=== PATIENT | male | born 1955 | race Caucasian/White ===

== ENCOUNTER 2019-01-24 12:04 | Day surgery (SDC) | payer MEDICAID, SELFPAY ==
[2019-01-24] VITALS (7 sets, daily range): BP systolic 130–184; BP diastolic 80–98; PULSE 69–83; RESP 16–18; TEMP 36.5–37.2; O2SAT 96–98; BMI 30.1
--- NOTE | 2019-01-24 | COLBX_PTH ---
PATIENT: ANA TERESA V LOC: EN U#:[id number] AGE/SX: 63/M ROOM: RE01/24/[address]: Dr. Jewels Chavarria MD : [id number] BED: DIS: 01/24/2019 SPEC #: [id number] RECD: 01/24/19 14:18 STATUS: EPHRAIM ARNOL #: [id number] SEKOU: 01/24/19 00:[address]: Jewels Chavarria DEPT: SURGICAL PATHOLOGY RECD BY: Abdulkadir Whiting ENTERED: 01/24/19 14:18 SP TYPE: COLON BX OTHR DR: Dr. Que Mckay MD Tissues: A - COLON BIOPSY B - Sigmoid colon biopsy Procedures: Surgery Specimen Level IV HEADER OPERATION: Colonoscopy (MAC) PRE-OP DIAGNOSIS: Screening TISSUE SUBMITTED: A - Hepatic flexure biopsy, B - Sigmoid colon biopsy MICROSCOPIC DIAGNOSIS A. Hepatic flexure, biopsy: Tubular adenoma. B. Sigmoid colon, biopsy: Tubular adenoma. Fragments of fecal material. SJ:marli 01/25/19 MICROSCOPIC DESCRIPTION Slides are reviewed. GROSS DESCRIPTION A - Received in fixative is one container labeled with the patient's name and designated hepatic flexure. The specimen consists of one irregular fragment of pink soft tissue that measures 0.2 x 0.2 x 0.2 cm. The specimen is totally submitted in one cassette. B - Received in fixative is one container labeled with the patient's name and designated sigmoid colon polyp. The specimen consists of one irregular fragment of pink soft tissue that measures 0.1 x 0.1 x 0.1 cm. The specimen is totally submitted in one cassette. / CE:marli 01/24/19 TC:1 CPT: 65789 x2
--- NOTE | 2019-01-24 13:48 | OP.ENDO_ITS ---
01/24/2019 Que Mckay Re : Colonoscopy procedure for Jayson Garcia Woody This procedure was performed on Thursday, January 24, 2019. My impressions and recommendations are as follows: Impressions : - Diverticulosis in the sigmoid colon. - One 5 mm polyp at the hepatic flexure, removed with a hot snare. Resected and retrieved. - One 5 to 10 mm polyp in the sigmoid colon, removed with a hot snare. Resected and retrieved. - Non-bleeding internal hemorrhoids. Recommendations : - Repeat colonoscopy date to be determined after pending pathology results are reviewed for surveillance based on pathology results. - My office will telephone with pathology results in 1-2 weeks - Continue present medications. My findings are described in the full procedure note, which is enclosed. If I can be of further assistance, please feel free to contact me at Doctor phone number(s): , Work: . Sincerely, MD Jewels Butler MD 01/24/2019 1:47:34 PM This report has been signed electronically.
== END 2019-01-24 14:41 | disposition home or self-care (01) ==
LOC: EN 12:06 → AC 12:07
PROVIDERS: Family Provider Family Medicine; PCP Family Medicine; Referring Provider Family Medicine; Visit Provider Surgery
PROC: 0DJD8ZZ Inspection of Lower Intestinal Tract, Via Natural or Artificial Opening Endoscopic (ICD-10-PCS; CPT 45378; principal; 2019-01-24 13:10)
DX: Z12.11 Encounter for screening for malignant neoplasm of colon (principal); D12.3 Benign neoplasm of transverse colon; D12.5 Benign neoplasm of sigmoid colon; K31.4 Gastric diverticulum; K64.8 Other hemorrhoids; I10 Essential (primary) hypertension; I73.9 Peripheral vascular disease, unspecified; R25.1 Tremor, unspecified; F17.210 Nicotine dependence, cigarettes, uncomplicated; Z79.82 Long term (current) use of aspirin; Z79.899 Other long term (current) drug therapy
CPT/HCPCS: 45380; 88305; J7120

== ENCOUNTER 2020-03-06 11:15 | Emergency (ER) | payer MEDICAID, SELFPAY ==
[2019-01-24 12:27] VITALS: BMI 30.1
[2020-03-06 11:15] VITALS: BP 134/83; PULSE 78; RESP 18; TEMP 36.4; O2SAT 95; BMI 26.6
--- NOTE | 2020-03-06 11:31 | ED.VISSUMM ---
- ER Visit Summary Date of Service: 03/06/20 Chief Complaint: [Bilateral DVTs] History of Present Illness: The patient is a 64 M [presents to the emergency department due to outpatient ultrasounds performed today that showed bilateral DVTs. Patient states that he has been having some swelling in his feet and calves for about a month. He denies any chest pain or shortness of breath. He has no history of DVT. He denies any trauma to his legs. He denies recent travel or surgery. He denies recent illness. Patient really states that he has not gone anywhere over the last 2 months. Patient has history of hypertension and peripheral vascular disease.] Physical Examination: [HEENT-PERRLA, EOMI. Cranial nerves II through XII grossly intact. TMs clear. Mucous membranes moist. No adenopathy. Cardiovascular-regular rate and rhythm without murmur or ectopy Lungs-clear to auscultation, chest wall stable without crepitus or subcu emphysema Abdomen-normoactive bowel sounds, soft, nontender, no rebound or rigidity, no peritoneal signs. Extremities-intact ?4, normal range of motion, normal pulses, atraumatic. Patient has normal pulses in the femoral, popliteal, and dorsal pedal as well as posterior tibial arteries bilaterally. He has some varicose veins noted bilaterally. Mild discomfort in both calfs on palpation with positive Homans sign. No skin color changes noted. Normal cap refill. Test Results: [Venous Dopplers obtained of both lower extremities showed acute proximal DVT in the distal external iliac vein as well as in the common femoral vein and in the femoral vein from proximal to mid. Patient also had on the left side acute DVT in the distal external iliac vein as well as acute proximal DVT in the common femoral vein and thrombosis in the profundus femoral vein.] Emergency Department Course and Treatment: [Patient was started on Eliquis 10 mg] Treatment Plan: [Patient case was discussed with Dr. Hansen who was covering for Dr. Mckay. I was asked to send off a clotting profile and start patient on Eliquis.] Disposition: [Discharged home in stable condition] Impression: [Bilateral DVTs] This note was generated with [employer] software. It may contain incorrect words, spelling, and punctuation that were not noted in review of the chart prior to signing ED Disposition - Plan for ED Patient: Referrals: Que Mckay MD [Primary Care Provider] -
--- NOTE | 2020-03-06 12:23 | DCINST.ED_ITS ---
ED Disposition - Plan for ED Patient: Instructions: ED DVT Prescriptions: Apixaban [Eliquis] 5 mg PO BID #74 tab Transmission Status: Pending to [facility]/pharmacy #[id number] Referrals: Que Mckay MD [Primary Care Provider] - 3-5 Days
--- NOTE | 2020-03-06 12:23 | ED.DEP ---
ED Disposition - Plan for ED Patient: Instructions: ED DVT Prescriptions: Apixaban [Eliquis] 5 mg PO BID #74 tab Transmission Status: Pending to [facility]/pharmacy #[id number] Referrals: Que Mckay MD [Primary Care Provider] - 3-5 Days
[2020-03-06] MEDS: APIXABAN 5 MG TABLET 10 MG PO (13:12)
[2020-03-06 13:16] VITALS: BP 124/85; PULSE 58; RESP 21; O2SAT 97
[2020-03-16 20:07] LABS: Dilute Prothrombin Time (dPT) 35.6 sec (0.0-55.0); Dilute Russell Viper Venom 33.2 sec (0.0-47.0); PTT-LA 31.4 sec (0.0-51.9); Thrombin Time 19.5 sec (0.0-23.0); dPT Confirm Ratio 0.92 Ratio (0.00-1.40)
[2020-03-16 21:41] LABS: Anti-Cardiolipin Ab, IgG, Qn < 9 GPL U/mL (0-14); Anti-Cardiolipin Ab, IgM, Qn < 9 MPL U/mL (0-12); Antithrombin 3 Function 76 % (75-135); Beta-2-Glycoprotein I IgA <9 (0-25); Beta-2-Glycoprotein I IgG <9 (0-20); Beta-2-Glycoprotein I IgM <9 (0-32); Interpretation Comment: (.); Protein C Antigen 82 % (60-150); Protein S, Free 221 % (57-157); Protein S, Total 125 % (60-150)
== END 2020-03-06 13:16 | disposition home or self-care (01) ==
PROVIDERS: Emergency Provider Emergency Medicine; PCP Family Medicine
DX: I82.421 Acute embolism and thrombosis of right iliac vein (principal); I82.411 Acute embolism and thrombosis of right femoral vein; I82.422 Acute embolism and thrombosis of left iliac vein; I82.412 Acute embolism and thrombosis of left femoral vein; I10 Essential (primary) hypertension; I73.9 Peripheral vascular disease, unspecified; Z72.0 Tobacco use; Z79.899 Other long term (current) drug therapy
CPT/HCPCS: 81240; 81241; 85300; 85302; 85305; 85306; 86146; 86147; 99283; A4216

== ENCOUNTER 2021-05-08 08:50 | Emergency (ER) | payer MEDICAID, SELFPAY ==
[2021-05-08 08:51] VITALS: BP 121/89; PULSE 95; RESP 16; TEMP 36.7; O2SAT 100; BMI 23.4
--- NOTE | 2021-05-08 09:21 | ART_ITS ---
Reason For Study: Decreased pedal pulses Procedure A bilateral lower extremity continuous wave Doppler with analog waveform analysis,segmental pressures,and ankle brachial indexes without exercise. Left Segmental Pressures Left brachial= 121mmHg. The left dorsalis pedis waveforms are biphasic. The left posterior tibial artery waveforms are biphasic. Right Segmental Pressures Right posterior tibial artery = 0mmHg. Right dorsalis pedis artery = 0mmHg. The right dorsalis pedis waveform is absent. The right posterior tibial artery waveform is absent. The right popliteal artery waveform is absent. VL/Lower Ext Art Exam w/o Exercis Interpretation Summary Very limited examination No pulses identified in the right lower extremity so ankle-brachial indices and waveforms not obtainable Reported history of blood clots in the left leg making volume pulse recording s and pressure studies of the left leg not possible. Left posterior tibial and dorsalis pedis Doppler waveforms are biphasic which by themselves consistent with moderately severe disease Ordering Physician: Donita Jackson Referring Physician: Que Mckay Performed By: Cindy Gomes RVT
--- NOTE | 2021-05-08 11:00 | EDS_ITS ---
HPI History of Present Illness Chief Complaint: Lower Extremity Injury Informant: patient Onset/Context/Timing Onset: - (Acute on chronic) Context: Gradual Onset Current Severity: Moderate Maximum Severity: Moderate Narrative Narrative: Patient presents secondary to increased right leg pain for the past 3 days. He has a history of peripheral artery disease. He is currently on Eliquis. No recent injury. He is ambulating with his walker. [facility] Medical History (Updated 05/08/21 @ 11:[address] Donita Jackson MD) Benign essential tremor DVT (deep venous thrombosis) Hypertension Peripheral arterial disease no medical history Home Medications amlodipine [Norvasc] 10 mg PO DAILY 01/19/19 [History Last Taken Unknown] gabapentin 300 mg PO TIDCM 01/19/19 [History Last Taken Unknown] lisinopril [Zestril] 40 mg PO DAILY 01/19/19 [History Last Taken Unknown] primidone 150 mg PO BID 01/19/19 [History Last Taken Unknown] apixaban 5 mg PO BID #74 tab 03/06/20 [Rx Last Taken Unknown] hydrocodone-acetaminophen 1 tab PO Q6H PRN 3 Days #10 tab 05/08/21 [Rx Last Taken Unknown] magnesium 15 mg PO DAILY 05/08/21 [History Last Taken Unknown] Allergy/AdvReac Type Severity Reaction Status Date / Time bee pollen Allergy Anaphylaxis Verified 05/08/21 08:54 Social History Smoking Status: Current every day smoker tobacco type: cigarettes ROS ROS ED Constitutional Constitutional ED: Denies chills or fever(s) Eyes Eyes: Denies change in vision ENT ENT ED: Denies sore throat Cardiovascular Cardiovascular: Denies chest pain Respiratory/Chest Respiratory/Chest: Denies cough or dyspnea Gastrointestinal Gastrointestinal: Denies abdominal pain, diarrhea, nausea or vomiting Genitourinary Genitourinary ED: Denies dysuria Musculoskeletal Musculoskeletal: Reports arthralgias and myalgias; Denies back pain Integumentary Denies rash Neurologic Neurologic: Denies headache(s) Psychiatric Psychiatric: Denies anxiety or depression Allergic/Immunologic Allergic/Immunologic ED: Denies urticaria EXAM Physical Exam Const Vital Signs: 05/08/21 08:51 05/08/21 11:34 Temperature 98.1 F Temperature Source Temporal Pulse Rate 95 88 Respiratory Rate 16 16 Blood Pressure 121/89 H 119/74 Blood Pressure Mean 99 Pulse Ox 100 97 Oxygen Delivery Method Room Air Positive well nourished and well developed General Appearance ED: well developed HEENT Reports normocephalic and head/scalp atraumatic Eyes PERRL and EOMs intact bilaterally Neck supple Chest Wall inspection of chest normal and palpation of chest normal Resp normal respiratory effort and clear to auscultation bilaterally Cardio regular rate and regular rhythm GI normal to inspection, nondistended, normoactive bowel sounds Palpation: soft Extremity Extremity Narrative: Darker discoloration noted to the right lower extremity. Right leg is cool to the touch compared to the left. Venous skin changes are noted to the bilateral lower extremities. No palpable distal pulses. Cap refill is less than 5 seconds. Neuro oriented x3 Sensorium / Orientation: alert Psych mental status grossly normal MDM MDM MDM Narrative Medical decision making narrative: Arterial ultrasound obtained. Treatment and Re-Evaluation Comments:: I spoke with the tech who performed the arterial ultrasound. She stated that she was not able to get popliteal pulses in the right leg or anything distal to that. Biphasic flow was noted to the left leg at the same level. I spoke with the patient's vascular surgeon, Dr. Princess Sterling in [place]. She will see the patient in the office tomorrow. She will have the office call him with an appointment time. Patient is given a dose of [place] here with a prescription for a few tabs. He was given return instructions that if pain significantly worsens or he is unable to move his toes or ankle he is to return to the ER immediately for transfer. Discharge Plan Triage Chief Complaint: Lower Extremity Injury ED Provider: Donita Jackson Dx/Rx/DC Orders Instructions: ED Peripheral Artery Disease (PAD) Prescriptions: New hydrocodone-acetaminophen 5-325 mg tablet 1 tab PO Q6H PRN (Reason: pain) 3 Days Qty: 10 RF: 0 No Action primidone 50 MG tablet 150 mg PO BID RF: 0 amlodipine [Norvasc] 10 MG tablet 10 mg PO DAILY RF: 0 gabapentin 300 MG capsule 300 mg PO TIDCM RF: 0 lisinopril [Zestril] 40 MG tablet 40 mg PO DAILY RF: 0 apixaban 5 MG tablet 5 mg PO BID Qty: 74 RF: 0 magnesium 500 mg Tablet 15 mg PO DAILY RF: 0 Primary Care Provider: Que Mckay Referrals: Que Mckay MD [Primary Care Provider] - Activity Restrictions/Additional Instructions: Dr. Sterling's office will call you with an appointment to be seen tomorrow. If your pain worsens or you have difficulty moving your ankle or toes please return to the emergency room immediately for transfer. Disposition Disposition: Home, Self Care Discharge Date/Time: 05/08/21 11:42
[2021-05-08] MEDS: HYDROcodone Bitartrate/Apap 5/325 Tablet PO (11:31)
[2021-05-08 11:34] VITALS: BP 119/74; PULSE 88; RESP 16; O2SAT 97
== END 2021-05-08 11:42 | disposition home or self-care (01) ==
PROVIDERS: Emergency Provider Emergency Medicine; PCP Family Medicine
DX: I73.9 Peripheral vascular disease, unspecified (principal); F17.210 Nicotine dependence, cigarettes, uncomplicated; I10 Essential (primary) hypertension; Z79.01 Long term (current) use of anticoagulants; Z79.899 Other long term (current) drug therapy
CPT/HCPCS: 93923; 99283

== ENCOUNTER → 2021-06-28 14:42 | Outpatient (CLI) | payer MEDICAID, SELFPAY ==
[2021-06-28 15:47] LABS: Anion Gap 8 (5-15); BUN 6 mg/dL (7-18); BUN/Creat Ratio 7.9 RATIO (10-20); Calcium,Total 8.9 mg/dL (8.5-10.1); Chloride 97 mmol/L (98-107); Creatinine, Serum 0.76 mg/dL (0.70-1.30); EST Glomerular Filtration Rate 110 mL/min (>60); Est Glom Filt Rate - Afr Amer 133 mL/min (>60); Glucose 102 mg/dL (74-106); Potassium 4.7 mmol/L (3.5-5.1); Sodium Level 131 mmol/L (136-145)
== END ==
PROVIDERS: PCP Family Medicine; Referring Provider Family Medicine; Visit Provider Family Medicine
DX: E87.1 Hypo-osmolality and hyponatremia (principal)
CPT/HCPCS: 36415; 80048

== ENCOUNTER 2022-09-16 10:16 | Emergency (ER) | payer MEDICARE, MEDICAID, SELFPAY ==
[2022-09-16 10:17] VITALS: BP 98/59; PULSE 71; RESP 18; TEMP 36.6; O2SAT 99; BMI 27.8
--- NOTE | 2022-09-16 10:32 | CT_ITS ---
EXAM: CT HEAD WITHOUT INTRAVENOUS CONTRAST CLINICAL INDICATION: Head injury on anticoagulation TECHNIQUE: Multiple axial images were obtained of the head without intravenous contrast. This CT exam was performed using one or more of the following dose reduction techniques: automated exposure control, adjustment of the mA and/or kV according to patient size, and/or use of iterative reconstruction technique. This report was created using [employer] report generation technology. RADIATION DOSE: CTDIvol = 44.99 mGy, DLP = 1592.22 mGy-cm COMPARISON: None. FINDINGS: ARTIFACTS: Motion degradation artifact. BRAIN AND EXTRA-AXIAL SPACES: Focal atrophy and cystic encephalomalacia in both medial orbital gyri are presumably from remote injury. Hypodensities in the white matter of both cerebral hemispheres are chronic white matter ischemic changes. No intra- or extra-axial hemorrhage. No intracranial mass or mass effect. Posterior fossa structures are unremarkable. No hydrocephalus. Basal cisterns are patent. BONES/JOINTS: Unremarkable. No discrete lytic or blastic abnormalities. VASCULATURE: Atherosclerotic calcifications in the intradural segments of both vertebral arteries and tubular calcifications in both internal carotid artery siphons. SINUSES: Unremarkable as visualized. Clear. MASTOID AIR CELLS: Unremarkable. Clear. ORBITS: Visualized globes, extraocular muscles, optic nerves and retrobulbar fat appear unremarkable. CT/Brain/Head without Contrast IMPRESSION: 1. Limited study due to motion but no CT evidence of any suspicious intracranial bleeding, acute ischemic infarct or acute intracranial abnormality. 2. Cystic encephalomalacia and atrophy in both medial orbital gyri are presumably from remote injury. 3. Chronic white matter ischemic changes in both cerebral hemispheres. Electronically Signed: Michael Rowland MD at 11:27 EST ,
--- NOTE | 2022-09-16 10:34 | ED.VIS.LOWEX ---
HPI History of Present Illness Chief Complaint: Fall Narrative Narrative: 67-year-old male past medical history of peripheral artery disease with stenting, presents with injury to his left lower extremity that he sustained approximately 5 days ago. He states he was trying to get to his couch with his walker, and banged his walker against his left lower extremity. Caused him to fall. He hit his right yazidism and sustained a rug burn. He denies loss of consciousness. Of note, he takes Eliquis twice a day for his peripheral artery disease. He noticed a blister on his left lower extremity that popped yesterday, but he states the area is now black underneath, swollen, and painful. He denies any fevers or chills. No nausea or vomiting. No other injury. [facility] Medical History Benign essential tremor DVT (deep venous thrombosis) Hypertension Peripheral arterial disease Home Medications amlodipine 10 mg tablet (Norvasc) 10 mg PO DAILY 01/19/19 [History Last Taken Unknown] gabapentin 300 mg capsule 300 mg PO TIDCM 01/19/19 [History Last Taken Unknown] lisinopril 40 mg tablet (Zestril) 40 mg PO DAILY 01/19/19 [History Last Taken Unknown] primidone 50 mg tablet 150 mg PO BID 01/19/19 [History Last Taken Unknown] apixaban 5 mg tablet 5 mg PO BID #74 tabs 03/06/20 [Rx Last Taken Unknown] hydrocodone-acetaminophen 5-325mg 5mg-325mg 1 tab PO Q6H PRN pain 3 days #10 tabs 05/08/21 [Rx Last Taken Unknown] magnesium 500 mg tablet 15 mg PO DAILY 05/08/21 [History Last Taken Unknown] amoxicillin 875 mg-potassium clavulanate 125 mg tablet 1 tab PO BID #20 tabs 09/16/22 [Rx Last Taken Unknown] Allergy/AdvReac Type Severity Reaction Status Date / Time bee pollen Allergy Anaphylaxis Verified 09/16/22 10:20 Social History Smoking Status: Current every day smoker tobacco type: cigarettes ROS ROS ED ROS Narrative Constitutional: No fever, no chills. HEENT: No sore throat. No neck pain. No loss of vision. No rhinorrhea. Head injury 5 days ago. Cardiovascular: No chest pain. No palpitations. No pedal edema. Respiratory: No cough, no shortness of breath. Abdominal: No abdominal pain. No nausea. No vomiting. Genitourinary: No dysuria. No hematuria. Musculoskeletal: No myalgias. No arthralgias. Left lower extremity pain and area of swelling/hematoma. Neurologic: No headaches. No dizziness. No lightheadedness. Skin: No rash. No change in color except underneath blister that popped and is now black. Psychiatric: No depression. No anxiety. EXAM Physical Exam Narrative Exam Narrative: Afebrile. Vital signs noted. HEENT: Normocephalic. Small abrasion to right forehead, no active bleeding. PERRL, EOMI. Neck soft and supple. No point tenderness or step off. Cardiovascular: Regular rate and rhythm. No murmurs, rubs, or gallops appreciated. Respiratory: No tachypnea. Lungs clear to auscultation bilaterally. Gastrointestinal: Abdomen soft, nontender, with normoactive bowel sounds. No rebound or guarding. Neurological: Awake. Alert. Nonfocal, nonlateralizing. Skin: No rash. Normal color. No pallor. There is an area on his medial tibial area that is consistent with an unroofed hematoma with mild surrounding erythema. Mild tenderness to palpation. Palpable dorsalis pedis pulse. Musculoskeletal: No pedal edema. Full range of motion extremities. Const Vital Signs: 09/16/22 10:17 09/16/22 10:29 Temperature 97.9 F Temperature Source Temporal Pulse Rate 71 Respiratory Rate 18 Respiratory Effort Normal Non-Labored Blood Pressure 98/59 L Blood Pressure Mean 72 Pulse Ox 99 Oxygen Delivery Method Room Air Room Air MDM MDM MDM Narrative Medical decision making narrative: CT of the brain was obtained, although his injury was remote, he is a head injury on anticoagulation. CT of the brain shows no evidence of acute skull fracture or hemorrhage. X-ray of the left tibia/fibula interpreted by myself shows no acute fracture. There is noted soft tissue swelling consistent with his hematoma. At this point in time, I do feel that giving his surrounding erythema, that he most likely is getting an infection of the hematoma on his left lower extremity. He was written a prescription for Augmentin for the next 10 days. He will continue elevation of his leg. Return instructions to the emergency department were reviewed. I advised him to have his wound rechecked by his primary care provider in the next 3 to 5 days or return to the emergency department. Disposition is discharged home in stable condition. Radiography Diagnostic Testing: Clinical Impression(s) from Imaging Studies Brain CT 09/16/22 10:32 IMPRESSION: 1. Limited study due to motion but no CT evidence of any suspicious intracranial bleeding, acute ischemic infarct or acute intracranial abnormality. 2. Cystic encephalomalacia and atrophy in both medial orbital gyri are presumably from remote injury. 3. Chronic white matter ischemic changes in both cerebral hemispheres. Electronically Signed: Michael Rowland MD at 11:27 EST , Tibia/Fibula X-Ray 09/16/22 10:55 IMPRESSION: Negative left tibia and fibula x-rays. Electronically Signed: Michael Rowland MD at 11:13 EST , Discharge Plan Triage Chief Complaint: Fall ED Provider: Michael Beebe Dx/Rx/DC Orders Clinical Impression: Fall, Infected hematoma Instructions: ED Hematoma, ED Wound Check (Infection) Prescriptions: New amoxicillin-pot clavulanate 875-125 mg tablet 1 tab PO BID Qty: 20 0RF No Action primidone 50 MG tablet 150 mg PO BID amlodipine [Norvasc] 10 MG tablet 10 mg PO DAILY gabapentin 300 MG capsule 300 mg PO TIDCM lisinopril [Zestril] 40 MG tablet 40 mg PO DAILY apixaban 5 MG tablet 5 mg PO BID Qty: 74 0RF Rx Instructions: 10 mg twice a day for the first week. Then 5 mg twice a day. magnesium 500 mg Tablet 15 mg PO DAILY hydrocodone-acetaminophen 5-325 mg tablet 1 tab PO Q6H PRN (Reason: pain) 3 Days Qty: 10 0RF Primary Care Provider: Que Mckay Referrals: Que Mckay MD [Primary Care Provider] - 3-5 Days if not improving Disposition Disposition: Home, Self Care
--- NOTE | 2022-09-16 10:55 | RAD_ITS ---
EXAM: XR LEFT TIBIA AND FIBULA, 2 VIEWS CLINICAL INDICATION: Trauma injury with pain. TECHNIQUE: Frontal and lateral views of the left tibia and fibula. This report was created using [employer] report generation technology. COMPARISON: None. FINDINGS: BONES/JOINTS: Unremarkable. No acute fracture. No subluxation. Normal alignment. Preservation of the joint space. No sclerotic or destructive changes observed. SOFT TISSUES: Unremarkable. No soft tissue swelling or gas. No radiopaque foreign body. RAD/Tibia & Fibula 2 Views IMPRESSION: Negative left tibia and fibula x-rays. Electronically Signed: Michael Rowland MD at 11:13 EST ,
== END 2022-09-16 11:51 | disposition home or self-care (01) ==
PROVIDERS: Emergency Provider Emergency Medicine; PCP Family Medicine; Visit Provider Emergency Medicine
DX: S09.90XA Unspecified injury of head, initial encounter (principal); I73.9 Peripheral vascular disease, unspecified; F17.210 Nicotine dependence, cigarettes, uncomplicated; I10 Essential (primary) hypertension; L08.9 Local infection of the skin and subcutaneous tissue, unspecified; Z79.01 Long term (current) use of anticoagulants; W01.0XXA Fall on same level from slipping, tripping and stumbling without subsequent striking against object, initial encounter
CPT/HCPCS: 70450; 73590; 99282

== ENCOUNTER 2022-10-17 09:30 | Outpatient (RCR) | payer MEDICARE, MEDICAID, SELFPAY ==
[2022-10-17 10:07] VITALS: BP 155/78; PULSE 88; TEMP 36.2; BMI 27.3
--- NOTE | 2022-10-17 10:12 | WC ---
Large protruding hematoma- fully intact - left medial LE
--- NOTE | 2022-10-17 12:38 | PCM.WC.HP ---
History of Present Illness Date of Service: 10/17/22 Chief Complaint: Left lower leg hematoma History of Wound: Patient had a fall on 09/11/2022 during which he hit his LLE on his walker and his head on the ground. He was evaluated in the ED on 09/16/2022. Imaging did not reveal any significant injury. He was felt to have an infected hematoma on his left lower leg and was prescribed Augmentin to treat. He then f/u with his PCP on 10/09 and hematoma was found to be stable with overlying eschar and no signs of infection. Patient reports that the hematoma appears smaller than initial injury but otherwise has remained quite stable. It has never opened up and only one episode of minimal drainage about 1 week ago. He has been keeping the area of the hematoma clean and dry, not applying any products or covering. No significant pain, drainage, foul-odor. He denies F/C, N/V, current claudication-type symptoms though he ambulates minimally, no rest/nocturnal pain, no significant discoloration/pallor. His past medical history is significant for PAD with multiple prior interventions including several stents placed in bilateral LE arteries, unclear which and no records available for review. All vascular interventions performed at [facility]. He has a history of DVT in LLE. He is being evaluated and treated for anemia by PCP. He also has tremor and ataxia. He reports history of nonhealing wounds bilateral lower extremities. He takes Eliquis and ASA. He does smoke 1-2 ppd, he is considering cutting back. He reports his has vascular studies scheduled for 10/28 to include arterial studies. He is accompanied to [facility] by manager books Rachael who supplements history. [facility] Medical History Benign essential tremor DVT (deep venous thrombosis) Hypertension Peripheral arterial disease Home Medications amlodipine 10 mg tablet (Norvasc) 10 mg PO DAILY 01/19/19 [History Last Taken Unknown] gabapentin 300 mg capsule 300 mg PO TIDCM 01/19/19 [History Last Taken Unknown] lisinopril 40 mg tablet (Zestril) 40 mg PO DAILY 01/19/19 [History Last Taken Unknown] apixaban 5 mg tablet 5 mg PO BID #74 tabs 03/06/20 [Rx Last Taken Unknown] magnesium 500 mg tablet 15 mg PO DAILY 05/08/21 [History Last Taken Unknown] aspirin 81 mg tablet 81 mg PO DAILY 10/17/22 [History Last Taken Unknown] folic acid 1 mg tablet 1 mg PO DAILY 10/17/22 [History Last Taken Unknown] rosuvastatin 20 mg tablet (Crestor) 20 mg PO DAILY 10/17/22 [History Last Taken Unknown] Allergy/AdvReac Type Severity Reaction Status Date / Time bee pollen Allergy Anaphylaxis Verified 09/16/22 10:20 Social History Smoking Status: Current every day smoker tobacco type: cigarettes ROS Constitutional Constitutional: Denies change in weight, chills, difficulty sleeping, fatigue, fever(s), frequent falls, lethargy, night sweats or weakness Eyes Eyes: Denies blindness, blurry vision, change in vision, eye pain or ptosis ENT HEENT: Denies abnormal hearing, change in voice, hearing loss, loss taste/smell or vertigo Cardiovascular Cardiovascular: Denies abdominal pain, chest pain, claudication, cold extremities, cyanosis, diaphoresis, dyspnea, dyspnea on exertion, fatigue, hypertension, irregular heart rhythm, leg edema, leg ulcers, orthopnea, palpitations, radiating jaw, neck or arm pain or syncope Respiratory/Chest Respiratory/Chest: Denies cough, dyspnea, hemoptysis, nail bed cyanosis, sonia-oral cyanosis, portable oxygen @ home, productive cough or wheezing Gastrointestinal Gastrointestinal: Denies abdominal pain, change in bowel habits, change in stool character, coffee ground emesis, melena, rectal bleeding or weight changes Genitourinary Genitourinary: Denies abdominal discomfort, burning urination, difficulty urinating or flank pain Musculoskeletal Musculoskeletal: Denies abnormal gait, difficulty walking, joint swelling, muscle cramps, muscle weakness or numbness Integumentary Integumentary: Reports wounds; Denies change in pigmentation, changing lesions, erythema, lesions, rash, skin ulcer or unusual bruising Neurologic Neurologic: Denies abnormal gait, abnormal movements, abnormal speech, behavior changes, frequent falls, syncope, tingling or weakness Psychiatric Psychiatric: Denies behavioral changes, cognitive impairment or depression Endocrine Endocrinology: Denies change in body appearance, cold intolerance, excessive sweating, flushing, heat intolerance, palpitations, polydipsia, polyphagia or polyuria Hematologic/Lymphatic Hematologic/Lymphatic: Reports anemia; Denies easy bleeding, easy bruising or lymphadenopathy Allergic/Immunologic Allergic/Immunologic: Denies seasonal rhinorrhea, throat swelling, tongue swelling, hives or asthma Vital Signs Vital Signs Vital Signs: 10/17/22 10:07 Temperature 97.1 F L Temperature Source Temporal Pulse Rate 88 Blood Pressure 155/78 H Blood Pressure Mean 103 Blood Pressure Source Monitor Weight Weight: 180 lb Body Mass Index (BMI) 27.3 Physical Exam Const alert, oriented x3, no apparent distress and healthy appearing General Appearance: cooperative and comfortable Exam Limitations: no limitations HEENT normocephalic, head/scalp atraumatic, hearing grossly normal bilaterally, external ears normal and external nose normal Eyes EOMs intact bilaterally General Eye: normal appearance of both eyes Neck full ROM General: trachea midline; Negative for anterior neck swelling or lymphadenopathy Resp normal respiratory effort and clear to auscultation bilaterally Effort and Inspection: able to speak in complete sentences and symmetric chest movement; Negative for respiratory distress, labored, stridor, actively coughing, uses accessory muscles or audible wheezes Cardio regular rate and regular rhythm Peripheral Pulses: brachial pulses present and radial pulses present Extremity Extremity Narrative: LLE with mild (1+) swelling, varicose veins noted. No significant pallor or discoloration, good capillary refill. Nonpalpable pulses and nurse reported difficulty finding doppler signals. Wound as described below. Skin no rashes or lesions noted, no petechiae and no mottling Wound Narrative: Hematoma with stable eschar overlying medial LLE. No surrounding erythema, warmth, flucutance/induration, drainage, foul-odor. No opening/unroofing of eschar noted. No other wounds. Neuro oriented x3, CN's II-XII intact bilaterally, moves all extremities and no sensory deficits noted Neuro Narrative: Ataxic gait. Tremor of hands and head. Psych mental status grossly normal Appearance: grossly normal Attitude: calm and engaged Activity / Motor Behavior: appropriate eye contact Speech: normal speech Mood & Affect: euthymic mood Thought Process: normal thought process Thought Content: normal thought content Attention / Concentration: attention grossly intact Memory / Cognition: memory grossly intact Insight: insight good Judgement: judgement good Debridement Note Debridement Note No debridement was completed: No debridement was completed today Post-Debridement Measurements and Additional Note: Post-Debridement Measurements/Treatment WC - Nurse 1 - General Ulcer Assessment Start: 10/17/22 10:01 Freq: Status: Active Protocol: MYLES Activity Type Activity Date Activity User E-sign Co-sign Detail Recorded Client Recorded Date Recorded By Document 10/17/22 10:07 SAV [id number] 10/17/22 10:16 SAV 10/17/22 10:07 WC - Today's Visit Information Type of service Initial Visit Arrival Mode Wheelchair Patient Identification Verified (Name & Yes ) Patient Requires Transmission-Based No Precautions Safety Precautions NA Height and Weight Height 5 ft 8 in Weight 180 lb Weight in Pounds 180.0 lbs Body Mass Index (BMI) 27.3 BMI Classification Overweight BSA - Rony 1.95 Vital Signs Temperature (97.8 F-99.1 F) 97.1 F L Temperature Source Temporal Pulse Rate (60-100) 88 Pulse Location Monitor Blood Pressure (90/60-120/80) 155/78 H Blood Pressure Mean 103 Source Monitor History Since Last Visit- (Skip if this is Patient's initial visit) Have you changed medications since your No last visit? Any new allergies or adverse reactions No Had a fall/change in ADL's that may No increase risk of falls Signs or symptoms of abuse and/or No neglect since last visit Have you been in the hospital since your No last visit? Has dressing in place as prescribed Yes Has compression in place as prescribed N/A Has offloadiing in place as prescribed N/A Experienced any changes in pain level or No management Left Footwear Regular Shoe Right Footwear Regular Shoe Pain Scale: 0-10 Numeric Is Patient Pain Free? Yes - Nurse 1 - General Ulcer Measurement Start: 10/17/22 10:01 Freq: Status: Active Protocol: Activity Type Activity Date Activity User E-sign Co-sign Detail Recorded Client Recorded Date Recorded By Document 10/17/22 10:07 SAV [id number] 10/17/22 10:16 SAV 10/17/22 10:07 Wound Center Nurse 1 Lower Limb Edema Present No Right Calf (cm) 31.7 Right Ankle (cm) 19.2 Left Calf (cm) 32.5 Left Ankle (cm) 20.5 10/17/22 10:12 Wound Center by Epifanio Butts Large protruding hematoma- fully intact - left medial LE Initialized on 10/17/22 10:12 - END OF NOTE WC - Nurse 2 - General Ulcer CM Notes Start: 10/17/22 10:01 Freq: Status: Active Protocol: Activity Type Activity Date Activity User E-sign Co-sign Detail Recorded Client Recorded Date Recorded By Document 10/17/22 12:06 PL [id number] 10/17/22 12:07 PL 10/17/22 12:06 Wound Center Nurse 2 #1 Left Lower Leg -Procedure Performed No -Post Debridement (cm) - Length 4.0 -Post Debridement (cm) - Width 3.5 -Post Debridement (cm) - Depth 0.1 -Total Square (Post) (cm) 14.00 -Wound/Ulcer Outcome Not Healed Pain Scale: 0-10 Numeric Is Patient Pain Free? Yes WC - Nurse 3 - General Ulcer D/C NN Start: 10/17/22 10:01 Freq: Status: Active Protocol: Activity Type Activity Date Activity User E-sign Co-sign Detail Recorded Client Recorded Date Recorded By Document 10/17/22 10:43 VA [id number] 10/17/22 10:43 AK 10/17/22 10:43 Is Patient Pain Free? Yes WC - Visit Discharge Discharge Condition Stable Ambulatory Status Wheelchair Accompanied by aid Medication Reconcilliation completed & Yes provided to patient/care provider Clinical Summary of Care Provided Yes Notes: Betadine over hematoma Charges/Coding Visit Charges Office Visits / Consults: 42018 OV L2 New Assessment/Plan Assessment/Plan (1) Peripheral arterial disease: CODE(S): I73.9 - Peripheral vascular disease, unspecified (2) Hematoma of left lower extremity: CODE(S): S80.12XA - Contusion of left lower leg, initial encounter PLAN: Plan Given patient's extensive history of endovascular arterial intervention/PAD and not easily palpable pulses in LLE on exam, not eager to proceed with debridement until an objective assessment of arterial flow completed, especially given current stable eschar and no signs/symptoms of infection at this time. Plan to defer debridement until after reviewing results from LEAS scheduled for 10/28. Last LEAS available for review from 05/11 with relatively nonconclusive but with signs of diminished arterial flow to LLE; patient reports he has had intervention since then so I hope updated studies will show improved flow. As long as LEAS shows sufficient flow to heal, will plan to perform debridement at next visit. In the meantime, will paint with betadine and cover with DSD. Instructed patient to change daily or more often as needed to keep clean and dry. Did behavioral school counselors patient regarding the importance of smoking cessation and improving diet (increasing protein and decreasing carbs/sugars) to promote healing. Additionally, behavioral school counselors elevating LE when not ambulating as tolerated. Instructed to monitor for signs/symptoms of infection and if identified to call [facility], PCP, or present to ER. He will return to clinic in 2 weeks after vascular studies, or sooner as needed.
== END 2022-10-21 23:59 | disposition home or self-care (01) ==
LOC: WC 09:30
PROVIDERS: PCP Family Medicine; Visit Provider Physician Assistant
DX: S80.12XA Contusion of left lower leg, initial encounter (principal); I73.9 Peripheral vascular disease, unspecified; F17.210 Nicotine dependence, cigarettes, uncomplicated; R27.0 Ataxia, unspecified; R25.1 Tremor, unspecified; I10 Essential (primary) hypertension; Z86.718 Personal history of other venous thrombosis and embolism
CPT/HCPCS: 99213; G0463

== ENCOUNTER 2022-11-07 08:30 | Outpatient (RCR) | payer MEDICARE, MEDICAID, SELFPAY ==
[2022-10-22 00:50] VITALS: BP 155/78; PULSE 88; TEMP 36.2; BMI 27.3
[2022-10-31 08:30] VITALS: BP 128/59; PULSE 86; TEMP 36.2; BMI 27.3
--- NOTE | 2022-10-31 08:43 | PN.PCM_ITS ---
History of Present Illness Date of Service: 10/31/22 Chief Complaint: Left lower leg hematoma History of Wound: Patient had a fall on 09/11/2022 during which he hit his LLE on his walker and his head on the ground. He was evaluated in the ED on 09/16/2022. Imaging did not reveal any significant injury. He was felt to have an infected hematoma on his left lower leg and was prescribed Augmentin to treat. He then f/u with his PCP on 10/09 and hematoma was found to be stable with overlying eschar and no signs of infection. Patient reports that the hematoma appears smaller than initial injury but otherwise has remained quite stable. His past medical history is significant for PAD with multiple prior interventions including several stents placed in bilateral LE arteries, unclear which and no records available for review. All vascular interventions performed at [facility]. He has a history of DVT in LLE. He is being evaluated and treated for anemia by PCP. He also has tremor and ataxia. He reports history of nonhealing wounds bilateral lower extremities. He takes Eliquis and ASA. He does smoke 1-2 ppd, he is considering cutting back. He is accompanied to [facility] by management professional Rachael who supplements history. She is with him Thursday-Thursday. Subjective Subjective Patient saw his vascular surgeon Dr. Sterling on Thursday. He completed arterial studies for that visit. Dr. Sterling unroofed the hematoma while he was there and applied promogram. He has not changed the dressing since then. No significant drainage, redness, or increased pain to the area. No F/C, N/V. No other complaints. Objective Data Objective Data Vital Signs: Vital Signs Temp Pulse BP 97.1 F L 86 128/59 H 10/31/22 08:30 10/31/22 08:30 10/31/22 08:30 Weight: 180 lb Body Mass Index (BMI) 27.3 Charges/Coding Wound Center CF Procedures [id number]: [id number] RMVL DEVITAL TIS 20 CM/< Multi Select Codes Wound Center CF Procedures [id number]: [id number] RMVL DEVITAL TIS 20 CM/< Physical Exam Const alert, oriented x3, no apparent distress and healthy appearing General Appearance: cooperative and comfortable Exam Limitations: no limitations HEENT normocephalic, head/scalp atraumatic, hearing grossly normal bilaterally, external ears normal and external nose normal Eyes EOMs intact bilaterally General Eye: normal appearance of both eyes Neck full ROM General: trachea midline; Negative for anterior neck swelling or lymphadenopathy Resp normal respiratory effort Effort and Inspection: able to speak in complete sentences and symmetric chest movement; Negative for respiratory distress, labored, stridor, actively coughing, uses accessory muscles or audible wheezes Cardio regular rate and regular rhythm Extremity Extremity Narrative: LLE with mild (1+) swelling, varicose veins noted. No significant pallor or discoloration. Wound as described below. Skin no rashes or lesions noted, no petechiae and no mottling Wound Narrative: Hematoma was unroofed. Wound bed with some slough and epibole at the edges, but good granulation tissue. No surrounding erythema, warmth, fluctuance/induration, drainage, foul-odor. No other wounds. Neuro oriented x3, CN's II-XII intact bilaterally, moves all extremities and no sensory deficits noted Neuro Narrative: Ataxic gait. Tremor of hands and head. Psych mental status grossly normal Appearance: grossly normal Attitude: calm and engaged Activity / Motor Behavior: appropriate eye contact Speech: normal speech Mood & Affect: euthymic mood Thought Process: normal thought process Thought Content: normal thought content Attention / Concentration: attention grossly intact Memory / Cognition: memory grossly intact Insight: insight good Judgement: judgement good Debridement Note Debridement Note Wound debrided: Left lower leg Laterality: Left Type of Debridement: Excisional debridement Anesthesia Used: 5% Lidocaine Gel Depth: Down to and including healthy tissue and in the subcutaneous layer Percentage of wound debrided: 100 Instrument Used: 5mm curette Tissue Removed: Slough, devitalized tissue Amount of bleeding with debridement: Mild Bleeding Controlled with: Pressure Patient tolerated procedure: Patient tolerated procedure well Post-Debridement Measurements and Additional Note: Post-Debridement Measurements/Treatment - Nurse 1 - General Ulcer Assessment Start: 10/31/22 08:29 Freq: Status: Active Protocol: MYLES Activity Type Activity Date Activity User E-sign Co-sign Detail Recorded Client Recorded Date Recorded By Document 10/31/22 08:30 SAV [id number] 10/31/22 08:32 AK 10/31/22 08:30 - Today's Visit Information Type of service Follow-up Visit (Physician/CHANGE MANAGEMENT COORDINATOR ) Arrival Mode Wheelchair Patient Identification Verified (Name & Yes ) Patient Requires Transmission-Based No Precautions Height and Weight Body Mass Index (BMI) 27.3 BMI Classification Overweight Vital Signs Temperature (97.8 F-99.1 F) 97.1 F L Temperature Source Temporal Pulse Rate (60-100) 86 Pulse Location Monitor Blood Pressure (90/60-120/80) 128/59 H Blood Pressure Mean (mm Hg) 82 Source Monitor History Since Last Visit- (Skip if this is Patient's initial visit) Have you changed medications since your No last visit? Any new allergies or adverse reactions No Had a fall/change in ADL's that may No increase risk of falls Signs or symptoms of abuse and/or No neglect since last visit Have you been in the hospital since your No last visit? Has dressing in place as prescribed Yes Has compression in place as prescribed N/A Has offloadiing in place as prescribed N/A Experienced any changes in pain level or No management Left Footwear Regular Shoe Right Footwear Regular Shoe Pain Scale: 0-10 Numeric Is Patient Pain Free? Yes WC - Nurse 1 - General Ulcer Measurement Start: 10/31/22 08:29 Freq: Status: Active Protocol: Activity Type Activity Date Activity User E-sign Co-sign Detail Recorded Client Recorded Date Recorded By Document 10/31/22 08:30 SAV [id number] 10/31/22 08:32 SAV 10/31/22 08:30 Wound Center Nurse 1 #1 Left Lower Leg -Combined with other wound No -Current Size (cm) - Length 3 -Current Size (cm) - Width 2.5 -Current Size (cm) - Depth 0.1 -Total Square Cm 7.5 -Date of Last Picture (Recall this 10/31/22 field) -Photo Taken Yes -Tunneling No -Undermining/Tunneling No -Circular Undermining No -Change in Wound Grade/Stage No -Exudate Amt Medium -Exudate Type Serosanguineous -Wound Margin Distinct, Outline Attached -Granulation Amt Medium (34-66%) -Granulation Quality [place] -Slough/Fibrin Yes -Necrosis Amt Medium (34-66%) -Necrotic Tissue Type Adherent Slough -Structure Exposed N/A -Texture ([place]-wound Skin Appearance) No Abnormality, Assessed -Moisture ([place]era-wound Skin Appearance) No Abnormality, Assessed -Color (Humera-wound Skin Appearance) No Abnormality, Assessed -Temperature ([place]era-wound Skin No Abnormality Appearance) (Pt Warm) -Tenderness on Palpation ([place]-wound No Skin Appearance) -Ulcer Cleansing Rinsed/ Irrigated with Saline -Foul Odor after Cleansing No -Anesthetic Used 5% Lidocaine Gel -Wound Comment(s) Dr. Sterling removed the top layer of hematoma Assessment/Plan Assessment/Plan (1) Peripheral arterial disease: CODE(S): I73.9 - Peripheral vascular disease, unspecified (2) Hematoma of left lower extremity: CODE(S): S80.12XA - Contusion of left lower leg, initial encounter PLAN: Plan Patient's recent LEAS revealed R CHUY 0.56 with patent prior interventions. Left CHUY unable to be obtained due to location of the wound, wave forms were monophasic. Called Dr. Sterling's office to discuss, she felt that he likely has sufficient flow to the area to heal, but if healing becomes delayed/negative progress with debridement she would consider revascularization. Patient tolerated debridement well today, good granulation tissue at wound base. Will apply promogram, cover with silicone bordered dressing. Change daily, keep clean and dry. Elevate legs when resting. Did career and guidance counselor patient regarding the importance of smoking cessation and improving diet (increasing protein and decreasing carbs/sugars) to promote healing. He will return to clinic in 1 week or sooner as needed.
[2022-11-07 08:36] VITALS: BP 133/62; PULSE 131; RESP 16; TEMP 36.2; BMI 27.3
--- NOTE | 2022-11-07 09:07 | PN.PCM_ITS ---
History of Present Illness Date of Service: 11/07/22 Chief Complaint: Left lower leg wound History of Wound: Patient had a fall on 09/11/2022 during which he hit his LLE on his walker and his head on the ground. He was evaluated in the ED on 09/16/2022. Imaging did not reveal any significant injury. He was felt to have an infected hematoma on his left lower leg and was prescribed Augmentin to treat. He then f/u with his PCP on 10/09 and hematoma was found to be stable with overlying eschar and no signs of infection. Patient reports that the hematoma appears smaller than initial injury but otherwise has remained quite stable. His past medical history is significant for PAD with multiple prior interventions including several stents placed in bilateral LE arteries, unclear which and no records available for review. All vascular interventions performed at [facility]. He has a history of DVT in LLE. He is being evaluated and treated for anemia by PCP. He also has tremor and ataxia. He reports history of nonhealing wounds bilateral lower extremities. He takes Eliquis and ASA. He does smoke 1-2 ppd, he is considering cutting back. He is accompanied to [facility] by student development coordinator Rachael who supplements history. She is with him Thursday-Thursday. Subjective Subjective Patient is doing well. Dressing changes are going well, received ordered supplies earlier this week. He and caregiver report no significant drainage, foul smell, redness, pain, swelling. No F/C, N/V. No other complaints. Objective Data Objective Data Vital Signs: Vital Signs Temp Pulse Resp BP 97.1 F L 131 H 16 133/62 H 11/07/22 08:36 11/07/22 08:36 11/07/22 08:36 11/07/22 08:36 Weight: 180 lb Body Mass Index (BMI) 27.3 Charges/Coding Wound Center CF Procedures 96XXX-98XXX: 62713 RMVL DEVITAL TIS 20 CM/< Multi Select Codes Wound Center CF Procedures 96XXX-98XXX: 14731 RMVL DEVITAL TIS 20 CM/< Physical Exam Const alert, oriented x3, no apparent distress and healthy appearing General Appearance: cooperative and comfortable Exam Limitations: no limitations HEENT normocephalic, head/scalp atraumatic, hearing grossly normal bilaterally, external ears normal and external nose normal Eyes EOMs intact bilaterally General Eye: normal appearance of both eyes Neck full ROM General: trachea midline; Negative for anterior neck swelling or lymphadenopathy Resp normal respiratory effort Effort and Inspection: able to speak in complete sentences and symmetric chest movement; Negative for respiratory distress, labored, stridor, actively coughing, uses accessory muscles or audible wheezes Cardio regular rate and regular rhythm Extremity Extremity Narrative: LLE with mild (1+) swelling, varicose veins noted. No significant pallor or discoloration. Wound as described below. Skin no rashes or lesions noted, no petechiae and no mottling Wound Narrative: Wound bed with some slough and epibole at the edges, but good granulation tissue. No surrounding erythema, warmth, fluctuance/induration, drainage, foul- odor. No other wounds. Neuro oriented x3, CN's II-XII intact bilaterally, moves all extremities and no sensory deficits noted Neuro Narrative: Ataxic gait. Tremor of hands and head. Psych mental status grossly normal Appearance: grossly normal Attitude: calm and engaged Activity / Motor Behavior: appropriate eye contact Speech: normal speech Mood & Affect: euthymic mood Thought Process: normal thought process Thought Content: normal thought content Attention / Concentration: attention grossly intact Memory / Cognition: memory grossly intact Insight: insight good Judgement: judgement good Debridement Note Debridement Note Wound debrided: Left lower leg Laterality: Left Type of Debridement: Excisional debridement Anesthesia Used: 5% Lidocaine Gel Depth: Down to and including healthy tissue and in the subcutaneous layer Percentage of wound debrided: 100 Instrument Used: 5mm curette Tissue Removed: Slough, devitalized tissue Amount of bleeding with debridement: Mild Bleeding Controlled with: Pressure Patient tolerated procedure: Patient tolerated procedure well Post-Debridement Measurements and Additional Note: Post-Debridement Measurements/Treatment - Nurse 1 - General Ulcer Assessment Start: 10/31/22 08:29 Freq: Status: Active Protocol: MYLES Activity Type Activity Date Activity User E-sign Co-sign Detail Recorded Client Recorded Date Recorded By Document 10/31/22 08:30 AK [id number] 10/31/22 08:32 AK Document 11/07/22 08:36 ALEJA [id number] 11/07/22 08:38 ALEJA 10/31/22 11/07/22 08:30 08:36 - Today's Visit Information Type of service Follow-up Visit Follow-up Visit (Physician/MANUFACTURING SALES REPRESENTATIVE (Physician/MANUFACTURING SALES REPRESENTATIVE ) ) Arrival Mode Wheelchair Wheelchair Transfer Assistance Manual Accompanied by caregiver Patient Identification Verified (Name & Yes Yes ) Patient Requires Transmission-Based No No Precautions Height and Weight Body Mass Index (BMI) 27.3 27.3 BMI Classification Overweight Overweight Vital Signs Temperature (97.8 F-99.1 F) 97.1 F L 97.1 F L Temperature Source Temporal Temporal Pulse Rate (60-100) 86 131 H Pulse Location Monitor Monitor Respiratory Rate (12-18) 16 Respiratory rate source Observation Blood Pressure (90/60-120/80) 128/59 H 133/62 H Blood Pressure Mean (mm Hg) 82 85 Source Monitor Monitor Position Semi-Fowlers Blood Pressure Location Left Arm History Since Last Visit- (Skip if this is Patient's initial visit) Have you changed medications since your No No last visit? Any new allergies or adverse reactions No No Had a fall/change in ADL's that may No No increase risk of falls Signs or symptoms of abuse and/or No No neglect since last visit Have you been in the hospital since your No No last visit? Has dressing in place as prescribed Yes Yes Has compression in place as prescribed N/A N/A Has offloadiing in place as prescribed N/A N/A Experienced any changes in pain level or No No management Left Footwear Regular Shoe Regular Shoe Right Footwear Regular Shoe Regular Shoe Pain Scale: 0-10 Numeric Is Patient Pain Free? Yes Yes WC - Nurse 1 - General Ulcer Measurement Start: 10/31/22 08:29 Freq: Status: Active Protocol: Activity Type Activity Date Activity User E-sign Co-sign Detail Recorded Client Recorded Date Recorded By Document 10/31/22 08:30 AK [id number] 10/31/22 08:32 AK Document 11/07/22 08:36 JF [id number] 11/07/22 08:38 ALEJA 10/31/22 11/07/22 08:30 08:36 Wound Center Nurse 1 #1 Left Lower Leg -Combined with other wound No No -Current Size (cm) - Length 3 2.2 -Current Size (cm) - Width 2.5 2.3 -Current Size (cm) - Depth 0.1 0.1 -Total Square Cm 7.5 5.06 -Date of Last Picture (Recall this 10/31/22 field) -Photo Taken Yes Yes -Epithelialization Medium 34-66% -Tunneling No No -Undermining/Tunneling No No -Circular Undermining No No -Change in Wound Grade/Stage No -Exudate Amt Medium Medium -Exudate Type Serosanguineous Serosanguineous -Wound Margin Distinct, Flat & Intact Outline Attached -Granulation Amt Medium (34-66%) Medium (34-66%) -Granulation Quality [place] Red -Slough/Fibrin Yes Yes -Necrosis Amt Medium (34-66%) Medium (34-66%) -Necrotic Tissue Type Adherent Slough Adherent Slough -Structure Exposed N/A N/A -Texture (Humera-wound Skin Appearance) No Abnormality, Assessed, Assessed Localized Edema -Moisture (Humera-wound Skin Appearance) No Abnormality, Assessed,Dry/ Assessed Scaly -Color (Humera-wound Skin Appearance) No Abnormality, Assessed, Assessed Hemosiderin Staining -Temperature (Humera-wound Skin No Abnormality No Abnormality Appearance) (Pt Warm) (Pt Warm) -Tenderness on Palpation (Humera-wound No No Skin Appearance) -Ulcer Cleansing Rinsed/ Rinsed/ Irrigated with Irrigated with Saline Saline -Foul Odor after Cleansing No No -Anesthetic Used 5% Lidocaine 5% Lidocaine Gel Gel -Wound Comment(s) Dr. Sterling removed the top layer of hematoma Lower Limb Edema Present No WC - Nurse 2 - General Ulcer CM Notes Start: 10/31/22 08:29 Freq: Status: Active Protocol: Activity Type Activity Date Activity User E-sign Co-sign Detail Recorded Client Recorded Date Recorded By Document 10/31/22 12:59 PL [id number] 10/31/22 13:00 PL 10/31/22 12:59 Wound Center Nurse 2 #1 Left Lower Leg -Time 08:31 -Correct Patient Yes -Correct Side, Site, Position Yes -Correct Procedure Yes -Procedure Performed Yes -Type of Procedure Debridement -Clinical Debridement Subcutaneous -Tissue Removed Subcutaneous -Post Debridement (cm) - Length 3.0 -Post Debridement (cm) - Width 2.8 -Post Debridement (cm) - Depth 0.4 -Total Square (Post) (cm) 8.40 -Area of Debridement (cm) - Length 3.0 -Area of Debridement (cm) - Width 2.8 -Total Square (Area) (cm) 8.40 -Tunneling No -Undermining/Tunneling No -Circular Undermining No -Wound/Ulcer Outcome Not Healed -Ulcer Cleansing Rinsed/ Irrigated with Saline -Foul Odor after Cleansing No -Bioengineered Tissue No -Bleeding Controlled with Pressure -Treatment Response Procedure Tolerated Well -Debridement - Subq, 1st 20sq cm Yes Pain Scale: 0-10 Numeric Is Patient Pain Free? Yes - Nurse 3 - General Ulcer D/C NN Start: 10/31/22 08:29 Freq: Status: Active Protocol: Activity Type Activity Date Activity User E-sign Co-sign Detail Recorded Client Recorded Date Recorded By Document 10/31/22 08:51 AK [id number] 10/31/22 08:52 AK Document 11/07/22 08:59 JF [id number] 11/07/22 09:00 JF 10/31/22 11/07/22 08:51 08:59 Wound Care Center Nurse 3 #1 Left Lower Leg -Ulcer Cleansing Rinsed/ Rinsed/ Irrigated with Irrigated with Saline Saline -Foul Odor after Cleansing No No -Negative Pressure Wound Therapy N/A -Primary Dressing Applied Promogran, Promogran, Mepilex Border Mepilex Border -Mepilex Border 1 1 -Promogran 1 1 Pain Scale: 0-10 Numeric Is Patient Pain Free? Yes Yes - Visit Discharge Discharge Condition Stable Stable Ambulatory Status Wheelchair Ambulatory, Wheelchair Transportation Private Auto Private Auto Accompanied by aid daughter Medication Reconcilliation completed & Yes Yes provided to patient/care provider Clinical Summary of Care Provided Yes Yes Assessment/Plan Assessment/Plan (1) Peripheral arterial disease: CODE(S): I73.9 - Peripheral vascular disease, unspecified (2) Hematoma of left lower extremity: CODE(S): S80.12XA - Contusion of left lower leg, initial encounter PLAN: Plan Patient's recent LEAS revealed R CHUY 0.56 with patent prior interventions. Left CHUY unable to be obtained due to location of the wound, wave forms were monophasic. Dr. Sterling feels he likely has sufficient flow to the area to heal, but if healing becomes delayed/negative progress with debridement she would consider revascularization. Patient tolerated debridement well today, good granulation tissue at wound base. Will apply promogran, cover with silicone bordered dressing. Change daily, keep clean and dry. Elevate legs when resting. Will apply for skin substitute as I think patient is a good candidate and wound benefit. Did career counselor patient regarding the importance of smoking cessation and improving diet (increasing protein and decreasing carbs/sugars) to promote healing. He will return to clinic in 1 week or sooner as needed.
== END 2022-11-18 23:59 | disposition home or self-care (01) ==
LOC: WC 08:30
PROVIDERS: PCP Family Medicine; Visit Provider Physician Assistant
DX: S80.12XA Contusion of left lower leg, initial encounter (principal); I73.9 Peripheral vascular disease, unspecified; F17.210 Nicotine dependence, cigarettes, uncomplicated; R25.1 Tremor, unspecified; S81.802A Unspecified open wound, left lower leg, initial encounter; R27.0 Ataxia, unspecified
CPT/HCPCS: 11042

== ENCOUNTER 2022-12-19 09:00 | Outpatient (RCR) | payer MEDICARE, MEDICAID, SELFPAY ==
[2022-11-19 00:30] VITALS: BP 133/62; PULSE 131; RESP 16; TEMP 36.2; BMI 27.3
[2022-11-21 08:27] VITALS: BP 137/66; PULSE 89; TEMP 36.2; BMI 27.3
--- NOTE | 2022-11-21 13:16 | PCM.WC.PN ---
History of Present Illness Date of Service: 11/21/22 Chief Complaint: Left lower leg wound History of Wound: Patient had a fall on 09/11/2022 during which he hit his LLE on his walker and his head on the ground. He was evaluated in the ED on 09/16/2022. Imaging did not reveal any significant injury. He was felt to have an infected hematoma on his left lower leg and was prescribed Augmentin to treat. He then f/u with his PCP on 10/09 and hematoma was found to be stable with overlying eschar and no signs of infection. Patient reports that the hematoma appears smaller than initial injury but otherwise has remained quite stable. His past medical history is significant for PAD with multiple prior interventions including several stents placed in bilateral LE arteries, unclear which and no records available for review. All vascular interventions performed at [facility]. He has a history of DVT in LLE. He is being evaluated and treated for anemia by PCP. He also has tremor and ataxia. He reports history of nonhealing wounds bilateral lower extremities. He takes Eliquis and ASA. He does smoke 1-2 ppd, he is considering cutting back. He is accompanied to [facility] by vice president precision market insights Rachael who supplements history. She is with him Thursday-Thursday. Subjective Subjective Patient was not feeling well last week and so missed his appointment, but he is feeling better this week. Reports dressing changes have been going well, he has continued to apply promogran. No new/worsening pain, erythema, swelling, warmth, tenderness. Denies N/V, F/C, CP, SOB. Objective Data Objective Data Vital Signs: Vital Signs Temp Pulse Resp BP 97.2 F L 89 16 137/66 H 11/21/22 08:27 11/21/22 08:27 11/19/22 00:30 11/21/22 08:27 Weight: 180 lb Body Mass Index (BMI) 27.3 Charges/Coding Wound Center CF Procedures 96XXX-98XXX: 55060 RMVL DEVITAL TIS 20 CM/< Multi Select Codes Wound Center CF Procedures 96XXX-98XXX: 69675 RMVL DEVITAL TIS 20 CM/< Physical Exam Const alert, oriented x3, no apparent distress and healthy appearing General Appearance: cooperative and comfortable Exam Limitations: no limitations HEENT normocephalic, head/scalp atraumatic, hearing grossly normal bilaterally, external ears normal and external nose normal Eyes EOMs intact bilaterally General Eye: normal appearance of both eyes Neck full ROM General: trachea midline; Negative for anterior neck swelling or lymphadenopathy Resp normal respiratory effort Effort and Inspection: able to speak in complete sentences and symmetric chest movement; Negative for respiratory distress, labored, stridor, actively coughing, uses accessory muscles or audible wheezes Cardio regular rate and regular rhythm Extremity Extremity Narrative: LLE with mild (1+) swelling, varicose veins noted. No significant pallor or discoloration. Wound as described below. Skin no rashes or lesions noted, no petechiae and no mottling Wound Narrative: Wound bed with some slough and epibole at the edges, but good granulation tissue. No surrounding erythema, warmth, fluctuance/induration, drainage, foul-odor. It is reduced in size. Neuro oriented x3, CN's II-XII intact bilaterally, moves all extremities and no sensory deficits noted Neuro Narrative: Ataxic gait. Tremor of hands and head. Psych mental status grossly normal Appearance: grossly normal Attitude: calm and engaged Activity / Motor Behavior: appropriate eye contact Speech: normal speech Mood & Affect: euthymic mood Thought Process: normal thought process Thought Content: normal thought content Attention / Concentration: attention grossly intact Memory / Cognition: memory grossly intact Insight: insight good Judgement: judgement good Debridement Note Debridement Note Wound debrided: Left lower leg Laterality: Left Type of Debridement: Excisional debridement Anesthesia Used: 5% Lidocaine Gel Depth: Down to and including healthy tissue and in the subcutaneous layer Percentage of wound debrided: 100 Instrument Used: 5mm curette Tissue Removed: Slough, devitalized tissue Amount of bleeding with debridement: Mild Bleeding Controlled with: Pressure Patient tolerated procedure: Patient tolerated procedure well Post-Debridement Measurements and Additional Note: Post-Debridement Measurements/Treatment - Nurse 1 - General Ulcer Assessment Start: 11/21/22 08:27 Freq: Status: Active Protocol: MYLES Activity Type Activity Date Activity User E-sign Co-sign Detail Recorded Client Recorded Date Recorded By Document 11/21/22 08:27 SAV [id number] 11/21/22 08:30 AK 11/21/22 08:27 FER - Today's Visit Information Type of service Follow-up Visit (Physician/ROTARY VENEER MACHINE OPERATOR ) Arrival Mode Wheelchair Patient Identification Verified (Name & Yes ) Patient Requires Transmission-Based No Precautions Height and Weight Body Mass Index (BMI) 27.3 BMI Classification Overweight Vital Signs Temperature (97.8 F-99.1 F) 97.2 F L Temperature Source Temporal Pulse Rate (60-100) 89 Pulse Location Monitor Blood Pressure (90/60-120/80) 137/66 H Blood Pressure Mean (mm Hg) 89 Source Monitor History Since Last Visit- (Skip if this is Patient's initial visit) Have you changed medications since your No last visit? Any new allergies or adverse reactions No Had a fall/change in ADL's that may No increase risk of falls Signs or symptoms of abuse and/or No neglect since last visit Have you been in the hospital since your No last visit? Has dressing in place as prescribed Yes Has compression in place as prescribed No Has offloadiing in place as prescribed No Experienced any changes in pain level or No management Left Footwear Regular Shoe Right Footwear Regular Shoe Pain Scale: 0-10 Numeric Is Patient Pain Free? Yes WC - Nurse 1 - General Ulcer Measurement Start: 11/21/22 08:27 Freq: Status: Active Protocol: Activity Type Activity Date Activity User E-sign Co-sign Detail Recorded Client Recorded Date Recorded By Document 11/21/22 08:27 NE [id number] 11/21/22 08:30 SAV 11/21/22 08:27 Wound Center Nurse 1 #1 Left Lower Leg -Combined with other wound No -Current Size (cm) - Length 1.6 -Current Size (cm) - Width 1.3 -Current Size (cm) - Depth 0.1 -Total Square Cm 2.08 -Photo Taken Yes -Tunneling No -Undermining/Tunneling No -Circular Undermining No -Change in Wound Grade/Stage No -Exudate Amt Medium -Exudate Type Serosanguineous -Wound Margin Distinct, Outline Attached -Granulation Amt Large (67-100%) -Granulation Quality [place] -Slough/Fibrin Yes -Necrosis Amt Small (1-33%) -Necrotic Tissue Type Adherent Slough -Structure Exposed N/A -Texture (Humera-wound Skin Appearance) No Abnormality, Assessed -Moisture (Humera-wound Skin Appearance) No Abnormality, Assessed -Color (Humera-wound Skin Appearance) No Abnormality, Assessed -Temperature (Humera-wound Skin No Abnormality Appearance) (Pt Warm) -Tenderness on Palpation (Humera-wound No Skin Appearance) -Ulcer Cleansing Rinsed/ Irrigated with Saline -Foul Odor after Cleansing No -Anesthetic Used 5% Lidocaine Gel WC - Nurse 2 - General Ulcer CM Notes Start: 11/21/22 08:27 Freq: Status: Active Protocol: Activity Type Activity Date Activity User E-sign Co-sign Detail Recorded Client Recorded Date Recorded By Document 11/21/22 12:29 PL [id number] 11/21/22 12:31 PL 11/21/22 12:29 Wound Center Nurse 2 -Time 08:59 -Correct Patient Yes -Correct Side, Site, Position Yes -Correct Procedure Yes -Procedure Performed Yes -Type of Procedure Debridement -Clinical Debridement Subcutaneous -Tissue Removed Subcutaneous -Post Debridement (cm) - Length 1.8 -Post Debridement (cm) - Width 1.6 -Post Debridement (cm) - Depth 0.1 -Total Square (Post) (cm) 2.88 -Area of Debridement (cm) - Length 1.8 -Area of Debridement (cm) - Width 1.6 -Total Square (Area) (cm) 2.88 -Tunneling No -Undermining/Tunneling No -Circular Undermining No -Wound/Ulcer Outcome Not Healed -Ulcer Cleansing Rinsed/ Irrigated with Saline -Foul Odor after Cleansing No -Bioengineered Tissue Yes -Type of Bioengineered Tissue Theraskin -Expiration Date 11/27/25 -Product Lot Number [id number] -Percent Used 100 -Bleeding Controlled with Pressure -Treatment Response Procedure Tolerated Well -Debridement - Subq, 1st 20sq cm No -Apply Skin Sub - 1st 25 sq cm - Legs 1 -Theraskin (per sq cm) 6 Pain Scale: 0-10 Numeric Is Patient Pain Free? Yes - Nurse 3 - General Ulcer D/C NN Start: 11/21/22 08:27 Freq: Status: Active Protocol: Activity Type Activity Date Activity User E-sign Co-sign Detail Recorded Client Recorded Date Recorded By Document 11/21/22 09:19 AK [id number] 11/21/22 09:20 AK 11/21/22 09:19 Wound Care Center Nurse 3 #1 Left Lower Leg -Ulcer Cleansing Rinsed/ Irrigated with Saline -Foul Odor after Cleansing No -Negative Pressure Wound Therapy N/A -Primary Dressing Covered/Secured with Dry Gauze & Roll Gauze, Secured with Tape Left -Tubular Bandage Single Layer -Size of Tubigrip Used Size E -Size E ($) 1 Pain Scale: 0-10 Numeric Is Patient Pain Free? Yes Assessment/Plan Assessment/Plan (1) Peripheral arterial disease: CODE(S): I73.9 - Peripheral vascular disease, unspecified (2) Non-pressure chronic ulcer of left calf with fat layer exposed: CODE(S): L97.222 - Non-pressure chronic ulcer of left calf with fat layer exposed PLAN: Plan Patient's recent LEAS revealed R CHUY 0.56 with patent prior interventions. Left CHUY unable to be obtained due to location of the wound, wave forms were monophasic. Dr. Sterling feels he likely has sufficient flow to the area to heal, but if healing becomes delayed/negative progress with debridement she would consider revascularization. Patient tolerated debridement well today, good granulation tissue at wound base. Patient was approved for theraskin and agreeable to application. Obtained good bleeding with debridement, theraskin was applied in sterile fashion, covered with adaptic, secured with steristrips. 100% of the product was used. Will be covered with secondary dressing to pad/protect. Instructed patient that primary dressing is to remain intact until his visit next week. Keep dry. May change the outer dressing as needed to keep clean. Continue to elevate leg when resting. Did university counselor patient regarding the importance of smoking cessation and improving diet (increasing protein and decreasing carbs/sugars) to promote healing. He will return to clinic in 1 week or sooner as needed.
[2022-11-28 09:01] VITALS: BP 141/61; PULSE 72; TEMP 36.2; BMI 27.3
--- NOTE | 2022-11-28 15:24 | PN.PCM_ITS ---
History of Present Illness Date of Service: 11/28/22 Chief Complaint: Left lower leg wound History of Wound: Patient had a fall on 09/11/2022 during which he hit his LLE on his walker and his head on the ground. He was evaluated in the ED on 09/16/2022. Imaging did not reveal any significant injury. He was felt to have an infected hematoma on his left lower leg and was prescribed Augmentin to treat. He then f/u with his PCP on 10/09 and hematoma was found to be stable with overlying eschar and no signs of infection. Patient reports that the hematoma appears smaller than initial injury but otherwise has remained quite stable. His past medical history is significant for PAD with multiple prior interventions including several stents placed in bilateral LE arteries, unclear which and no records available for review. All vascular interventions performed at [facility]. He has a history of DVT in LLE. He is being evaluated and treated for anemia by PCP. He also has tremor and ataxia. He reports history of nonhealing wounds bilateral lower extremities. He takes Eliquis and ASA. He does smoke 1-2 ppd, he is considering cutting back. He is accompanied to [facility] by menagerie caretaker Rachael who supplements history. She is with him Thursday-Thursday. Subjective Subjective Patient is doing well. He has been keeping dressing clean, dry, and in place. No new/worsening pain, erythema, swelling, warmth, tenderness. Denies N/V, F/C, CP, SOB. Objective Data Objective Data Vital Signs: Vital Signs Temp Pulse Resp BP 97.1 F L 72 16 141/61 H 11/28/22 09:01 11/28/22 09:01 11/19/22 00:30 11/28/22 09:01 Weight: 180 lb Body Mass Index (BMI) 27.3 Charges/Coding Wound Center CF Procedures 96XXX-98XXX: 64624 RMVL DEVITAL TIS 20 CM/< Multi Select Codes Wound Center CF Procedures 96XXX-98XXX: 54195 RMVL DEVITAL TIS 20 CM/< Physical Exam Const alert, oriented x3, no apparent distress and healthy appearing General Appearance: cooperative and comfortable Exam Limitations: no limitations HEENT normocephalic, head/scalp atraumatic, hearing grossly normal bilaterally, external ears normal and external nose normal Eyes EOMs intact bilaterally General Eye: normal appearance of both eyes Neck full ROM General: trachea midline; Negative for anterior neck swelling Resp normal respiratory effort Effort and Inspection: able to speak in complete sentences and symmetric chest movement; Negative for respiratory distress, labored, stridor, actively coughing, uses accessory muscles or audible wheezes Cardio regular rate and regular rhythm Extremity Extremity Narrative: LLE with mild (1+) swelling, varicose veins noted. No significant pallor or discoloration. Wound as described below. Skin no rashes or lesions noted, no petechiae and no mottling Wound Narrative: Wound bed with minimal slough, beefy red granulation tissue, and good bleeding. No surrounding erythema, warmth, fluctuance/induration, drainage, foul-odor. It is reduced in size. Neuro oriented x3, CN's II-XII intact bilaterally, moves all extremities and no sensory deficits noted Neuro Narrative: Ataxic gait. Tremor of hands and head. Psych mental status grossly normal Appearance: grossly normal Attitude: calm and engaged Activity / Motor Behavior: appropriate eye contact Speech: normal speech Mood & Affect: euthymic mood Thought Process: normal thought process Thought Content: normal thought content Attention / Concentration: attention grossly intact Memory / Cognition: memory grossly intact Insight: insight good Judgement: judgement good Debridement Note Debridement Note Wound debrided: Left lower leg Laterality: Left Type of Debridement: Excisional debridement Anesthesia Used: 5% Lidocaine Gel Depth: Down to and including healthy tissue and in the subcutaneous layer Percentage of wound debrided: 100 Instrument Used: 5mm curette Tissue Removed: Slough, devitalized tissue Amount of bleeding with debridement: Mild Bleeding Controlled with: Pressure Patient tolerated procedure: Patient tolerated procedure well Post-Debridement Measurements and Additional Note: Post-Debridement Measurements/Treatment - Nurse 1 - General Ulcer Assessment Start: 11/21/22 08:27 Freq: Status: Active Protocol: MYLES Activity Type Activity Date Activity User E-sign Co-sign Detail Recorded Client Recorded Date Recorded By Document 11/21/22 08:27 SAV [id number] 11/21/22 08:30 AK Document 11/28/22 09:01 SAV [id number] 11/28/22 09:31 AK 11/21/22 11/28/22 08:27 09:01 - Today's Visit Information Type of service Follow-up Visit Follow-up Visit (Physician/CHILD CARE TEAM LEAD (Physician/CHILD CARE TEAM LEAD ) ) Arrival Mode Wheelchair Wheelchair Patient Identification Verified (Name & Yes Yes ) Patient Requires Transmission-Based No No Precautions Safety Precautions NA Height and Weight Body Mass Index (BMI) 27.3 27.3 BMI Classification Overweight Overweight Vital Signs Temperature (97.8 F-99.1 F) 97.2 F L 97.1 F L Temperature Source Temporal Temporal Pulse Rate (60-100) 89 72 Pulse Location Monitor Monitor Blood Pressure (90/60-120/80) 137/66 H 141/61 H Blood Pressure Mean (mm Hg) 89 87 Source Monitor Monitor History Since Last Visit- (Skip if this is Patient's initial visit) Have you changed medications since your No No last visit? Any new allergies or adverse reactions No No Had a fall/change in ADL's that may No No increase risk of falls Signs or symptoms of abuse and/or No No neglect since last visit Have you been in the hospital since your No No last visit? Has dressing in place as prescribed Yes Yes Has compression in place as prescribed No Yes Has offloadiing in place as prescribed No N/A Experienced any changes in pain level or No No management Left Footwear Regular Shoe Regular Shoe Right Footwear Regular Shoe Regular Shoe Pain Scale: 0-10 Numeric Is Patient Pain Free? Yes Yes WC - Nurse 1 - General Ulcer Measurement Start: 11/21/22 08:27 Freq: Status: Active Protocol: Activity Type Activity Date Activity User E-sign Co-sign Detail Recorded Client Recorded Date Recorded By Document 11/21/22 08:27 MN [id number] 11/21/22 08:30 AK Document 11/28/22 09:01 AK [id number] 11/28/22 09:31 AK 11/21/22 11/28/22 08:27 09:01 Wound Center Nurse 1 #1 Left Lower Leg -Combined with other wound No No -Current Size (cm) - Length 1.6 2.2 -Current Size (cm) - Width 1.3 2.1 -Current Size (cm) - Depth 0.1 0.1 -Total Square Cm 2.08 4.62 -Date of Last Picture (Recall this 11/28/22 field) -Photo Taken Yes Yes -Tunneling No No -Undermining/Tunneling No No -Circular Undermining No No -Change in Wound Grade/Stage No No -Exudate Amt Medium Medium -Exudate Type Serosanguineous Serosanguineous -Wound Margin Distinct, Distinct, Outline Outline Attached Attached -Granulation Amt Large (67-100%) Large (67-100%) -Granulation Quality [place] -Slough/Fibrin Yes Yes -Necrosis Amt Small (1-33%) Small (1-33%) -Necrotic Tissue Type Adherent Slough Adherent Slough -Structure Exposed N/A N/A -Texture (Humera-wound Skin Appearance) No Abnormality, No Abnormality, Assessed Assessed -Moisture (Humera-wound Skin Appearance) No Abnormality, No Abnormality, Assessed Assessed -Color (Humera-wound Skin Appearance) No Abnormality, No Abnormality, Assessed Assessed -Temperature (Humera-wound Skin No Abnormality No Abnormality Appearance) (Pt Warm) (Pt Warm) -Tenderness on Palpation (Humera-wound No No Skin Appearance) -Ulcer Cleansing Rinsed/ Rinsed/ Irrigated with Irrigated with Saline Saline -Foul Odor after Cleansing No No -Anesthetic Used 5% Lidocaine 5% Lidocaine Gel Gel Lower Limb Edema Present No Left Calf (cm) 32 Left Ankle (cm) 20 WC - Nurse 2 - General Ulcer CM Notes Start: 11/21/22 08:27 Freq: Status: Active Protocol: Activity Type Activity Date Activity User E-sign Co-sign Detail Recorded Client Recorded Date Recorded By Document 11/21/22 12:29 PL [id number] 11/21/22 12:31 PL Document 11/28/22 12:21 PL [id number] 11/28/22 12:23 PL 11/21/22 11/28/22 12:29 12:21 Wound Center Nurse 2 #1 Left Lower Leg -Time 08:59 09:11 -Correct Patient Yes Yes -Correct Side, Site, Position Yes Yes -Correct Procedure Yes Yes -Procedure Performed Yes Yes -Type of Procedure Debridement Debridement -Clinical Debridement Subcutaneous Subcutaneous -Tissue Removed Subcutaneous Subcutaneous -Post Debridement (cm) - Length 1.8 2.2 -Post Debridement (cm) - Width 1.6 2.1 -Post Debridement (cm) - Depth 0.1 0.1 -Total Square (Post) (cm) 2.88 4.62 -Area of Debridement (cm) - Length 1.8 2.2 -Area of Debridement (cm) - Width 1.6 2.1 -Total Square (Area) (cm) 2.88 4.62 -Tunneling No No -Undermining/Tunneling No No -Circular Undermining No No -Wound/Ulcer Outcome Not Healed Not Healed -Ulcer Cleansing Rinsed/ Rinsed/ Irrigated with Irrigated with Saline Saline -Foul Odor after Cleansing No No -Bioengineered Tissue Yes Yes -Type of Bioengineered Tissue Theraskin Theraskin -Expiration Date 11/27/25 03/04/25 -Product Lot Number [id number] -Percent Used 100 100 -Bleeding Controlled with Pressure Pressure -Treatment Response Procedure Procedure Tolerated Well Tolerated Well -Debridement - Subq, 1st 20sq cm No No -Apply Skin Sub - 1st 25 sq cm - Legs 1 1 -Theraskin (per sq cm) 6 3 Pain Scale: 0-10 Numeric Is Patient Pain Free? Yes Yes - Nurse 3 - General Ulcer D/C NN Start: 11/21/22 08:27 Freq: Status: Active Protocol: Activity Type Activity Date Activity User E-sign Co-sign Detail Recorded Client Recorded Date Recorded By Document 11/21/22 09:19 MN [id number] 11/21/22 09:20 AK Document 11/28/22 09:31 AK [id number] 11/28/22 09:32 AK 11/21/22 11/28/22 09:19 09:31 Wound Care Center Nurse 3 #1 Left Lower Leg -Ulcer Cleansing Rinsed/ Not Cleansed Irrigated with Saline -Foul Odor after Cleansing No -Negative Pressure Wound Therapy N/A -Primary Dressing Covered/Secured with Dry Gauze & Dry Gauze & Roll Gauze, Roll Gauze, Secured with Secured with Tape Tape Left -Tubular Bandage Single Layer -Size of Tubigrip Used Size E -Size E ($) 1 Pain Scale: 0-10 Numeric Is Patient Pain Free? Yes Yes - Visit Discharge Discharge Condition Stable Transportation Private Auto Accompanied by aid Medication Reconcilliation completed & Yes provided to patient/care provider Clinical Summary of Care Provided Yes Assessment/Plan Assessment/Plan (1) Peripheral arterial disease: CODE(S): I73.9 - Peripheral vascular disease, unspecified (2) Non-pressure chronic ulcer of left calf with fat layer exposed: CODE(S): L97.222 - Non-pressure chronic ulcer of left calf with fat layer exposed PLAN: Plan Patient tolerated debridement well today, good granulation tissue at wound base. Applied theraskin #2. Obtained good bleeding with debridement, theraskin was applied in sterile fashion, covered with adaptic, secured with steristrips. 100% of the product was used. Will be covered with secondary dressing to pad/protect. Instructed patient that primary dressing is to remain intact until his visit next week. Keep dry. May change the outer dressing as needed to keep clean. Continue to elevate leg when resting. Did vocational rehabilitation counselor patient regarding the importance of smoking cessation and improving diet (increasing protein and decreasing carbs/sugars) to promote healing. He will return to clinic in 1 week or sooner as needed.
[2022-12-05 09:01] VITALS: BP 135/59; PULSE 81; RESP 16; TEMP 36.4; BMI 27.3
--- NOTE | 2022-12-05 10:19 | PN.PCM_ITS ---
History of Present Illness Date of Service: 12/05/22 Chief Complaint: Left lower leg wound History of Wound: Patient had a fall on 09/11/2022 during which he hit his LLE on his walker and his head on the ground. He was evaluated in the ED on 09/16/2022. Imaging did not reveal any significant injury. He was felt to have an infected hematoma on his left lower leg and was prescribed Augmentin to treat. He then f/u with his PCP on 10/09 and hematoma was found to be stable with overlying eschar and no signs of infection. Patient reports that the hematoma appears smaller than initial injury but otherwise has remained quite stable. His past medical history is significant for PAD with multiple prior interventions including several stents placed in bilateral LE arteries, unclear which and no records available for review. All vascular interventions performed at [facility]. He has a history of DVT in LLE. He is being evaluated and treated for anemia by PCP. He also has tremor and ataxia. He reports history of nonhealing wounds bilateral lower extremities. He takes Eliquis and ASA. He does smoke 1-2 ppd, he is considering cutting back. He is accompanied to [facility] by tuck pointer Rachael who supplements history. She is with him Thursday-Thursday. Subjective Subjective Patient continues to do well. He has been keeping dressing clean, dry, and in place. No new/worsening pain, erythema, swelling, warmth, tenderness. Denies N/V, F/C, CP, SOB. Objective Data Objective Data Vital Signs: Vital Signs Temp Pulse Resp BP O2 Del Method 97.5 F L 81 16 135/59 H Room Air 12/05/22 09:01 12/05/22 09:01 12/05/22 09:01 12/05/22 09:01 12/05/22 09:01 Oxygen Delivery Method Room Air Weight: 180 lb Body Mass Index (BMI) 27.3 Charges/Coding Wound Center CF Procedures 96XXX-98XXX: 00530 RMVL DEVITAL TIS 20 CM/< Multi Select Codes Wound Center CF Procedures 96XXX-98XXX: 60200 RMVL DEVITAL TIS 20 CM/< Physical Exam Const alert, oriented x3, no apparent distress and healthy appearing General Appearance: cooperative and comfortable Exam Limitations: no limitations HEENT normocephalic, head/scalp atraumatic, hearing grossly normal bilaterally, external ears normal and external nose normal Eyes EOMs intact bilaterally General Eye: normal appearance of both eyes Neck full ROM General: trachea midline; Negative for anterior neck swelling Resp normal respiratory effort Effort and Inspection: able to speak in complete sentences and symmetric chest movement; Negative for respiratory distress, labored, stridor, actively coughing, uses accessory muscles or audible wheezes Cardio regular rate and regular rhythm Extremity Extremity Narrative: LLE with mild (1+) swelling, varicose veins noted. No significant pallor or discoloration. Wound as described below. Skin no rashes or lesions noted, no petechiae and no mottling Wound Narrative: Wound bed with minimal slough, beefy red granulation tissue, and good bleeding. No surrounding erythema, warmth, fluctuance/induration, drainage, foul-odor. It is once again significantly reduced in size from last week. Neuro oriented x3, CN's II-XII intact bilaterally, moves all extremities and no sensory deficits noted Neuro Narrative: Ataxic gait. Tremor of hands and head. Psych mental status grossly normal Appearance: grossly normal Attitude: calm and engaged Activity / Motor Behavior: appropriate eye contact Speech: normal speech Mood & Affect: euthymic mood Thought Process: normal thought process Thought Content: normal thought content Attention / Concentration: attention grossly intact Memory / Cognition: memory grossly intact Insight: insight good Judgement: judgement good Debridement Note Debridement Note Wound debrided: Left lower leg Laterality: Left Type of Debridement: Excisional debridement Anesthesia Used: 5% Lidocaine Gel Depth: Down to and including healthy tissue and in the subcutaneous layer Percentage of wound debrided: 100 Instrument Used: 3mm curette Tissue Removed: Slough, devitalized tissue Amount of bleeding with debridement: Mild Bleeding Controlled with: Pressure Patient tolerated procedure: Patient tolerated procedure well Post-Debridement Measurements and Additional Note: Post-Debridement Measurements/Treatment WC - Nurse 1 - General Ulcer Assessment Start: 11/21/22 08:27 Freq: Status: Active Protocol: MYLES Activity Type Activity Date Activity User E-sign Co-sign Detail Recorded Client Recorded Date Recorded By Document 11/21/22 08:27 MA [id number] 11/21/22 08:30 AK Document 11/28/22 09:01 AK [id number] 11/28/22 09:31 AK Document 12/05/22 09:01 [facility] [id number] 12/05/22 09:12 BM 11/21/22 11/28/22 12/05/22 08:27 09:01 09:01 - Today's Visit Information Type of service Follow-up Visit Follow-up Visit Follow-up Visit (Physician/SUPERVISOR UNDERWRITING CLERKS (Physician/SUPERVISOR UNDERWRITING CLERKS (Physician/SUPERVISOR UNDERWRITING CLERKS ) ) ) Arrival Mode Wheelchair Wheelchair Wheelchair Transfer Assistance None Accompanied by FRIEND Patient Identification Verified (Name & Yes Yes Yes ) Patient Requires Transmission-Based No No No Precautions Safety Precautions NA Height and Weight Body Mass Index (BMI) 27.3 27.3 27.3 BMI Classification Overweight Overweight Overweight Vital Signs Temperature (97.8 F-99.1 F) 97.2 F L 97.1 F L 97.5 F L Temperature Source Temporal Temporal Temporal Pulse Rate (60-100) 89 72 81 Pulse Location Monitor Monitor Monitor Respiratory Rate (12-18) 16 Respiratory rate source Observation Oxygen Delivery Method Room Air Blood Pressure (90/60-120/80) 137/66 H 141/61 H 135/59 H Blood Pressure Mean (mm Hg) 89 87 84 Source Monitor Monitor Monitor Position Sitting Blood Pressure Location Left Arm History Since Last Visit- (Skip if this is Patient's initial visit) Have you changed medications since your No No No last visit? Any new allergies or adverse reactions No No No Had a fall/change in ADL's that may No No No increase risk of falls Signs or symptoms of abuse and/or No No No neglect since last visit Have you been in the hospital since your No No No last visit? Has dressing in place as prescribed Yes Yes Yes Has compression in place as prescribed No Yes No Has offloadiing in place as prescribed No N/A N/A Experienced any changes in pain level or No No No management Left Footwear Regular Shoe Regular Shoe Regular Shoe Right Footwear Regular Shoe Regular Shoe Regular Shoe Pain Scale: 0-10 Numeric Is Patient Pain Free? Yes Yes Yes - Nurse 1 - General Ulcer Measurement Start: 11/21/22 08:27 Freq: Status: Active Protocol: Activity Type Activity Date Activity User E-sign Co-sign Detail Recorded Client Recorded Date Recorded By Document 11/21/22 08:27 MA [id number] 11/21/22 08:30 AK Document 11/28/22 09:01 AK [id number] 11/28/22 09:31 AK Document 12/05/22 09:01 [facility] [id number] 12/05/22 09:12 [facility] 11/21/22 11/28/22 12/05/22 08:27 09:01 09:01 Wound Center Nurse 1 #1 Left Lower Leg -Combined with other wound No No No -Current Size (cm) - Length 1.6 2.2 1.5 -Current Size (cm) - Width 1.3 2.1 2 -Current Size (cm) - Depth 0.1 0.1 0.1 -Total Square Cm 2.08 4.62 3.0 -Date of Last Picture (Recall this 11/28/22 12/05/22 field) -Photo Taken Yes Yes Yes -Epithelialization None Present -Tunneling No No No -Undermining/Tunneling No No No -Circular Undermining No No No -Change in Wound Grade/Stage No No -Exudate Amt Medium Medium Small -Exudate Type Serosanguineous Serosanguineous Serous -Wound Margin Distinct, Distinct, Distinct, Outline Outline Outline Attached Attached Attached -Granulation Amt Large (67-100%) Large (67-100%) None Present (0 %) -Granulation Quality [place] -Slough/Fibrin Yes Yes Yes -Necrosis Amt Small (1-33%) Small (1-33%) Large (67-100%) -Necrotic Tissue Type Adherent Slough Adherent Slough Eschar -Structure Exposed N/A N/A -Texture (Humera-wound Skin Appearance) No Abnormality, No Abnormality, Assessed, Assessed Assessed Scarring -Moisture (Humera-wound Skin Appearance) No Abnormality, No Abnormality, Assessed Assessed Assessed -Color (Humera-wound Skin Appearance) No Abnormality, No Abnormality, Assessed Assessed Assessed -Temperature (Humera-wound Skin No Abnormality No Abnormality No Abnormality Appearance) (Pt Warm) (Pt Warm) (Pt Warm) -Tenderness on Palpation (Humera-wound No No No Skin Appearance) -Ulcer Cleansing Rinsed/ Rinsed/ Soap and Water Irrigated with Irrigated with Saline Saline -Foul Odor after Cleansing No No No -Anesthetic Used 5% Lidocaine 5% Lidocaine 5% Lidocaine Gel Gel Gel Lower Limb Edema Present No Point of Measurement (cm from the distal 32.6 point) Left Calf (cm) 32 Point of measurement (cm from the medial 20.1 instep) Left Ankle (cm) 20 WC - Nurse 2 - General Ulcer CM Notes Start: 11/21/22 08:27 Freq: Status: Active Protocol: Activity Type Activity Date Activity User E-sign Co-sign Detail Recorded Client Recorded Date Recorded By Document 11/21/22 12:29 PL [id number] 11/21/22 12:31 PL Document 11/28/22 12:21 PL [id number] 11/28/22 12:23 PL 11/21/22 11/28/22 12:29 12:21 Wound Center Nurse 2 #1 Left Lower Leg -Time 08:59 09:11 -Correct Patient Yes Yes -Correct Side, Site, Position Yes Yes -Correct Procedure Yes Yes -Procedure Performed Yes Yes -Type of Procedure Debridement Debridement -Clinical Debridement Subcutaneous Subcutaneous -Tissue Removed Subcutaneous Subcutaneous -Post Debridement (cm) - Length 1.8 2.2 -Post Debridement (cm) - Width 1.6 2.1 -Post Debridement (cm) - Depth 0.1 0.1 -Total Square (Post) (cm) 2.88 4.62 -Area of Debridement (cm) - Length 1.8 2.2 -Area of Debridement (cm) - Width 1.6 2.1 -Total Square (Area) (cm) 2.88 4.62 -Tunneling No No -Undermining/Tunneling No No -Circular Undermining No No -Wound/Ulcer Outcome Not Healed Not Healed -Ulcer Cleansing Rinsed/ Rinsed/ Irrigated with Irrigated with Saline Saline -Foul Odor after Cleansing No No -Bioengineered Tissue Yes Yes -Type of Bioengineered Tissue Theraskin Theraskin -Expiration Date 11/27/25 03/04/25 -Product Lot Number [id number] -Percent Used 100 100 -Bleeding Controlled with Pressure Pressure -Treatment Response Procedure Procedure Tolerated Well Tolerated Well -Debridement - Subq, 1st 20sq cm No No -Apply Skin Sub - 1st 25 sq cm - Legs 1 1 -Theraskin (per sq cm) 6 3 Pain Scale: 0-10 Numeric Is Patient Pain Free? Yes Yes WC - Nurse 3 - General Ulcer D/C NN Start: 11/21/22 08:27 Freq: Status: Active Protocol: Activity Type Activity Date Activity User E-sign Co-sign Detail Recorded Client Recorded Date Recorded By Document 11/21/22 09:19 MA [id number] 11/21/22 09:20 AK Document 11/28/22 09:31 MA [id number] 11/28/22 09:32 AK Document 12/05/22 09:46 AL [id number] 12/05/22 09:51 AL 11/21/22 11/28/22 12/05/22 09:19 09:31 09:46 Wound Care Center Nurse 3 #1 Left Lower Leg -Ulcer Cleansing Rinsed/ Not Cleansed Irrigated with Saline -Foul Odor after Cleansing No -Negative Pressure Wound Therapy N/A -Primary Dressing Covered/Secured with Dry Gauze & Dry Gauze & Dry Gauze & Roll Gauze, Roll Gauze, Roll Gauze, Secured with Secured with Secured with Tape Tape Tape Left -Tubular Bandage Single Layer Single Layer -Size of Tubigrip Used Size E Size E -Size E ($) 1 1 Pain Scale: 0-10 Numeric Is Patient Pain Free? Yes Yes Yes WC - Visit Discharge Discharge Condition Stable Stable Ambulatory Status Ambulatory Transportation Private Auto Private Auto Accompanied by aid Medication Reconcilliation completed & Yes No provided to patient/care provider Clinical Summary of Care Provided Yes Yes Assessment/Plan Assessment/Plan (1) Peripheral arterial disease: CODE(S): I73.9 - Peripheral vascular disease, unspecified (2) Non-pressure chronic ulcer of left calf with fat layer exposed: CODE(S): L97.222 - Non-pressure chronic ulcer of left calf with fat layer exposed PLAN: Plan Patient tolerated debridement well today, good granulation tissue at wound base. Applied theraskin #3. Obtained good bleeding with debridement, theraskin was applied in sterile fashion, covered with adaptic, secured with steristrips. 100% of the product was used. Will be covered with secondary dressing to pad/protect. Instructed patient that primary dressing is to remain intact until his visit next week. Keep dry. May change the outer dressing as needed to keep clean. Continue to elevate leg when resting. Did skilled nursing facility counselor patient regarding the importance of smoking cessation and improving diet (increasing protein and decreasing carbs/sugars) to promote healing. He will return to clinic in 1 week or sooner as needed.
[2022-12-12 09:31] VITALS: BP 141/72; PULSE 85; TEMP 35.9; BMI 27.3
--- NOTE | 2022-12-12 09:57 | PCM.WC.PN ---
History of Present Illness Date of Service: 12/12/22 Chief Complaint: Left lower leg wound History of Wound: Patient had a fall on 09/11/2022 during which he hit his LLE on his walker and his head on the ground. He was evaluated in the ED on 09/16/2022. Imaging did not reveal any significant injury. He was felt to have an infected hematoma on his left lower leg and was prescribed Augmentin to treat. He then f/u with his PCP on 10/09 and hematoma was found to be stable with overlying eschar and no signs of infection. Patient reports that the hematoma appears smaller than initial injury but otherwise has remained quite stable. His past medical history is significant for PAD with multiple prior interventions including several stents placed in bilateral LE arteries, unclear which and no records available for review. All vascular interventions performed at [facility]. He has a history of DVT in LLE. He is being evaluated and treated for anemia by PCP. He also has tremor and ataxia. He reports history of nonhealing wounds bilateral lower extremities. He takes Eliquis and ASA. He does smoke 1-2 ppd, he is considering cutting back. He is accompanied to [facility] by field software engineer Rachael who supplements history. She is with him Thursday-Thursday. Subjective Subjective Patient continues to do well. He has been keeping dressing clean, dry, and in place. No new/worsening pain, erythema, swelling, warmth, tenderness. Denies N/V, F/C, CP, SOB. Objective Data Objective Data Vital Signs: Vital Signs Temp Pulse Resp BP O2 Del Method 96.6 F L 85 16 141/72 H Room Air 12/12/22 09:31 12/12/22 09:31 12/05/22 09:01 12/12/22 09:31 12/05/22 09:01 Oxygen Delivery Method Room Air Weight: 180 lb Body Mass Index (BMI) 27.3 Charges/Coding Wound Center CF Procedures [id number]: [id number] RMVL DEVITAL TIS 20 CM/< Multi Select Codes Wound Center CF Procedures [id number]: [id number] RMVL DEVITAL TIS 20 CM/< Physical Exam Const alert, oriented x3, no apparent distress and healthy appearing General Appearance: cooperative and comfortable Exam Limitations: no limitations HEENT normocephalic, head/scalp atraumatic, hearing grossly normal bilaterally, external ears normal and external nose normal Eyes EOMs intact bilaterally General Eye: normal appearance of both eyes Neck full ROM General: trachea midline; Negative for anterior neck swelling Resp normal respiratory effort Effort and Inspection: able to speak in complete sentences and symmetric chest movement; Negative for respiratory distress, labored, stridor, actively coughing, uses accessory muscles or audible wheezes Cardio regular rate and regular rhythm Extremity Extremity Narrative: LLE with mild (1+) swelling, varicose veins noted. No significant pallor or discoloration. Wound as described below. Skin no rashes or lesions noted, no petechiae and no mottling Wound Narrative: Wound bed with minimal slough, beefy red granulation tissue, and good bleeding. No surrounding erythema, warmth, fluctuance/induration, drainage, foul-odor. It is once again significantly reduced in size from last week. Neuro oriented x3, CN's II-XII intact bilaterally, moves all extremities and no sensory deficits noted Neuro Narrative: Ataxic gait. Tremor of hands and head. Psych mental status grossly normal Appearance: grossly normal Attitude: calm and engaged Activity / Motor Behavior: appropriate eye contact Speech: normal speech Mood & Affect: euthymic mood Thought Process: normal thought process Thought Content: normal thought content Attention / Concentration: attention grossly intact Memory / Cognition: memory grossly intact Insight: insight good Judgement: judgement good Debridement Note Debridement Note Wound debrided: Left lower leg Laterality: Left Type of Debridement: Excisional debridement Anesthesia Used: 5% Lidocaine Gel Depth: Down to and including healthy tissue and in the subcutaneous layer Percentage of wound debrided: 100 Instrument Used: 3mm curette Tissue Removed: Slough, devitalized tissue Amount of bleeding with debridement: Mild Bleeding Controlled with: Pressure Patient tolerated procedure: Patient tolerated procedure well Post-Debridement Measurements and Additional Note: Post-Debridement Measurements/Treatment WC - Nurse 1 - General Ulcer Assessment Start: 11/21/22 08:27 Freq: Status: Active Protocol: MYLES Activity Type Activity Date Activity User E-sign Co-sign Detail Recorded Client Recorded Date Recorded By Document 11/21/22 08:27 MA [id number] 11/21/22 08:30 AK Document 11/28/22 09:01 AK [id number] 11/28/22 09:31 AK Document 12/05/22 09:01 [facility] [id number] 12/05/22 09:12 [facility] Document 12/12/22 09:31 AK [id number] 12/12/22 09:33 AK 11/21/22 11/28/22 12/05/22 08:27 09:01 09:01 WC - Today's Visit Information Type of service Follow-up Visit Follow-up Visit Follow-up Visit (Physician/COMBER OPERATOR (Physician/COMBER OPERATOR (Physician/COMBER OPERATOR ) ) ) Arrival Mode Wheelchair Wheelchair Wheelchair Transfer Assistance None Accompanied by FRIEND Patient Identification Verified (Name & Yes Yes Yes ) Patient Requires Transmission-Based No No No Precautions Safety Precautions NA Height and Weight Body Mass Index (BMI) 27.3 27.3 27.3 BMI Classification Overweight Overweight Overweight Vital Signs Temperature (97.8 F-99.1 F) 97.2 F L 97.1 F L 97.5 F L Temperature Source Temporal Temporal Temporal Pulse Rate (60-100) 89 72 81 Pulse Location Monitor Monitor Monitor Respiratory Rate (12-18) 16 Respiratory rate source Observation Oxygen Delivery Method Room Air Blood Pressure (90/60-120/80) 137/66 H 141/61 H 135/59 H Blood Pressure Mean (mm Hg) 89 87 84 Source Monitor Monitor Monitor Position Sitting Blood Pressure Location Left Arm History Since Last Visit- (Skip if this is Patient's initial visit) Have you changed medications since your No No No last visit? Any new allergies or adverse reactions No No No Had a fall/change in ADL's that may No No No increase risk of falls Signs or symptoms of abuse and/or No No No neglect since last visit Have you been in the hospital since your No No No last visit? Has dressing in place as prescribed Yes Yes Yes Has compression in place as prescribed No Yes No Has offloadiing in place as prescribed No N/A N/A Experienced any changes in pain level or No No No management Left Footwear Regular Shoe Regular Shoe Regular Shoe Right Footwear Regular Shoe Regular Shoe Regular Shoe Pain Scale: 0-10 Numeric Is Patient Pain Free? Yes Yes Yes 12/12/22 09:31 WC - Today's Visit Information Type of service Follow-up Visit (Physician/COMBER OPERATOR ) Arrival Mode Wheelchair Transfer Assistance Accompanied by Patient Identification Verified (Name & Yes ) Patient Requires Transmission-Based No Precautions Safety Precautions NA Height and Weight Body Mass Index (BMI) 27.3 BMI Classification Overweight Vital Signs Temperature (97.8 F-99.1 F) 96.6 F L Temperature Source Temporal Pulse Rate (60-100) 85 Pulse Location Monitor Respiratory Rate (12-18) Respiratory rate source Oxygen Delivery Method Blood Pressure (90/60-120/80) 141/72 H Blood Pressure Mean (mm Hg) 95 Source Monitor Position Blood Pressure Location History Since Last Visit- (Skip if this is Patient's initial visit) Have you changed medications since your No last visit? Any new allergies or adverse reactions No Had a fall/change in ADL's that may No increase risk of falls Signs or symptoms of abuse and/or No neglect since last visit Have you been in the hospital since your No last visit? Has dressing in place as prescribed Yes Has compression in place as prescribed Yes Has offloadiing in place as prescribed N/A Experienced any changes in pain level or No management Left Footwear Regular Shoe Right Footwear Regular Shoe Pain Scale: 0-10 Numeric Is Patient Pain Free? Yes WC - Nurse 1 - General Ulcer Measurement Start: 11/21/22 08:27 Freq: Status: Active Protocol: Activity Type Activity Date Activity User E-sign Co-sign Detail Recorded Client Recorded Date Recorded By Document 11/21/22 08:27 MA [id number] 11/21/22 08:30 MA Document 11/28/22 09:01 AK [id number] 11/28/22 09:31 MA Document 12/05/22 09:01 [facility] [id number] 12/05/22 09:12 [facility] Document 12/12/22 09:31 AK [id number] 12/12/22 09:33 AK 11/21/22 11/28/22 12/05/22 08:27 09:01 09:01 Wound Center Nurse 1 #1 Left Lower Leg -Combined with other wound No No No -Current Size (cm) - Length 1.6 2.2 1.5 -Current Size (cm) - Width 1.3 2.1 2 -Current Size (cm) - Depth 0.1 0.1 0.1 -Total Square Cm 2.08 4.62 3.0 -Date of Last Picture (Recall this 11/28/22 12/05/22 field) -Photo Taken Yes Yes Yes -Epithelialization None Present -Tunneling No No No -Undermining/Tunneling No No No -Circular Undermining No No No -Change in Wound Grade/Stage No No -Exudate Amt Medium Medium Small -Exudate Type Serosanguineous Serosanguineous Serous -Wound Margin Distinct, Distinct, Distinct, Outline Outline Outline Attached Attached Attached -Granulation Amt Large (67-100%) Large (67-100%) None Present (0 %) -Granulation Quality [place] -Slough/Fibrin Yes Yes Yes -Necrosis Amt Small (1-33%) Small (1-33%) Large (67-100%) -Necrotic Tissue Type Adherent Slough Adherent Slough Eschar -Structure Exposed N/A N/A -Texture (Humera-wound Skin Appearance) No Abnormality, No Abnormality, Assessed, Assessed Assessed Scarring -Moisture (Humera-wound Skin Appearance) No Abnormality, No Abnormality, Assessed Assessed Assessed -Color (Humera-wound Skin Appearance) No Abnormality, No Abnormality, Assessed Assessed Assessed -Temperature (Humera-wound Skin No Abnormality No Abnormality No Abnormality Appearance) (Pt Warm) (Pt Warm) (Pt Warm) -Tenderness on Palpation (Humera-wound No No No Skin Appearance) -Ulcer Cleansing Rinsed/ Rinsed/ Soap and Water Irrigated with Irrigated with Saline Saline -Foul Odor after Cleansing No No No -Anesthetic Used 5% Lidocaine 5% Lidocaine 5% Lidocaine Gel Gel Gel Lower Limb Edema Present No Point of Measurement (cm from the distal 32.6 point) Left Calf (cm) 32 Point of measurement (cm from the medial 20.1 instep) Left Ankle (cm) 20 12/12/22 09:31 Wound Center Nurse 1 #1 Left Lower Leg -Combined with other wound No -Current Size (cm) - Length 1.2 -Current Size (cm) - Width 0.9 -Current Size (cm) - Depth -Total Square Cm 1.08 -Date of Last Picture (Recall this field) -Photo Taken Yes -Epithelialization -Tunneling No -Undermining/Tunneling No -Circular Undermining No -Change in Wound Grade/Stage No -Exudate Amt Small -Exudate Type Serosanguineous -Wound Margin Distinct, Outline Attached -Granulation Amt Large (67-100%) -Granulation Quality [place],Red -Slough/Fibrin No -Necrosis Amt None Present (0 %) -Necrotic Tissue Type -Structure Exposed N/A -Texture (Humera-wound Skin Appearance) No Abnormality, Assessed -Moisture (Humera-wound Skin Appearance) No Abnormality, Assessed -Color (Humera-wound Skin Appearance) No Abnormality, Assessed -Temperature (Humera-wound Skin No Abnormality Appearance) (Pt Warm) -Tenderness on Palpation (Humera-wound No Skin Appearance) -Ulcer Cleansing Soap and Water -Foul Odor after Cleansing No -Anesthetic Used Lower Limb Edema Present No Point of Measurement (cm from the distal point) Left Calf (cm) 31.5 Point of measurement (cm from the medial instep) Left Ankle (cm) 19 WC - Nurse 2 - General Ulcer CM Notes Start: 11/21/22 08:27 Freq: Status: Active Protocol: Activity Type Activity Date Activity User E-sign Co-sign Detail Recorded Client Recorded Date Recorded By Document 11/21/22 12:29 PL [id number] 11/21/22 12:31 PL Document 11/28/22 12:21 PL [id number] 11/28/22 12:23 PL Document 12/05/22 12:19 PL [id number] 12/05/22 12:20 PL Document 12/12/22 09:24 PL [id number] 12/12/22 09:25 PL 11/21/22 11/28/22 12/05/22 12:29 12:21 12:19 Wound Center Nurse 2 #1 Left Lower Leg -Time 08:59 09:11 09:24 -Correct Patient Yes Yes Yes -Correct Side, Site, Position Yes Yes Yes -Correct Procedure Yes Yes Yes -Procedure Performed Yes Yes Yes -Type of Procedure Debridement Debridement Debridement -Clinical Debridement Subcutaneous Subcutaneous Subcutaneous -Tissue Removed Subcutaneous Subcutaneous Subcutaneous -Post Debridement (cm) - Length 1.8 2.2 0.9 -Post Debridement (cm) - Width 1.6 2.1 0.8 -Post Debridement (cm) - Depth 0.1 0.1 0.1 -Total Square (Post) (cm) 2.88 4.62 0.72 -Area of Debridement (cm) - Length 1.8 2.2 0.9 -Area of Debridement (cm) - Width 1.6 2.1 0.8 -Total Square (Area) (cm) 2.88 4.62 0.72 -Tunneling No No No -Undermining/Tunneling No No No -Circular Undermining No No No -Wound/Ulcer Outcome Not Healed Not Healed Not Healed -Ulcer Cleansing Rinsed/ Rinsed/ Rinsed/ Irrigated with Irrigated with Irrigated with Saline Saline Saline -Foul Odor after Cleansing No No No -Bioengineered Tissue Yes Yes Yes -Type of Bioengineered Tissue Theraskin Theraskin Theraskin -Expiration Date 11/27/25 03/04/25 01/13/25 -Product Lot Number [id number] -Percent Used 100 100 100 -Bleeding Controlled with Pressure Pressure Pressure -Treatment Response Procedure Procedure Procedure Tolerated Well Tolerated Well Tolerated Well -Debridement - Subq, 1st 20sq cm No No No -Apply Skin Sub - 1st 25 sq cm - Legs 1 1 1 -Theraskin (per sq cm) 6 3 3 Pain Scale: 0-10 Numeric Is Patient Pain Free? Yes Yes Yes 12/12/22 09:24 Wound Center Nurse 2 #1 Left Lower Leg -Time 09:10 -Correct Patient Yes -Correct Side, Site, Position Yes -Correct Procedure Yes -Procedure Performed Yes -Type of Procedure Debridement -Clinical Debridement Subcutaneous -Tissue Removed Subcutaneous -Post Debridement (cm) - Length 1.0 -Post Debridement (cm) - Width 0.6 -Post Debridement (cm) - Depth 0.1 -Total Square (Post) (cm) 0.60 -Area of Debridement (cm) - Length 1.0 -Area of Debridement (cm) - Width 0.6 -Total Square (Area) (cm) 0.60 -Tunneling No -Undermining/Tunneling No -Circular Undermining No -Wound/Ulcer Outcome Not Healed -Ulcer Cleansing Rinsed/ Irrigated with Saline -Foul Odor after Cleansing No -Bioengineered Tissue No -Type of Bioengineered Tissue -Expiration Date -Product Lot Number -Percent Used -Bleeding Controlled with Pressure -Treatment Response Procedure Tolerated Well -Debridement - Subq, 1st 20sq cm Yes -Apply Skin Sub - 1st 25 sq cm - Legs -Theraskin (per sq cm) Pain Scale: 0-10 Numeric Is Patient Pain Free? Yes WC - Nurse 3 - General Ulcer D/C NN Start: 11/21/22 08:27 Freq: Status: Active Protocol: Activity Type Activity Date Activity User E-sign Co-sign Detail Recorded Client Recorded Date Recorded By Document 11/21/22 09:19 AK [id number] 11/21/22 09:20 AK Document 11/28/22 09:31 AK [id number] 11/28/22 09:32 AK Document 12/05/22 09:46 CT [id number] 12/05/22 09:51 MT Document 12/12/22 09:19 [id number] 12/12/22 09:20 11/21/22 11/28/22 12/05/22 09:19 09:31 09:46 Wound Care Center Nurse 3 #1 Left Lower Leg -Ulcer Cleansing Rinsed/ Not Cleansed Irrigated with Saline -Foul Odor after Cleansing No -Negative Pressure Wound Therapy N/A -Primary Dressing Applied -Primary Dressing Covered/Secured with Dry Gauze & Dry Gauze & Dry Gauze & Roll Gauze, Roll Gauze, Roll Gauze, Secured with Secured with Secured with Tape Tape Tape -Mepilex Border -Promogran Left -Tubular Bandage Single Layer Single Layer -Size of Tubigrip Used Size E Size E -Size D ($) -Size E ($) 1 1 Pain Scale: 0-10 Numeric Is Patient Pain Free? Yes Yes Yes WC - Visit Discharge Discharge Condition Stable Stable Ambulatory Status Ambulatory Transportation Private Auto Private Auto Accompanied by aid Medication Reconcilliation completed & Yes No provided to patient/care provider Clinical Summary of Care Provided Yes Yes 12/12/22 09:19 Wound Care Center Nurse 3 #1 Left Lower Leg -Ulcer Cleansing Rinsed/ Irrigated with Saline -Foul Odor after Cleansing No -Negative Pressure Wound Therapy -Primary Dressing Applied Promogran -Primary Dressing Covered/Secured with -Mepilex Border 1 -Promogran 1 Left -Tubular Bandage Single Layer -Size of Tubigrip Used Size D -Size D ($) 0 -Size E ($) Pain Scale: 0-10 Numeric Is Patient Pain Free? Yes WC - Visit Discharge Discharge Condition Stable Ambulatory Status Wheelchair Transportation Private Auto Accompanied by caregiver Medication Reconcilliation completed & Yes provided to patient/care provider Clinical Summary of Care Provided No Assessment/Plan Assessment/Plan (1) Peripheral arterial disease: CODE(S): I73.9 - Peripheral vascular disease, unspecified (2) Non-pressure chronic ulcer of left calf with fat layer exposed: CODE(S): L97.222 - Non-pressure chronic ulcer of left calf with fat layer exposed PLAN: Plan Patient tolerated debridement well today, good granulation tissue at wound base. Continues to improve. Will do moistened promogran covered with silicone border dressing. Change daily or more often as needed to keep clean and dry. Did certified substance abuse counselor patient regarding the importance of smoking cessation and improving diet (increasing protein and decreasing carbs/sugars) to promote healing. He will return to clinic in 1 week or sooner as needed.
[2022-12-19 09:14] VITALS: BP 150/72; PULSE 86; RESP 16; TEMP 36.4; BMI 27.3
--- NOTE | 2022-12-19 11:43 | PN.PCM_ITS ---
History of Present Illness Date of Service: 12/19/22 Chief Complaint: Left lower leg wound History of Wound: Patient had a fall on 09/11/2022 during which he hit his LLE on his walker and his head on the ground. He was evaluated in the ED on 09/16/2022. Imaging did not reveal any significant injury. He was felt to have an infected hematoma on his left lower leg and was prescribed Augmentin to treat. He then f/u with his PCP on 10/09 and hematoma was found to be stable with overlying eschar and no signs of infection. Patient reports that the hematoma appears smaller than initial injury but otherwise has remained quite stable. His past medical history is significant for PAD with multiple prior interventions including several stents placed in bilateral LE arteries, unclear which and no records available for review. All vascular interventions performed at [facility]. He has a history of DVT in LLE. He is being evaluated and treated for anemia by PCP. He also has tremor and ataxia. He reports history of nonhealing wounds bilateral lower extremities. He takes Eliquis and ASA. He does smoke 1-2 ppd, he is considering cutting back. He is accompanied to [facility] by cardroom plastic card grader Rachael who supplements history. She is with him Thursday-Thursday. Subjective Subjective Did well with return to daily dressing changes. No new/worsening pain, erythema, swelling, warmth, tenderness. Denies N/V, F/C, CP, SOB. Objective Data Objective Data Vital Signs: Vital Signs Temp Pulse Resp BP O2 Del Method 97.5 F L 86 16 150/72 H Room Air 12/19/22 09:14 12/19/22 09:14 12/19/22 09:14 12/19/22 09:14 12/19/22 09:14 Oxygen Delivery Method Room Air Weight: 180 lb Body Mass Index (BMI) 27.3 Charges/Coding Wound Center CF Procedures [id number]: 10452 RMVL DEVITAL TIS 20 CM/< Multi Select Codes Wound Center CF Procedures [id number]: [id number] RMVL DEVITAL TIS 20 CM/< Physical Exam Const alert, oriented x3, no apparent distress and healthy appearing General Appearance: cooperative and comfortable Exam Limitations: no limitations HEENT normocephalic, head/scalp atraumatic, hearing grossly normal bilaterally, external ears normal and external nose normal Eyes EOMs intact bilaterally General Eye: normal appearance of both eyes Neck full ROM General: trachea midline; Negative for anterior neck swelling Resp normal respiratory effort Effort and Inspection: able to speak in complete sentences and symmetric chest movement; Negative for respiratory distress, labored, stridor, actively coughing, uses accessory muscles or audible wheezes Extremity Extremity Narrative: LLE with mild (1+) swelling, varicose veins noted. No significant pallor or discoloration. Wound as described below. Skin no rashes or lesions noted, no petechiae and no mottling Wound Narrative: Wound bed with minimal slough, beefy red granulation tissue, and good bleeding. No surrounding erythema, warmth, fluctuance/induration, drainage, foul-odor. It is once again significantly reduced in size from last week. Neuro oriented x3, CN's II-XII intact bilaterally, moves all extremities and no sensory deficits noted Neuro Narrative: Ataxic gait. Tremor of hands and head. Psych mental status grossly normal Appearance: grossly normal Attitude: calm and engaged Activity / Motor Behavior: appropriate eye contact Speech: normal speech Mood & Affect: euthymic mood Thought Process: normal thought process Thought Content: normal thought content Attention / Concentration: attention grossly intact Memory / Cognition: memory grossly intact Insight: insight good Judgement: judgement good Debridement Note Debridement Note Wound debrided: Left lower leg Laterality: Left Type of Debridement: Excisional debridement Anesthesia Used: 5% Lidocaine Gel Depth: Down to and including healthy tissue and in the subcutaneous layer Percentage of wound debrided: 100 Instrument Used: 3mm curette Tissue Removed: Slough, devitalized tissue Amount of bleeding with debridement: Mild Bleeding Controlled with: Pressure Patient tolerated procedure: Patient tolerated procedure well Post-Debridement Measurements and Additional Note: Post-Debridement Measurements/Treatment FER - Nurse 1 - General Ulcer Assessment Start: 11/21/22 08:27 Freq: Status: Active Protocol: MYLES Activity Type Activity Date Activity User E-sign Co-sign Detail Recorded Client Recorded Date Recorded By Document 11/21/22 08:27 AR [id number] 11/21/22 08:30 AK Document 11/28/22 09:01 AK [id number] 11/28/22 09:31 AK Document 12/05/22 09:01 [facility] [id number] 12/05/22 09:12 BMF Document 12/12/22 09:31 AK [id number] 12/12/22 09:33 AK Document 12/19/22 09:14 JF Desktop 12/19/22 09:16 JF 11/21/22 11/28/22 12/05/22 08:27 09:01 09:01 WC - Today's Visit Information Type of service Follow-up Visit Follow-up Visit Follow-up Visit (Physician/SUPERVISOR FUR FLOOR WORKER (Physician/SUPERVISOR FUR FLOOR WORKER (Physician/SUPERVISOR FUR FLOOR WORKER ) ) ) Arrival Mode Wheelchair Wheelchair Wheelchair Transfer Assistance None Transfer Assist (Other) Accompanied by FRIEND Patient Identification Verified (Name & Yes Yes Yes ) Patient Requires Transmission-Based No No No Precautions Safety Precautions NA Height and Weight Body Mass Index (BMI) 27.3 27.3 27.3 BMI Classification Overweight Overweight Overweight Vital Signs Temperature (97.8 F-99.1 F) 97.2 F L 97.1 F L 97.5 F L Temperature Source Temporal Temporal Temporal Pulse Rate (60-100) 89 72 81 Pulse Location Monitor Monitor Monitor Respiratory Rate (12-18) 16 Respiratory rate source Observation Oxygen Delivery Method Room Air Blood Pressure (90/60-120/80) 137/66 H 141/61 H 135/59 H Blood Pressure Mean (mm Hg) 89 87 84 Source Monitor Monitor Monitor Position Sitting Blood Pressure Location Left Arm History Since Last Visit- (Skip if this is Patient's initial visit) Have you changed medications since your No No No last visit? Any new allergies or adverse reactions No No No Had a fall/change in ADL's that may No No No increase risk of falls Signs or symptoms of abuse and/or No No No neglect since last visit Have you been in the hospital since your No No No last visit? Has dressing in place as prescribed Yes Yes Yes Has compression in place as prescribed No Yes No Has offloadiing in place as prescribed No N/A N/A Experienced any changes in pain level or No No No management Left Footwear Regular Shoe Regular Shoe Regular Shoe Right Footwear Regular Shoe Regular Shoe Regular Shoe Pain Scale: 0-10 Numeric Is Patient Pain Free? Yes Yes Yes 12/12/22 12/19/22 09:31 09:14 WC - Today's Visit Information Type of service Follow-up Visit Follow-up Visit (Physician/SUPERVISOR FUR FLOOR WORKER (Physician/SUPERVISOR FUR FLOOR WORKER ) ) Arrival Mode Wheelchair Wheelchair Transfer Assistance Other Transfer Assist (Other) stand by Accompanied by friend Patient Identification Verified (Name & Yes Yes ) Patient Requires Transmission-Based No No Precautions Safety Precautions NA Height and Weight Body Mass Index (BMI) 27.3 27.3 BMI Classification Overweight Overweight Vital Signs Temperature (97.8 F-99.1 F) 96.6 F L 97.5 F L Temperature Source Temporal Temporal Pulse Rate (60-100) 85 86 Pulse Location Monitor Monitor Respiratory Rate (12-18) 16 Respiratory rate source Observation Oxygen Delivery Method Room Air Blood Pressure (90/60-120/80) 141/72 H 150/72 H Blood Pressure Mean (mm Hg) 95 98 Source Monitor Monitor Position Sitting Blood Pressure Location Right Arm History Since Last Visit- (Skip if this is Patient's initial visit) Have you changed medications since your No No last visit? Any new allergies or adverse reactions No No Had a fall/change in ADL's that may No No increase risk of falls Signs or symptoms of abuse and/or No No neglect since last visit Have you been in the hospital since your No No last visit? Has dressing in place as prescribed Yes Yes Has compression in place as prescribed Yes Yes Has offloadiing in place as prescribed N/A N/A Experienced any changes in pain level or No No management Left Footwear Regular Shoe Regular Shoe Right Footwear Regular Shoe Regular Shoe Pain Scale: 0-10 Numeric Is Patient Pain Free? Yes Yes WC - Nurse 1 - General Ulcer Measurement Start: 11/21/22 08:27 Freq: Status: Active Protocol: Activity Type Activity Date Activity User E-sign Co-sign Detail Recorded Client Recorded Date Recorded By Document 11/21/22 08:27 AR [id number] 11/21/22 08:30 AK Document 11/28/22 09:01 AK [id number] 11/28/22 09:31 AK Document 12/05/22 09:01 [facility] [id number] 12/05/22 09:12 BM Document 12/12/22 09:31 AK [id number] 12/12/22 09:33 AK Document 12/19/22 09:14 JF Desktop 12/19/22 09:16 JF 11/21/22 11/28/22 12/05/22 08:27 09:01 09:01 Wound Center Nurse 1 #1 Left Lower Leg -Combined with other wound No No No -Current Size (cm) - Length 1.6 2.2 1.5 -Current Size (cm) - Width 1.3 2.1 2 -Current Size (cm) - Depth 0.1 0.1 0.1 -Total Square Cm 2.08 4.62 3.0 -Date of Last Picture (Recall this 11/28/22 12/05/22 field) -Photo Taken Yes Yes Yes -Epithelialization None Present -Tunneling No No No -Undermining/Tunneling No No No -Circular Undermining No No No -Change in Wound Grade/Stage No No -Exudate Amt Medium Medium Small -Exudate Type Serosanguineous Serosanguineous Serous -Wound Margin Distinct, Distinct, Distinct, Outline Outline Outline Attached Attached Attached -Granulation Amt Large (67-100%) Large (67-100%) None Present (0 %) -Granulation Quality [place] -Slough/Fibrin Yes Yes Yes -Necrosis Amt Small (1-33%) Small (1-33%) Large (67-100%) -Necrotic Tissue Type Adherent Slough Adherent Slough Eschar -Structure Exposed N/A N/A -Texture (Humera-wound Skin Appearance) No Abnormality, No Abnormality, Assessed, Assessed Assessed Scarring -Moisture (Humera-wound Skin Appearance) No Abnormality, No Abnormality, Assessed Assessed Assessed -Color (Humera-wound Skin Appearance) No Abnormality, No Abnormality, Assessed Assessed Assessed -Temperature (Humera-wound Skin No Abnormality No Abnormality No Abnormality Appearance) (Pt Warm) (Pt Warm) (Pt Warm) -Tenderness on Palpation (Humera-wound No No No Skin Appearance) -Ulcer Cleansing Rinsed/ Rinsed/ Soap and Water Irrigated with Irrigated with Saline Saline -Foul Odor after Cleansing No No No -Anesthetic Used 5% Lidocaine 5% Lidocaine 5% Lidocaine Gel Gel Gel Lower Limb Edema Present No Point of Measurement (cm from the distal 32.6 point) Left Calf (cm) 32 Point of measurement (cm from the medial 20.1 instep) Left Ankle (cm) 12/12/22 12/19/22 09:31 09:14 Wound Center Nurse 1 #1 Left Lower Leg -Combined with other wound No No -Current Size (cm) - Length 1.2 0.6 -Current Size (cm) - Width 0.9 0.3 -Current Size (cm) - Depth 0.1 -Total Square Cm 1.08 0.18 -Date of Last Picture (Recall this 12/19/22 field) -Photo Taken Yes Yes -Epithelialization Small 1-33% -Tunneling No No -Undermining/Tunneling No No -Circular Undermining No No -Change in Wound Grade/Stage No -Exudate Amt Small Small -Exudate Type Serosanguineous Serosanguineous -Wound Margin Distinct, Distinct, Outline Outline Attached Attached -Granulation Amt Large (67-100%) Large (67-100%) -Granulation Quality [place],Red Red -Slough/Fibrin No Yes -Necrosis Amt None Present (0 Small (1-33%) %) -Necrotic Tissue Type Adherent Slough -Structure Exposed N/A -Texture (Humera-wound Skin Appearance) No Abnormality, Assessed, Assessed Scarring -Moisture (Humera-wound Skin Appearance) No Abnormality, Assessed,Dry/ Assessed Scaly -Color (Humera-wound Skin Appearance) No Abnormality, Assessed Assessed -Temperature (Humera-wound Skin No Abnormality No Abnormality Appearance) (Pt Warm) (Pt Warm) -Tenderness on Palpation (Humera-wound No No Skin Appearance) -Ulcer Cleansing Soap and Water Rinsed/ Irrigated with Saline -Foul Odor after Cleansing No No -Anesthetic Used 5% Lidocaine Gel Lower Limb Edema Present No Point of Measurement (cm from the distal point) Left Calf (cm) 31.5 31.5 Point of measurement (cm from the medial instep) Left Ankle (cm) 19 19.4 WC - Nurse 2 - General Ulcer CM Notes Start: 11/21/22 08:27 Freq: Status: Active Protocol: Activity Type Activity Date Activity User E-sign Co-sign Detail Recorded Client Recorded Date Recorded By Document 11/21/22 12:29 PL [id number] 11/21/22 12:31 PL Document 11/28/22 12:21 PL [id number] 11/28/22 12:23 PL Document 12/05/22 12:19 PL [id number] 12/05/22 12:20 PL Document 12/12/22 09:24 PL [id number] 12/12/22 09:25 PL 03/03/23 03/10/23 03/17/23 12:29 12:21 12:19 Wound Center Nurse 2 #1 Left Lower Leg -Time 08:59 09:11 09:24 -Correct Patient Yes Yes Yes -Correct Side, Site, Position Yes Yes Yes -Correct Procedure Yes Yes Yes -Procedure Performed Yes Yes Yes -Type of Procedure Debridement Debridement Debridement -Clinical Debridement Subcutaneous Subcutaneous Subcutaneous -Tissue Removed Subcutaneous Subcutaneous Subcutaneous -Post Debridement (cm) - Length 1.8 2.2 0.9 -Post Debridement (cm) - Width 1.6 2.1 0.8 -Post Debridement (cm) - Depth 0.1 0.1 0.1 -Total Square (Post) (cm) 2.88 4.62 0.72 -Area of Debridement (cm) - Length 1.8 2.2 0.9 -Area of Debridement (cm) - Width 1.6 2.1 0.8 -Total Square (Area) (cm) 2.88 4.62 0.72 -Tunneling No No No -Undermining/Tunneling No No No -Circular Undermining No No No -Wound/Ulcer Outcome Not Healed Not Healed Not Healed -Ulcer Cleansing Rinsed/ Rinsed/ Rinsed/ Irrigated with Irrigated with Irrigated with Saline Saline Saline -Foul Odor after Cleansing No No No -Bioengineered Tissue Yes Yes Yes -Type of Bioengineered Tissue Theraskin Theraskin Theraskin -Expiration Date 11/27/25 03/04/25 01/13/25 -Product Lot Number [id number] -Percent Used 100 100 100 -Bleeding Controlled with Pressure Pressure Pressure -Treatment Response Procedure Procedure Procedure Tolerated Well Tolerated Well Tolerated Well -Debridement - Subq, 1st 20sq cm No No No -Apply Skin Sub - 1st 25 sq cm - Legs 1 1 1 -Theraskin (per sq cm) 6 3 3 Pain Scale: 0-10 Numeric Is Patient Pain Free? Yes Yes Yes 12/12/22 09:24 Wound Center Nurse 2 #1 Left Lower Leg -Time 09:10 -Correct Patient Yes -Correct Side, Site, Position Yes -Correct Procedure Yes -Procedure Performed Yes -Type of Procedure Debridement -Clinical Debridement Subcutaneous -Tissue Removed Subcutaneous -Post Debridement (cm) - Length 1.0 -Post Debridement (cm) - Width 0.6 -Post Debridement (cm) - Depth 0.1 -Total Square (Post) (cm) 0.60 -Area of Debridement (cm) - Length 1.0 -Area of Debridement (cm) - Width 0.6 -Total Square (Area) (cm) 0.60 -Tunneling No -Undermining/Tunneling No -Circular Undermining No -Wound/Ulcer Outcome Not Healed -Ulcer Cleansing Rinsed/ Irrigated with Saline -Foul Odor after Cleansing No -Bioengineered Tissue No -Type of Bioengineered Tissue -Expiration Date -Product Lot Number -Percent Used -Bleeding Controlled with Pressure -Treatment Response Procedure Tolerated Well -Debridement - Subq, 1st 20sq cm Yes -Apply Skin Sub - 1st 25 sq cm - Legs -Theraskin (per sq cm) Pain Scale: 0-10 Numeric Is Patient Pain Free? Yes - Nurse 3 - General Ulcer D/C NN Start: 11/21/22 08:27 Freq: Status: Active Protocol: Activity Type Activity Date Activity User E-sign Co-sign Detail Recorded Client Recorded Date Recorded By Document 11/21/22 09:19 AR [id number] 11/21/22 09:20 AK Document 11/28/22 09:31 AR [id number] 11/28/22 09:32 AK Document 12/05/22 09:46 IL [id number] 12/05/22 09:51 [place] Document 12/12/22 09:19 [id number] 12/12/22 09:20 Document 12/19/22 09:42 [facility] [id number] 12/19/22 09:43 [facility] 11/21/22 11/28/22 12/05/22 09:19 09:31 09:46 Wound Care Center Nurse 3 #1 Left Lower Leg -Ulcer Cleansing Rinsed/ Not Cleansed Irrigated with Saline -Foul Odor after Cleansing No -Negative Pressure Wound Therapy N/A -Primary Dressing Applied -Other Dressing -Primary Dressing Covered/Secured with Dry Gauze & Dry Gauze & Dry Gauze & Roll Gauze, Roll Gauze, Roll Gauze, Secured with Secured with Secured with Tape Tape Tape -Mepilex Border -Promogran Left -Tubular Bandage Single Layer Single Layer -Size of Tubigrip Used Size E Size E -Size D ($) -Size E ($) 1 1 -Other Treatment Response Pain Scale: 0-10 Numeric Is Patient Pain Free? Yes Yes Yes WC - Visit Discharge Discharge Condition Stable Stable Ambulatory Status Ambulatory Transportation Private Auto Private Auto Accompanied by aid Medication Reconcilliation completed & Yes No provided to patient/care provider Clinical Summary of Care Provided Yes Yes 12/12/22 12/19/22 09:19 09:42 Wound Care Center Nurse 3 #1 Left Lower Leg -Ulcer Cleansing Rinsed/ Rinsed/ Irrigated with Irrigated with Saline Saline -Foul Odor after Cleansing No No -Negative Pressure Wound Therapy -Primary Dressing Applied Promogran Promogran, Mepilex Border -Other Dressing drsg per karen rn -Primary Dressing Covered/Secured with -Mepilex Border 1 1 -Promogran 1 1 Left -Tubular Bandage Single Layer -Size of Tubigrip Used Size D -Size D ($) 0 -Size E ($) -Other pts own single layer tubi applied Treatment Response Procedure Tolerated Well Pain Scale: 0-10 Numeric Is Patient Pain Free? Yes Yes WC - Visit Discharge Discharge Condition Stable Stable Ambulatory Status Wheelchair Wheelchair Transportation Private Auto Private Auto Accompanied by caregiver friend Medication Reconcilliation completed & Yes provided to patient/care provider Clinical Summary of Care Provided No Assessment/Plan Assessment/Plan (1) Peripheral arterial disease: CODE(S): I73.9 - Peripheral vascular disease, unspecified (2) Non-pressure chronic ulcer of left calf with fat layer exposed: CODE(S): L97.222 - Non-pressure chronic ulcer of left calf with fat layer exposed PLAN: Plan Patient tolerated debridement well today, good granulation tissue at wound base. Continues to improve. Continue moistened promogran covered with silicone border dressing. Change daily or more often as needed to keep clean and dry. Did domestic violence counselor patient regarding the importance of smoking cessation and improving diet (increasing protein and decreasing carbs/sugars) to promote healing. He will return to clinic in 1 week or sooner as needed.
== END 2022-12-19 23:59 | disposition home or self-care (01) ==
LOC: WC 09:00
PROVIDERS: PCP Family Medicine; Visit Provider Physician Assistant
DX: L97.222 Non-pressure chronic ulcer of left calf with fat layer exposed (principal); I73.9 Peripheral vascular disease, unspecified; R25.1 Tremor, unspecified; F17.210 Nicotine dependence, cigarettes, uncomplicated; R27.0 Ataxia, unspecified
CPT/HCPCS: 11042; 15271; Q4121

== ENCOUNTER 2022-12-26 09:04 | Outpatient (RCR) | payer MEDICARE, MEDICAID, SELFPAY ==
[2022-12-20 01:54] VITALS: BP 150/72; PULSE 86; RESP 16; TEMP 36.4; BMI 27.3
[2022-12-26 09:12] VITALS: BP 132/57; PULSE 80; RESP 16; TEMP 35.8; BMI 27.3
--- NOTE | 2022-12-26 09:21 | PN.PCM_ITS ---
History of Present Illness Date of Service: 12/26/22 Chief Complaint: Left lower leg wound History of Wound: Patient had a fall on 09/11/2022 during which he hit his LLE on his walker and his head on the ground. He was evaluated in the ED on 09/16/2022. Imaging did not reveal any significant injury. He was felt to have an infected hematoma on his left lower leg and was prescribed Augmentin to treat. He then f/u with his PCP on 10/09 and hematoma was found to be stable with overlying eschar and no signs of infection. Patient reports that the hematoma appears smaller than initial injury but otherwise has remained quite stable. His past medical history is significant for PAD with multiple prior interventions including several stents placed in bilateral LE arteries, unclear which and no records available for review. All vascular interventions performed at [facility]. He has a history of DVT in LLE. He is being evaluated and treated for anemia by PCP. He also has tremor and ataxia. He reports history of nonhealing wounds bilateral lower extremities. He takes Eliquis and ASA. He does smoke 1-2 ppd, he is considering cutting back. He is accompanied to [facility] by infertility medical assistant Rachael who supplements history. She is with him Thursday-Thursday. Subjective Subjective Patient is doing very well this week. He thinks his wound has healed. He denies any signs or symptoms of infection, new or worsening pain. Objective Data Objective Data Vital Signs: Vital Signs Temp Pulse Resp BP 96.4 F L 80 16 132/57 H 12/26/22 09:12 12/26/22 09:12 12/26/22 09:12 12/26/22 09:12 Weight: 180 lb Body Mass Index (BMI) 27.3 Charges/Coding Visit Charges Office Visits / Consults: [id number] OV L3 Est Physical Exam Const alert, oriented x3, no apparent distress and healthy appearing General Appearance: cooperative and comfortable Exam Limitations: no limitations HEENT normocephalic, head/scalp atraumatic, hearing grossly normal bilaterally, external ears normal and external nose normal Eyes EOMs intact bilaterally General Eye: normal appearance of both eyes Neck full ROM General: trachea midline; Negative for anterior neck swelling Resp normal respiratory effort Effort and Inspection: able to speak in complete sentences and symmetric chest movement; Negative for respiratory distress, labored, stridor, actively coughing, uses accessory muscles or audible wheezes Extremity Extremity Narrative: LLE with mild (1+) swelling, varicose veins noted. No significant pallor or discoloration. Skin no rashes or lesions noted, no petechiae and no mottling Wound Narrative: Wound on L morillo has healed, fully epithelialized. Neuro oriented x3, CN's II-XII intact bilaterally, moves all extremities and no sensory deficits noted Neuro Narrative: Ataxic gait. Tremor of hands and head. Psych mental status grossly normal Appearance: grossly normal Attitude: calm and engaged Activity / Motor Behavior: appropriate eye contact Speech: normal speech Mood & Affect: euthymic mood Thought Process: normal thought process Thought Content: normal thought content Attention / Concentration: attention grossly intact Memory / Cognition: memory grossly intact Insight: insight good Judgement: judgement good Debridement Note Debridement Note Wound debrided: Left lower leg Instrument Used: 3mm curette Operative Diagnosis: Wound bed has fully epithelialized No debridement was completed: No debridement was completed today Post-Debridement Measurements and Additional Note: Post-Debridement Measurements/Treatment - Nurse 1 - General Ulcer Assessment Start: 12/26/22 09:09 Freq: Status: Active Protocol: WC.LOWFLORYT Activity Type Activity Date Activity User E-sign Co-sign Detail Recorded Client Recorded Date Recorded By Document 12/26/22 09:12 [id number] 12/26/22 09:13 ALEJA 12/26/22 09:12 - Today's Visit Information Type of service Follow-up Visit (Physician/POEM WRITER ) Arrival Mode Ambulatory, Wheelchair Patient Identification Verified (Name & Yes ) Patient Requires Transmission-Based No Precautions Height and Weight Body Mass Index (BMI) 27.3 BMI Classification Overweight Vital Signs Temperature (97.8 F-99.1 F) 96.4 F L Temperature Source Temporal Pulse Rate (60-100) 80 Pulse Location Monitor Respiratory Rate (12-18) 16 Respiratory rate source Observation Blood Pressure (90/60-120/80) 132/57 H Blood Pressure Mean (mm Hg) 82 Source Monitor Position Semi-Fowlers Blood Pressure Location Left Arm History Since Last Visit- (Skip if this is Patient's initial visit) Have you changed medications since your No last visit? Any new allergies or adverse reactions No Had a fall/change in ADL's that may No increase risk of falls Signs or symptoms of abuse and/or No neglect since last visit Have you been in the hospital since your No last visit? Has dressing in place as prescribed Yes Has compression in place as prescribed Yes Has offloadiing in place as prescribed N/A Experienced any changes in pain level or No management Left Footwear Regular Shoe Right Footwear Regular Shoe Pain Scale: 0-10 Numeric Is Patient Pain Free? Yes WC - Nurse 1 - General Ulcer Measurement Start: 12/26/22 09:09 Freq: Status: Active Protocol: Activity Type Activity Date Activity User E-sign Co-sign Detail Recorded Client Recorded Date Recorded By Document 12/26/22 09:12 ALEJA [id number] 12/26/22 09:13 ALEJA 12/26/22 09:12 Wound Center Nurse 1 #1 Left Lower Leg -Current Size (cm) - Length 0.1 -Current Size (cm) - Width 0.1 -Current Size (cm) - Depth 0.1 -Total Square Cm 0.01 -Photo Taken Yes -Epithelialization Large 67-100% -Tunneling No -Undermining/Tunneling No -Circular Undermining No -Exudate Amt None Present -Wound Margin Fibrotic Scar, Thickened Scar -Granulation Amt Large (67-100%) -Granulation Quality Red -Slough/Fibrin No -Necrosis Amt None Present (0 %) -Structure Exposed N/A -Texture (Humera-wound Skin Appearance) Assessed, Scarring -Moisture (Humera-wound Skin Appearance) Assessed,Dry/ Scaly -Temperature (Humera-wound Skin No Abnormality Appearance) (Pt Warm) -Tenderness on Palpation (Humera-wound No Skin Appearance) -Ulcer Cleansing Rinsed/ Irrigated with Saline -Foul Odor after Cleansing No Lower Limb Edema Present No Left Calf (cm) 32.8 Left Ankle (cm) 20.0 Assessment/Plan Assessment/Plan (1) Peripheral arterial disease: CODE(S): I73.9 - Peripheral vascular disease, unspecified (2) Non-pressure chronic ulcer of left calf with fat layer exposed: CODE(S): L97.222 - Non-pressure chronic ulcer of left calf with fat layer exposed PLAN: Plan Patient's L morillo wound has healed. Advise to apply hydrogel and protect with gauze for 1 more week to support freshly healed tissue. Do recommend continuing to wear compression as tolerated. Provided with prescription for compression stockings. Return as needed.
== END 2023-01-18 23:59 | disposition home or self-care (01) ==
LOC: WC 09:04
PROVIDERS: PCP Family Medicine; Visit Provider Physician Assistant
DX: L97.222 Non-pressure chronic ulcer of left calf with fat layer exposed (principal); I73.9 Peripheral vascular disease, unspecified; R27.0 Ataxia, unspecified; F17.210 Nicotine dependence, cigarettes, uncomplicated; R25.1 Tremor, unspecified
CPT/HCPCS: 99213; G0463

== ENCOUNTER 2023-03-10 09:01 | Inpatient (IN) | payer MEDICARE, MEDICAID, SELFPAY ==
[2023-03-10] VITALS (35 sets, daily range): BP systolic 76–132; BP diastolic 38–76; PULSE 50–76; RESP 11–30; TEMP 28–37.8; O2SAT 94–100; BMI 27.9
--- NOTE | 2023-03-10 | GASB_PTH ---
PATIENT: ANA TERESA V LOC: [facility] U#:[id number] AGE/SX: 67/M ROOM: [facility] RE03/10/[address]: Dr. Charanjit Do DO : 1955 BED: 1 DIS: 03/15/2023 SPEC #: [id number] RECD: 03/10/23 17:05 STATUS: E[facility]RAIM REQ #: [id number] SEKOU: 03/10/23 00:[address]: Anatoliy Knight DEPT: SURGICAL PATHOLOGY RECD BY: Abdulkadir Whiting ENTERED: 03/11/23 09:16 SP TYPE: Gastric Bx OTHR DR: MD Dr. Carlitos George DO Dr. Joseph Agyepong, MD Dr. Lee Ann Baggott, MD Dr. Paige Pierce, MD Dr. Tanmay Panchabhai, MD Dr. William Lago, MD Christina Muller, CARDIO TECH-C Tissues: Gastric mucous membrane Procedures: Surgery Specimen Level IV Comments: @ Ordering doctor for SUIV edited from to @ by LAWSON at 03/11/23 0959 @ Submitting doctor edited from to @ by LAWSON at 03/11/23 0959 HEADER OPERATION: EGD with biopsy (MAC) PRE-OP DIAGNOSIS: Acute upper GI bleed TISSUE SUBMITTED: Duodenal ulcer MICROSCOPIC DIAGNOSIS Duodenum ulcer, biopsy: Ulceration with associated acute and chronic inflammation and early granulation. AM:marli 03/12/2023 MICROSCOPIC DESCRIPTION Slides are reviewed. GROSS DESCRIPTION Received in fixative is one container labeled with the patient's name and designated duodenal ulcer. The specimen consists of multiple irregular fragments of light levine soft tissue that in aggregate measure 1.0 x 0.3 x 0.1 cm. The specimen is totally submitted in one cassette. / AM:marli 03/11/2023 TC:2 CPT: 97712
--- NOTE | 2023-03-10 09:02 | NURSING ---
NO OLD EKGS
[2023-03-10] MEDS: Etomidate 20 MG/10 ML Vial IV (09:09)
[2023-03-10] MEDS: Succinylcholine Chloride 200 MG/10 ML SYRINGE 100 MG IV (09:09)
--- NOTE | 2023-03-10 09:13 | RAD_ITS ---
STUDY: X-RAY CHEST REASON FOR EXAM: Male, 67 years old. Respiratory arrest TECHNIQUE: Frontal view of the chest COMPARISON: None. FINDINGS: There is an enteric tube noted with its tip in the body of the stomach. There is an endotracheal tube noted with its tip approximately 4 cm above the margarita. There is patchy airspace opacity in the right lower lobe. The lungs are otherwise clear. There are no pleural effusions. There is no pneumothorax. The heart is normal in size. The visualized osseous structures are within normal limits. RAD/Chest 1 View (Portable) IMPRESSION: Satisfactory position of the support lines and tubes. Patchy airspace opacity in the right lower lobe, consistent with an infiltrate. Electronically Signed: Kendall Flores MD at 9:40 EDT ,
--- NOTE | 2023-03-10 09:15 | EX.ED.CRITCA ---
HPI History of Present Illness Chief Complaint: CPR Detail of Chief Complaint: Cardiac arrest Informant: EMS Narrative Narrative: Patient presents to the emergency department via EMS from home. Tonny was called for respiratory difficulty. On EMS arrival he was verbal and following commands. In the course of EMS obtaining vital signs patient apparently had a cardiac arrest and CPR was started. Patient received 1 dose of epinephrine and had an i-gel inserted. Patient developed a perfusing rhythm in route to the hospital. Apparently patient has history of being on Eliquis for history of DVT. Patient also with history of peripheral artery disease. Unable to obtain review of systems otherwise. Patient's certified nursing assistant did arrive to give more history. Apparently she sees him for 3 hours in the morning and when she came in today she found him on the floor and very diaphoretic and not responding well and that is when she called EMS. She tells me that people have been bringing him alcohol and has been drinking. He continues to smoke. It is unclear if he fell or hit his head and he is anticoagulated. [facility] Medical History Benign essential tremor DVT (deep venous thrombosis) Hypertension Peripheral arterial disease Home Medications amlodipine 10 mg tablet (Norvasc) 10 mg PO DAILY BP 01/19/19 [History Last Taken Unknown] gabapentin 300 mg capsule 300 mg PO TIDCM NERVE PAIN 01/19/19 [History Last Taken Unknown] lisinopril 40 mg tablet (Zestril) 40 mg PO DAILY BP 01/19/19 [History Last Taken Unknown] folic acid 1 mg tablet 1 mg PO DAILY SUPPLEMENT 10/17/22 [History Last Taken Unknown] rosuvastatin 20 mg tablet (Crestor) 20 mg PO DAILY CHOLESTEROL 10/17/22 [History Last Taken Unknown] apixaban 5 mg tablet 5 mg PO BID BLOOD THINNER 03/10/23 [History Last Taken Unknown] aspirin 81 mg tablet,delayed release 81 mg PO DAILY HEALTH MAINTENANCE 03/10/23 [History Last Taken Unknown] ferrous sulfate 325 mg (65 mg iron) tablet 325 mg PO BIDCM SUPPLEMENT 03/10/23 [History Last Taken Unknown] folic acid 800 mcg tablet 0.8 mg PO DAILY SUPPLEMENT 03/10/23 [History Last Taken Unknown] ibuprofen 200 mg capsule 400 mg PO Q4H PRN PRN PAIN GREATER THAN 4 03/10/23 [History Last Taken Unknown] magnesium hydroxide 400 mg/5 mL oral suspension (Milk of Magnesia) 1,200 mg PO DAILY PRN Constipation 03/10/23 [History Last Taken Unknown] ajtzaqwd-efu-gfyuf acid 300 mcg-lycopene 600 mcg-lutein 300 mcg tablet (Centrum Silver Men) 1 tab PO DAILY SUPPLEMENT 03/10/23 [History Last Taken Unknown] Allergy/AdvReac Type Severity Reaction Status Date / Time bee pollen Allergy Anaphylaxis Verified 09/16/22 10:20 Social History Smoking Status: Unknown if ever smoked ROS ROS ED Review of Systems ROS Unobtainable: due to endotracheal tube, due to mental condition, due to mental status and other Constitutional Constitutional ED: Reports lethargy; Denies chills, fever(s), sweats or weight loss Eyes Eyes: Denies blurry vision, change in vision or diplopia ENT ENT ED: Denies rhinorrhea or sore throat Cardiovascular Cardiovascular: Reports chest pain and racing heartbeat; Denies orthopnea Respiratory/Chest Respiratory/Chest: Reports dyspnea and dyspnea on exertion; Denies cough, orthopnea or sputum Gastrointestinal Gastrointestinal: Denies abdominal pain, diarrhea, nausea or vomiting Genitourinary Genitourinary ED: Denies dysuria, hematuria or urinary frequency Musculoskeletal Musculoskeletal: Denies arthralgias, back pain, myalgias or neck pain Integumentary Denies abscess, Abrasions or rash Neurologic Neurologic: Denies headache(s) or weakness Psychiatric Psychiatric: Denies anxiety, depression or suicidal thoughts Endocrine Endocrinology: Denies polydipsia, polyphagia or polyuria Hematologic/Lymphatic Hematologic/Lymphatic: Denies easy bleeding, easy bruising or lymphadenopathy Allergic/Immunologic Allergic/Immunologic ED: Denies mouth swelling, tongue swelling or urticaria EXAM Physical Exam Const Vital Signs: 03/10/23 09:03 03/10/23 09:03 03/10/23 09:31 Temperature 82.4 F L 94.0 F L Temperature Source Temporal Core Pulse Rate 72 62 Respiratory Rate 30 H 20 H Respiratory Pattern Apnea Blood Pressure 129/55 H 109/41 L Blood Pressure Mean 79 63 Blood Pressure Source Blood Pressure Location Pulse Ox 100 100 95 Oxygen Delivery Method Ambu-Bag Mechanical Ventilator Mechanical Ventilator Fraction of Inspired Oxygen (FIO2) 100 03/10/23 09:10 03/10/23 10:22 03/10/23 10:30 Temperature 93.4 F L Temperature Source Core Pulse Rate 55 L 61 57 L Respiratory Rate 18 22 H 24 H Respiratory Pattern Normal Blood Pressure 84/41 L 88/38 L Blood Pressure Mean 55 54 Blood Pressure Source Monitor Blood Pressure Location Left Arm Pulse Ox 100 100 100 Oxygen Delivery Method Mechanical Ventilator Mechanical Ventilator Fraction of Inspired Oxygen (FIO2) 95 40 03/10/23 10:46 03/10/23 11:11 03/10/23 11:27 Temperature 93.7 F L 92.5 F L Temperature Source Core Core Pulse Rate 58 L 60 58 L Respiratory Rate 16 21 H 22 H Respiratory Pattern Blood Pressure 87/48 L 76/76 L 106/50 L Blood Pressure Mean 61 76 68 Blood Pressure Source Monitor Blood Pressure Location Pulse Ox 98 100 97 Oxygen Delivery Method Mechanical Ventilator Mechanical Ventilator Mechanical Ventilator Fraction of Inspired Oxygen (FIO2) 40 40 40 03/10/23 11:05 03/10/23 11:49 Temperature 92.2 F L Temperature Source Core Pulse Rate 58 L 67 Respiratory Rate 20 H 18 Respiratory Pattern Blood Pressure 116/69 Blood Pressure Mean 84 Blood Pressure Source Blood Pressure Location Pulse Ox 98 Oxygen Delivery Method Mechanical Ventilator Fraction of Inspired Oxygen (FIO2) Positive well nourished and well developed General Appearance ED: well developed and NAD HEENT Reports TM's clear and moist mucous membranes normocephalic and atraumatic; Negative for trauma or tenderness Tympanic Membrane ED: Yes TM's clear Eyes PERRL and EOMs intact bilaterally General Eye ED: Negative for pale conjunctiva or scleral icterus Neck no lymphadenopathy, supple and no JVD General: Negative for tenderness Chest Wall inspection of chest normal and palpation of chest normal Chest: Negative for tenderness Resp No normal respiratory effort and No clear to auscultation bilaterally Resp Narrative: Patient presents intubated with i-gel and being manually bagged. He has coarse breath sounds bilaterally. Effort and Inspection: Negative for respiratory distress or pain with movement Auscultation: Negative for rhonchi, wheezes or diminished lung sounds Cardio regular rate, regular rhythm, S1 normal heart sound, S2 normal heart sound and no murmurs Peripheral Pulses: pulses 2+ throughout GI normal to inspection, nondistended, normoactive bowel sounds, soft to palpation, non-tender, non-distended and no masses Back/Spine no CVA tenderness and no thoracic nor lumbar tenderness Extremity normal to inspection General Extremety ED: Negative for edema General Extremity: Negative for edema Neuro No oriented x3, No CN's II-XII intact bilaterally, No no sensory deficits noted and No gait normal Neuro Narrative: GCS is 3 Sensorium / Orientation: awake, alert, oriented to person, oriented to place and oriented to time Motor Exam: strength 5/5 throughout and strength abnormal Psych mental status grossly normal Skin no rashes or lesions noted and no wounds MDM MDM MDM Narrative Medical decision making narrative: Patient presents after sustaining cardiac arrest. Given history of being found on the floor and recent alcohol use. Although I do not see evidence of trauma to his head we will obtain a CT of the brain to evaluate further. IV lines are established and patient was intubated with a 7.5 ET tube. He did receive 20 of etomidate IV as well as 100 of succinylcholine IV. He was intubated easily and good breath sounds obtained after intubation as well as good color change. Patient had an NG placed. He had maroon stomach content. I did obtain a CT scan of the brain without contrast as well as a CT of the cervical spine which were unremarkable. Before we knew he had blood from his stomach we obtained a CT scan of his chest and abdomen as well to look for sources of blood loss as his blood counts did show a hemoglobin of 3.0. White count was 15.9. Chemistries did show sodium of 126 with a potassium of 6.0 as well as a BUN of 55 and creatinine of 4.4. Lactate was 14.4. Troponin was normal at 46. Patient was ordered 2 units of trauma blood. Patient was given normal saline fluid boluses. Urinalysis was normal. Alcohol was less than 3. Patient did open his eyes and started to become more awake. Initially gave him 2 mg of Versed. For sedation ordered Precedex. I did order Protonix as well as octreotide. We will attempt to contact GI to evaluate for upper GI bleed. Lab Data Attestation: I reviewed the patient's lab results. Labs: Laboratory Results - last 24 hr 03/10/23 03/10/23 03/10/23 09:04 09:04 09:04 WBC 15.9 H RBC 1.20 L Hgb 3.0 L* Hct 10.4 L MCV 86.7 MCH 25.0 L MCHC 28.8 L RDW Std Deviation 57.2 H RDW Coeff of Abi 18.4 H Plt Count 348 MPV 11.4 Immature Gran % (Auto) 3.300 H Neut % (Auto) 71.7 H Lymph % (Auto) 12.9 L Hodgeman % (Auto) 11.9 H Eos % (Auto) 0.1 Baso % (Auto) 0.1 Absolute Neuts (auto) 11.4 H Absolute Lymphs (auto) 2.05 Nucleated RBC % 2.5 Differential Comment Diff Path Review May foll Anisocytosis 2+ Sodium 126 L Potassium 6.0 H* Chloride 95 L Carbon Dioxide 8.0 L* Anion Gap 23 H BUN 55 H Creatinine 4.40 H Estim Creat Clear Calc 15.98 Est GFR (MDRD) Af Amer 17 L Est GFR (MDRD) Non-Af 14 L BUN/Creatinine Ratio 12.5 Glucose 141 H Lactic Acid 14.4 H* Calcium 8.0 L Troponin I High Sens 46 Urine Color Urine Clarity Urine pH Ur Specific Wild Horse Urine Protein Urine Glucose (UA) Urine Ketones Urine Occult Blood Urine Nitrite Urine Bilirubin Urine Urobilinogen Ur Leukocyte Esterase Urine RBC Urine WBC Ur Squamous Epith Cells Ur Transition Epith Cell Urine Bacteria Hyaline Casts Urine Mucus Ethyl Alcohol Blood Type Antibody Screen Crossmatch 03/10/23 03/10/23 03/10/23 09:04 09:15 10:21 WBC RBC Hgb Hct MCV MCH MCHC RDW Std Deviation RDW Coeff of Abi Plt Count MPV Immature Gran % (Auto) Neut % (Auto) Lymph % (Auto) Hodgeman % (Auto) Eos % (Auto) Baso % (Auto) Absolute Neuts (auto) Absolute Lymphs (auto) Nucleated RBC % Differential Comment Diff Path Review Anisocytosis Sodium Potassium Chloride Carbon Dioxide Anion Gap BUN Creatinine Estim Creat Clear Calc Est GFR (MDRD) Af Amer Est GFR (MDRD) Non-Af BUN/Creatinine Ratio Glucose Lactic Acid Calcium Troponin I High Sens Urine Color Yellow Urine Clarity Sl. Cloudy Urine pH 5.0 Ur Specific Wild Horse 1.020 Urine Protein 30 H Urine Glucose (UA) Normal Urine Ketones Negative Urine Occult Blood 10 H Urine Nitrite Negative Urine Bilirubin Negative Urine Urobilinogen 1 H Ur Leukocyte Esterase 25 H Urine RBC 0-5 SEEN Urine WBC 5-10 SEEN Ur Squamous Epith Cells 0-5 SEEN Ur Transition Epith Cell 0-5 SEEN Urine Bacteria 2+ Hyaline Casts 0-5 SEEN Urine Mucus 1+ Ethyl Alcohol < 3.0 Blood Type A POSITIVE Antibody Screen NEGATIVE Crossmatch See Detail ABG Data ABG results: ABG 03/10/23 03/10/23 09:24 10:03 Specimen Type CLARIBEL ART Sample Site L Radial L Brach pH 7.03 L* 7.13 L* Bicarbonate Actual 8.0 L 11.3 L Total CO2 9 12 Base Excess -23 L -18 L O2 Saturation 59 L 100 H O2 % 95 ABG pCO2 30.4 L 34.3 L ABG pO2 44 L 514 H* Respiration Rate 16 O2 Delivery Device Bagging Liter Flow 15.0 Vent Mode AC Tidal Volume 400 POC PEEP 5 Crit Call To/Read Back Yes Yes Blood Gas Notified Whom ru [facility] Radiography Diagnostic Testing: Clinical Impression(s) from Imaging Studies Chest X-Ray 03/10/23 09:13 IMPRESSION: Satisfactory position of the support lines and tubes. Patchy airspace opacity in the right lower lobe, consistent with an infiltrate. Electronically Signed: Kendall Flores MD at 9:40 EDT , Brain CT 03/10/23 09:24 IMPRESSION: Stable chronic ischemic and atrophic changes. No acute intracranial abnormality. Stable bilateral frontal infarcts. Electronically Signed: Kendall Flores MD at 10:39 EDT , Cervical Spine CT 03/10/23 09:27 IMPRESSION: No fracture or dislocation in the cervical spine. Normal alignment. Mild degenerative change. Electronically Signed: Kendall Flores MD at 10:45 EDT , Chest/Abdomen/Pelvis CT 03/10/23 10:20 IMPRESSION: Limited study. Mild pulmonary vascular congestion. Small bilateral pleural effusions with overlying atelectasis. Thick-walled urinary bladder with adjacent stranding, consistent with cystitis. No bowel obstruction or inflammation. Normal appendix. No urinary calculi. No hydronephrosis. Atherosclerosis and coronary artery disease. Findings suggesting anemia. Electronically Signed: Kendall Flores MD at 11:28 EDT , 1 view chest x-ray obtained interpreted by myself as right lower lobe infiltrate. Radiology in agreement. EKG Initial EKG: Attestation: I personally reviewed and interpreted this EKG as follows: Comments: Atrial fibrillation with rate of 64 bpm with no acute ST segment changes Critical Care Time Critical care time (excluding procedures): Including time spent:, Discussing w/Patient &/or Family/Automotive Product Specialist, Discussing w/Consultants, Arranging Admission or Transfer, Performing Direct Patient Care at Bedside and - (60 minutes) Discharge Plan Dx/Rx/DC Orders Clinical Impression: Respiratory failure, Endotracheally intubated, Acute upper GI bleed, Anemia, Acidosis, lactic, Renal failure, Acute hyperkalemia Disposition Disposition: Acute Care [facility]
--- NOTE | 2023-03-10 09:24 | CT_ITS ---
STUDY: CT BRAIN WITHOUT CONTRAST REASON FOR EXAM: Male, 67 years old. Head injury RADIATION DOSAGE (If Supplied By Facility): CTDIvol = ( 44.99 ) mGy, DLP = ( 812.98 ) mGycm TECHNIQUE: Transaxial CT imaging of the brain was performed without administration of intravenous contrast material. Individualized dose optimization techniques were used for this CT. COMPARISON: 09/16/2022 FINDINGS: PARENCHYMA: There are stable bilateral frontal infarcts. There is no acute bleed or infarct. There are stable chronic ischemic and atrophic changes. VENTRICLES: There is no hydrocephalus. MASTOID AIR CELLS AND PARANASAL SINUSES: The visualized paranasal sinuses are clear. The mastoid air cells are clear. BONES: There is no skull fracture. SOFT TISSUES: The visualized soft tissues are within normal limits. CT/Brain/Head without Contrast IMPRESSION: Stable chronic ischemic and atrophic changes. No acute intracranial abnormality. Stable bilateral frontal infarcts. Electronically Signed: Kendall Flores MD at 10:39 EDT ,
--- NOTE | 2023-03-10 09:27 | CT_ITS ---
STUDY: CT CERVICAL SPINE WITHOUT CONTRAST REASON FOR EXAM: Male, 67 years old. Fall RADIATION DOSAGE (If Supplied By Facility): CTDIvol = ( 28.33 ) mGy, DLP = ( 709.47 ) mGycm TECHNIQUE: High resolution transaxial imaging was performed without contrast material. Sagittal and coronal images were reconstructed. Individualized dose optimization techniques were used for this CT. COMPARISON: None available. FINDINGS: The study is limited by patient motion. BONES: There is no fracture in the cervical spine. The dens is intact. The vertebral body heights are maintained. ALIGNMENT: There is no dislocation. Alignment is normal. DISC SPACES: There are mild degenerative changes. LUNG APICES: The visualized lung apices are clear. SOFT TISSUES: The visualized paraspinal soft tissues are within normal limits. CT/Spine Cervical without Contras IMPRESSION: No fracture or dislocation in the cervical spine. Normal alignment. Mild degenerative change. Electronically Signed: Kendall Flores MD at 10:45 EDT ,
[2023-03-10 09:28] LABS: Base Excess -23 mmol/L (-2 to +2); O2 Delivery Device Bagging; PO2 44 mmHG (75-100); SITE L Radial; SO2 59 % (95-99); Total Carbon Dioxide 9 mmol/L; pCO2 30.4 mmHg (35-45); pH 7.03 (7.35-7.45)
[2023-03-10 09:41] LABS: Blood Gas Specimen Type VEN
[2023-03-10] MEDS: 0.9% Normal Saline 1,000 ML 150 ML IV (09:41)
[2023-03-10 09:42] LABS: Color, Urine Yellow (Yellow); Glucose, Dipstick Normal (Normal); Ketone-Dipstick Negative (Negative); Leukocyte Esterase-Dipstick 25 /ul (Negative); Nitrite-Dipstick Negative (Negative); Occult Blood-Urine 10 /ul (Negative); Protein-Dipstick 30 mg/dl (Negative); Urine Bilirubin Dipstick Negative (Negative); Urine Clarity Sl. Cloudy (Clear); Urine Urobilinogen 1 mg/dl (Normal)
[2023-03-10] MEDS: Midazolam 2 MG/2 ML Syringe IV (09:50)
[2023-03-10 09:55] LABS: Red Blood Cells-Urine 0-5 SEEN /hpf (0-5); White Blood Cells 5-10 SEEN /hpf (0-5)
[2023-03-10 09:59] LABS: Bacteria 2+ /hpf (None Seen); Hyaline Cast 0-5 SEEN /lpf (0-5); Mucous, Urine 1+ /hpf (<or=2+); Squamous Epithelial Cells - UA 0-5 SEEN /hpf (0-5); Transitional Epithelial - Ur 0-5 SEEN /hpf (0-5)
[2023-03-10 10:00] LABS: Absolute Lymphocyte Count 2.05 X10^3/uL (0.83-4.51); Absolute Neutrophil Count 11.4 X10^3/uL (2.0-7.7); Basophil# 0.02 X10^3/uL; Basophil% 0.1 % (0-1); Eosinophil# 0.01 X10^3/uL; Eosinophils% 0.1 % (0-5); Hematocrit 10.4 % (40-54); Lymphocyte # 2.05 X10^3/ul (0.83-4.51); Lymphocyte % 12.9 % (19-41); Mean Corp Hgb Conc 28.8 g/dL (32-36); Mean Corpuscular Volume 86.7 fL (80-94); Mean Platelet Vol. 11.4 fl (6.2-12.0); Monocyte# 1.89 X10^3/uL; Monocyte% 11.9 % (0-10); NRBC Flagged by Analyzer 2.5 % (0-5); Neutrophil # 11.41 X10^3/uL (2.7-7.7); Neutrophil % 71.7 % (47-70); POSITIVE COUNT YES; POSITIVE DIFFERENTIAL YES; Platelet Count 348 K/mm3 (150-450); RBC Distribution Width CV 18.4 % (11.6-14.6); RBC Distribution Width SD 57.2 fl (35.1-43.9); White Blood Count 15.9 K/mm3 (4.4-11.0)
--- NOTE | 2023-03-10 10:00 | EX.PCM.CON.G ---
HPI Consult Data Date of Consult: 03/10/23 HPI Narrative Reason for Consultation: Anemia HPI Narrative: ANA TERESA, is a 67 M who presents from home via EMS .? Squad was called for respiratory difficulty.? On EMS arrival he was verbal and following commands.? In the course of EMS obtaining vital signs patient apparently had a cardiac arrest and CPR was started.? Patient received 1 dose of epinephrine and had an i-gel inserted.? Patient developed a perfusing rhythm in route to the hospital.? Apparently patient has history of being on Eliquis for history of DVT.? Patient also with history of peripheral artery disease.? Unable to obtain review of systems otherwise.? Patient's nursing center tutor did arrive to give more history.? Apparently she sees him for 3 hours in the morning and when she came in today she found him on the floor and very diaphoretic and not responding well and that is when she called EMS.? She tells me that people have been bringing him alcohol and has been drinking.? He continues to smoke.? It is unclear if he fell or hit his head and he is anticoagulated. At this time he is intubated and sedated and all of history was taken from the patient's chart. Laboratory analysis was significant for blood cell count of 15.9, hemoglobin of 3, hematocrit of 10.4, MCV 86.7, platelet count 348. He also was noted to have a significant lactic acidosis of 14.4. His LFTs and INR pending. [facility] Medical History Benign essential tremor DVT (deep venous thrombosis) Hypertension Peripheral arterial disease Home Medications amlodipine 10 mg tablet (Norvasc) 10 mg PO DAILY BP 01/19/19 [History Last Taken Unknown] gabapentin 300 mg capsule 300 mg PO TIDCM NERVE PAIN 01/19/19 [History Last Taken Unknown] lisinopril 40 mg tablet (Zestril) 40 mg PO DAILY BP 01/19/19 [History Last Taken Unknown] folic acid 1 mg tablet 1 mg PO DAILY SUPPLEMENT 10/17/22 [History Last Taken Unknown] rosuvastatin 20 mg tablet (Crestor) 20 mg PO DAILY CHOLESTEROL 10/17/22 [History Last Taken Unknown] apixaban 5 mg tablet 5 mg PO BID BLOOD THINNER 03/10/23 [History Last Taken Unknown] aspirin 81 mg tablet,delayed release 81 mg PO DAILY HEALTH MAINTENANCE 03/10/23 [History Last Taken Unknown] ferrous sulfate 325 mg (65 mg iron) tablet 325 mg PO BIDCM SUPPLEMENT 03/10/23 [History Last Taken Unknown] folic acid 800 mcg tablet 0.8 mg PO DAILY SUPPLEMENT 03/10/23 [History Last Taken Unknown] ibuprofen 200 mg capsule 400 mg PO Q4H PRN PRN PAIN GREATER THAN 4 03/10/23 [History Last Taken Unknown] magnesium hydroxide 400 mg/5 mL oral suspension (Milk of Magnesia) 1,200 mg PO DAILY PRN Constipation 03/10/23 [History Last Taken Unknown] cfgxxhma-btt-hwgse acid 300 mcg-lycopene 600 mcg-lutein 300 mcg tablet (Centrum Silver Men) 1 tab PO DAILY SUPPLEMENT 03/10/23 [History Last Taken Unknown] Allergy/AdvReac Type Severity Reaction Status Date / Time bee pollen Allergy Anaphylaxis Verified 09/16/22 10:20 Social History Smoking Status: Unknown if ever smoked ROS Review of Systems ROS Unobtainable: due to endotracheal tube Physical Exam Const Constitutional Narrative: Fair vent synchrony. Extremely pale appearance General Appearance: ill appearing, frail and patient mechanically ventilated HEENT normocephalic, head/scalp atraumatic, hearing grossly normal bilaterally, external ears normal and external nose normal Eyes EOMs intact bilaterally Eyes Narrative: Pale conjunctiva Neck full ROM General: trachea midline Resp normal respiratory effort Effort and Inspection: able to speak in complete sentences and symmetric chest movement; Negative for respiratory distress, labored, stridor, actively coughing, uses accessory muscles or audible wheezes Cardio regular rhythm, S1 normal heart sound, S2 normal heart sound, no murmurs, no rub and no gallops Rate: bradycardia GI soft to palpation and non-tender GI Narrative: Slightly hyperactive bowel sounds Inspection: Negative for abdominal distention Extremity Extremity Narrative: LLE with mild (1+) swelling, varicose veins noted. No significant pallor or discoloration. General Extremity: Negative for clubbing Skin no rashes or lesions noted, no petechiae and no mottling Neuro moves all extremities and no sensory deficits noted Psych Psych Narrative: Sedated Lab / Micro Data Result Diagrams: 03/10/23 13:40 03/10/23 09:04 Labs: Laboratory Results - last 24 hr Micro: Microbiology 03/10/23 10:10 Sputum, Tracheal Aspirate Gram Stain - Final 03/10/23 09:30 Nasal Secretion SARS-CoV-2 & FLU Antigen (Rapid) - Final ABG Data ABG results: ABG 03/10/23 03/10/23 03/10/23 09:24 10:03 13:14 Specimen Type CLARIBEL ART ART Sample Site L Radial L Brach L Radial pH 7.03 L* 7.13 L* 7.29 L Bicarbonate Actual 8.0 L 11.3 L 16.7 L Total CO2 9 12 18 Base Excess -23 L -18 L -10 L O2 Saturation 59 L 100 H 96 O2 % 95 60 ABG pCO2 30.4 L 34.3 L 35.0 ABG pO2 44 L 514 H* 91 Giorgio Test Positive Respiration Rate 16 14 O2 Delivery Device Bagging Adult Vent Liter Flow 15.0 Vent Mode AC AC Tidal Volume 400 POC PEEP 5 5 Crit Call To/Read Back Yes Yes Blood Gas Notified Whom ru [facility] Radiology Impression Chest X-Ray 03/10/23 09:13 IMPRESSION: Satisfactory position of the support lines and tubes. Patchy airspace opacity in the right lower lobe, consistent with an infiltrate. Electronically Signed: Kendall Flores MD at 9:40 EDT , Brain CT 03/10/23 09:24 IMPRESSION: Stable chronic ischemic and atrophic changes. No acute intracranial abnormality. Stable bilateral frontal infarcts. Electronically Signed: Kendall Flores MD at 10:39 EDT , Cervical Spine CT 03/10/23 09:27 IMPRESSION: No fracture or dislocation in the cervical spine. Normal alignment. Mild degenerative change. Electronically Signed: Kendall Flores MD at 10:45 EDT , Chest/Abdomen/Pelvis CT 03/10/23 10:20 IMPRESSION: Limited study. Mild pulmonary vascular congestion. Small bilateral pleural effusions with overlying atelectasis. Thick-walled urinary bladder with adjacent stranding, consistent with cystitis. No bowel obstruction or inflammation. Normal appendix. No urinary calculi. No hydronephrosis. Atherosclerosis and coronary artery disease. Findings suggesting anemia. Electronically Signed: Kendall Flores MD at 11:28 EDT , Assessment & Plan Assessment/Plan (1) Acute upper GI bleed: PLAN: Differential as diagnosis for upper GI bleed does include by localized tear, portal gastropathy secondary to alcohol, ischemia, peptic ulcer disease, angiodysplasia. He should undergo an emergent upper endoscopy due to such severe anemia. His power of adjunct business instructor which is his brother was explained alternatives, risk, benefits include not withstanding bleeding, infection, sepsis, perforation, need for emergent surgery . He will have an ASA of 3. Charges/Coding Visit Charges Inpatient E&M: 13173 Init Hosp L2
[2023-03-10 10:03] LABS: Differential Indicated SCAN CRITERIA MET
[2023-03-10 10:05] LABS: Anion Gap 23 (5-15); BUN 55 mg/dL (7-18); BUN/Creat Ratio 12.5 RATIO (10-20); Chloride 95 mmol/L (98-107); EST Glomerular Filtration Rate 14 mL/min (>60); Est Glom Filt Rate - Afr Amer 17 mL/min (>60); Estimated Creatinine Clearance 15.98 ml/min; Glucose 141 mg/dL (74-106); Sodium Level 126 mmol/L (136-145); Troponin-I HS 46 pg/mL (3.0-78.0)
[2023-03-10 10:06] LABS: Lactic Acid 14.4 mmol/L (0.4-1.9)
[2023-03-10 10:10] LABS: Alcohol, Blood (Medical)-Serum < 3.0 mg/dL
[2023-03-10 10:10] LABS: Base Excess -18 mmol/L (-2 to +2); Bicarbonate 11.3 mmol/L (22-26); Blood Gas Specimen Type ART; FI02 95; Mode AC; PEEP 5; PO2 514 mmHG (75-100); RR 16; SITE L Brach; SO2 100 % (95-99); Total Carbon Dioxide 12 mmol/L; Vt 400; pCO2 34.3 mmHg (35-45); pH 7.13 (7.35-7.45)
--- NOTE | 2023-03-10 10:20 | CT_ITS ---
STUDY: CT CHEST, ABDOMEN T PELVIS WITHOUT CONTRAST REASON FOR EXAM: Male, 67 years old. Anemia. RADIATION DOSAGE (If Supplied By Facility): CTDIvol = ( 24.23 ) mGy, DLP = ( 2006.29 ) mGycm TECHNIQUE: Transaxial imaging was performed without the administration of intravenous contrast material. Multiplanar coronal and sagittal images were reformatted. Individualized dose optimization techniques were used for this CT. COMPARISON: No relevant priors. FINDINGS: Evaluation is limited by lack of contrast, patient motion and by streak artifact due to the patient''s arms being at his sides. There is an endotracheal tube noted with its tip approximately 3 cm above the margarita. There is no enteric tube noted with its tip in the stomach. LUNGS: There are no pulmonary infiltrates. There are mild congestive changes. PLEURAL SPACE: There are small bilateral pleural effusions with overlying atelectasis. There is no pneumothorax. MEDIASTINUM: The heart and pericardium are within normal limits. There is visualization of the interventricular septum of the heart, suggesting anemia. There are coronary artery calcifications. There is no pneumomediastinum. There is no thoracic lymphadenopathy. THORACIC VESSELS: There is no evidence of thoracic aortic aneurysm. There are atherosclerotic calcifications noted in the thoracic aorta and its branches. GALLBLADDER / BILE DUCTS: There are subcentimeter calcified gallstones present. There is no intrahepatic biliary duct dilatation. The common bile duct is normal in caliber. There are no calcified ductal stones. The common bile duct is normal in caliber. There are no calcified ductal stones. LIVER: The liver demonstrates an unremarkable unenhanced appearance. SPLEEN: The spleen is normal in size. PANCREAS: The pancreas demonstrates an unremarkable unenhanced appearance. ADRENAL GLANDS: The adrenal glands are within normal limits. KIDNEYS / BLADDER: There are no renal or ureteral stones. There is no hydronephrosis. There are no focal renal lesions identified on this noncontrast exam. The bladder is thick-walled with adjacent stranding, consistent with cystitis. There is a Lamb catheter in place. STOMACH / BOWEL: Normal visualized stomach. There is no bowel obstruction or inflammation. The appendix is visualized and appears normal. PERITONEUM / RETROPERITONEUM: There is no abdominal or pelvic free air, free fluid or fluid collection. There is no abnormal soft tissue mass identified. There is no abdominal or pelvic lymphadenopathy. ABDOMINAL VESSELS: There are atherosclerotic calcifications noted in the aorta and its branches. The aorta is normal in caliber. The IVC is unremarkable. BONES: There are no destructive osseous lesions. SOFT TISSUES: The visualized soft tissues are within normal limits. CT/CT Chest, Abd, Pelvis WO Cont IMPRESSION: Limited study. Mild pulmonary vascular congestion. Small bilateral pleural effusions with overlying atelectasis. Thick-walled urinary bladder with adjacent stranding, consistent with cystitis. No bowel obstruction or inflammation. Normal appendix.
[2023-03-10 10:23] LABS: Anisocytosis 2+
[2023-03-10] MEDS: 0.9% Normal Saline 1,000 ML 999 ML IV ×2 (11:05→22:46)
[2023-03-10] MEDS: Albuterol 2.5 MG/3 ML VIAL.NEB. INHALATION (11:05)
[2023-03-10] MEDS: Calcium Gluconate IV 3 GM in Syringe 1 EACH IV (11:17)
[2023-03-10] MEDS: Dextrose 50%-Water 25 GM/50 ML DISP.SYRIN IV (11:17)
[2023-03-10] MEDS: Insulin Lispro 10 UNIT in Syringe 0 ML 6 UNIT IV (11:18)
--- NOTE | 2023-03-10 11:50 | ED.RN ---
2 units of trauma blood complete
--- NOTE | 2023-03-10 11:52 | NURSING ---
DR DILCIA PELAYO
[2023-03-10] MEDS: Octreotide 0.1 MG/ML ML IV (11:56)
--- NOTE | 2023-03-10 11:57 | NURSING ---
ICU HA RESP FAILURE, UPPER GI BLEED, ANEMIA, ASPIRATION PNEUMONIA
--- NOTE | 2023-03-10 12:06 | HP.PCM.HOS_ITS ---
HPI - General General Date of Admission: 03/10/23 Date of Service: 03/10/23 Chief Complaint: Cardiac arrest HPI Narrative ANA TERESA, is a 67y/o male hx of alcohol use disorder, peripheral artery disease, DVT, hypertension presented to [facility] 03/10/23 after EMS was called to his home for respiratory difficulty. His aide had gone to his home in the morning she found him on the floor. Diaphoretic and not responding well. When EMS arrived he had a cardiac arrest and CPR was started, got 1 dose of epinephrine and developed perfusing rhythm in route to the hospital. In the ED he was intubated and was found to have a hemoglobin of 3.0 with a creatinine of 4.40 as well as a lactic acid of 14.4, he was given broad-spectrum antibiotics, started on fluids, sodium bicarb, octreotide and PPI and hospitalist consulted for admission to ICU. Patient evaluated at bedside with nephew and caregiver. Caregiver reports he has not been eating or drinking well and has been getting a bottle of vodka a day and drinking that every day for the past 2 weeks and has been feeling somewhat generally weak but she attributed t hat to him not eating or drinking. Reports he had had no other complaints. At baseline he primarily uses a wheelchair and minimally walks, she endorses he has Parkinson's. Unable to obtain any further history due to patient intubated and sedated. [facility] Medical History Benign essential tremor DVT (deep venous thrombosis) Hypertension Peripheral arterial disease Home Medications amlodipine 10 mg tablet (Norvasc) 10 mg PO DAILY BP 01/19/19 [History Last Taken Unknown] gabapentin 300 mg capsule 300 mg PO TIDCM NERVE PAIN 01/19/19 [History Last Taken Unknown] lisinopril 40 mg tablet (Zestril) 40 mg PO DAILY BP 01/19/19 [History Last Taken Unknown] folic acid 1 mg tablet 1 mg PO DAILY SUPPLEMENT 10/17/22 [History Last Taken Unknown] rosuvastatin 20 mg tablet (Crestor) 20 mg PO DAILY CHOLESTEROL 10/17/22 [History Last Taken Unknown] apixaban 5 mg tablet 5 mg PO BID BLOOD THINNER 03/10/23 [History Last Taken Unknown] aspirin 81 mg tablet,delayed release 81 mg PO DAILY HEALTH MAINTENANCE 03/10/23 [History Last Taken Unknown] ferrous sulfate 325 mg (65 mg iron) tablet 325 mg PO BIDCM SUPPLEMENT 03/10/23 [History Last Taken Unknown] folic acid 800 mcg tablet 0.8 mg PO DAILY SUPPLEMENT 03/10/23 [History Last Taken Unknown] ibuprofen 200 mg capsule 400 mg PO Q4H PRN PRN PAIN GREATER THAN 4 03/10/23 [History Last Taken Unknown] magnesium hydroxide 400 mg/5 mL oral suspension (Milk of Magnesia) 1,200 mg PO DAILY PRN Constipation 03/10/23 [History Last Taken Unknown] dzfnqvmc-eay-icntw acid 300 mcg-lycopene 600 mcg-lutein 300 mcg tablet (Centrum Silver Men) 1 tab PO DAILY SUPPLEMENT 03/10/23 [History Last Taken Unknown] Allergy/AdvReac Type Severity Reaction Status Date / Time bee pollen Allergy Anaphylaxis Verified 09/16/22 10:20 Social History Smoking Status: Unknown if ever smoked ROS ROS Narrative Unable to obtain ROS secondary to patient intubated and sedated Vital Signs Vital Signs Vital Signs: 03/10/23 09:03 03/10/23 09:03 03/10/23 09:31 Temperature 82.4 F L 94.0 F L Temperature Source Temporal Core Pulse Rate 72 62 Respiratory Rate 30 H 20 H Respiratory Pattern Apnea Blood Pressure 129/55 H 109/41 L Blood Pressure Mean 79 63 Blood Pressure Source Blood Pressure Location Pulse Ox 100 100 95 Oxygen Delivery Method Ambu-Bag Mechanical Ventilator Mechanical Ventilator Fraction of Inspired Oxygen (FIO2) 100 03/10/23 09:10 03/10/23 10:22 03/10/23 10:30 Temperature 93.4 F L Temperature Source Core Pulse Rate 55 L 61 57 L Respiratory Rate 18 22 H 24 H Respiratory Pattern Normal Blood Pressure 84/41 L 88/38 L Blood Pressure Mean 55 54 Blood Pressure Source Monitor Blood Pressure Location Left Arm Pulse Ox 100 100 100 Oxygen Delivery Method Mechanical Ventilator Mechanical Ventilator Fraction of Inspired Oxygen (FIO2) 95 40 03/10/23 10:46 03/10/23 11:11 03/10/23 11:27 Temperature 93.7 F L 92.5 F L Temperature Source Core Core Pulse Rate 58 L 60 58 L Respiratory Rate 16 21 H 22 H Respiratory Pattern Blood Pressure 87/48 L 76/76 L 106/50 L Blood Pressure Mean 61 76 68 Blood Pressure Source Monitor Blood Pressure Location Pulse Ox 98 100 97 Oxygen Delivery Method Mechanical Ventilator Mechanical Ventilator Mechanical Ventilator Fraction of Inspired Oxygen (FIO2) 40 40 40 03/10/23 11:05 03/10/23 11:49 03/10/23 12:01 Temperature 92.2 F L 92 F L Temperature Source Core Core Pulse Rate 58 L 67 72 Respiratory Rate 20 H 18 20 H Respiratory Pattern Blood Pressure 116/69 127/60 H Blood Pressure Mean 84 82 Blood Pressure Source Blood Pressure Location Pulse Ox 98 100 Oxygen Delivery Method Mechanical Ventilator Mechanical Ventilator Fraction of Inspired Oxygen (FIO2) 40 Weight Weight: 83.4 kg Body Mass Index (BMI) 27.9 Physical Exam Narrative General: Intubated and sedated HEENT: Atraumatic, normocephalic Eyes: Did have spontaneous eye opening Neck: Supple Respiratory: Mechanically ventilated, no wheezes, did some coarse bilaterally at the bases Cardiovascular: Regular rate and rhythm GI: Soft, nontender, nondistended Extremities: Mild bilateral lower extremity edema Musculoskeletal: Presently sedated and not moving extremities spontaneously Neuro: Unable to participate in neuro exam secondary to intubated and sedated Skin: No rashes appreciated Psych: Unable to cooperate secondary to intubated and sedated Results Lab / Micro Data Result Diagrams: 03/10/23 13:40 03/10/23 09:04 Labs: Laboratory Results - last 24 hr 03/10/23 09:04: WBC 15.9 H, RBC 1.20 L, Hgb 3.0 L*, Hct 10.4 L, MCV 86.7, MCH 25.0 L, MCHC 28.8 L, RDW Std Deviation 57.2 H, RDW Coeff of Abi 18.4 H, Plt Count 348, MPV 11.4, Immature Gran % (Auto) 3.300 H, Neut % (Auto) 71.7 H, Lymph % (Auto) 12.9 L, [place] % (Auto) 11.9 H, Eos % (Auto) 0.1, Baso % (Auto) 0.1, Absolute Neuts (auto) 11.4 H, Absolute Lymphs (auto) 2.05, Nucleated RBC % 2.5, Differential Comment , Diff Path Review May foll, Anisocytosis 2+ 03/10/23 09:04: Sodium 126 L, Potassium 6.0 H*, Chloride 95 L, Carbon Dioxide 8.0 L*, Anion Gap 23 H, BUN 55 H, Creatinine 4.40 H, Estim Creat Clear Calc 15.98, Est GFR (MDRD) Af Amer 17 L, Est GFR (MDRD) Non-Af 14 L, BUN/Creatinine Ratio 12.5, Glucose 141 H, Calcium 8.0 L, Troponin I High Sens 46 03/10/23 09:04: Lactic Acid 14.4 H* 03/10/23 09:04: Ethyl Alcohol < 3.0 03/10/23 09:15: Urine Color Yellow, Urine Clarity Sl. Cloudy, Urine pH 5.0, Ur Specific [place] 1.020, Urine Protein 30 H, Urine Glucose (UA) Normal, Urine Ketones Negative, Urine Occult Blood 10 H, Urine Nitrite Negative, Urine Bilirubin Negative, Urine Urobilinogen 1 H, Ur Leukocyte Esterase 25 H, Urine RBC 0-5 SEEN, Urine WBC 5-10 SEEN, Ur Squamous Epith Cells 0-5 SEEN, Ur Transition Epith Cell 0-5 SEEN, Urine Bacteria 2+, Hyaline Casts 0-5 SEEN, Urine Mucus 1+ 03/10/23 10:21: Blood Type A POSITIVE, Antibody Screen NEGATIVE, Crossmatch See Detail Micro: Microbiology 03/10/23 09:30 Nasal Secretion SARS-CoV-2 & FLU Antigen (Rapid) - Final ABG Data ABG results: ABG 03/10/23 03/10/23 09:24 10:03 Specimen Type CLARIBEL ART Sample Site L Radial L Brach pH 7.03 L* 7.13 L* Bicarbonate Actual 8.0 L 11.3 L Total CO2 9 12 Base Excess -23 L -18 L O2 Saturation 59 L 100 H O2 % 95 ABG pCO2 30.4 L 34.3 L ABG pO2 44 L 514 H* Respiration Rate 16 O2 Delivery Device Bagging Liter Flow 15.0 Vent Mode AC Tidal Volume 400 POC PEEP 5 Crit Call To/Read Back Yes Yes Blood Gas Notified Whom ru [facility] Radiology Impression Chest X-Ray 03/10/23 09:13 IMPRESSION: Satisfactory position of the support lines and tubes. Patchy airspace opacity in the right lower lobe, consistent with an infiltrate. Electronically Signed: Kendall Flores MD at 9:40 EDT , Brain CT 03/10/23 09:24 IMPRESSION: Stable chronic ischemic and atrophic changes. No acute intracranial abnormality. Stable bilateral frontal infarcts. Electronically Signed: Kendall Flores MD at 10:39 EDT , Cervical Spine CT 03/10/23 09:27 IMPRESSION: No fracture or dislocation in the cervical spine. Normal alignment. Mild degenerative change. Electronically Signed: Kendall Flores MD at 10:45 EDT , Chest/Abdomen/Pelvis CT 03/10/23 10:20 IMPRESSION: Limited study. Mild pulmonary vascular congestion. Small bilateral pleural effusions with overlying atelectasis. Thick-walled urinary bladder with adjacent stranding, consistent with cystitis. No bowel obstruction or inflammation. Normal appendix. No urinary calculi. No hydronephrosis. Atherosclerosis and coronary artery disease. Findings suggesting anemia. Electronically Signed: Kendall Flores MD at 11:28 EDT , Assessment & Plan Assessment/Plan (1) Cardiac arrest: (2) Acute kidney injury: (3) Endotracheally intubated: (4) Acute upper GI bleed: (5) Acidosis, lactic: (6) Acute hyperkalemia: (7) Peripheral arterial disease: (8) History of DVT (deep vein thrombosis): PLAN: Plan #Cardiac arrest-secondary to severe anemia secondary to acute blood loss anemia due to duodenal ulcer -Patient received CPR in route to the hospital with 1 dose of epinephrine and achieved ROSC -Was intubated in the ED -Found to have hemoglobin of 3, transfused 2 units and had urgent EGD which revealed duodenal ulcer which was treated -Repeat hemoglobin 5, transfuse to keep hemoglobin above 7, 2 more units of packed red blood cells ordered -Hold Eliquis -INR 2.3, patient to be given vitamin K -We will check echocardiogram #Acute blood loss anemia -Secondary to duodenal ulcer as above #Possible cystitis -On CT of abdomen patient had changes consistent with cystitis, unable to elicit history from patient, monitor cultures, continue Ballard antibiotics with low threshold to de-escalate in 48 hours if they are negative given other underlying reason that likely is the cause/main contributor to his cardiac arrest -UA with bacteria but minimal leuk esterase and minimal white blood cells making this less likely culprit #Alcohol use disorder -Had been drinking vodka daily for 2 weeks, up to 1 bottle per his life assurance representative that would be there 3 hours in the mornings -Alcohol level within normal limits on presentation -Folic acid, thiamine -We will need to monitor closely for withdrawal, can always consider propofol over Precedex pending blood pressure and progress -Given BP and present other problems hesitant to start a phenobarbital taper at this time but low threshold to do so #Lactic acidosis -Secondary to cardiopulmonary arrest and hypoperfusion -Improving #Acute kidney injury -Secondary to above, avoid nephrotoxic agents -Monitor I's and O's -Could be prerenal but also low suspicion for ATN #hx DVT -on systemic AC at baseline -Last DVT over a year ago, holding systemic anticoagulation #PVD -Holding aspirin and Eliquis, can continue statin #DVT ppx: SCDs Adela Stevens MD Time spent in the patient's overall evaluation,decision-making process, review of diagnostic data, adjustment of management, discussion with other providers, nursing nursing and ancillary staff involved in patient's care documentation, 75 minutes Charges/Coding Visit Charges Inpatient E&M: 97767 Init Hosp L3
--- NOTE | 2023-03-10 12:12 | ED.RN ---
Report given to Jewels DELACRUZ in ICU
[2023-03-10 13:19] LABS: Allen Test Positive; Base Excess -10 mmol/L (-2 to +2); Bicarbonate 16.7 mmol/L (22-26); Blood Gas Specimen Type ART; FI02 60; Mode AC; O2 Delivery Device Adult Vent; PEEP 5; PO2 91 mmHG (75-100); RR 14; SITE L Radial; SO2 96 % (95-99); Total Carbon Dioxide 18 mmol/L; pH 7.29 (7.35-7.45)
[2023-03-10 13:32] LABS: Reflex Lactate? Y
[2023-03-10 13:32] LABS: Color, Urine Yellow (Yellow); Glucose, Dipstick Normal (Normal); Ketone-Dipstick Negative (Negative); Leukocyte Esterase-Dipstick Negative /ul (Negative); Nitrite-Dipstick Negative (Negative); Occult Blood-Urine 250 /ul (Negative); Protein-Dipstick 500 mg/dl (Negative); Urine Bilirubin Dipstick Negative (Negative); Urine Clarity Sl. Cloudy (Clear); Urine Urobilinogen Normal (Normal)
--- NOTE | 2023-03-10 14:00 | NURSING ---
endoscopy @ bedside per Dr Knight scope in 1326 scope out 1334, sedations given per Dr Kingston propofol 30mg@ 1325 additional 30mg @1328
[2023-03-10 14:06] LABS: Red Blood Cells-Urine 5-10 SEEN /hpf (0-5); Renal Epithelial Cells 0-5 SEEN /hpf (0-5); Squamous Epithelial Cells - UA 0-5 SEEN /hpf (0-5); White Blood Cells 5-10 SEEN /hpf (0-5)
[2023-03-10 14:07] LABS: Bacteria 2+ /hpf (None Seen); Calcium Oxalate Crystals Ur RARE /hpf (<or=2+); Fine Granular Cast- Urine 0-5 SEEN /lpf (0-5); Hyaline Cast 0-5 SEEN /lpf (0-5); Mucous, Urine RARE /hpf (<or=2+)
[2023-03-10 14:11] LABS: International Normalized Ratio 2.3; Prothrombin Time (Protime)PT. 25.2 SECONDS (11.7-14.9)
[2023-03-10 14:20] LABS: BNP,B-Type NATRIURETIC PEPTIDE 1468.5 pg/mL (0-100)
[2023-03-10 14:38] LABS: AST(SGOT) 37 U/L (15-37); Alanine Aminotransfer ALT/SGPT 30 U/L (16-61); Alkaline Phosphatase 90 U/L (45-117); Bilirubin, Direct 0.24 mg/dL (0.00-0.30); Globulin 3.7 g/dL (2.2-4.2); Magnesium 2.6 mg/dL (1.6-2.6); Phosphorus 7.8 mg/dL (2.5-4.9); Protein, Total 6.7 g/dL (6.4-8.2); Thyroid Stim Hormone (TSH) 2.86 uIU/mL (0.358-3.74)
[2023-03-10 14:51] LABS: Lactic Acid 3.1 mmol/L (0.4-1.9)
--- NOTE | 2023-03-10 15:38 | EX.PCM.CONCC ---
Assessment & Plan Assessment/Plan (1) Acute upper GI bleed: (2) Respiratory failure: (3) Acute hyperkalemia: (4) Acute kidney injury: PLAN: Plan RECOMMENDATIONS: 1. Transfuse to keep hemoglobin above 7 2. Wean oxygen as tolerated 3. Spontaneous breathing and awakening trials per protocol 4. Hold Eliquis therapy. Administer vitamin K 5. Transition bicarbonate drip to 75 cc/h 6. Obtain echocardiogram 7. Agree with empiric antibiotics pending cultures 8. Monitor for alcohol withdrawal symptoms IMPRESSIONS: 1. Cardiac arrest secondary to severe anemia Clinical suspicion patient went into PEA arrest secondary to acidosis or anemia. Patient has responded well to therapy at this time. Patient has received 2 units of packed red blood cells. We will continue to transfuse as necessary to keep hemoglobin of 7. Patient appears to be hemodynamically stable at this time. Lactic acid is significantly improved. Continue mechanical ventilation. Echocardiogram has been ordered 2. Acute blood loss anemia secondary to upper GI bleed Patient found to have a significant duodenal ulcer on EGD. No active bleeding noted, but lots of dried blood. Patient appears to have been delayed in presentation. Defer to GI, but likely continue with PPI for now. Biopsies are pending. Patient appears to be incrementing appropriately, so ongoing bleeding is unlikely. 3. Acute respiratory failure secondary to respiratory muscle fatigue Clinical significant respiratory failure likely secondary to respiratory muscle fatigue given severe acidosis and delayed presentation. Unclear if patient has underlying COPD. We will hold on any steroids at this time. Patient is not reportedly on inhalers at baseline, but does have a long smoking history. 4. Hypothermia Unclear if this may be secondary to sepsis. Patient has been placed on empiric antibiotics for now. Patient is on a warming blanket. Patient does have severe anemia which is being addressed. 5. Possible alcohol withdrawal By history, patient does drink alcohol. Alcohol level was negative on presentation. Unclear if this is related to alcohol withdrawal versus acute alcohol toxicity complicating presentation. We will need to watch for withdrawal symptoms. May need to initiate on phenobarb. 6. Acute kidney injury BUN and creatinine ratio is suggestive of an intrinsic ATN. Patient with severe anemia of unclear duration. Patient does have significant acidosis with lactate above 14 on presentation. Patient was on a bicarbonate drip. Continue to monitor urine output. Blood products will be replaced. No indication for renal replacement therapy at this time, but cannot exclude the need for additional intervention at this time. 7. Peripheral vascular disease/history of chronic wound/poor history/possible recent DVT Complicates care, management, recovery and prognosis. Anticoagulation held secondary to problem #2. TIME: 55 minutes critical care time was spent addressing patient's cardiac arrest, acute blood anemia, respiratory failure, hypothermia, review of all data and collaboration with care team HPI Consult Data Date of Consult: 03/10/23 HPI Narrative Reason for Consultation: Cardiac arrest HPI Narrative: ANA TERESA is a 67 M, with past medical history listed below, who presents to [facility] on 03/10/2023 secondary to respiratory difficulty. Patient reportedly called EMS secondary to respiratory difficulty from home. Patient was transported via EMS, but then developed a cardiac arrest. CPR was started the patient did receive 1 dose of epinephrine with an Igel insertion. Patient reportedly has been on Eliquis for a history of DVT and also has peripheral artery disease. Patient reportedly has a nurses aide show up for 3 hours a day and she had found him on the floor very diaphoretic and not responding well so EMS was called. Patient reportedly does drink on a regular basis and has smoked. Was unclear if patient had any fall. In the ER, patient was hypothermic and tachypneic at 30 breaths/min. Patient was intubated rapidly and placed on a warming blanket. Laboratory data showed a white blood cell count of 15.9, hemoglobin of 3 and a platelet count of 348. Chemistry showed a potassium of 6, bicarb of 8 and a creatinine of 4.4 with a BUN of 55. Lactate was 14.4 and glucose was 141. UA showed some bacteria, but only mild white blood cells with leukocyte Estrace and negative nitrites. Alcohol level was negative. Arterial blood gas showed a partially compensated metabolic acidosis with elevated AA gradient. Chest x-ray showed endotracheal tube was slightly high, but patient did have some infiltrate in the right lower lobe. CT head, spine were within normal limits. CT chest abdomen pelvis did show small bilateral effusions. Patient was placed on Protonix, octreotide and GI consulted. Patient received 2 units of trauma blood and was transported to the intensive care unit. On my evaluation in the intensive care unit, patient was on Precedex therapy and tolerating this well. Patient did have some marginal blood pressures with heart rates in the 50s. Shortly after my examination, GI had requested that I provide conscious sedation for an emergent EGD. Patient was given a total of 60 mg of propofol in divided doses to facilitate an EGD. This did show a large duodenal ulcer that was biopsied and blood throughout the stomach. Patient was able to be decreased to 40% FiO2 on the ventilator. Unable to obtain a review of systems secondary to intubation. [facility] Medical History Benign essential tremor DVT (deep venous thrombosis) Hypertension Peripheral arterial disease Home Medications amlodipine 10 mg tablet (Norvasc) 10 mg PO DAILY BP 01/19/19 [History Last Taken Unknown] gabapentin 300 mg capsule 300 mg PO TIDCM NERVE PAIN 01/19/19 [History Last Taken Unknown] lisinopril 40 mg tablet (Zestril) 40 mg PO DAILY BP 01/19/19 [History Last Taken Unknown] folic acid 1 mg tablet 1 mg PO DAILY SUPPLEMENT 10/17/22 [History Last Taken Unknown] rosuvastatin 20 mg tablet (Crestor) 20 mg PO DAILY CHOLESTEROL 10/17/22 [History Last Taken Unknown] apixaban 5 mg tablet 5 mg PO BID BLOOD THINNER 03/10/23 [History Last Taken Unknown] aspirin 81 mg tablet,delayed release 81 mg PO DAILY HEALTH MAINTENANCE 03/10/23 [History Last Taken Unknown] ferrous sulfate 325 mg (65 mg iron) tablet 325 mg PO BIDCM SUPPLEMENT 03/10/23 [History Last Taken Unknown] folic acid 800 mcg tablet 0.8 mg PO DAILY SUPPLEMENT 03/10/23 [History Last Taken Unknown] ibuprofen 200 mg capsule 400 mg PO Q4H PRN PRN PAIN GREATER THAN 4 03/10/23 [History Last Taken Unknown] magnesium hydroxide 400 mg/5 mL oral suspension (Milk of Magnesia) 1,200 mg PO DAILY PRN Constipation 03/10/23 [History Last Taken Unknown] fdfmgzzn-yvg-hdusk acid 300 mcg-lycopene 600 mcg-lutein 300 mcg tablet (Centrum Silver Men) 1 tab PO DAILY SUPPLEMENT 03/10/23 [History Last Taken Unknown] Allergy/AdvReac Type Severity Reaction Status Date / Time bee pollen Allergy Anaphylaxis Verified 09/16/22 10:20 Social History Smoking Status: Unknown if ever smoked ROS Review of Systems ROS Unobtainable: due to endotracheal tube Physical Exam Const Constitutional Narrative: Fair vent synchrony. Extremely pale appearance General Appearance: ill appearing, frail and patient mechanically ventilated HEENT normocephalic, head/scalp atraumatic, hearing grossly normal bilaterally, external ears normal and external nose normal Eyes EOMs intact bilaterally Eyes Narrative: Pale conjunctiva Neck full ROM General: trachea midline Resp normal respiratory effort Effort and Inspection: able to speak in complete sentences and symmetric chest movement; Negative for respiratory distress, labored, stridor, actively coughing, uses accessory muscles or audible wheezes Cardio regular rhythm, S1 normal heart sound, S2 normal heart sound, no murmurs, no rub and no gallops Rate: bradycardia GI soft to palpation and non-tender GI Narrative: Slightly hyperactive bowel sounds Inspection: Negative for abdominal distention Extremity Extremity Narrative: LLE with mild (1+) swelling, varicose veins noted. No significant pallor or discoloration. General Extremity: Negative for clubbing Skin no rashes or lesions noted, no petechiae and no mottling Neuro moves all extremities and no sensory deficits noted Psych Psych Narrative: Sedated Medical Records Data Attestation: I reviewed the patient's medical records Lab / Micro Data Attestation: I reviewed the patient's lab results. (No previous hemoglobins available for comparison) Result Diagrams: 03/10/23 13:40 03/10/23 09:04 Labs: Laboratory Results - last 24 hr 03/10/23 09:04: WBC 15.9 H, RBC 1.20 L, Hgb 3.0 L*, Hct 10.4 L, MCV 86.7, MCH 25.0 L, MCHC 28.8 L, RDW Std Deviation 57.2 H, RDW Coeff of Abi 18.4 H, Plt Count 348, MPV 11.4, Immature Gran % (Auto) 3.300 H, Neut % (Auto) 71.7 H, Lymph % (Auto) 12.9 L, Becker % (Auto) 11.9 H, Eos % (Auto) 0.1, Baso % (Auto) 0.1, Absolute Neuts (auto) 11.4 H, Absolute Lymphs (auto) 2.05, Nucleated RBC % 2.5, Differential Comment , Diff Path Review May foll, Anisocytosis 2+ 03/10/23 09:04: Sodium 126 L, Potassium 6.0 H*, Chloride 95 L, Carbon Dioxide 8.0 L*, Anion Gap 23 H, BUN 55 H, Creatinine 4.40 H, Estim Creat Clear Calc 15.98, Est GFR (MDRD) Af Amer 17 L, Est GFR (MDRD) Non-Af 14 L, BUN/Creatinine Ratio 12.5, Glucose 141 H, Calcium 8.0 L, Troponin I High Sens 46 03/10/23 09:04: Lactic Acid 14.4 H* 03/10/23 09:04: Ethyl Alcohol < 3.0 03/10/23 09:04: Phosphorus 7.8 H, Magnesium 2.6, Total Bilirubin 0.50, Direct Bilirubin 0.24, AST 37, ALT 30, Alkaline Phosphatase 90, Total Protein 6.7, Albumin 3.0 L, Globulin 3.7, TSH 2.86 03/10/23 09:15: Urine Color Yellow, Urine Clarity Sl. Cloudy, Urine pH 5.0, Ur Specific [place] 1.020, Urine Protein 30 H, Urine Glucose (UA) Normal, Urine Ketones Negative, Urine Occult Blood 10 H, Urine Nitrite Negative, Urine Bilirubin Negative, Urine Urobilinogen 1 H, Ur Leukocyte Esterase 25 H, Urine RBC 0-5 SEEN, Urine WBC 5-10 SEEN, Ur Squamous Epith Cells 0-5 SEEN, Ur Transition Epith Cell 0-5 SEEN, Urine Bacteria 2+, Hyaline Casts 0-5 SEEN, Urine Mucus 1+ 03/10/23 10:21: Blood Type A POSITIVE, Antibody Screen NEGATIVE, Crossmatch See Detail 03/10/23 10:21: Crossmatch See Detail 03/10/23 13:15: Urine Color Yellow, Urine Clarity Sl. Cloudy, Urine pH 5.0, Ur Specific [place] 1.020, Urine Protein 500 H, Urine Glucose (UA) Normal, Urine Ketones Negative, Urine Occult Blood 250 H, Urine Nitrite Negative, Urine Bilirubin Negative, Urine Urobilinogen Normal, Ur Leukocyte Esterase Negative, Urine RBC 5-10 SEEN, Urine WBC 5-10 SEEN, Ur Squamous Epith Cells 0-5 SEEN, Ur Renal Epithelial Cell 0-5 SEEN, Calcium Oxalate Crystal RARE, Urine Bacteria 2+, Hyaline Casts 0-5 SEEN, Fine Granular Casts 0-5 SEEN, Urine Mucus RARE 03/10/23 13:40: PT 25.2 H, INR 2.3 03/10/23 13:40: B-Natriuretic Peptide 1468.5 H 03/10/23 13:40: Hgb Cancelled 03/10/23 13:40: Hgb 5.0 L* 03/10/23 13:50: Lactic Acid 3.1 H* Micro: Microbiology 03/10/23 10:10 Sputum, Tracheal Aspirate Gram Stain - Final 03/10/23 09:30 Nasal Secretion SARS-CoV-2 & FLU Antigen (Rapid) - Final ABG Data ABG results: ABG 03/10/23 03/10/23 03/10/23 09:24 10:03 13:14 Specimen Type CLARIBEL ART ART Sample Site L Radial L Brach L Radial pH 7.03 L* 7.13 L* 7.29 L Bicarbonate Actual 8.0 L 11.3 L 16.7 L Total CO2 9 12 18 Base Excess -23 L -18 L -10 L O2 Saturation 59 L 100 H 96 O2 % 95 60 ABG pCO2 30.4 L 34.3 L 35.0 ABG pO2 44 L 514 H* 91 Giorgio Test Positive Respiration Rate 16 14 O2 Delivery Device Bagging Adult Vent Liter Flow 15.0 Vent Mode AC AC Tidal Volume 400 POC PEEP 5 5 Crit Call To/Read Back Yes Yes Blood Gas Notified Whom ru UNGUR Attestation: I personally reviewed and interpreted this ABG as follows: (See HPI) Radiology Impression Chest X-Ray 03/10/23 09:13 IMPRESSION: Satisfactory position of the support lines and tubes. Patchy airspace opacity in the right lower lobe, consistent with an infiltrate. Electronically Signed: Kendall Flores MD at 9:40 EDT , Brain CT 03/10/23 09:24 IMPRESSION: Stable chronic ischemic and atrophic changes. No acute intracranial abnormality. Stable bilateral frontal infarcts. Electronically Signed: Kendall Flores MD at 10:39 EDT , Cervical Spine CT 03/10/23 09:27 IMPRESSION: No fracture or dislocation in the cervical spine. Normal alignment. Mild degenerative change. Electronically Signed: Kendall Flores MD at 10:45 EDT , Chest/Abdomen/Pelvis CT 03/10/23 10:20 IMPRESSION: Limited study. Mild pulmonary vascular congestion. Small bilateral pleural effusions with overlying atelectasis. Thick-walled urinary bladder with adjacent stranding, consistent with cystitis. No bowel obstruction or inflammation. Normal appendix. No urinary calculi. No hydronephrosis. Atherosclerosis and coronary artery disease. Findings suggesting anemia. Electronically Signed: Kendall Flores MD at 11:28 EDT , Charges/Coding Procedures Hospitalists Procedures: [id number] [facility]
--- NOTE | 2023-03-10 16:01 | CPS ---
Sputum sample sent post intubation
--- NOTE | 2023-03-10 16:11 | ECHOD_ITS ---
Reason For Study: CARDIAC ARREST Procedure This was a 2D Doppler, Color Flow transthoracic echocardiogram. Exam performed portable in ICU/CCU. Left Ventricle Normal size and thickness. The left ventricular ejection fraction is 60 %. Stage 2 diastolic dysfunction. Right Ventricle Normal right ventricle. Atria The left atrium is severely enlarged. The right atrium is moderately enlarged. Mitral Valve Mild focal mitral valve calcification, bileaflet. Mild (1+) mitral valve insufficiency. Tricuspid Valve Mild tricuspid valve insufficiency. Right ventricular systolic pressure estimated to be 50 mmHg. Aortic Valve Trisinus/trileaflet aortic valve. Mild (1+) aortic valve insufficiency. Pulmonic Valve The pulmonic valve is not well visualized. Great Vessels Normal sized aortic root. Pericardium/Pleural No pericardial effusion. MMode/2D Measurements & Calculations LVIDd: 4.7 cm IVSd: 1.0 cm Ao root diam: 3.3 cm LVIDs: 3.1 cm LVPWd: 1.0 cm RVDd: 4.9 cm FS: 33.9 % LAV(MOD-bp): 80.5 ml LVAd ap4: 44.6 cm2 SV(MOD-sp4): 100.0 ml LAV(MOD-bp) Indexed: 40.8 ml/m2 LVLd ap4: 9.5 cm LAV(MOD-sp2): 78.6 ml EDV(MOD-sp4): 165.6 ml LAV(MOD-sp4): 80.4 ml EDV(sp4-el): 177.1 ml LVAs ap4: 24.2 cm2 LVLs ap4: 7.8 cm ESV(MOD-sp4): 65.6 ml ESV(sp4-el): 63.9 ml EF(MOD-sp4): 60.4 % EF(sp4-el): 63.9 % SV(sp4-el): 113.2 ml LA A4 area: 24.3 cm2 LA dimension(2D): 4.5 cm RA A4 area: 20.5 cm2 Time Measurements MV dec time: 0.26 sec Doppler Measurements & Calculations MV E max carlito: 98.4 cm/sec Lat Peak E' Carlito: 12.3 cm/sec Med Peak E' Carlito: 7.4 cm/sec MV A max carlito: 60.7 cm/sec E/E' lat: 8.0 E/E' med: 13.2 MV E/A: 1.6 Ao V2 max: 199.7 cm/sec LV V1 max: 120.4 cm/sec PA V2 max: 110.8 cm/sec Ao max P.9 mmHg LV V1 max P.8 mmHg TR max carlito: 318.4 cm/sec TR max P.5 mmHg ECHO/Echo Complete Interpretation Summary The left ventricular ejection fraction is 60 %. Stage 2 diastolic dysfunction. The left atrium is severely enlarged. The right atrium is moderately enlarged. Mild focal mitral valve calcification, bileaflet. Mild (1+) mitral valve insufficiency. Mild tricuspid valve insufficiency. Right ventricular systolic pressure estimated to be 50 mmHg. Mild (1+) aortic valve insufficiency. Ordering Physician: Jj Kingston Referring Physician: KEISHA ROSA Performed By: Carina Ray RDCS
[2023-03-10 20:53] LABS: Hemoglobin 8.1 g/dL (13.0-16.5)
[2023-03-10 21:12] LABS: Anion Gap 10 (5-15); BUN 52 mg/dL (7-18); BUN/Creat Ratio 14.3 RATIO (10-20); Calcium,Total 7.3 mg/dL (8.5-10.1); Chloride 101 mmol/L (98-107); Creatinine, Serum 3.64 mg/dL (0.70-1.30); EST Glomerular Filtration Rate 18 mL/min (>60); Est Glom Filt Rate - Afr Amer 22 mL/min (>60); Estimated Creatinine Clearance 19.31 ml/min; Glucose 144 mg/dL (74-106); Potassium 4.9 mmol/L (3.5-5.1); Sodium Level 130 mmol/L (136-145)
[2023-03-10] MEDS: fentaNYL drip 100 ML 2.5 MCG CONT INF (21:55)
[2023-03-10] MEDS: Chlorhexidine 15 ML PO (21:57)
[2023-03-11] VITALS (45 sets, daily range): BP systolic 87–121; BP diastolic 42–69; PULSE 47–71; RESP 10–25; TEMP 35.7–37.2; O2SAT 92–100; BMI 28.9
--- NOTE | 2023-03-11 01:01 | RAD_ITS ---
INDICATION: increased fio2 requirement EXAMINATION/TECHNIQUE: X-RAY - AP view of chest COMPARISON: Chest x-ray from one day prior FINDINGS: LINES/DEVICES: ET tube tip just below level of clavicular heads. Enteric tube tip within gastric lumen. LUNGS: Persistent bibasilar opacities. Small pleural effusions evident. No detectable pneumothorax. MEDIASTINUM AND CARDIOVASCULAR STRUCTURES: Heart size within normal limits for imaging technique. Atherosclerotic calcifications along aorta. BONES AND SOFT TISSUES: Skeletal degenerative changes. RAD/Chest 1 View (Portable) IMPRESSION: Bibasilar pulmonary opacities and small pleural effusions Electronically Signed: Charanjit Paulson MD at 3:01 EDT ,
[2023-03-11] MEDS: Furosemide 40 MG/4 ML Vial IV (01:22)
[2023-03-11 03:37] LABS: Absolute Lymphocyte Count 0.61 X10^3/uL (0.83-4.51); Absolute Neutrophil Count 9.7 X10^3/uL (2.0-7.7); Basophil# 0.01 X10^3/uL; Basophil% 0.1 % (0-1); Eosinophil# 0.02 X10^3/uL; Eosinophils% 0.2 % (0-5); Hematocrit 24.2 % (40-54); Hemoglobin 7.9 g/dL (13.0-16.5); Lymphocyte # 0.61 X10^3/ul (0.83-4.51); Lymphocyte % 5.2 % (19-41); Mean Corp Hgb Conc 32.6 g/dL (32-36); Mean Corpuscular Hgb 27.3 pg (27.0-32.0); Mean Corpuscular Volume 83.7 fL (80-94); Mean Platelet Vol. 10.9 fl (6.2-12.0); Monocyte# 1.38 X10^3/uL; Monocyte% 11.7 % (0-10); NRBC Flagged by Analyzer 0.8 % (0-5); Neutrophil # 9.68 X10^3/uL (2.7-7.7); Neutrophil % 81.9 % (47-70); Platelet Count 234 K/mm3 (150-450); RBC Distribution Width CV 16.1 % (11.6-14.6); RBC Distribution Width SD 49.1 fl (35.1-43.9); Red Blood Count 2.89 M/mm3 (4.6-6.2); White Blood Count 11.8 K/mm3 (4.4-11.0)
[2023-03-11 03:59] LABS: ALB/GLOB Ratio 0.8 RATIO (0.9-2.4); AST(SGOT) 74 U/L (15-37); Alanine Aminotransfer ALT/SGPT 43 U/L (16-61); Albumin, Serum 2.4 g/dL (3.2-5.0); Alkaline Phosphatase 73 U/L (45-117); Anion Gap 11 (5-15); BUN 55 mg/dL (7-18); Calcium,Total 7.1 mg/dL (8.5-10.1); Chloride 101 mmol/L (98-107); Creatinine, Serum 4.23 mg/dL (0.70-1.30); EST Glomerular Filtration Rate 15 mL/min (>60); Est Glom Filt Rate - Afr Amer 18 mL/min (>60); Estimated Creatinine Clearance 16.62 ml/min; Globulin 3.2 g/dL (2.2-4.2); Glucose 138 mg/dL (74-106); Potassium 4.6 mmol/L (3.5-5.1); Protein, Total 5.6 g/dL (6.4-8.2); Sodium Level 132 mmol/L (136-145)
--- NOTE | 2023-03-11 06:58 | PCM.PN.HOSP ---
Reason for Visit Reason for Visit: Diagnoses Acidosis, unspecified (03/10/23) Hyperkalemia (03/10/23) Cardiac arrest, cause unspecified (03/10/23) Peripheral vascular disease, unspecified (03/10/23) Respiratory failure, unspecified, unspecified whether with hypoxia or hypercapnia (03/10/23) Gastrointestinal hemorrhage, unspecified (03/10/23) Acute kidney failure, unspecified (03/10/23) Personal history of other venous thrombosis and embolism (03/10/23) Presence of other specified devices (03/10/23) Subjective Subjective Remains intubated and sedated, now on propofol, norepinephrine added overnight. Objective Data Objective Data Vital Signs: Vital Signs Temp Pulse Resp BP Pulse Ox O2 Del Method O2 Flow Rate 97.4 F L 50 L 25 H 107/58 L 95 Mechanical Ventilator 50 03/11/23 05:27 03/11/23 06:00 03/11/23 06:00 03/11/23 06:00 03/11/23 06:00 03/11/23 06:00 03/11/23 00:00 FiO2 65 03/11/23 05:06 Oxygen Flow Rate (L/min) 50 Oxygen Delivery Method Mechanical Ventilator Weight: 86.6 kg Body Mass Index (BMI) 28.9 Intake & Output: Intake and Output for Last 24 Hours 03/09/23 03/10/23 03/11/23 23:59 23:59 23:59 Intake Total 4798.81 / 4806.31 1377.72 / 1377.72 Output Total 550 / 550 290 / 290 Balance 4248.81 / 4256.31 1087.72 / 1087.72 Lab / Micro Data Result Diagrams: 03/11/23 03:30 03/11/23 03:30 Labs: Laboratory Results - last 24 hr 03/10/23 09:04: WBC 15.9 H, RBC 1.20 L, Hgb 3.0 L*, Hct 10.4 L, MCV 86.7, MCH 25.0 L, MCHC 28.8 L, RDW Std Deviation 57.2 H, RDW Coeff of Abi 18.4 H, Plt Count 348, MPV 11.4, Immature Gran % (Auto) 3.300 H, Neut % (Auto) 71.7 H, Lymph % (Auto) 12.9 L, Grand % (Auto) 11.9 H, Eos % (Auto) 0.1, Baso % (Auto) 0.1, Absolute Neuts (auto) 11.4 H, Absolute Lymphs (auto) 2.05, Nucleated RBC % 2.5, Differential Comment , Diff Path Review May foll, Anisocytosis 2+ 03/10/23 09:04: Sodium 126 L, Potassium 6.0 H*, Chloride 95 L, Carbon Dioxide 8.0 L*, Anion Gap 23 H, BUN 55 H, Creatinine 4.40 H, Estim Creat Clear Calc 15.98, Est GFR (MDRD) Af Amer 17 L, Est GFR (MDRD) Non-Af 14 L, BUN/Creatinine Ratio 12.5, Glucose 141 H, Calcium 8.0 L, Troponin I High Sens 46 03/10/23 09:04: Lactic Acid 14.4 H* 03/10/23 09:04: Ethyl Alcohol < 3.0 03/10/23 09:04: Phosphorus 7.8 H, Magnesium 2.6, Total Bilirubin 0.50, Direct Bilirubin 0.24, AST 37, ALT 30, Alkaline Phosphatase 90, Total Protein 6.7, Albumin 3.0 L, Globulin 3.7, TSH 2.86 03/10/23 09:15: Urine Color Yellow, Urine Clarity Sl. Cloudy, Urine pH 5.0, Ur Specific [place] 1.020, Urine Protein 30 H, Urine Glucose (UA) Normal, Urine Ketones Negative, Urine Occult Blood 10 H, Urine Nitrite Negative, Urine Bilirubin Negative, Urine Urobilinogen 1 H, Ur Leukocyte Esterase 25 H, Urine RBC 0-5 SEEN, Urine WBC 5-10 SEEN, Ur Squamous Epith Cells 0-5 SEEN, Ur Transition Epith Cell 0-5 SEEN, Urine Bacteria 2+, Hyaline Casts 0-5 SEEN, Urine Mucus 1+ 03/10/23 10:21: Blood Type A POSITIVE, Antibody Screen NEGATIVE, Crossmatch See Detail 03/10/23 10:21: Crossmatch See Detail 03/10/23 13:15: Urine Color Yellow, Urine Clarity Sl. Cloudy, Urine pH 5.0, Ur Specific [place] 1.020, Urine Protein 500 H, Urine Glucose (UA) Normal, Urine Ketones Negative, Urine Occult Blood 250 H, Urine Nitrite Negative, Urine Bilirubin Negative, Urine Urobilinogen Normal, Ur Leukocyte Esterase Negative, Urine RBC 5-10 SEEN, Urine WBC 5-10 SEEN, Ur Squamous Epith Cells 0-5 SEEN, Ur Renal Epithelial Cell 0-5 SEEN, Calcium Oxalate Crystal RARE, Urine Bacteria 2+, Hyaline Casts 0-5 SEEN, Fine Granular Casts 0-5 SEEN, Urine Mucus RARE 03/10/23 13:40: PT 25.2 H, INR 2.3 03/10/23 13:40: B-Natriuretic Peptide 1468.5 H 03/10/23 13:40: Hgb Cancelled 03/10/23 13:40: Hgb 5.0 L* 03/10/23 13:50: Lactic Acid 3.1 H* 03/10/23 20:30: Hgb 8.1 L 03/10/23 20:30: Sodium 130 L, Potassium 4.9, Chloride 101, Carbon Dioxide 19.0 L, Anion Gap 10, BUN 52 H, Creatinine 3.64 H, Estim Creat Clear Calc 19.31, Est GFR (MDRD) Af Amer 22 L, Est GFR (MDRD) Non-Af 18 L, BUN/Creatinine Ratio 14.3, Glucose 144 H, Calcium 7.3 L 03/11/23 03:30: WBC 11.8 H, RBC 2.89 L, Hgb 7.9 L, Hct 24.2 L, MCV 83.7, MCH 27.3, MCHC 32.6 D, RDW Std Deviation 49.1 H, RDW Coeff of Abi 16.1 H, Plt Count 234, MPV 10.9, Immature Gran % (Auto) 0.900, Neut % (Auto) 81.9 H, Lymph % (Auto) 5.2 L, Grand % (Auto) 11.7 H, Eos % (Auto) 0.2, Baso % (Auto) 0.1, Absolute Neuts (auto) 9.7 H, Absolute Lymphs (auto) 0.61 L, Nucleated RBC % 0.8 03/11/23 03:30: Sodium 132 L, Potassium 4.6, Chloride 101, Carbon Dioxide 20.0 L, Anion Gap 11, BUN 55 H, Creatinine 4.23 H, Estim Creat Clear Calc 16.62, Est GFR (MDRD) Af Amer 18 L, Est GFR (MDRD) Non-Af 15 L, BUN/Creatinine Ratio 13.0, Glucose 138 H, Calcium 7.1 L, Total Bilirubin 0.70, AST 74 H, ALT 43, Alkaline Phosphatase 73, Total Protein 5.6 L, Albumin 2.4 L, Globulin 3.2, Albumin/Globulin Ratio 0.8 L Micro: Microbiology 03/10/23 10:10 Sputum, Tracheal Aspirate Gram Stain - Final 03/10/23 09:30 Nasal Secretion SARS-CoV-2 & FLU Antigen (Rapid) - Final ABG Data ABG results: ABG 03/10/23 03/10/23 03/10/23 09:24 10:03 13:14 Specimen Type CLARIBEL ART ART Sample Site L Radial L Brach L Radial pH 7.03 L* 7.13 L* 7.29 L Bicarbonate Actual 8.0 L 11.3 L 16.7 L Total CO2 9 12 18 Base Excess -23 L -18 L -10 L O2 Saturation 59 L 100 H 96 O2 % 95 60 ABG pCO2 30.4 L 34.3 L 35.0 ABG pO2 44 L 514 H* 91 Giorgio Test Positive Respiration Rate 16 14 O2 Delivery Device Bagging Adult Vent Liter Flow 15.0 Vent Mode AC AC Tidal Volume 400 POC PEEP 5 5 Crit Call To/Read Back Yes Yes Blood Gas Notified Whom ru UNGUR Radiography Diagnostic Testing: Radiology Impression Chest X-Ray 03/10/23 09:13 IMPRESSION: Satisfactory position of the support lines and tubes. Patchy airspace opacity in the right lower lobe, consistent with an infiltrate. Electronically Signed: Kendall Flores MD at 9:40 EDT , Brain CT 03/10/23 09:24 IMPRESSION: Stable chronic ischemic and atrophic changes. No acute intracranial abnormality. Stable bilateral frontal infarcts. Electronically Signed: Kendall Flores MD at 10:39 EDT , Cervical Spine CT 03/10/23 09:27 IMPRESSION: No fracture or dislocation in the cervical spine. Normal alignment. Mild degenerative change. Electronically Signed: Kendall Flores MD at 10:45 EDT , Chest/Abdomen/Pelvis CT 03/10/23 10:20 IMPRESSION: Limited study. Mild pulmonary vascular congestion. Small bilateral pleural effusions with overlying atelectasis. Thick-walled urinary bladder with adjacent stranding, consistent with cystitis. No bowel obstruction or inflammation. Normal appendix. No urinary calculi. No hydronephrosis. Atherosclerosis and coronary artery disease. Findings suggesting anemia. Electronically Signed: Kendall Flores MD at 11:28 EDT , Chest X-Ray 03/11/23 01:01 IMPRESSION: Bibasilar pulmonary opacities and small pleural effusions Electronically Signed: Charanjit Paulson MD at 3:01 EDT , Physical Exam Narrative General: Intubated and sedated HEENT: Atraumatic, normocephalic Eyes: Eyes closed, no spontaneous opening Neck: Supple Respiratory: Mechanically ventilated Cardiovascular: Regular rate and rhythm GI: Soft, nontender, nondistended Extremities: No edema Musculoskeletal: Presently sedated and not moving extremities spontaneously Neuro: Unable to participate in neuro exam secondary to intubated and sedated Skin: No rashes appreciated Psych: Unable to cooperate secondary to intubated and sedated Assessment & Plan Assessment/Plan (1) Cardiac arrest: (2) Acute kidney injury: (3) Endotracheally intubated: (4) Acute upper GI bleed: (5) Acidosis, lactic: (6) Acute hyperkalemia: (7) Peripheral arterial disease: (8) History of DVT (deep vein thrombosis): PLAN: Plan #Cardiac arrest-secondary to severe anemia secondary to acute blood loss anemia due to duodenal ulcer -Patient received CPR in route to the hospital with 1 dose of epinephrine and achieved ROSC -Was intubated in the ED -Found to have hemoglobin of 3, transfused 2 units and had urgent EGD which revealed duodenal ulcer which was treated -Repeat hemoglobin 5, transfuse to keep hemoglobin above 7, 2 more units of packed red blood cells ordered -Hold Eliquis -INR 2.3, patient to be given vitamin K -We will check echocardiogram -03/11: Did require levo overnight, remained on the vent this a.m. sputum Gram stain with multiple organisms, culture pending, blood and urine cultures pending. Continue broad-spectrum antibiotics. Aspirin and Eliquis remain on hold, patient started on levo #Acute blood loss anemia -Secondary to duodenal ulcer as above #Possible cystitis -On CT of abdomen patient had changes consistent with cystitis, unable to elicit history from patient, monitor cultures, continue [place]ard antibiotics with low threshold to de-escalate in 48 hours if they are negative given other underlying reason that likely is the cause/main contributor to his cardiac arrest -UA with bacteria but minimal leuk esterase and minimal white blood cells making this less likely culprit -03/11: Cultures pending, patient remains on broad-spectrum antibiotics #Alcohol use disorder -Had been drinking vodka daily for 2 weeks, up to 1 bottle per his physical therapist that would be there 3 hours in the mornings -Alcohol level within normal limits on presentation -Folic acid, thiamine -We will need to monitor closely for withdrawal, can always consider propofol over Precedex pending blood pressure and progress -Given BP and present other problems hesitant to start a phenobarbital taper at this time but low threshold to do so -03/11: Started on propofol #Lactic acidosis -Secondary to cardiopulmonary arrest and hypoperfusion -Improving -03/11: Significantly improved with hydration and blood #Acute kidney injury -Secondary to above, avoid nephrotoxic agents -Monitor I's and O's -Could be prerenal but also low suspicion for ATN -03/11: Kidney function continue to worsen, optimize perfusion and address underlying etiology #hx DVT -on systemic AC at baseline -Last DVT over a year ago, holding systemic anticoagulation #PVD -Holding aspirin and Eliquis, can continue statin #DVT ppx: SCDs Adela Stevens MD Time spent in the patient's overall evaluation,decision-making process, review of diagnostic data, adjustment of management, discussion with other providers, nursing nursing and ancillary staff involved in patient's care documentation, 37 minutes Charges/Coding Visit Charges Inpatient E&M: 42636 Subs Hosp L3
--- NOTE | 2023-03-11 07:48 | PN.CC_ITS ---
Assessment & Plan Assessment/Plan (1) Acute upper GI bleed: (2) Respiratory failure: (3) Acute hyperkalemia: (4) Acute kidney injury: PLAN: Plan RECOMMENDATIONS: 1. Transfuse to keep hemoglobin above 7 2. Wean oxygen as tolerated 3. Spontaneous breathing and awakening trials per protocol 4. Place left IJ for pressor support 5. Await nephrology recommendations 6. Await echocardiogram 7. Agree with empiric antibiotics pending cultures 8. Monitor for alcohol withdrawal symptoms IMPRESSIONS: 1. Cardiac arrest secondary to severe anemia Clinical suspicion patient went into PEA arrest secondary to acidosis or anemia. Patient has responded well to therapy at this time. Patient has received a total of 4 units of packed red blood cells. We will continue to transfuse as necessary to keep hemoglobin of 7. Patient appears to be have achieved hemostasis at this time. Lactic acid is significantly improved. Continue mechanical ventilation. Echocardiogram has been ordered, but not completed 2. Acute blood loss anemia secondary to upper GI bleed Patient found to have a significant duodenal ulcer on EGD. No active bleeding noted, but lots of dried blood. Patient appears to have been delayed in presentation. Defer to GI, but likely continue with PPI for now. Biopsies are pending. Patient appears to be incrementing appropriately, so ongoing bleeding is unlikely. 3. Acute respiratory failure secondary to respiratory muscle fatigue Clinical significant respiratory failure likely secondary to respiratory muscle fatigue given severe acidosis and delayed presentation. Unclear if patient has underlying COPD. We will hold on any steroids at this time as this could exacerbate GI bleed. Patient is not reportedly on inhalers at baseline, but does have a long smoking history. If continues to fail spontaneous breathing trials, scheduled bronchodilators can be initiated. 4. Hypothermia Resolved. Unclear if this may be secondary to sepsis. Patient has been placed on empiric antibiotics for now. Patient is on a warming blanket. Patient does have severe anemia which is being addressed. 5. Possible alcohol withdrawal By history, patient does drink alcohol. Alcohol level was negative on presentation. Unclear if this is related to alcohol withdrawal versus acute alcohol toxicity complicating presentation. We will need to watch for withdrawal symptoms. May need to initiate on phenobarb. 6. Acute kidney injury BUN and creatinine ratio is suggestive of an intrinsic ATN. Patient with severe anemia of unclear duration. Patient does have significant acidosis with lactate above 14 on presentation. Patient was on a bicarbonate drip. Continue to monitor urine output. Urine output appears to be improving with pressor agents. Nephrology has been consulted. Cannot exclude the need for CVVHD 7. Peripheral vascular disease/history of chronic wound/poor history/possible recent DVT Complicates care, management, recovery and prognosis. Anticoagulation held secondary to problem #2. TIME: 40 minutes critical care time was spent addressing patient's cardiac arrest, acute blood anemia, respiratory failure, hypothermia, review of all data and collaboration with care team Subjective Subjective Patient did okay overnight. Bloody secretions have resolved from the OG. Patient did have some decreased urine output and was placed on Levophed. Following Levophed, there has been some improved urine output. Hospitalist consult nephrology overnight. Patient unable to tolerate a spontaneous breathing trial this morning. Patient did have significant bradycardia overnight as low as the 30s. Precedex has been discontinued. Patient currently tolerating fentanyl alone. Objective Data Objective Data Vital Signs: Vital Signs Temp Pulse Resp BP Pulse Ox O2 Del Method O2 Flow Rate 36.3 C L 71 25 H 107/58 L 94 Mechanical Ventilator 50 03/11/23 05:27 03/11/23 07:20 03/11/23 07:20 03/11/23 06:00 03/11/23 07:20 03/11/23 07:20 03/11/23 00:00 FiO2 60 03/11/23 07:20 Oxygen Flow Rate (L/min) 50 Oxygen Delivery Method Mechanical Ventilator Weight: 86.6 kg Body Mass Index (BMI) 28.9 Intake & Output: Intake and Output for Last 24 Hours 03/09/23 03/10/23 03/11/23 23:59 23:59 23:59 Intake Total 4798.81 / 4806.31 1381.86 / 1381.86 Output Total 550 / 550 290 / 290 Balance 4248.81 / 4256.31 1091.86 / 1091.86 Lab / Micro Data Attestation: I reviewed the patient's lab results. Result Diagrams: 03/11/23 03:30 03/11/23 03:30 Labs: Laboratory Results - last 24 hr 03/10/23 09:04: WBC 15.9 H, RBC 1.20 L, Hgb 3.0 L*, Hct 10.4 L, MCV 86.7, MCH 25.0 L, MCHC 28.8 L, RDW Std Deviation 57.2 H, RDW Coeff of Abi 18.4 H, Plt Count 348, MPV 11.4, Immature Gran % (Auto) 3.300 H, Neut % (Auto) 71.7 H, Lymph % (Auto) 12.9 L, [place] % (Auto) 11.9 H, Eos % (Auto) 0.1, Baso % (Auto) 0.1, Absolute Neuts (auto) 11.4 H, Absolute Lymphs (auto) 2.05, Nucleated RBC % 2.5, Differential Comment , Diff Path Review May foll, Anisocytosis 2+ 03/10/23 09:04: Sodium 126 L, Potassium 6.0 H*, Chloride 95 L, Carbon Dioxide 8.0 L*, Anion Gap 23 H, BUN 55 H, Creatinine 4.40 H, Estim Creat Clear Calc 15.98, Est GFR (MDRD) Af Amer 17 L, Est GFR (MDRD) Non-Af 14 L, BUN/Creatinine Ratio 12.5, Glucose 141 H, Calcium 8.0 L, Troponin I High Sens 46 03/10/23 09:04: Lactic Acid 14.4 H* 03/10/23 09:04: Ethyl Alcohol < 3.0 03/10/23 09:04: Phosphorus 7.8 H, Magnesium 2.6, Total Bilirubin 0.50, Direct Bilirubin 0.24, AST 37, ALT 30, Alkaline Phosphatase 90, Total Protein 6.7, Albumin 3.0 L, Globulin 3.7, TSH 2.86 03/10/23 09:15: Urine Color Yellow, Urine Clarity Sl. Cloudy, Urine pH 5.0, Ur Specific [place] 1.020, Urine Protein 30 H, Urine Glucose (UA) Normal, Urine Ketones Negative, Urine Occult Blood 10 H, Urine Nitrite Negative, Urine Bilirubin Negative, Urine Urobilinogen 1 H, Ur Leukocyte Esterase 25 H, Urine RBC 0-5 SEEN, Urine WBC 5-10 SEEN, Ur Squamous Epith Cells 0-5 SEEN, Ur Transition Epith Cell 0-5 SEEN, Urine Bacteria 2+, Hyaline Casts 0-5 SEEN, Urine Mucus 1+ 03/10/23 10:21: Blood Type A POSITIVE, Antibody Screen NEGATIVE, Crossmatch See Detail 03/10/23 10:21: Crossmatch See Detail 03/10/23 13:15: Urine Color Yellow, Urine Clarity Sl. Cloudy, Urine pH 5.0, Ur Specific [place] 1.020, Urine Protein 500 H, Urine Glucose (UA) Normal, Urine Ketones Negative, Urine Occult Blood 250 H, Urine Nitrite Negative, Urine Bilirubin Negative, Urine Urobilinogen Normal, Ur Leukocyte Esterase Negative, Urine RBC 5-10 SEEN, Urine WBC 5-10 SEEN, Ur Squamous Epith Cells 0-5 SEEN, Ur Renal Epithelial Cell 0-5 SEEN, Calcium Oxalate Crystal RARE, Urine Bacteria 2+, Hyaline Casts 0-5 SEEN, Fine Granular Casts 0-5 SEEN, Urine Mucus RARE 03/10/23 13:40: PT 25.2 H, INR 2.3 03/10/23 13:40: B-Natriuretic Peptide 1468.5 H 03/10/23 13:40: Hgb Cancelled 03/10/23 13:40: Hgb 5.0 L* 03/10/23 13:50: Lactic Acid 3.1 H* 03/10/23 20:30: Hgb 8.1 L 03/10/23 20:30: Sodium 130 L, Potassium 4.9, Chloride 101, Carbon Dioxide 19.0 L , Anion Gap 10, BUN 52 H, Creatinine 3.64 H, Estim Creat Clear Calc 19.31, Est GFR (MDRD) Af Amer 22 L, Est GFR (MDRD) Non-Af 18 L, BUN/Creatinine Ratio 14.3, Glucose 144 H, Calcium 7.3 L 03/11/23 03:30: WBC 11.8 H, RBC 2.89 L, Hgb 7.9 L, Hct 24.2 L, MCV 83.7, MCH 27.3, MCHC 32.6 D, RDW Std Deviation 49.1 H, RDW Coeff of Abi 16.1 H, Plt Count 234, MPV 10.9, Immature Gran % (Auto) 0.900, Neut % (Auto) 81.9 H, Lymph % (Auto) 5.2 L, [place] % (Auto) 11.7 H, Eos % (Auto) 0.2, Baso % (Auto) 0.1, Absolute Neuts (auto) 9.7 H, Absolute Lymphs (auto) 0.61 L, Nucleated RBC % 0.8 03/11/23 03:30: Sodium 132 L, Potassium 4.6, Chloride 101, Carbon Dioxide 20.0 L , Anion Gap 11, BUN 55 H, Creatinine 4.23 H, Estim Creat Clear Calc 16.62, Est GFR (MDRD) Af Amer 18 L, Est GFR (MDRD) Non-Af 15 L, BUN/Creatinine Ratio 13.0, Glucose 138 H, Calcium 7.1 L, Total Bilirubin 0.70, AST 74 H, ALT 43, Alkaline Phosphatase 73, Total Protein 5.6 L, Albumin 2.4 L, Globulin 3.2, Albumin/Globulin Ratio 0.8 L Micro: Microbiology 03/10/23 10:10 Sputum, Tracheal Aspirate Gram Stain - Final 03/10/23 09:30 Nasal Secretion SARS-CoV-2 & FLU Antigen (Rapid) - Final ABG Data ABG results: ABG 03/10/23 03/10/23 03/10/23 09:24 10:03 13:14 Specimen Type CLARIBEL ART ART Sample Site L Radial L Brach L Radial pH 7.03 L* 7.13 L* 7.29 L Bicarbonate Actual 8.0 L 11.3 L 16.7 L Total CO2 9 12 18 Base Excess -23 L -18 L -10 L O2 Saturation 59 L 100 H 96 O2 % 95 60 ABG pCO2 30.4 L 34.3 L 35.0 ABG pO2 44 L 514 H* 91 Giorgio Test Positive Respiration Rate 16 14 O2 Delivery Device Bagging Adult Vent Liter Flow 15.0 Vent Mode AC AC Tidal Volume 400 POC PEEP 5 5 Crit Call To/Read Back Yes Yes Blood Gas Notified Whom ru UNGUR Radiography Diagnostic Testing: Radiology Impression Chest X-Ray 03/10/23 09:13 IMPRESSION: Satisfactory position of the support lines and tubes. Patchy airspace opacity in the right lower lobe, consistent with an infiltrate. Electronically Signed: Kendall Flores MD at 9:40 EDT , Brain CT 03/10/23 09:24 IMPRESSION: Stable chronic ischemic and atrophic changes. No acute intracranial abnormality. Stable bilateral frontal infarcts. Electronically Signed: Kendall Flores MD at 10:39 EDT , Cervical Spine CT 03/10/23 09:27 IMPRESSION: No fracture or dislocation in the cervical spine. Normal alignment. Mild degenerative change. Electronically Signed: Kendall Flores MD at 10:45 EDT , Chest/Abdomen/Pelvis CT 03/10/23 10:20 IMPRESSION: Limited study. Mild pulmonary vascular congestion. Small bilateral pleural effusions with overlying atelectasis. Thick-walled urinary bladder with adjacent stranding, consistent with cystitis. No bowel obstruction or inflammation. Normal appendix. No urinary calculi. No hydronephrosis. Atherosclerosis and coronary artery disease. Findings suggesting anemia. Electronically Signed: Kendall Flores MD at 11:28 EDT , Chest X-Ray 03/11/23 01:01 IMPRESSION: Bibasilar pulmonary opacities and small pleural effusions Electronically Signed: Charanjit Paulson MD at 3:01 EDT , Physical Exam Const Constitutional Narrative: Fair vent synchrony. Better color today. Does become agitated with stimulation, but resting comfortably otherwise General Appearance: ill appearing, frail and patient mechanically ventilated HEENT normocephalic, head/scalp atraumatic, hearing grossly normal bilaterally, external ears normal and external nose normal Eyes EOMs intact bilaterally Eyes Narrative: Slight scleral injection noted Neck full ROM General: trachea midline Resp normal respiratory effort Effort and Inspection: able to speak in complete sentences and symmetric chest movement; Negative for respiratory distress, labored, stridor, actively cou ghing, uses accessory muscles or audible wheezes Cardio regular rate, regular rhythm, S1 normal heart sound, S2 normal heart sound, no murmurs, no rub and no gallops GI soft to palpation and non-tender GI Narrative: Slightly hyperactive bowel sounds Inspection: Negative for abdominal distention Extremity Extremity Narrative: LLE with mild (1+) swelling, varicose veins noted. No significant pallor or discoloration. General Extremity: Negative for clubbing Skin no rashes or lesions noted, no petechiae and no mottling Neuro moves all extremities and no sensory deficits noted Psych Psych Narrative: Sedated Charges/Coding Procedures Hospitalists Procedures: 56043 Critial Care 1st Hr
--- NOTE | 2023-03-11 08:05 | CASEMGMT ---
Social Work SW received a call from pt's test case developer, José Miguel Rainey ([phone]). She states pt has Passport, 16 hours of aide services a week through [facility]. He has an RN from [facility] who organizes his medications every other week. He had delivered meals but put them on hold. He has an emergency response button also. JENNIE let José Miguel know pt is intubated at present. JENNIE will keep José Miguel informed in regard to the discharge plan. JENNIE will continue to follow. BERNARDA Felton
[2023-03-11] MEDS: Propofol 10MG/Ml 1,000 MG/100 ML Bottle 5.2 MG CONT INF (08:45)
--- NOTE | 2023-03-11 09:00 | RAD_ITS ---
STUDY: X-RAY CHEST REASON FOR EXAM: Male, 67 years old. Line placement, respiratory failure TECHNIQUE: Single AP portable view of the chest. COMPARISON: Earlier today FINDINGS: Since the previous study, a left IJ central venous catheter has been placed, tip is in the mid SVC. Stable appearance of the ET and NG tubes. EKG leads overlie the chest Lungs are expanded with persistent bibasilar opacifications and pleural effusions. No significant interval change since the previous study. Normal size heart. Normal mediastinum and rosendo. Normal visualized pulmonary arteries. There is atherosclerotic calcification of the aortic arch with tortuosity. There are diffuse degenerative changes of the visualized thoracic spine. Normal visualized ribs, clavicles, and shoulders. There is no demonstrated abnormality of the visualized soft tissue structures of the upper abdomen. RAD/Chest 1 View (Portable) IMPRESSION: Lung zamora show no interval change since the previous study. Stable appearance of the support lines and tubes. Left IJ central venous catheter has been placed since previous study, tip is in the mid SVC Electronically Signed: Michael Cuevas MD at 9:16 EDT ,
--- NOTE | 2023-03-11 09:07 | PCM.OP.BLANK ---
Operative Report Date of Procedure: 03/11/23 Central line placement procedure note Indication: IV access/hemodynamic instability/vasoactive medications Procedure: A time-out was completed to verify correct patient, indication, medication allergies, procedure, coagulation studies, informed consent signed, and equipment needed. The patient was placed in the supine position for a central line placement to the left IJ vein. The patients left neck was prepped using chlorhexidine and a full body sterile drape was applied. 1% lidocaine was used to anesthetize the surrounding skin. A 7fr 20 cm blue guard triple lumen catheter introduced into the internal jugular vein using the modified seldinger technique with the assistance of ultrasound. The catheter was threaded smoothly over the guidewire, the guidewire was removed easily, nonpulsatile blood returned. All ports were aspirated of air and flushed with sterile saline. The catheter was sutured in place and covered with an occlusive dressing impregnated with chlorhexidine. Post-procedure: The patient tolerated the procedure well. Vital signs remained stable. EBL 3 cc. No complications. Chest X Ray ordered and confirmed tip placement and the absence of pneumothorax. Procedures Hospitalists Procedures: [id number] Insert Non-tunnel CV Cath
[2023-03-11] MEDS: Chlorhexidine 15 ML PO ×2 (09:40→20:57)
[2023-03-11] MEDS: fentaNYL drip 100 ML 10 MCG CONT INF ×2 (10:06→19:12)
[2023-03-11] MEDS: Senna/Docusate Sodium 1 Tablet 2 TABLET PO ×2 (10:10→20:44)
[2023-03-11 10:44] LABS: CPK Total, Creatine Kinase 592 U/L (39-308); Triglycerides 65 mg/dL
--- NOTE | 2023-03-11 11:48 | PCM.CONS.R ---
Documented by User: MARÍA ELENA Worley 03/11/23 12:13 Assessment & Plan Assessment/Plan (1) Acute kidney injury: (2) Cardiac arrest: (3) Anemia: PLAN: Plan This is a 67 yo male brought to ER after found by home health aide with decreased LOC, difficulty breathing. Sustained cardiac arrest in transport to ER with ROSC. Intubated. Hemoglobin 3.0 in ER. Nephrology consulted for LAVON. Nonoliguric acute kidney in setting of acute anemia with hemoglobin of 3.0, cardiac arrest, hypotension with poor renal perfusion likely leading to ATN. Patient is nonoliguric and it does appear that urine output is picking up. He is not hypervolemic. Serum creatinine in June 2021 was 0.76 mg/dL. Yesterday creatinine 4.40 mg/dL and today creatinine is at 4.23 mg/dL. Potassium and bicarb acceptable. At this time there is no indication for LAWN MOWER REPAIRER. Patient is on pressors, IV fluids and bicarb drip. Blood pressures have improved. We will continue to monitor renal function closely. Patient had noncontrast CT of abdomen and pelvis which showed no hydronephrosis, no renal or ureteral stones. Acute anemia; hemoglobin 3.0 on admission, patient found to have duodenal ulcer per EGD, no active bleeding. GI following. Patient on PPI. Patient has received PRBC and hemoglobin improved to 7.9 today. Discussed nephrology plan with patient's family member who was at bedside, will continue to monitor renal function closely. Further orders forthcoming as hospitalization evolves, thank you for allowing us to participate in the care of Mr. Teresa. HPI Consult Data Date of Consult: 03/11/23 HPI Narrative HPI Narrative: ANA TERESA, is a 67 M with past medical history significant for DVT on Eliquis, hypertension, PAD who was brought to the emergency room for evaluation after home health aide found patient lying on floor of his apartment diaphoretic, decreased breath sounds with decreased LOC. EMS was summoned and during transport to ER patient developed cardiac arrest. CPR initiated with successful ROSC. Patient was intubated in the emergency room and admitted to ICU. In the ER laboratory showed hemoglobin of 3, creatinine 4.4, Potassium 6.0. Nephrology consulted for LAVON. Patient is on ventilator. His nephew is at bedside. [facility] Medical History Benign essential tremor DVT (deep venous thrombosis) Hypertension Peripheral arterial disease Home Medications amlodipine 10 mg tablet (Norvasc) 10 mg PO DAILY BP 01/19/19 [History Last Taken Unknown] gabapentin 300 mg capsule 300 mg PO TIDCM NERVE PAIN 01/19/19 [History Last Taken Unknown] lisinopril 40 mg tablet (Zestril) 40 mg PO DAILY BP 01/19/19 [History Last Taken Unknown] folic acid 1 mg tablet 1 mg PO DAILY SUPPLEMENT 10/17/22 [History Last Taken Unknown] rosuvastatin 20 mg tablet (Crestor) 20 mg PO DAILY CHOLESTEROL 10/17/22 [History Last Taken Unknown] apixaban 5 mg tablet 5 mg PO BID BLOOD THINNER 03/10/23 [History Last Taken Unknown] aspirin 81 mg tablet,delayed release 81 mg PO DAILY HEALTH MAINTENANCE 03/10/23 [History Last Taken Unknown] ferrous sulfate 325 mg (65 mg iron) tablet 325 mg PO BIDCM SUPPLEMENT 03/10/23 [History Last Taken Unknown] folic acid 800 mcg tablet 0.8 mg PO DAILY SUPPLEMENT 03/10/23 [History Last Taken Unknown] ibuprofen 200 mg capsule 400 mg PO Q4H PRN PRN PAIN GREATER THAN 4 03/10/23 [History Last Taken Unknown] magnesium hydroxide 400 mg/5 mL oral suspension (Milk of Magnesia) 1,200 mg PO DAILY PRN Constipation 03/10/23 [History Last Taken Unknown] ohhxramx-krc-enrff acid 300 mcg-lycopene 600 mcg-lutein 300 mcg tablet (Centrum Silver Men) 1 tab PO DAILY SUPPLEMENT 03/10/23 [History Last Taken Unknown] Allergy/AdvReac Type Severity Reaction Status Date / Time bee pollen Allergy Anaphylaxis Verified 09/16/22 10:20 Social History Smoking Status: Unknown if ever smoked ROS ROS Narrative Unable to obtain Physical Exam Narrative On ventilator support, no apparent stress S1, 2, RRR Lung sounds clear anteriorly. No wheezes rhonchi or rales Abdomen soft, positive bowel sounds No pitting edema noted bilateral lower legs feet or arms Indwelling Lamb catheter with clear yellow urine in bag Lab / Micro Data Result Diagrams: 03/11/23 03:30 03/11/23 03:30 Labs: Laboratory Results - last 24 hr 03/10/23 09:04: Phosphorus 7.8 H, Magnesium 2.6, Total Bilirubin 0.50, Direct Bilirubin 0.24, AST 37, ALT 30, Alkaline Phosphatase 90, Total Protein 6.7, Albumin 3.0 L, Globulin 3.7, TSH 2.86 03/10/23 10:21: Crossmatch See Detail 03/10/23 10:21: Crossmatch See Detail 03/10/23 13:15: Urine Color Yellow, Urine Clarity Sl. Cloudy, Urine pH 5.0, Ur Specific [place] 1.020, Urine Protein 500 H, Urine Glucose (UA) Normal, Urine Ketones Negative, Urine Occult Blood 250 H, Urine Nitrite Negative, Urine Bilirubin Negative, Urine Urobilinogen Normal, Ur Leukocyte Esterase Negative, Urine RBC 5-10 SEEN, Urine WBC 5-10 SEEN, Ur Squamous Epith Cells 0-5 SEEN, Ur Renal Epithelial Cell 0-5 SEEN, Calcium Oxalate Crystal RARE, Urine Bacteria 2+, Hyaline Casts 0-5 SEEN, Fine Granular Casts 0-5 SEEN, Urine Mucus RARE 03/10/23 13:40: PT 25.2 H, INR 2.3 03/10/23 13:40: B-Natriuretic Peptide 1468.5 H 03/10/23 13:40: Hgb Cancelled 03/10/23 13:40: Hgb 5.0 L* 03/10/23 13:50: Lactic Acid 3.1 H* 03/10/23 20:30: Hgb 8.1 L 03/10/23 20:30: Sodium 130 L, Potassium 4.9, Chloride 101, Carbon Dioxide 19.0 L, Anion Gap 10, BUN 52 H, Creatinine 3.64 H, Estim Creat Clear Calc 19.31, Est GFR (MDRD) Af Amer 22 L, Est GFR (MDRD) Non-Af 18 L, BUN/Creatinine Ratio 14.3, Glucose 144 H, Calcium 7.3 L 03/11/23 03:30: WBC 11.8 H, RBC 2.89 L, Hgb 7.9 L, Hct 24.2 L, MCV 83.7, MCH 27.3, MCHC 32.6 D, RDW Std Deviation 49.1 H, RDW Coeff of Abi 16.1 H, Plt Count 234, MPV 10.9, Immature Gran % (Auto) 0.900, Neut % (Auto) 81.9 H, Lymph % (Auto) 5.2 L, [place] % (Auto) 11.7 H, Eos % (Auto) 0.2, Baso % (Auto) 0.1, Absolute Neuts (auto) 9.7 H, Absolute Lymphs (auto) 0.61 L, Nucleated RBC % 0.8 03/11/23 03:30: Sodium 132 L, Potassium 4.6, Chloride 101, Carbon Dioxide 20.0 L, Anion Gap 11, BUN 55 H, Creatinine 4.23 H, Estim Creat Clear Calc 16.62, Est GFR (MDRD) Af Amer 18 L, Est GFR (MDRD) Non-Af 15 L, BUN/Creatinine Ratio 13.0, Glucose 138 H, Calcium 7.1 L, Total Bilirubin 0.70, AST 74 H, ALT 43, Alkaline Phosphatase 73, Total Protein 5.6 L, Albumin 2.4 L, Globulin 3.2, Albumin/Globulin Ratio 0.8 L 03/11/23 03:30: Total Creatine Kinase 592 H, Triglycerides 65 Micro: Microbiology 03/10/23 10:10 Sputum, Tracheal Aspirate Gram Stain - Final 03/10/23 10:10 Sputum, Tracheal Aspirate Respiratory Culture - Preliminary Appears to be normal respiratory kenia. Further studies to follow. 03/10/23 09:30 Nasal Secretion SARS-CoV-2 & FLU Antigen (Rapid) - Final ABG Data ABG results: ABG 03/10/23 13:14 Specimen Type ART Sample Site L Radial pH 7.29 L Bicarbonate Actual 16.7 L Total CO2 18 Base Excess -10 L O2 Saturation 96 O2 % 60 ABG pCO2 35.0 ABG pO2 91 Giorgio Test Positive Respiration Rate 14 O2 Delivery Device Adult Vent Vent Mode AC POC PEEP 5 Radiology Impression Chest X-Ray 03/10/23 09:13 IMPRESSION: Satisfactory position of the support lines and tubes. Patchy airspace opacity in the right lower lobe, consistent with an infiltrate. Electronically Signed: Kendall Flores MD at 9:40 EDT , Brain CT 03/10/23 09:24 IMPRESSION: Stable chronic ischemic and atrophic changes. No acute intracranial abnormality. Stable bilateral frontal infarcts. Electronically Signed: Kendall Flores MD at 10:39 EDT , Cervical Spine CT 03/10/23 09:27 IMPRESSION: No fracture or dislocation in the cervical spine. Normal alignment. Mild degenerative change. Electronically Signed: Kendall Flores MD at 10:45 EDT , Chest/Abdomen/Pelvis CT 03/10/23 10:20 IMPRESSION: Limited study. Mild pulmonary vascular congestion. Small bilateral pleural effusions with overlying atelectasis. Thick-walled urinary bladder with adjacent stranding, consistent with cystitis. No bowel obstruction or inflammation. Normal appendix. No urinary calculi. No hydronephrosis. Atherosclerosis and coronary artery disease. Findings suggesting anemia. Electronically Signed: Kendall Flores MD at 11:28 EDT , Echocardiogram 03/10/23 16:11 Interpretation Summary The left ventricular ejection fraction is 60 %. Stage 2 diastolic dysfunction. The left atrium is severely enlarged. The right atrium is moderately enlarged. Mild focal mitral valve calcification, bileaflet. Mild (1+) mitral valve insufficiency. Mild tricuspid valve insufficiency. Right ventricular systolic pressure estimated to be 50 mmHg. Mild (1+) aortic valve insufficiency. Ordering Physician: Thee, Jj Referring Physician: KEISHA ROSA Performed By: Carina Ray, JUANITO Chest X-Ray 03/11/23 01:01 IMPRESSION: Bibasilar pulmonary opacities and small pleural effusions Electronically Signed: Charanjit Paulson MD at 3:01 EDT , Chest X-Ray 03/11/23 09:00 IMPRESSION: Lung zamora show no interval change since the previous study. Stable appearance of the support lines and tubes. Left IJ central venous catheter has been placed since previous study, tip is in the mid SVC Electronically Signed: Michael Cuevas MD at 9:16 EDT , Documented by User: Dr. Efren Oakley MD 03/11/23 13:23 Assessment & Plan Assessment/Plan (1) Acute kidney injury: (2) Cardiac arrest: (3) Anemia: PLAN: Plan This is a 67 yo male brought to ER after found by home health aide with decreased LOC, difficulty breathing. Sustained cardiac arrest in transport to ER with ROSC. Intubated. Hemoglobin 3.0 in ER. Nephrology consulted for LAVON. Nonoliguric acute kidney in setting of acute anemia with hemoglobin of 3.0, cardiac arrest, hypotension with poor renal perfusion likely leading to ATN. Patient is nonoliguric and it does appear that urine output is picking up. He is not hypervolemic. Serum creatinine in June 2021 was 0.76 mg/dL. Yesterday creatinine 4.40 mg/dL and today creatinine is at 4.23 mg/dL. Potassium and bicarb acceptable. At this time there is no indication for LAWN MOWER REPAIRER. Patient is on pressors, IV fluids and bicarb drip. Blood pressures have improved. We will continue to monitor renal function closely. Patient had noncontrast CT of abdomen and pelvis which showed no hydronephrosis, no renal or ureteral stones. Acute anemia; hemoglobin 3.0 on admission, patient found to have duodenal ulcer per EGD, no active bleeding. GI following. Patient on PPI. Patient has received PRBC and hemoglobin improved to 7.9 today. Discussed nephrology plan with patient's family member who was at bedside, will continue to monitor renal function closely. Further orders forthcoming as hospitalization evolves, thank you for allowing us to participate in the care of Mr. Teresa. Patient was seen and examined independently. Acute renal failure. Normal baseline as of 2 years ago. Likely ATN. Since starting pressors, urine output has significantly improved. CT abdomen without any hydronephrosis. No acute indications for dialysis. HPI Consult Data Date of Consult: 03/11/23 [facility] Medical History Benign essential tremor DVT (deep venous thrombosis) Hypertension Peripheral arterial disease Home Medications amlodipine 10 mg tablet (Norvasc) 10 mg PO DAILY BP 01/19/19 [History Last Taken Unknown] gabapentin 300 mg capsule 300 mg PO TIDCM NERVE PAIN 01/19/19 [History Last Taken Unknown] lisinopril 40 mg tablet (Zestril) 40 mg PO DAILY BP 01/19/19 [History Last Taken Unknown] folic acid 1 mg tablet 1 mg PO DAILY SUPPLEMENT 10/17/22 [History Last Taken Unknown] rosuvastatin 20 mg tablet (Crestor) 20 mg PO DAILY CHOLESTEROL 10/17/22 [History Last Taken Unknown] apixaban 5 mg tablet 5 mg PO BID BLOOD THINNER 03/10/23 [History Last Taken Unknown] aspirin 81 mg tablet,delayed release 81 mg PO DAILY HEALTH MAINTENANCE 03/10/23 [History Last Taken Unknown] ferrous sulfate 325 mg (65 mg iron) tablet 325 mg PO BIDCM SUPPLEMENT 03/10/23 [History Last Taken Unknown] folic acid 800 mcg tablet 0.8 mg PO DAILY SUPPLEMENT 03/10/23 [History Last Taken Unknown] ibuprofen 200 mg capsule 400 mg PO Q4H PRN PRN PAIN GREATER THAN 4 03/10/23 [History Last Taken Unknown] magnesium hydroxide 400 mg/5 mL oral suspension (Milk of Magnesia) 1,200 mg PO DAILY PRN Constipation 03/10/23 [History Last Taken Unknown] tivenzji-zyy-oxjpp acid 300 mcg-lycopene 600 mcg-lutein 300 mcg tablet (Centrum Silver Men) 1 tab PO DAILY SUPPLEMENT 03/10/23 [History Last Taken Unknown] Allergy/AdvReac Type Severity Reaction Status Date / Time bee pollen Allergy Anaphylaxis Verified 09/16/22 10:20 Social History Smoking Status: Unknown if ever smoked Lab / Micro Data Result Diagrams: 03/11/23 03:30 03/11/23 03:30
--- NOTE | 2023-03-11 14:39 | CASEMGMT ---
Patient is currently intubated and unable to participate in assesment. CM assessment deferred at this time. CM will attempt to complete assessment at later time.
[2023-03-11] MEDS: Propofol 10MG/Ml 1,000 MG/100 ML Bottle 7.8 MG CONT INF ×2 (16:44→20:36)
[2023-03-11] MEDS: 0.9% Saline Lock 10 ML Syringe IV (16:44)
--- NOTE | 2023-03-11 17:07 | EX.PCM.PN.GI ---
Subjective Subjective Patient underwent endoscopy at the bedside while intubated for severe anemia. He was discovered to have multiple duodenal ulcers and duodenum. Biopsies were taken to look for signs of malignancy and H. pylori. There is a pending. He was started on tube feedings. He is still intubated and sedated. Objective Data Objective Data Vital Signs: Vital Signs Temp Pulse Resp BP Pulse Ox O2 Del Method O2 Flow Rate 98.2 F 52 L 16 105/49 L 95 Mechanical Ventilator 50 03/11/23 16:00 03/11/23 16:03 03/11/23 16:03 03/11/23 16:00 03/11/23 16:03 03/11/23 16:00 03/11/23 00:00 FiO2 40 03/11/23 16:03 Oxygen Flow Rate (L/min) 50 Oxygen Delivery Method Mechanical Ventilator Weight: 190 lb 14.725 oz Body Mass Index (BMI) 28.9 Intake & Output: Intake and Output for Last 24 Hours 03/09/23 03/10/23 03/11/23 23:59 23:59 23:59 Intake Total 4798.81 / 4806.31 3093.73 / 3093.73 Output Total 550 / 550 1915 / 1915 Balance 4248.81 / 4256.31 1178.73 / 1178.73 Lab / Micro Data Result Diagrams: 03/11/23 03:30 03/11/23 03:30 Labs: Laboratory Results - last 24 hr 03/10/23 10:21: Crossmatch See Detail 03/10/23 20:30: Hgb 8.1 L 03/10/23 20:30: Sodium 130 L, Potassium 4.9, Chloride 101, Carbon Dioxide 19.0 L, Anion Gap 10, BUN 52 H, Creatinine 3.64 H, Estim Creat Clear Calc 19.31, Est GFR (MDRD) Af Amer 22 L, Est GFR (MDRD) Non-Af 18 L, BUN/Creatinine Ratio 14.3, Glucose 144 H, Calcium 7.3 L 03/11/23 03:30: WBC 11.8 H, RBC 2.89 L, Hgb 7.9 L, Hct 24.2 L, MCV 83.7, MCH 27.3, MCHC 32.6 D, RDW Std Deviation 49.1 H, RDW Coeff of Abi 16.1 H, Plt Count 234, MPV 10.9, Immature Gran % (Auto) 0.900, Neut % (Auto) 81.9 H, Lymph % (Auto) 5.2 L, [place] % (Auto) 11.7 H, Eos % (Auto) 0.2, Baso % (Auto) 0.1, Absolute Neuts (auto) 9.7 H, Absolute Lymphs (auto) 0.61 L, Nucleated RBC % 0.8 03/11/23 03:30: Sodium 132 L, Potassium 4.6, Chloride 101, Carbon Dioxide 20.0 L, Anion Gap 11, BUN 55 H, Creatinine 4.23 H, Estim Creat Clear Calc 16.62, Est GFR (MDRD) Af Amer 18 L, Est GFR (MDRD) Non-Af 15 L, BUN/Creatinine Ratio 13.0, Glucose 138 H, Calcium 7.1 L, Total Bilirubin 0.70, AST 74 H, ALT 43, Alkaline Phosphatase 73, Total Protein 5.6 L, Albumin 2.4 L, Globulin 3.2, Albumin/Globulin Ratio 0.8 L 03/11/23 03:30: Total Creatine Kinase 592 H, Triglycerides 65 Micro: Microbiology 03/10/23 10:10 Sputum, Tracheal Aspirate Gram Stain - Final 03/10/23 10:10 Sputum, Tracheal Aspirate Respiratory Culture - Preliminary Appears to be normal respiratory kenia. Further studies to follow. 03/10/23 09:30 Nasal Secretion SARS-CoV-2 & FLU Antigen (Rapid) - Final Radiography Diagnostic Testing: Radiology Impression Echocardiogram 03/10/23 16:11 Interpretation Summary The left ventricular ejection fraction is 60 %. Stage 2 diastolic dysfunction. The left atrium is severely enlarged. The right atrium is moderately enlarged. Mild focal mitral valve calcification, bileaflet. Mild (1+) mitral valve insufficiency. Mild tricuspid valve insufficiency. Right ventricular systolic pressure estimated to be 50 mmHg. Mild (1+) aortic valve insufficiency. Ordering Physician: Jj Kingston Referring Physician: KEISHA ROSA Performed By: Carina Ray RDCS Chest X-Ray 03/11/23 01:01 IMPRESSION: Bibasilar pulmonary opacities and small pleural effusions Electronically Signed: Charanjit Paulson MD at 3:01 EDT , Chest X-Ray 03/11/23 09:00 IMPRESSION: Lung zamora show no interval change since the previous study. Stable appearance of the support lines and tubes. Left IJ central venous catheter has been placed since previous study, tip is in the mid SVC Electronically Signed: Michael Cuevas MD at 9:16 EDT , Physical Exam Narrative On ventilator support, no apparent stress S1, 2, RRR Lung sounds clear anteriorly. No wheezes rhonchi or rales Abdomen soft, positive bowel sounds No pitting edema noted bilateral lower legs feet or arms Indwelling Lamb catheter with clear yellow urine in bag Assessment & Plan Assessment/Plan (1) Cardiac arrest: (2) Acute kidney injury: (3) Endotracheally intubated: (4) Acute upper GI bleed: (5) Acidosis, lactic: (6) Acute hyperkalemia: (7) Peripheral arterial disease: (8) History of DVT (deep vein thrombosis): PLAN: Plan 67-year-old gentleman with alcohol abuse disorder comes in after cardiac arrest possibly secondary to acute blood loss anemia. He is status post upper endoscopy and the discovery of multiple duodenal ulcers. He received 3 units of packed red blood cells. His hemoglobin is up to 7.2. He is on antisecretory therapy and antiacid therapy. -Await H. pylori status -Continue PPI therapy and sulcal fate therapy -Check gastrin level -Continue to hold anticoagulation -Follow hemoglobin hematocrit -Repeat endoscopy in the future to ensure healing of duodenal ulcers Charges/Coding Visit Charges Inpatient E&M: 44637 Subs Hosp L3
[2023-03-11] MEDS: Atorvastatin Calcium 40 MG Tablet PO (20:44)
[2023-03-12] VITALS (40 sets, daily range): BP systolic 94–163; BP diastolic 42–112; PULSE 51–93; RESP 10–23; TEMP 36.6–36.9; O2SAT 86–98; BMI 29.4
[2023-03-12 04:09] LABS: Absolute Neutrophil Count 9.4 X10^3/uL (2.0-7.7); Basophil# 0.05 X10^3/uL; Basophil% 0.4 % (0-1); Eosinophil# 0.07 X10^3/uL; Eosinophils% 0.6 % (0-5); Hematocrit 25.8 % (40-54); Hemoglobin 8.3 g/dL (13.0-16.5); Lymphocyte % 10.3 % (19-41); Mean Corp Hgb Conc 32.2 g/dL (32-36); Mean Corpuscular Hgb 27.1 pg (27.0-32.0); Mean Corpuscular Volume 84.3 fL (80-94); Mean Platelet Vol. 10.3 fl (6.2-12.0); Monocyte# 1.75 X10^3/uL; Monocyte% 13.8 % (0-10); NRBC Flagged by Analyzer 0.4 % (0-5); Neutrophil # 9.39 X10^3/uL (2.7-7.7); Neutrophil % 74.3 % (47-70); POSITIVE DIFFERENTIAL YES; Platelet Count 268 K/mm3 (150-450); RBC Distribution Width CV 16.4 % (11.6-14.6); RBC Distribution Width SD 50.4 fl (35.1-43.9); Red Blood Count 3.06 M/mm3 (4.6-6.2); White Blood Count 12.6 K/mm3 (4.4-11.0)
[2023-03-12 04:10] LABS: Differential Indicated SCAN CRITERIA MET
[2023-03-12 04:34] LABS: ALB/GLOB Ratio 0.8 RATIO (0.9-2.4); AST(SGOT) 40 U/L (15-37); Alanine Aminotransfer ALT/SGPT 40 U/L (16-61); Albumin, Serum 2.4 g/dL (3.2-5.0); Alkaline Phosphatase 66 U/L (45-117); Anion Gap 8 (5-15); BUN 47 mg/dL (7-18); BUN/Creat Ratio 13.1 RATIO (10-20); Chloride 98 mmol/L (98-107); Creatinine, Serum 3.59 mg/dL (0.70-1.30); EST Glomerular Filtration Rate 18 mL/min (>60); Est Glom Filt Rate - Afr Amer 22 mL/min (>60); Estimated Creatinine Clearance 19.58 ml/min; Glucose 150 mg/dL (74-106); Potassium 3.8 mmol/L (3.5-5.1); Protein, Total 5.4 g/dL (6.4-8.2); Sodium Level 134 mmol/L (136-145)
[2023-03-12 04:58] LABS: Differential Comment SCANNED
[2023-03-12 04:59] LABS: Anisocytosis 1+; Hypochromasia 1+
[2023-03-12 06:56] LABS: Allen Test Positive; Base Excess 4 mmol/L (-2 to +2); Bicarbonate 28.1 mmol/L (22-26); Blood Gas Specimen Type ART; FI02 40; Mode CPAP/PS; O2 Delivery Device Adult Vent; PEEP 5; PO2 57 mmHG (75-100); PS 5; SITE L Radial; SO2 91 % (95-99); Total Carbon Dioxide 29 mmol/L; pH 7.46 (7.35-7.45)
--- NOTE | 2023-03-12 07:14 | PCM.PN.INT ---
Assessment & Plan Assessment/Plan (1) Acute upper GI bleed: (2) Respiratory failure: (3) Acute hyperkalemia: (4) Acute kidney injury: PLAN: Plan RECOMMENDATIONS: 1. Proceed with extubation 2. Wean oxygen as tolerated 3. Discontinue bicarbonate drip 4. Place left IJ for pressor support 5. Await nephrology recommendations 6. Increase activity as tolerated 7. Potentially discontinue antibiotics in 24 hours pending culture results 8. Monitor for alcohol withdrawal symptoms IMPRESSIONS: 1. Cardiac arrest secondary to severe anemia Clinical suspicion patient went into PEA arrest secondary to acidosis or anemia. Patient has responded well to therapy at this time. Patient has received a total of 4 units of packed red blood cells. We will continue to transfuse as necessary to keep hemoglobin of 7. Patient appears to be have achieved hemostasis at this time. Okay to proceed with extubation. Echocardiogram results have been noted 2. Acute blood loss anemia secondary to upper GI bleed Patient found to have a significant duodenal ulcer on EGD. No active bleeding noted, but lots of dried blood. Patient appears to have been delayed in presentation. Defer to GI, but likely continue with PPI for now. Biopsies are pending. Patient appears to be incrementing appropriately, so ongoing bleeding is unlikely. 3. Acute respiratory failure secondary to respiratory muscle fatigue Clinical significant respiratory failure likely secondary to respiratory muscle fatigue given severe acidosis and delayed presentation. Unclear if patient has underlying COPD. We will hold on any steroids at this time as this could exacerbate GI bleed. Patient is not reportedly on inhalers at baseline, but does have a long smoking history. Potentially schedule bronchodilators if patient starts to have significant wheezing 4. Hypothermia Resolved. Unclear if this may be secondary to sepsis. Patient has been placed on empiric antibiotics for now. 5. Possible alcohol withdrawal By history, patient does drink alcohol. Alcohol level was negative on presentation. Unclear if this is related to alcohol withdrawal versus acute alcohol toxicity complicating presentation. We will need to watch for withdrawal symptoms. May need to initiate on phenobarb. 6. Acute kidney injury Improving. BUN and creatinine ratio is suggestive of an intrinsic ATN. Patient with severe anemia of unclear duration. Okay to discontinue bicarbonate. Continue to monitor urine output. Urine output appears to be improving with pressor agents. Nephrology has been consulted. 7. Peripheral vascular disease/history of chronic wound/poor history/possible recent DVT Complicates care, management, recovery and prognosis. Anticoagulation held secondary to problem #2. TIME: 32 minutes critical care time was spent addressing patient's cardiac arrest, acute blood anemia, respiratory failure, hypothermia, review of all data and collaboration with care team Subjective Subjective Patient did okay overnight. Patient's pressor requirements have improved. Patient was able to tolerate a spontaneous breathing trial this morning and ABG is acceptable. Patient to be extubated. Patient's urine output has been doing well. No obvious bleeding has been reported by nursing. Patient has had some tremors, but no acute withdrawal has been reported. Objective Data Objective Data Vital Signs: Vital Signs Temp Pulse Resp BP Pulse Ox O2 Del Method O2 Flow Rate 36.8 C 85 12 131/69 H 93 Nasal Cannula 4 03/12/23 07:00 03/12/23 07:00 03/12/23 07:00 03/12/23 07:00 03/12/23 07:00 03/12/23 07:00 03/12/23 07:00 FiO2 40 03/12/23 06:00 Oxygen Flow Rate (L/min) 4 Oxygen Delivery Method Nasal Cannula Weight: 88 kg Body Mass Index (BMI) 29.4 Intake & Output: Intake and Output for Last 24 Hours 03/10/23 03/11/23 03/12/23 23:59 23:59 23:59 Intake Total 4798.81 / 4806.31 4568.06 / 4589.82 306.09 / 306.09 Output Total 550 / 550 2315 / 2315 275 / 275 Balance 4248.81 / 4256.31 2253.06 / 2274.82 31.09 / 31.09 Lab / Micro Data Attestation: I reviewed the patient's lab results. Result Diagrams: 03/12/23 04:00 03/12/23 04:00 Labs: Laboratory Results - last 24 hr 03/11/23 03:30: Total Creatine Kinase 592 H, Triglycerides 65 03/12/23 04:00: WBC 12.6 H, RBC 3.06 L, Hgb 8.3 L, Hct 25.8 L, MCV 84.3, MCH 27.1, MCHC 32.2, RDW Std Deviation 50.4 H, RDW Coeff of Abi 16.4 H, Plt Count 268, MPV 10.3, Immature Gran % (Auto) 0.600, Neut % (Auto) 74.3 H, Lymph % (Auto) 10.3 L, [place] % (Auto) 13.8 H, Eos % (Auto) 0.6, Baso % (Auto) 0.4, Absolute Neuts (auto) 9.4 H, Absolute Lymphs (auto) 1.30, Nucleated RBC % 0.4, Differential Comment SCANNED, Diff Path Review May foll, Hypochromasia 1+, Anisocytosis 1+ 03/12/23 04:00: Sodium 134 L, Potassium 3.8, Chloride 98, Carbon Dioxide 28.0, Anion Gap 8, BUN 47 H, Creatinine 3.59 H, Estim Creat Clear Calc 19.58, Est GFR (MDRD) Af Amer 22 L, Est GFR (MDRD) Non-Af 18 L, BUN/Creatinine Ratio 13.1, Glucose 150 H, Calcium 7.0 L, Total Bilirubin 0.50, AST 40 H, ALT 40, Alkaline Phosphatase 66, Total Protein 5.4 L, Albumin 2.4 L, Globulin 3.0, Albumin/Globulin Ratio 0.8 L Micro: Microbiology 03/10/23 09:24 Blood Culture (Wb) - Anticubital Right Blood Culture - Preliminary No growth in 48 hours. 03/10/23 10:10 Sputum, Tracheal Aspirate Gram Stain - Final 03/10/23 10:10 Sputum, Tracheal Aspirate Respiratory Culture - Preliminary Appears to be normal respiratory kenia. Further studies to follow. 03/10/23 09:30 Nasal Secretion SARS-CoV-2 & FLU Antigen (Rapid) - Final ABG Data ABG results: ABG 03/12/23 06:52 Specimen Type ART Sample Site L Radial pH 7.46 H Bicarbonate Actual 28.1 H Total CO2 29 Base Excess 4 H O2 Saturation 91 L O2 % 40 ABG pCO2 40.0 ABG pO2 57 L Giorgio Test Positive O2 Delivery Device Adult Vent Vent Mode CPAP/PS POC PEEP 5 POC Pressure Suppt 5 Radiography Diagnostic Testing: Radiology Impression Echocardiogram 03/10/23 16:11 Interpretation Summary The left ventricular ejection fraction is 60 %. Stage 2 diastolic dysfunction. The left atrium is severely enlarged. The right atrium is moderately enlarged. Mild focal mitral valve calcification, bileaflet. Mild (1+) mitral valve insufficiency. Mild tricuspid valve insufficiency. Right ventricular systolic pressure estimated to be 50 mmHg. Mild (1+) aortic valve insufficiency. Ordering Physician: Jj Kingston Referring Physician: KEISHA ROSA Performed By: Carina Ray, JUANITO Chest X-Ray 03/11/23 09:00 IMPRESSION: Lung zamora show no interval change since the previous study. Stable appearance of the support lines and tubes. Left IJ central venous catheter has been placed since previous study, tip is in the mid SVC Electronically Signed: Michael Cuevas MD at 9:16 EDT , Physical Exam Const Constitutional Narrative: Tolerating trial well. General Appearance: ill appearing, frail and patient mechanically ventilated HEENT normocephalic, head/scalp atraumatic, hearing grossly normal bilaterally, external ears normal and external nose normal Eyes EOMs intact bilaterally Eyes Narrative: Slight scleral injection noted Neck full ROM General: trachea midline Resp normal respiratory effort Effort and Inspection: able to speak in complete sentences and symmetric chest movement; Negative for respiratory distress, labored, stridor, actively coughing, uses accessory muscles or audible wheezes Cardio regular rate, regular rhythm, S1 normal heart sound, S2 normal heart sound, no murmurs, no rub and no gallops Rate: bradycardia GI soft to palpation and non-tender GI Narrative: Slightly hyperactive bowel sounds Inspection: Negative for abdominal distention Extremity Extremity Narrative: LLE with mild (1+) swelling, varicose veins noted. No significant pallor or discoloration. General Extremity: Negative for clubbing Skin no rashes or lesions noted, no petechiae and no mottling Neuro moves all extremities and no sensory deficits noted Psych Psych Narrative: Sedated Mood & Affect: labile affect Charges/Coding Procedures Hospitalists Procedures: [id number]
--- NOTE | 2023-03-12 07:15 | PCM.PN.HOSP ---
Reason for Visit Reason for Visit: Diagnoses Anemia, unspecified (03/10/23) Acidosis, unspecified (03/10/23) Hyperkalemia (03/10/23) Cardiac arrest, cause unspecified (03/10/23) Peripheral vascular disease, unspecified (03/10/23) Respiratory failure, unspecified, unspecified whether with hypoxia or hypercapnia (03/10/23) Gastrointestinal hemorrhage, unspecified (03/10/23) Acute kidney failure, unspecified (03/10/23) Personal history of other venous thrombosis and embolism (03/10/23) Presence of other specified devices (03/10/23) Subjective Subjective Patient asked rated this a.m., denies any specific complaints, patient confused disoriented here, discussed what happened and present medical problems/management on admission Objective Data Objective Data Vital Signs: Vital Signs Temp Pulse Resp BP Pulse Ox O2 Del Method O2 Flow Rate 98.2 F 85 12 131/69 H 93 Nasal Cannula 4 03/12/23 07:00 03/12/23 07:00 03/12/23 07:00 03/12/23 07:00 03/12/23 07:00 03/12/23 07:00 03/12/23 07:00 FiO2 40 03/12/23 06:00 Oxygen Flow Rate (L/min) 4 Oxygen Delivery Method Nasal Cannula Weight: 88 kg Body Mass Index (BMI) 29.4 Intake & Output: Intake and Output for Last 24 Hours 03/10/23 03/11/23 03/12/23 23:59 23:59 23:59 Intake Total 4798.81 / 4806.31 4568.06 / 4589.82 306.09 / 306.09 Output Total 550 / 550 2315 / 2315 275 / 275 Balance 4248.81 / 4256.31 2253.06 / 2274.82 31.09 / 31.09 Lab / Micro Data Result Diagrams: 03/12/23 04:00 03/12/23 04:00 Labs: Laboratory Results - last 24 hr 03/11/23 03:30: Total Creatine Kinase 592 H, Triglycerides 65 03/12/23 04:00: WBC 12.6 H, RBC 3.06 L, Hgb 8.3 L, Hct 25.8 L, MCV 84.3, MCH 27.1, MCHC 32.2, RDW Std Deviation 50.4 H, RDW Coeff of Abi 16.4 H, Plt Count 268, MPV 10.3, Immature Gran % (Auto) 0.600, Neut % (Auto) 74.3 H, Lymph % (Auto) 10.3 L, [place] % (Auto) 13.8 H, Eos % (Auto) 0.6, Baso % (Auto) 0.4, Absolute Neuts (auto) 9.4 H, Absolute Lymphs (auto) 1.30, Nucleated RBC % 0.4, Differential Comment SCANNED, Diff Path Review May foll, Hypochromasia 1+, Anisocytosis 1+ 03/12/23 04:00: Sodium 134 L, Potassium 3.8, Chloride 98, Carbon Dioxide 28.0, Anion Gap 8, BUN 47 H, Creatinine 3.59 H, Estim Creat Clear Calc 19.58, Est GFR (MDRD) Af Amer 22 L, Est GFR (MDRD) Non-Af 18 L, BUN/Creatinine Ratio 13.1, Glucose 150 H, Calcium 7.0 L, Total Bilirubin 0.50, AST 40 H, ALT 40, Alkaline Phosphatase 66, Total Protein 5.4 L, Albumin 2.4 L, Globulin 3.0, Albumin/Globulin Ratio 0.8 L Micro: Microbiology 03/10/23 09:24 Blood Culture (Wb) - Anticubital Right Blood Culture - Preliminary No growth in 48 hours. 03/10/23 10:10 Sputum, Tracheal Aspirate Gram Stain - Final 03/10/23 10:10 Sputum, Tracheal Aspirate Respiratory Culture - Preliminary Appears to be normal respiratory kenia. Further studies to follow. 03/10/23 09:30 Nasal Secretion SARS-CoV-2 & FLU Antigen (Rapid) - Final ABG Data ABG results: ABG 03/12/23 06:52 Specimen Type ART Sample Site L Radial pH 7.46 H Bicarbonate Actual 28.1 H Total CO2 29 Base Excess 4 H O2 Saturation 91 L O2 % 40 ABG pCO2 40.0 ABG pO2 57 L Giorgio Test Positive O2 Delivery Device Adult Vent Vent Mode CPAP/PS POC PEEP 5 POC Pressure Suppt 5 Radiography Diagnostic Testing: Radiology Impression Echocardiogram 03/10/23 16:11 Interpretation Summary The left ventricular ejection fraction is 60 %. Stage 2 diastolic dysfunction. The left atrium is severely enlarged. The right atrium is moderately enlarged. Mild focal mitral valve calcification, bileaflet. Mild (1+) mitral valve insufficiency. Mild tricuspid valve insufficiency. Right ventricular systolic pressure estimated to be 50 mmHg. Mild (1+) aortic valve insufficiency. Ordering Physician: Jj Kingston Referring Physician: KEISHA ROSA Performed By: Carina Ray RDCS Chest X-Ray 03/11/23 09:00 IMPRESSION: Lung zamora show no interval change since the previous study. Stable appearance of the support lines and tubes. Left IJ central venous catheter has been placed since previous study, tip is in the mid SVC Electronically Signed: Michael Cuevas MD at 9:16 EDT , Physical Exam Narrative General: Alert, no apparent distress HEENT: Atraumatic, normocephalic Eyes: Anicteric, normal conjunctiva, extraocular movements grossly intact Neck: Supple Respiratory: Transmitted upper airway sounds, normal respiratory effort Cardiovascular: Regular rate and rhythm GI: Soft, nontender, nondistended Extremities: No edema Musculoskeletal: Moving all extremities Neuro: No overt focal neurological deficits Skin: No rashes appreciated Psych: Cooperative Assessment & Plan Assessment/Plan (1) Cardiac arrest: (2) Acute kidney injury: (3) Endotracheally intubated: (4) Acute upper GI bleed: (5) Acidosis, lactic: (6) Acute hyperkalemia: (7) Peripheral arterial disease: (8) History of DVT (deep vein thrombosis): PLAN: Plan #Cardiac arrest-secondary to severe anemia secondary to acute blood loss anemia due to duodenal ulcer -Patient received CPR in route to the hospital with 1 dose of epinephrine and achieved ROSC -Was intubated in the ED -Found to have hemoglobin of 3, transfused 2 units and had urgent EGD which revealed duodenal ulcer which was treated -Repeat hemoglobin 5, transfuse to keep hemoglobin above 7, 2 more units of packed red blood cells ordered -Hold Eliquis -INR 2.3, patient to be given vitamin K -We will check echocardiogram -03/11: Did require levo overnight, remained on the vent this a.m. sputum Gram stain with multiple organisms, culture pending, blood and urine cultures pending. Continue broad-spectrum antibiotics. Aspirin and Eliquis remain on hold, patient started on levo -03/12: Patient extubated, hemoglobin stable, received 4 units packed red blood cell total, transfuse for hemoglobin less than 7. Steroids presently being weaned, AC remains on hold, on PPI. Bicarb drip discontinued #Acute respiratory failure on admission -Secondary to cardiac arrest in addition to respiratory muscle fatigue, intubated in ED -Extubated 03/12 -Sputum cultures growing strep pneumonia, antibiotics changed to Rocephin #Acute blood loss anemia -Secondary to duodenal ulcer as above #Possible cystitis?ruled out -On CT of abdomen patient had changes consistent with cystitis, unable to elicit history from patient, monitor cultures, continue Ballard antibiotics with low threshold to de-escalate in 48 hours if they are negative given other underlying reason that likely is the cause/main contributor to his cardiac arrest -UA with bacteria but minimal leuk esterase and minimal white blood cells making this less likely culprit -03/11: Cultures pending, patient remains on broad-spectrum antibiotics -03/12: Urine and blood cultures negative, patient has strep pneumo in sputum, continue Rocephin #Alcohol use disorder -Had been drinking vodka daily for 2 weeks, 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 bottle 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 that would be there 3 hours in the mornings -Alcohol level within normal limits on presentation -Folic acid, thiamine -We will need to monitor closely for withdrawal, can always consider propofol over Precedex pending blood pressure and progress -Given BP and present other problems hesitant to start a phenobarbital taper at this time but low threshold to do so -03/11: Started on propofol -03/12: Patient drinks roughly a pint of 40 proof vodka daily, will add CIWA with coverage #Lactic acidosis -Secondary to cardiopulmonary arrest and hypoperfusion -Improving -03/11: Significantly improved with hydration and blood #Acute kidney injury -Secondary to above, avoid nephrotoxic agents -Monitor I's and O's -Could be prerenal but also low suspicion for ATN -03/11: Kidney function continue to worsen, optimize perfusion and address underlying etiology -03/12: Improving #hx DVT -on systemic AC at baseline -Last DVT over a year ago, holding systemic anticoagulation #PVD -Holding aspirin and Eliquis, can continue statin #DVT ppx: SCDs Adela Stevens MD Time spent in the patient's overall evaluation,decision-making process, review of diagnostic data, adjustment of management, discussion with other providers, nursing nursing and ancillary staff involved in patient's care documentation, 37 minutes Charges/Coding Visit Charges Inpatient E&M: 93030 Subs Hosp L3
[2023-03-12] MEDS: Ceftriaxone 1 GM/50 ML BAG IV (10:28)
[2023-03-12 13:22] LABS: Pathologist Review Reviewed
[2023-03-12 13:30] LABS: Pathologist Review Reviewed
--- NOTE | 2023-03-12 13:45 | CASEMGMT ---
JAYME HAYDEN Face to Face with patient for initial transition planning/care coordination assessment. RN CATRACHO introduced self and role at [facility]. Patient lying in bed, alert and oriented, daughter at bedside. Patient willing to participate in assessment and is able to answer all questions appropriately. Care providers, pharmacy, and demographics verified. Patient wishes to discharge home, with resumption of aides and HHC, will monitor progress with therapy. Patient states he has no further needs or concerns at this time. CM to follow for discharge planning needs that may arise. PCP: Woody Specialists: none Preferred Pharmacy: [facility] Insurance: [facility] Dual Prescription Benefit: yes Living Will/HPOA: per patient Rachael Anderson is HPOA, JAYME HAYDEN requested to have copy brought to hospital. LNOK: Son, daughter Citlalli Moran [phone] Living Arrangements: Patient lives alone in a 3rd floor apartment with elevator to enter. Per patient, he is independent at home. Transportation: Brother, nephew, Caregiver DME/HHC: Patient has shower chair, BSC, grab bars, walker, and rollator at home. Patient is active with [employer] with CATRACHO [place]. Patient has aides through [facility]. Patient has nurse through [facility] to setup medications. Patient states he smokes 1/2 pack of cigarettes daily and only drinks once a week and goes though one bottle of vodka month. Disposition Plan: TBD, anticipate SNF vs HHC pending progress with therapy. Cindy VAUGHNN, RN, CM
--- NOTE | 2023-03-12 13:46 | PN.RENAL_ITS ---
Subjective Subjective Awake, Alert. Very hard of hearing. No overnight events. Daughter at bedside. Objective Data Objective Data Vital Signs: Vital Signs Temp Pulse Resp BP Pulse Ox O2 Del Method O2 Flow Rate 98.2 F 87 15 149/70 H 98 Nasal Cannula 6 03/12/23 12:00 03/12/23 13:00 03/12/23 13:00 03/12/23 13:00 03/12/23 13:00 03/12/23 13:00 03/12/23 13:00 FiO2 40 03/12/23 06:00 Oxygen Flow Rate (L/min) 6 Oxygen Delivery Method Nasal Cannula Weight: 88 kg Body Mass Index (BMI) 29.4 Intake & Output: Intake and Output for Last 24 Hours 03/10/23 03/11/23 03/12/23 23:59 23:59 23:59 Intake Total 4798.81 / 4806.31 4568.06 / 4589.82 1997. / 1997. Output Total 550 / 550 2315 / 2315 675 / 675 Balance 4248.81 / 4256.31 2253.06 / 2274.82 1323.93 / 1323.93 Lab / Micro Data Result Diagrams: 03/12/23 04:00 03/12/23 04:00 Labs: Laboratory Results - last 24 hr 03/10/23 09:04: Diff Path Review Reviewed 03/12/23 04:00: WBC 12.6 H, RBC 3.06 L, Hgb 8.3 L, Hct 25.8 L, MCV 84.3, MCH 27.1, MCHC 32.2, RDW Std Deviation 50.4 H, RDW Coeff of Abi 16.4 H, Plt Count 268, MPV 10.3, Immature Gran % (Auto) 0.600, Neut % (Auto) 74.3 H, Lymph % (Auto) 10.3 L, [place] % (Auto) 13.8 H, Eos % (Auto) 0.6, Baso % (Auto) 0.4, Absolute Neuts (auto) 9.4 H, Absolute Lymphs (auto) 1.30, Nucleated RBC % 0.4, Differential Comment SCANNED, Diff Path Review Reviewed, Hypochromasia 1+, Anisocytosis 1+ 03/12/23 04:00: Sodium 134 L, Potassium 3.8, Chloride 98, Carbon Dioxide 28.0, Anion Gap 8, BUN 47 H, Creatinine 3.59 H, Estim Creat Clear Calc 19.58, Est GFR (MDRD) Af Amer 22 L, Est GFR (MDRD) Non-Af 18 L, BUN/Creatinine Ratio 13.1, Glucose 150 H, Calcium 7.0 L, Total Bilirubin 0.50, AST 40 H, ALT 40, Alkaline Phosphatase 66, Total Protein 5.4 L, Albumin 2.4 L, Globulin 3.0, Album in/Globulin Ratio 0.8 L Micro: Microbiology 03/10/23 13:15 Urine Catheter - Lamb Urine Culture - Final Culture exhibits no growth. 03/10/23 10:10 Sputum, Tracheal Aspirate Gram Stain - Final 03/10/23 10:10 Sputum, Tracheal Aspirate Respiratory Culture - Preliminary Streptococcus pneumoniae 03/10/23 09:24 Blood Culture (Wb) - Anticubital Right Blood Culture - Preliminary No growth in 48 hours. 03/10/23 09:30 Nasal Secretion SARS-CoV-2 & FLU Antigen (Rapid) - Final ABG Data ABG results: ABG 03/12/23 06:52 Specimen Type ART Sample Site L Radial pH 7.46 H Bicarbonate Actual 28.1 H Total CO2 29 Base Excess 4 H O2 Saturation 91 L O2 % 40 ABG pCO2 40.0 ABG pO2 57 L Giorgio Test Positive O2 Delivery Device Adult Vent Vent Mode CPAP/PS POC PEEP 5 POC Pressure Suppt 5 Physical Exam Narrative Alert and oriented, hard of hearing, no apparent stress S1, 2, RRR Lung sounds clear anteriorly. No wheezes, rhonchi or rales Abdomen soft, nontender, positive bowel sounds No pitting edema noted bilateral lower legs feet or arms Indwelling Lamb catheter with clear yellow urine in bag Assessment & Plan Assessment/Plan (1) Acute kidney injury: (2) Cardiac arrest: (3) Anemia: PLAN: Plan This is a 67 yo male brought to ER after found by home health aide with decreased LOC, difficulty breathing. Sustained cardiac arrest in transport to ER with ROSC. Intubated. Hemoglobin 3.0 in ER. Nephrology consulted for LAVON. Extubated 03/12. - Nonoliguric acute kidney in setting of acute anemia with hemoglobin of 3.0, cardiac arrest, hypotension with poor renal perfusion likely leading to ATN. Patient is nonoliguric and urine output is picking up. He is not hypervolemic. Serum creatinine in June 2021 was 0.76 mg/dL. SCr 4.40mg/dL on admission and today SCr 3.59mg/dL. Potassium and bicarb acceptable. Urine output about 2 L yesterday. At this time there is no indication for CRIMINALIST TECHNICIAN. Blood pressures have improved. We will continue to monitor renal function closely. Patient had noncontrast CT of abdomen and pelvis which showed no hydronephrosis, no renal or ureteral stones. Discussed nephrology plan with patient's daughter who is at bedside - Severe anemia; hemoglobin 3.0 on admission, patient found to have duodenal ulcer per EGD. GI following. Patient on PPI. Patient has received multiple units PRBC and hemoglobin improved to 8.3 today.
--- NOTE | 2023-03-12 17:31 | PN.GI_ITS ---
Subjective Subjective Patient was extubated today and does not recall any of the events prior to the last 2 days. He denies any chest pain or shortness of breath. He denies any headache or dizziness. Objective Data Objective Data Vital Signs: Vital Signs Temp Pulse Resp BP Pulse Ox O2 Del Method O2 Flow Rate 97.9 F 83 12 140/61 H 93 Nasal Cannula 2 03/12/23 16:00 03/12/23 17:00 03/12/23 17:00 03/12/23 17:00 03/12/23 17:00 03/12/23 17:00 03/12/23 17:00 FiO2 40 03/12/23 06:00 Oxygen Flow Rate (L/min) 2 Oxygen Delivery Method Nasal Cannula Weight: 194 lb 0.108 oz Body Mass Index (BMI) 29.4 Intake & Output: Intake and Output for Last 24 Hours 03/10/23 03/11/23 03/12/23 23:59 23:59 23:59 Intake Total 4798.81 / 4806.31 4568.06 / 4589.82 2098.60 / 2098.60 Output Total 550 / 550 2315 / 2315 675 / 675 Balance 4248.81 / 4256.31 2253.06 / 2274.82 1423.60 / 1423.60 Lab / Micro Data Result Diagrams: 03/12/23 04:00 03/12/23 04:00 Labs: Laboratory Results - last 24 hr 03/10/23 09:04: Diff Path Review Reviewed 03/12/23 04:00: WBC 12.6 H, RBC 3.06 L, Hgb 8.3 L, Hct 25.8 L, MCV 84.3, MCH 27.1, MCHC 32.2, RDW Std Deviation 50.4 H, RDW Coeff of Abi 16.4 H, Plt Count 268, MPV 10.3, Immature Gran % (Auto) 0.600, Neut % (Auto) 74.3 H, Lymph % (Auto) 10.3 L, [place] % (Auto) 13.8 H, Eos % (Auto) 0.6, Baso % (Auto) 0.4, Absolute Neuts (auto) 9.4 H, Absolute Lymphs (auto) 1.30, Nucleated RBC % 0.4, Differential Comment SCANNED, Diff Path Review Reviewed, Hypochromasia 1+, Anisocytosis 1+ 03/12/23 04:00: Sodium 134 L, Potassium 3.8, Chloride 98, Carbon Dioxide 28.0, Anion Gap 8, BUN 47 H, Creatinine 3.59 H, Estim Creat Clear Calc 19.58, Est GFR (MDRD) Af Amer 22 L, Est GFR (MDRD) Non-Af 18 L, BUN/Creatinine Ratio 13.1, Glucose 150 H, Calcium 7.0 L, Total Bilirubin 0.50, AST 40 H, ALT 40, Alkaline Phosphatase 66, Total Protein 5.4 L, Albumin 2.4 L, Globulin 3.0, Album in/Globulin Ratio 0.8 L Micro: Microbiology 03/10/23 13:15 Urine Catheter - Lamb Urine Culture - Final Culture exhibits no growth. 03/10/23 10:10 Sputum, Tracheal Aspirate Gram Stain - Final 03/10/23 10:10 Sputum, Tracheal Aspirate Respiratory Culture - Preliminary Streptococcus pneumoniae 03/10/23 09:24 Blood Culture (Wb) - Anticubital Right Blood Culture - Preliminary No growth in 48 hours. 03/10/23 09:30 Nasal Secretion SARS-CoV-2 & FLU Antigen (Rapid) - Final ABG Data ABG results: ABG 03/12/23 06:52 Specimen Type ART Sample Site L Radial pH 7.46 H Bicarbonate Actual 28.1 H Total CO2 29 Base Excess 4 H O2 Saturation 91 L O2 % 40 ABG pCO2 40.0 ABG pO2 57 L Giorgio Test Positive O2 Delivery Device Adult Vent Vent Mode CPAP/PS POC PEEP 5 POC Pressure Suppt 5 Physical Exam Narrative Alert and oriented, hard of hearing, no apparent stress S1, 2, RRR Lung sounds clear anteriorly. No wheezes, rhonchi or rales Abdomen soft, nontender, positive bowel sounds No pitting edema noted bilateral lower legs feet or arms Indwelling Lamb catheter with clear yellow urine in bag Assessment & Plan Assessment/Plan (1) Cardiac arrest: (2) Acute kidney injury: (3) Endotracheally intubated: (4) Acute upper GI bleed: (5) Acidosis, lactic: (6) Acute hyperkalemia: (7) Peripheral arterial disease: (8) History of DVT (deep vein thrombosis): PLAN: Plan 67-year-old gentleman with alcohol abuse disorder comes in after cardiac arrest possibly secondary to acute blood loss anemia. He is status post upper endoscopy and the discovery of multiple duodenal ulcers. He received 3 units of packed red blood cells. His hemoglobin is up to 7.2. He is on antisecretory therapy and antiacid therapy. -Await H. pylori status -Continue PPI therapy and sulcal fate therapy -Check gastrin level -Continue to hold anticoagulation -Follow hemoglobin hematocrit -Repeat endoscopy in the future to ensure healing of duodenal ulcers 03/12: Patient is not showing any signs of DTs at this time. Anticoagulation is still on hold. Awaiting gastrin level, protein electrophoresis, ANCA, PEDRO to look for signs of vasculitis or other etiologies for significant ulcerations of the duodenum. His hemoglobin seems to be holding stable. I am okay with increasing diet as tolerated. Charges/Coding Visit Charges Inpatient E&M: 61057 Subs Hosp L2
[2023-03-12] MEDS: Atorvastatin Calcium 40 MG Tablet PO (20:58)
[2023-03-13] VITALS (16 sets, daily range): BP systolic 126–158; BP diastolic 55–92; PULSE 61–85; RESP 15–18; TEMP 36.2–36.6; O2SAT 90–95; BMI 29.6
[2023-03-13 04:18] LABS: Absolute Lymphocyte Count 0.98 X10^3/uL (0.83-4.51); Absolute Neutrophil Count 6.5 X10^3/uL (2.0-7.7); Basophil# 0.04 X10^3/uL; Basophil% 0.4 % (0-1); Eosinophils% 1.1 % (0-5); Hematocrit 23.9 % (40-54); Hemoglobin 7.7 g/dL (13.0-16.5); Lymphocyte # 0.98 X10^3/ul (0.83-4.51); Lymphocyte % 10.7 % (19-41); Mean Corp Hgb Conc 32.2 g/dL (32-36); Mean Corpuscular Hgb 27.4 pg (27.0-32.0); Mean Corpuscular Volume 85.1 fL (80-94); Mean Platelet Vol. 10.2 fl (6.2-12.0); Monocyte# 1.46 X10^3/uL; NRBC Flagged by Analyzer 0.2 % (0-5); Neutrophil # 6.52 X10^3/uL (2.7-7.7); Neutrophil % 71.4 % (47-70); Platelet Count 233 K/mm3 (150-450); RBC Distribution Width CV 16.2 % (11.6-14.6); RBC Distribution Width SD 50.7 fl (35.1-43.9); Red Blood Count 2.81 M/mm3 (4.6-6.2); White Blood Count 9.1 K/mm3 (4.4-11.0)
[2023-03-13 04:33] LABS: ALB/GLOB Ratio 0.7 RATIO (0.9-2.4); AST(SGOT) 38 U/L (15-37); Alanine Aminotransfer ALT/SGPT 36 U/L (16-61); Albumin, Serum 2.3 g/dL (3.2-5.0); Alkaline Phosphatase 69 U/L (45-117); Anion Gap 4 (5-15); BUN 35 mg/dL (7-18); BUN/Creat Ratio 13.2 RATIO (10-20); Calcium,Total 7.2 mg/dL (8.5-10.1); Chloride 102 mmol/L (98-107); Creatinine, Serum 2.65 mg/dL (0.70-1.30); EST Glomerular Filtration Rate 26 mL/min (>60); Est Glom Filt Rate - Afr Amer 31 mL/min (>60); Estimated Creatinine Clearance 26.53 ml/min; Globulin 3.3 g/dL (2.2-4.2); Glucose 98 mg/dL (74-106); Potassium 3.6 mmol/L (3.5-5.1); Protein, Total 5.6 g/dL (6.4-8.2); Sodium Level 136 mmol/L (136-145)
--- NOTE | 2023-03-13 06:23 | PCM.PN.HOSP ---
Reason for Visit Reason for Visit: Diagnoses Anemia, unspecified (03/10/23) Acidosis, unspecified (03/10/23) Hyperkalemia (03/10/23) Cardiac arrest, cause unspecified (03/10/23) Peripheral vascular disease, unspecified (03/10/23) Respiratory failure, unspecified, unspecified whether with hypoxia or hypercapnia (03/10/23) Gastrointestinal hemorrhage, unspecified (03/10/23) Acute kidney failure, unspecified (03/10/23) Personal history of other venous thrombosis and embolism (03/10/23) Presence of other specified devices (03/10/23) Subjective Subjective Patient with no acute events overnight per self and per nursing report. He denies any recurrent chest discomfort or any dyspnea. Patient is extremely eager for discharge but following lengthy discussion noted that he will only be transitioned to PCU status today as he has had significant presentation with GI bleed as well as cardiac arrest. Patient denies fevers, chills, nausea, emesis, abdominal pain, chest pain or dyspnea. Objective Data Objective Data Vital Signs: Vital Signs Temp Pulse Resp BP Pulse Ox O2 Del Method O2 Flow Rate 98 F 74 17 134/63 H 92 Nasal Cannula 2 03/13/23 06:00 03/13/23 06:00 03/13/23 06:00 03/13/23 06:00 03/13/23 06:00 03/13/23 06:00 03/13/23 06:00 FiO2 40 03/12/23 06:00 Oxygen Flow Rate (L/min) 2 Oxygen Delivery Method Nasal Cannula Weight: 195 lb 5.273 oz Body Mass Index (BMI) 29.6 Intake & Output: Intake and Output for Last 24 Hours 03/11/23 03/12/23 03/13/23 23:59 23:59 23:59 Intake Total 4568.06 / 4589.82 2278.60 / 2278.60 92.67 / 92.67 Output Total 2315 / 2315 950 / 950 500 / 500 Balance 2253.06 / 2274.82 1328.60 / 1328.60 -407.33 / -407.33 Lab / Micro Data Result Diagrams: 03/13/23 04:10 03/13/23 04:10 Labs: Laboratory Results - last 24 hr 03/10/23 09:04: Diff Path Review Reviewed 03/12/23 04:00: Diff Path Review Reviewed 03/13/23 04:10: WBC 9.1, RBC 2.81 L, Hgb 7.7 L, Hct 23.9 L, MCV 85.1, MCH 27.4, MCHC 32.2, RDW Std Deviation 50.7 H, RDW Coeff of Abi 16.2 H, Plt Count 233, MPV 10.2, Immature Gran % (Auto) 0.400, Neut % (Auto) 71.4 H, Lymph % (Auto) 10.7 L, [place] % (Auto) 16.0 H, Eos % (Auto) 1.1, Baso % (Auto) 0.4, Absolute Neuts (auto) 6.5, Absolute Lymphs (auto) 0.98, Nucleated RBC % 0.2 03/13/23 04:10: Sodium 136, Potassium 3.6, Chloride 102, Carbon Dioxide 30.0, Anion Gap 4 L, BUN 35 H, Creatinine 2.65 H, Estim Creat Clear Calc 26.53, Est GFR (MDRD) Af Amer 31 L, Est GFR (MDRD) Non-Af 26 L, BUN/Creatinine Ratio 13.2, Glucose 98, Calcium 7.2 L, Total Bilirubin 0.50, AST 38 H, ALT 36, Alkaline Phosphatase 69, Total Protein 5.6 L, Albumin 2.3 L, Globulin 3.3, Albumin/Globulin Ratio 0.7 L Micro: Microbiology 03/10/23 13:15 Urine Catheter - Lamb Urine Culture - Final Culture exhibits no growth. 03/10/23 10:10 Sputum, Tracheal Aspirate Gram Stain - Final 03/10/23 10:10 Sputum, Tracheal Aspirate Respiratory Culture - Preliminary Streptococcus pneumoniae 03/10/23 09:24 Blood Culture (Wb) - Anticubital Right Blood Culture - Preliminary No growth in 48 hours. 03/10/23 09:30 Nasal Secretion SARS-CoV-2 & FLU Antigen (Rapid) - Final ABG Data ABG results: ABG 03/12/23 06:52 Specimen Type ART Sample Site L Radial pH 7.46 H Bicarbonate Actual 28.1 H Total CO2 29 Base Excess 4 H O2 Saturation 91 L O2 % 40 ABG pCO2 40.0 ABG pO2 57 L Giorgio Test Positive O2 Delivery Device Adult Vent Vent Mode CPAP/PS POC PEEP 5 POC Pressure Suppt 5 Physical Exam Narrative Physical Examination: General: Awake, alert, oriented x 3 and cooperative, seated upright in the ICU bed in no apparent distress. Skin: Normal color, normal turgor, no icterus, no cyanosis except for occasional staged ecchymoses as well as bilateral lower extremity mild venous stasis skin changes. HEENT: AT/NC, EOMI, PERRLA, MMM. Lungs: Diminished, greater bases, appropriate effort, no rales, ronchi or wheezing. Heart: Cardiac with regular rhythm; no gallop, rub audible. Abdomen: Soft, obese, NTTP, ND, mildly hyperactive BS. Extremities: No cyanosis, no clubbing, mild peripheral distal not markedly pitting edema. Neurological: Patient awake, alert, oriented as noted, cognitive function intact; pupils equally reactive to light and accommodation, cranial nerves II-XII grossly normal, moving all 4 extremities, no focal deficits, strength moderately to severely globally decreased, improving. Psychiatric: Affect appears normal, no acute evidence of depressive or anxiety feelings. Assessment & Plan Assessment/Plan (1) Cardiac arrest: PLAN: Plan The patient is a 67 y/o M w/ PMHx: ? Parkinson's disease EtOH abuse, Hx DVT on eliquis, HTN, PAD, Chronic anemia who presented to the [facility] ED on 03/10/23 with history of unresponsive status eventually transition to cardiac arrest with ROSC and evidence significant anemia with hemoglobin 3 upon presentation with GI bleed in the setting of alcohol abuse. #1. Acute GI Bleed w/ resultant Acute Blood Loss Anemia on chronic anemia in the setting of acute alcohol abuse: Patient upon presentation hemoglobin 3.0 in the setting of cardiac arrest, administered 4 unit PRBC, maintained on IV PPI and sucralfate, maintain on IV Rocephin with alcohol abuse concurrent history, hemoglobin trend 3.0-> 5.0-> 8.1-> 03/12/2023 8.3 and currently 03/13/2023 hemoglobin 7.7, gastroenterology following status post emergent upper endoscopy 03/10/2023 with notable duodenal ulcers, holding anticoagulant therapy, pending H. pylori status/gastrin/protein electrophoresis/ANCA/PEDRO for assessment of vasculitis or other significant etiology for ulcerations of the duodenum, given hemoglobin stable patient transitioned and allowed diet per gastroenterology discretion given extubation 03/12/2023. #2. Cardiac arrest secondary to severe anemia secondary to acute GI bleed as noted with associated lactic acidosis: Suspicion of PEA arrest secondary to acidosis and anemia, responded with CPR in route to hospital with 1 dose of epinephrine with ROSC, followed by aggressive PRBC administration, intubated initially, left IJ placed for pressor support with transient pressor needs, maintained initially on bicarb drip, continue cycle H&H closely with transfusion if any repeat hemoglobin less than 7, 03/10/23 echocardiogram with LV EF 60%, stage II diastolic dysfunction, severely enlarged LA, moderately enlarged RA, moderate focal MV calcification, bileaflet, mild MVI, mild TVI, RVSP 50 mmHg, mild AV insufficiency, initially placed on steroids which apparently were weaned. #3. Acute kidney injury: Patient with nonoliguric acute kidney injury in the setting of acute anemia with upon presentation hemoglobin 3.0, cardiac arrest and hypotension with poor perfusion likely leading to ATN, admission BUN/creatinine 55/4.40 03/13/2023 BUN/creatinine 1235/2.65, slowly improving, will continue to trend, nephrology following. #4. EtOH Abuse: Patient notes routine consumption of notable vodka per day. Will maintain on CIWA protocol, MVI, thiamine and folic acid. Magnesium and phosphorus levels were checked. Of note alcohol level was negative upon presentation. We will continue to monitor and low threshold for initiation of phenobarbital given now extubated 03/12/2023. #5. Streptococcal pneumonia, noted on sputum culture: Complicated presentation as noted, antibiotic therapy initially more broad-spectrum transition to IV Rocephin, initial presentation chest x-ray 03/10/2023 with patchy airspace opacity right lower lobe consistent with infiltrate, most recent repeat chest x-ray 03/11/2023 with no interval change, interval CT chest/abdomen/pelvis without contrast with mild pulmonary vascular congestion, small bilateral pleural effusions with overlying atelectasis, thick-walled urinary bladder with adjacent stranding concerning for cystitis however this was ruled out with negative urine and blood culture 03/12/2023. #6. PAD/PVD: Holding patient aspirin, Eliquis therapy, maintained on statin therapy, reinitiate hypertensive regimen once clinically appropriate. #7. History DVT: Last DVT nearly 1 year prior, holding anticoagulant therapy. #8. Questional Parkinson's disease: Noted upon presentation per significant other, given significant alcohol abuse suspect this is more likely the etiology, will continue to monitor, once clinically appropriate we will obtain therapy as well as case management assessment for discharge planning. #9. DVT prophylaxis: SCDs. Admission Evaluation Time spent evaluating chart, patient history, patient evaluation, care planning and discussion with specialists: 50 minutes. Charges/Coding Visit Charges Inpatient E&M: 18352 [facility] Hosp L3
--- NOTE | 2023-03-13 07:01 | PCM.PN.INT ---
Assessment & Plan Assessment/Plan (1) Acute upper GI bleed: (2) Respiratory failure: (3) Acute hyperkalemia: (4) Acute kidney injury: PLAN: Plan RECOMMENDATIONS: 1. Encourage aggressive pulmonary toileting 2. Wean oxygen as tolerated 3. Okay to leave the intensive care unit from my perspective 4. Place left IJ for pressor support 5. Await nephrology recommendations 6. Anticipate 7 days of IV antibiotics 7. Monitor for alcohol withdrawal symptoms IMPRESSIONS: 1. Cardiac arrest secondary to severe anemia Clinical suspicion patient went into PEA arrest secondary to acidosis or anemia. Patient has responded well to therapy at this time. Patient has received a total of 4 units of packed red blood cells. We will continue to transfuse as necessary to keep hemoglobin of 7. Patient appears to be have achieved hemostasis at this time. Patient appears to be doing well at this time. 2. Acute blood loss anemia secondary to upper GI bleed Patient found to have a significant duodenal ulcer on EGD. No active bleeding noted, but lots of dried blood. Patient appears to have been delayed in presentation. Defer to GI, but likely continue with PPI for now. Biopsies are acute and chronic inflammation with early granulation. Patient appears to be incrementing appropriately, so ongoing bleeding is unlikely. 3. Acute respiratory failure secondary to respiratory muscle fatigue Clinical significant respiratory failure likely secondary to respiratory muscle fatigue given severe acidosis and delayed presentation. Unclear if patient has underlying COPD. We will hold on any steroids at this time as this could exacerbate GI bleed. Patient is not reportedly on inhalers at baseline, but does have a long smoking history. Potentially schedule bronchodilators if patient starts to have significant wheezing 4. Hypothermia Resolved. Unclear if this may be secondary to sepsis. Patient has been placed on empiric antibiotics for now. 5. Possible alcohol withdrawal By history, patient does drink alcohol regularly. Alcohol level was negative on presentation. Unclear if this is related to alcohol withdrawal versus acute alcohol toxicity complicating presentation. We will need to watch for withdrawal symptoms. Doubt we would need phenobarbital this delayed, but Ativan may be reasonable. 6. Acute kidney injury Improving. BUN and creatinine ratio is suggestive of an intrinsic ATN. Patient with severe anemia of unclear duration. Okay to discontinue bicarbonate. Continue to monitor urine output. Urine output appears to be improving with pressor agents. Nephrology has been consulted. 7. Peripheral vascular disease/history of chronic wound/poor history/possible recent DVT Complicates care, management, recovery and prognosis. Anticoagulation held secondary to problem #2. Subjective Subjective Patient did well overnight. Patient has been tolerating p.o. without issue. Patient denies any pain. Patient has required supplemental oxygen to maintain saturations. Objective Data Objective Data Vital Signs: Vital Signs Temp Pulse Resp BP Pulse Ox O2 Del Method O2 Flow Rate 36.6 C 74 17 134/63 H 92 Nasal Cannula 2 03/13/23 06:00 03/13/23 06:00 03/13/23 06:00 03/13/23 06:00 03/13/23 06:00 03/13/23 06:00 03/13/23 06:00 FiO2 40 03/12/23 06:00 Oxygen Flow Rate (L/min) 2 Oxygen Delivery Method Nasal Cannula Weight: 88.6 kg Body Mass Index (BMI) 29.6 Intake & Output: Intake and Output for Last 24 Hours 03/11/23 03/12/23 03/13/23 23:59 23:59 23:59 Intake Total 4568.06 / 4589.82 2278.60 / 2278.60 92.67 / 92.67 Output Total 2315 / 2315 950 / 950 500 / 500 Balance 2253.06 / 2274.82 1328.60 / 1328.60 -407.33 / -407.33 Lab / Micro Data Attestation: I reviewed the patient's lab results. Result Diagrams: 03/13/23 04:10 03/13/23 04:10 Labs: Laboratory Results - last 24 hr 03/10/23 09:04: Diff Path Review Reviewed 03/12/23 04:00: Diff Path Review Reviewed 03/13/23 04:10: WBC 9.1, RBC 2.81 L, Hgb 7.7 L, Hct 23.9 L, MCV 85.1, MCH 27.4, MCHC 32.2, RDW Std Deviation 50.7 H, RDW Coeff of Abi 16.2 H, Plt Count 233, MPV 10.2, Immature Gran % (Auto) 0.400, Neut % (Auto) 71.4 H, Lymph % (Auto) 10.7 L, [place] % (Auto) 16.0 H, Eos % (Auto) 1.1, Baso % (Auto) 0.4, Absolute Neuts (auto) 6.5, Absolute Lymphs (auto) 0.98, Nucleated RBC % 0.2 03/13/23 04:10: Sodium 136, Potassium 3.6, Chloride 102, Carbon Dioxide 30.0, Anion Gap 4 L, BUN 35 H, Creatinine 2.65 H, Estim Creat Clear Calc 26.53, Est GFR (MDRD) Af Amer 31 L, Est GFR (MDRD) Non-Af 26 L, BUN/Creatinine Ratio 13.2, Glucose 98, Calcium 7.2 L, Total Bilirubin 0.50, AST 38 H, ALT 36, Alkaline Phosphatase 69, Total Protein 5.6 L, Albumin 2.3 L, Globulin 3.3, Albumin/Globulin Ratio 0.7 L Micro: Microbiology 03/10/23 13:15 Urine Catheter - Lamb Urine Culture - Final Culture exhibits no growth. 03/10/23 10:10 Sputum, Tracheal Aspirate Gram Stain - Final 03/10/23 10:10 Sputum, Tracheal Aspirate Respiratory Culture - Preliminary Streptococcus pneumoniae 03/10/23 09:24 Blood Culture (Wb) - Anticubital Right Blood Culture - Preliminary No growth in 48 hours. 03/10/23 09:30 Nasal Secretion SARS-CoV-2 & FLU Antigen (Rapid) - Final Physical Exam Const alert and oriented x3 General Appearance: frail HEENT normocephalic, head/scalp atraumatic, external ears normal and external nose normal HEENT Narrative: Decreased hearing noted on the right Eyes EOMs intact bilaterally Eyes Narrative: Slight scleral injection noted Neck full ROM General: trachea midline Resp normal respiratory effort Resp Narrative: Mild productive cough Effort and Inspection: able to speak in complete sentences and symmetric chest movement; Negative for respiratory distress, labored, stridor, actively coughing, uses accessory muscles or audible wheezes Cardio regular rate, regular rhythm, S1 normal heart sound, S2 normal heart sound, no murmurs, no rub and no gallops Rate: bradycardia GI soft to palpation and non-tender GI Narrative: Slightly hyperactive bowel sounds Inspection: Negative for abdominal distention Extremity Extremity Narrative: LLE with mild (1+) swelling, varicose veins noted. No significant pallor or discoloration. General Extremity: Negative for clubbing Skin no rashes or lesions noted, no petechiae and no mottling Neuro moves all extremities and no sensory deficits noted Psych Psych Narrative: Sedated Mood & Affect: labile affect Charges/Coding Visit Charges Inpatient E&M: 41353 Subs Hosp L3
[2023-03-13] MEDS: Ceftriaxone 1 GM/50 ML BAG IV (08:26)
[2023-03-13] MEDS: Senna/Docusate Sodium 1 Tablet 2 TABLET PO ×2 (08:29→20:12)
--- NOTE | 2023-03-13 14:08 | PCM.PN.REN ---
Subjective Subjective Sitting in chair. No complaints. No overnight events. Hard of hearing. Objective Data Objective Data Vital Signs: Vital Signs Temp Pulse Resp BP Pulse Ox O2 Del Method O2 Flow Rate 97.8 F 67 15 135/92 H 94 Nasal Cannula 2 03/13/23 11:39 03/13/23 11:39 03/13/23 11:39 03/13/23 11:39 03/13/23 11:00 03/13/23 11:00 03/13/23 11:00 FiO2 40 03/12/23 06:00 Oxygen Flow Rate (L/min) 2 Oxygen Delivery Method Nasal Cannula Weight: 88.6 kg Body Mass Index (BMI) 29.6 Intake & Output: Intake and Output for Last 24 Hours 03/11/23 03/12/23 03/13/23 23:59 23:59 23:59 Intake Total 4568.06 / 4589.82 2278.60 / 2278.60 442.67 / 442.67 Output Total 2315 / 2315 950 / 950 750 / 750 Balance 2253.06 / 2274.82 1328.60 / 1328.60 -307.33 / -307.33 Lab / Micro Data Result Diagrams: 03/13/23 04:10 03/13/23 04:10 Labs: Laboratory Results - last 24 hr 03/13/23 04:10: WBC 9.1, RBC 2.81 L, Hgb 7.7 L, Hct 23.9 L, MCV 85.1, MCH 27.4, MCHC 32.2, RDW Std Deviation 50.7 H, RDW Coeff of Abi 16.2 H, Plt Count 233, MPV 10.2, Immature Gran % (Auto) 0.400, Neut % (Auto) 71.4 H, Lymph % (Auto) 10.7 L, [place] % (Auto) 16.0 H, Eos % (Auto) 1.1, Baso % (Auto) 0.4, Absolute Neuts (auto) 6.5, Absolute Lymphs (auto) 0.98, Nucleated RBC % 0.2 03/13/23 04:10: Sodium 136, Potassium 3.6, Chloride 102, Carbon Dioxide 30.0, Anion Gap 4 L, BUN 35 H, Creatinine 2.65 H, Estim Creat Clear Calc 26.53, Est GFR (MDRD) Af Amer 31 L, Est GFR (MDRD) Non-Af 26 L, BUN/Creatinine Ratio 13.2, Glucose 98, Calcium 7.2 L, Total Bilirubin 0.50, AST 38 H, ALT 36, Alkaline Phosphatase 69, Total Protein 5.6 L, Albumin 2.3 L, Globulin 3.3, Albumin/Globulin Ratio 0.7 L Micro: Microbiology 03/10/23 13:15 Urine Catheter - Lamb Urine Culture - Final Culture exhibits no growth. 03/10/23 10:10 Sputum, Tracheal Aspirate Gram Stain - Final 03/10/23 10:10 Sputum, Tracheal Aspirate Respiratory Culture - Preliminary Streptococcus pneumoniae 03/10/23 09:24 Blood Culture (Wb) - Anticubital Right Blood Culture - Preliminary No growth in 48 hours. 03/10/23 09:30 Nasal Secretion SARS-CoV-2 & FLU Antigen (Rapid) - Final Physical Exam Narrative Alert and oriented, hard of hearing, no apparent stress S1, 2, RRR Lung sounds clear anteriorly. No wheezes, rhonchi or rales Abdomen soft, nontender, positive bowel sounds No pitting edema noted bilateral lower legs feet or arms Assessment & Plan Assessment/Plan (1) Acute kidney injury: (2) Cardiac arrest: (3) Anemia: PLAN: Plan This is a 67 yo male brought to ER after found by home health aide with decreased LOC, difficulty breathing. Sustained cardiac arrest in transport to ER with ROSC. Intubated. Hemoglobin 3.0 in ER. Nephrology consulted for LAVON. Extubated 03/12. Hopeful to move out of ICU today. - Nonoliguric acute kidney in setting of acute anemia with hemoglobin of 3.0, cardiac arrest, hypotension with poor renal perfusion likely leading to ATN. Patient is nonoliguric and urine output is picking up. He is not hypervolemic. Serum creatinine in June 2021 was 0.76 mg/dL. SCr 4.40mg/dL on admission and today SCr 2.65 mg/dL. Potassium and bicarb acceptable. Urine output about 2 L yesterday. At this time there is no indication for [employer]. Blood pressures have improved. We will continue to monitor renal function closely. Patient had noncontrast CT of abdomen and pelvis which showed no hydronephrosis, no renal or ureteral stones. - Off IV fluids, off IV pressors. - Severe anemia; hemoglobin 3.0 on admission, patient found to have duodenal ulcer per EGD. GI following. Patient on PPI. Patient has received multiple units PRBC and hemoglobin 7.7 today.
[2023-03-13] MEDS: Atorvastatin Calcium 40 MG Tablet PO (20:12)
[2023-03-14] VITALS (9 sets, daily range): BP systolic 146–155; BP diastolic 57–79; PULSE 71–96; RESP 14–18; TEMP 36.4–36.8; O2SAT 85–97; BMI 29.6
[2023-03-14 04:16] LABS: Absolute Lymphocyte Count 0.98 X10^3/uL (0.83-4.51); Absolute Neutrophil Count 6.3 X10^3/uL (2.0-7.7); Basophil# 0.02 X10^3/uL; Basophil% 0.2 % (0-1); Eosinophils% 1.1 % (0-5); Hematocrit 24.3 % (40-54); Hemoglobin 7.7 g/dL (13.0-16.5); Lymphocyte # 0.98 X10^3/ul (0.83-4.51); Lymphocyte % 11.2 % (19-41); Mean Corp Hgb Conc 31.7 g/dL (32-36); Mean Corpuscular Hgb 27.1 pg (27.0-32.0); Mean Corpuscular Volume 85.6 fL (80-94); Mean Platelet Vol. 10.5 fl (6.2-12.0); Monocyte# 1.31 X10^3/uL; NRBC Flagged by Analyzer 0 % (0-5); Neutrophil # 6.31 X10^3/uL (2.7-7.7); Neutrophil % 72.2 % (47-70); Platelet Count 249 K/mm3 (150-450); RBC Distribution Width CV 16.7 % (11.6-14.6); RBC Distribution Width SD 52.3 fl (35.1-43.9); Red Blood Count 2.84 M/mm3 (4.6-6.2); White Blood Count 8.8 K/mm3 (4.4-11.0)
[2023-03-14 04:33] LABS: ALB/GLOB Ratio 0.7 RATIO (0.9-2.4); AST(SGOT) 30 U/L (15-37); Alanine Aminotransfer ALT/SGPT 33 U/L (16-61); Albumin, Serum 2.3 g/dL (3.2-5.0); Alkaline Phosphatase 72 U/L (45-117); Anion Gap 7 (5-15); BUN 28 mg/dL (7-18); BUN/Creat Ratio 14.8 RATIO (10-20); Calcium,Total 7.4 mg/dL (8.5-10.1); Chloride 103 mmol/L (98-107); Creatinine, Serum 1.89 mg/dL (0.70-1.30); EST Glomerular Filtration Rate 38 mL/min (>60); Est Glom Filt Rate - Afr Amer 46 mL/min (>60); Globulin 3.5 g/dL (2.2-4.2); Glucose 98 mg/dL (74-106); Potassium 3.8 mmol/L (3.5-5.1); Protein, Total 5.8 g/dL (6.4-8.2); Sodium Level 137 mmol/L (136-145)
--- NOTE | 2023-03-14 06:21 | PCM.PN.HOSP ---
Reason for Visit Reason for Visit: Diagnoses Anemia, unspecified (03/10/23) Acidosis, unspecified (03/10/23) Hyperkalemia (03/10/23) Cardiac arrest, cause unspecified (03/10/23) Peripheral vascular disease, unspecified (03/10/23) Respiratory failure, unspecified, unspecified whether with hypoxia or hypercapnia (03/10/23) Gastrointestinal hemorrhage, unspecified (03/10/23) Acute kidney failure, unspecified (03/10/23) Personal history of other venous thrombosis and embolism (03/10/23) Presence of other specified devices (03/10/23) Subjective Subjective Patient overnight with no acute events per staff or nursing report however remains on low supplemental oxygen and is very reticent to perform any activities. He states that he has some difficulty doing deep breathing or coughing secondary to recent CPR with discomfort to the chest with deep inspiratory effort and coughing. He has been very reticent to get up and move in the room and even overnight had a external catheter placed. Discussed at length importance of beginning to move and despite discomfort coughing and inspiratory effort. Patient was administered a low-dose of Toradol x1 this a.m. secondary to his discomfort but reticent to have any and meds administered given GI bleed and acute kidney injury presentation. Patient denies fevers, chills, nausea, emesis, abdominal pain, chest pain or dyspnea. Objective Data Objective Data Vital Signs: Vital Signs Temp Pulse Resp BP Pulse Ox O2 Del Method O2 Flow Rate 97.7 F L 86 14 147/57 H 93 Nasal Cannula 2 03/14/23 02:00 03/14/23 02:00 03/14/23 02:00 03/14/23 02:00 03/14/23 02:00 03/14/23 02:00 03/14/23 02:00 FiO2 40 03/12/23 06:00 Oxygen Flow Rate (L/min) 2 Oxygen Delivery Method Nasal Cannula Weight: 195 lb 5.273 oz Body Mass Index (BMI) 29.6 Intake & Output: Intake and Output for Last 24 Hours 03/12/23 03/13/23 03/14/23 23:59 23:59 23:59 Intake Total 2278.60 / 2278.60 642.67 / 642.67 Output Total 950 / 950 750 / 750 Balance 1328.60 / 1328.60 -107.33 / -107.33 Lab / Micro Data Result Diagrams: 03/14/23 04:08 03/14/23 04:08 Labs: Laboratory Results - last 24 hr 03/14/23 04:08: WBC 8.8, RBC 2.84 L, Hgb 7.7 L, Hct 24.3 L, MCV 85.6, MCH 27.1, MCHC 31.7 L, RDW Std Deviation 52.3 H, RDW Coeff of Abi 16.7 H, Plt Count 249, MPV 10.5, Immature Gran % (Auto) 0.300, Neut % (Auto) 72.2 H, Lymph % (Auto) 11.2 L, [place] % (Auto) 15.0 H, Eos % (Auto) 1.1, Baso % (Auto) 0.2, Absolute Neuts (auto) 6.3, Absolute Lymphs (auto) 0.98, Nucleated RBC % 0 03/14/23 04:08: Sodium 137, Potassium 3.8, Chloride 103, Carbon Dioxide 27.0, Anion Gap 7, BUN 28 H, Creatinine 1.89 H, Estim Creat Clear Calc 37.20, Est GFR (MDRD) Af Amer 46 L, Est GFR (MDRD) Non-Af 38 L, BUN/Creatinine Ratio 14.8, Glucose 98, Calcium 7.4 L, Total Bilirubin 0.40, AST 30, ALT 33, Alkaline Phosphatase 72, Total Protein 5.8 L, Albumin 2.3 L, Globulin 3.5, Albumin/Globulin Ratio 0.7 L Micro: Microbiology 03/10/23 10:10 Sputum, Tracheal Aspirate Gram Stain - Final 03/10/23 10:10 Sputum, Tracheal Aspirate Respiratory Culture - Final Streptococcus pneumoniae 03/10/23 13:15 Urine Catheter - Lamb Urine Culture - Final Culture exhibits no growth. 03/10/23 09:24 Blood Culture (Wb) - Anticubital Right Blood Culture - Preliminary No growth in 48 hours. 03/10/23 09:30 Nasal Secretion SARS-CoV-2 & FLU Antigen (Rapid) - Final Physical Exam Narrative Physical Examination: General: Awake, alert, oriented x 3 and cooperative, seated upright in the ICU bed in no apparent distress, very reticent overtly to increase his activity, cough or perform aggressive I-S. Skin: Normal color, normal turgor, no icterus, no cyanosis except for occasional staged ecchymoses as well as bilateral lower extremity mild venous stasis skin changes. HEENT: AT/NC, EOMI, PERRLA, MMM. Lungs: Diminished, greater bases, appropriate effort, mild moist upper airway sounds and not willing to cough, occasional expiratory wheeze but scant, no rales or rhonchi. Heart: Regular rate with regular rhythm; no gallop, rub audible. Abdomen: Soft, obese, NTTP, ND, normalized BS Extremities: No cyanosis, no clubbing, mild peripheral distal not markedly pitting edema. Neurological: Patient awake, alert, oriented as noted, cognitive function intact; pupils equally reactive to light and accommodation, cranial nerves II-XII grossly normal, moving all 4 extremities, no focal deficits, strength moderately to severely globally decreased, slowly improving but patient is extremely reticent to perform his own activities. Psychiatric: Affect appears fatigued otherwise normal, no acute evidence of depressive or anxiety feelings. Assessment & Plan Assessment/Plan (1) Cardiac arrest: PLAN: Plan The patient is a 67 y/o M w/ PMHx: ? Parkinson's disease EtOH abuse, Hx DVT on eliquis, HTN, PAD, Chronic anemia who presented to the [facility] ED on 03/10/23 with history of unresponsive status eventually transition to cardiac arrest with ROSC and evidence significant anemia with hemoglobin 3 upon presentation with GI bleed in the setting of alcohol abuse. #1. Acute GI Bleed w/ resultant Acute Blood Loss Anemia on chronic anemia in the setting of acute alcohol abuse: Patient upon presentation hemoglobin 3.0 in the setting of cardiac arrest, administered 4 unit PRBC, maintained on IV PPI and sucralfate, maintain on IV Rocephin with alcohol abuse concurrent history, hemoglobin trend 3.0-> 5.0-> 8.1-> 8.3 ->7.7-->03/14/2023 hemoglobin 7.7, gastroenterology following status post emergent upper endoscopy 03/10/2023 with notable duodenal ulcers, holding anticoagulant therapy, pending H. pylori status/gastrin/protein electrophoresis/ANCA/PEDRO for assessment of vasculitis or other significant etiology for ulcerations of the duodenum, given hemoglobin stable patient transitioned to PCU status and allowed diet per gastroenterology discretion 03/12/2023. 03/14/23 Discussed with GI timeline of potential restart anticoagulation given VTE history with plan to attempt restart anticoagulation in 7 days. Once clinically appropriate would plan follow-up with GI in 2-4 weeks. #2. Cardiac arrest secondary to severe anemia secondary to acute GI bleed as noted with associated lactic acidosis: Suspicion of PEA arrest secondary to acidosis and anemia, responded with CPR in route to hospital with 1 dose of epinephrine with ROSC, followed by aggressive PRBC administration, intubated initially with extubation 03/12/2023, left IJ placed for pressor support with transient pressor needs, maintained initially on bicarb drip, continue cycle H&H closely with transfusion if any repeat hemoglobin less than 7, 03/10/23 echocardiogram with LV EF 60%, stage II diastolic dysfunction, severely enlarged LA, moderately enlarged RA, moderate focal MV calcification, bileaflet, mild MVI, mild TVI, RVSP 50 mmHg, mild AV insufficiency, initially placed on steroids which apparently were weaned. CXR PA and lateral requested given notable pain complaints, reassess for rib fx. #3. Acute kidney injury: Patient with nonoliguric acute kidney injury in the setting of acute anemia with upon presentation hemoglobin 3.0, cardiac arrest and hypotension with poor perfusion likely leading to ATN, admission BUN/creatinine 55/4.40--> 03/14/2023 BUN/creatinine 28/1.89, slowly improving, will continue to trend, nephrology following. #4. EtOH Abuse: Patient notes routine consumption of notable vodka per day. Will maintain on CIWA protocol, MVI, thiamine and folic acid. Magnesium and phosphorus levels were checked. Of note alcohol level was negative upon presentation. We will continue to monitor and low threshold for initiation of phenobarbital but again given he has been here for several days low suspicions will not be necessary. #5. Streptococcal pneumonia, noted on sputum culture: Complicated presentation as noted, antibiotic therapy initially more broad-spectrum transition to IV Rocephin, initial presentation chest x-ray 03/10/2023 with patchy airspace opacity right lower lobe consistent with infiltrate, most recent repeat chest x-ray 03/11/2023 with no interval change, interval CT chest/abdomen/pelvis without contrast with mild pulmonary vascular congestion, small bilateral pleural effusions with overlying atelectasis, thick-walled urinary bladder with adjacent stranding concerning for cystitis however this was ruled out with negative urine and blood culture 03/12/2023. Would plan 7 days of total antibiotic therapy, currently day #4, currently patient would be high risk for discharge to home as unclear if he is able to perform his own activities as needing assist with any current self-care. Once appropriate for discharge would plan follow-up with Pulmonary in 2 weeks. #6. PAD/PVD: Holding patient aspirin, Eliquis therapy but as noted plan to resume in 7 days per discussion with Gi. Will maintained on statin therapy, reinitiate norvasc given BPs appropriate now. #7. History DVT: Last DVT nearly 1 year prior, holding anticoagulant therapy but as noted plan to resume in 7 days. #8. Questionable Parkinson's disease: Noted upon presentation per significant other, given significant alcohol abuse suspect this is more likely the etiology, will continue to monitor, once clinically appropriate we will obtain therapy as well as case management assessment for discharge planning. Patient has been very reticent to perform activities and has outright declined, currently unsafe for home discharge, encouraged him at length to attempt these activities to ascertain the safest discharge plan for him. #9. DVT prophylaxis: SCDs. Admission Evaluation Time spent evaluating chart, patient history, patient evaluation, care planning and discussion with specialists: 50 minutes. Charges/Coding Visit Charges Inpatient E&M: 47954 [facility] Hosp L3
--- NOTE | 2023-03-14 06:54 | PN.CC_ITS ---
Assessment & Plan Assessment/Plan (1) Acute upper GI bleed: (2) Respiratory failure: (3) Acute hyperkalemia: (4) Acute kidney injury: PLAN: Plan RECOMMENDATIONS: 1. Encourage aggressive pulmonary toileting 2. Wean oxygen as tolerated. Walking oximetry prior to discharge 3. Scheduled bronchodilators 4. Discharge planning 5. Await nephrology recommendations 6. Anticipate 7 days of IV antibiotics 7. Hemodynamically stable on minimal nasal cannula. Outpatient PFTs IMPRESSIONS: 1. Cardiac arrest secondary to severe anemia Resolved. Clinical suspicion patient went into PEA arrest secondary to acidosis or anemia. Patient has responded well to therapy at this time. Patient has received a total of 4 units of packed red blood cells. We will continue to transfuse as necessary to keep hemoglobin of 7. Patient appears to be have achieved hemostasis at this time. Patient appears to be doing well at this time. Clinical suspicion for costochondritis secondary to CPR leading to chest pains. 2. Acute blood loss anemia secondary to upper GI bleed Resolved. Patient found to have a significant duodenal ulcer on EGD. No active bleeding noted, but lots of dried blood. Patient appears to have been delayed in presentation. Defer to GI, but likely continue with PPI for now. Biopsies are acute and chronic inflammation with early granulation. Patient appears to be incrementing appropriately, so ongoing bleeding is unlikely. 3. Acute respiratory failure secondary to respiratory muscle fatigue Clinical significant respiratory failure likely secondary to respiratory muscle fatigue given severe acidosis and delayed presentation. Unclear if patient has underlying COPD. We will hold on any steroids at this time as this could exacerbate GI bleed. Given wheezing on exam and persistence in oxygen requirements, will initiate scheduled bronchodilators. Patient should have an outpatient PFT for quantification clarification of lung function 4. Hypothermia Resolved. Unclear if this may be secondary to sepsis. Patient has been placed on empiric antibiotics for now. 5. Possible alcohol withdrawal By history, patient does drink alcohol regularly. Alcohol level was negat thalia on presentation. Unclear if this is related to alcohol withdrawal versus acute alcohol toxicity complicating presentation. Patient does not appear to have any withdrawal symptoms. Doubt we would need phenobarbital this delayed, but Ativan may be reasonable. 6. Acute kidney injury Improving. BUN and creatinine ratio is suggestive of an intrinsic ATN. Patient with severe anemia of unclear duration. Off bicarbonate. Continue to monitor urine output. Nephrology has been consulted. 7. Peripheral vascular disease/history of chronic wound/poor history/possible recent DVT Complicates care, management, recovery and prognosis. Anticoagulation held secondary to problem #2. Subjective Subjective Patient did well overnight. No acute issues were reported. Patient still requiring minimal nasal cannula to maintain saturations. Patient has had good urine output. Patient does report chest discomfort that he associates with CPR. Objective Data Objective Data Vital Signs: Vital Signs Temp Pulse Resp BP Pulse Ox O2 Del Method O2 Flow Rate 36.5 C L 86 14 147/57 H 93 Nasal Cannula 2 03/14/23 02:00 03/14/23 02:00 03/14/23 02:00 03/14/23 02:00 03/14/23 02:00 03/14/23 02:00 03/14/23 02:00 FiO2 40 03/12/23 06:00 Oxygen Flow Rate (L/min) 2 Oxygen Delivery Method Nasal Cannula Weight: 88.6 kg Body Mass Index (BMI) 29.6 Intake & Output: Intake and Output for Last 24 Hours 03/12/23 03/13/23 03/14/23 23:59 23:59 23:59 Intake Total 2278.60 / 2278.60 642.67 / 642.67 45 / 45 Output Total 950 / 950 750 / 750 Balance 1328.60 / 1328.60 -107.33 / -107.33 45 / 45 Lab / Micro Data Attestation: I reviewed the patient's lab results. Result Diagrams: 03/14/23 04:08 03/14/23 04:08 Labs: Laboratory Results - last 24 hr 03/14/23 04:08: WBC 8.8, RBC 2.84 L, Hgb 7.7 L, Hct 24.3 L, MCV 85.6, MCH 27.1, MCHC 31.7 L, RDW Std Deviation 52.3 H, RDW Coeff of Abi 16.7 H, Plt Count 249, MPV 10.5, Immature Gran % (Auto) 0.300, Neut % (Auto) 72.2 H, Lymph % (Auto) 11.2 L, [place] % (Auto) 15.0 H, Eos % (Auto) 1.1, Baso % (Auto) 0.2, Absolute Neuts (auto) 6.3, Absolute Lymphs (auto) 0.98, Nucleated RBC % 0 03/14/23 04:08: Sodium 137, Potassium 3.8, Chloride 103, Carbon Dioxide 27.0, Anion Gap 7, BUN 28 H, Creatinine 1.89 H, Estim Creat Clear Calc 37.20, Est GFR (MDRD) Af Amer 46 L, Est GFR (MDRD) Non-Af 38 L, BUN/Creatinine Ratio 14.8, Glucose 98, Calcium 7.4 L, Total Bilirubin 0.40, AST 30, ALT 33, Alkaline Phosphatase 72, Total Protein 5.8 L, Albumin 2.3 L, Globulin 3.5, Alb umin/Globulin Ratio 0.7 L Micro: Microbiology 03/10/23 10:10 Sputum, Tracheal Aspirate Gram Stain - Final 03/10/23 10:10 Sputum, Tracheal Aspirate Respiratory Culture - Final Streptococcus pneumoniae 03/10/23 13:15 Urine Catheter - Lamb Urine Culture - Final Culture exhibits no growth. 03/10/23 09:24 Blood Culture (Wb) - Anticubital Right Blood Culture - Preliminary No growth in 48 hours. 03/10/23 09:30 Nasal Secretion SARS-CoV-2 & FLU Antigen (Rapid) - Final Physical Exam Const alert, oriented x3 and no apparent distress Constitutional Narrative: Follows commands. HEENT normocephalic, head/scalp atraumatic, external ears normal and external nose normal HEENT Narrative: Decreased hearing in the right ear Eyes PERRL, EOMs intact bilaterally and conjunctivae normal Neck full ROM Neck Narrative: IJ is clean, dry and intact General: trachea midline Resp normal respiratory effort Resp Narrative: Mild productive cough Effort and Inspection: able to speak in complete sentences and symmetric chest movement; Negative for stridor Auscultation: wheezes Cardio regular rate, regular rhythm, S1 normal heart sound, S2 normal heart sound, no murmurs, no rub and no gallops GI soft to palpation and non-tender Inspection: Negative for abdominal distention Extremity Extremity Narrative: LLE with mild (1+) swelling, varicose veins noted. No significant pallor or discoloration. General Extremity: Negative for clubbing Skin no rashes or lesions noted, no petechiae and no mottling Neuro moves all extremities and no sensory deficits noted Psych cooperative and affect normal Charges/Coding Visit Charges Inpatient E&M: 03354 Subs Hosp L2
[2023-03-14] MEDS: Ipratropium/Albuterol Sulfate 3 ML AMPUL.NEB INHALATION ×3 (08:57→20:06)
[2023-03-14] MEDS: Ceftriaxone 1 GM/50 ML BAG IV (09:10)
[2023-03-14] MEDS: Ketorolac 30 MG/ML Syringe IV (09:10)
[2023-03-14] MEDS: 0.9% Saline Lock 10 ML Syringe IV ×2 (09:10→16:41)
--- NOTE | 2023-03-14 10:24 | RAD_ITS ---
INDICATION: Chest pain EXAMINATION/TECHNIQUE: X-RAY - XR Ribs 4 Views W/ PA Chest Bilateral COMPARISON: 03/11/2023 FINDINGS: LINES/DEVICES: Left internal jugular central venous catheter in stable position with the tip in the superior vena cava. Status post extubation and removal of nasogastric tube. LUNGS: Patchy bilateral infiltrates worse on the right side increases previous examination. Small bilateral pleural effusions larger on the right side again increased. MEDIASTINUM AND CARDIOVASCULAR STRUCTURES: Cardiac silhouette not enlarged. Central airways and mediastinal contour are unremarkable. RIBS AND OSSEOUS STRUCTURES: Fracture of the anterior right 10th rib of undetermined age. No other definite fractures are seen. Suboptimal visualization of the ribs. RAD/Ribs Demetrio Min 4V w/PA Chest IMPRESSION: 1. Patchy bilateral infiltrates worse on the right side increases previous exam. 2. Small bilateral pleural effusions larger on the right side. 3. Fracture of the anterior right 10th rib. 4. Status post extubation and removal of nasogastric tube. Electronically Signed: Wyatt Saenz MD at 11:16 EDT ,
[2023-03-14] MEDS: Gabapentin 300 MG Capsule PO ×2 (11:23→16:41)
[2023-03-14 13:07] LABS: Anti-Centromere B Ab <0.2 AI (0.0-0.9); Anti-Chromatin <0.2 AI (0.0-0.9); Anti-Jo <0.2 AI (0.0-0.9); Anti-Scleroderma-70 AB <0.2 AI (0.0-0.9); Anti-dsDNA Ab <1 IU/mL (0-9); RNP Ab <0.2 AI (0.0-0.9); SJOGREN'S Anti-SS-A test < 0.2 AI (0.0-0.9); SJOGREN'S Anti-SS-B test < 0.2 AI (0.0-0.9); Smith Ab <0.2 AI (0.0-0.9)
--- NOTE | 2023-03-14 16:13 | PN.RENAL_ITS ---
Subjective Subjective Feels good, wants to go home. Follow-up on acute kidney injury. Appetite is still poor, edema still there. He makes good urine. Continues to have cough Objective Data Objective Data Vital Signs: Vital Signs Temp Pulse Resp BP Pulse Ox O2 Del Method O2 Flow Rate 98.2 F 71 16 150/79 H 94 Nasal Cannula 2 03/14/23 10:58 03/14/23 15:10 03/14/23 15:10 03/14/23 10:58 03/14/23 15:10 03/14/23 15:10 03/14/23 15:44 FiO2 40 03/12/23 06:00 Oxygen Flow Rate (L/min) 2 Oxygen Delivery Method Nasal Cannula Weight: 88.6 kg Body Mass Index (BMI) 29.6 Intake & Output: Intake and Output for Last 24 Hours 03/12/23 03/13/23 03/14/23 23:59 23:59 23:59 Intake Total 2278.60 / 2278.60 642.67 / 642.67 229.17 / 229.17 Output Total 950 / 950 750 / 750 225 / 225 Balance 1328.60 / 1328.60 -107.33 / -107.33 4.17 / 4.17 Lab / Micro Data Attestation: I reviewed the patient's lab results. Result Diagrams: 03/14/23 04:08 03/14/23 04:08 Labs: Laboratory Results - last 24 hr 03/12/23 17:55: NEELAM-1 Antibody <0.2, SS-A/Ro IgG Antibody < 0.2, SS-B/La IgG Antibody < 0.2, Sm (Javed) Antibody <0.2, [employer] Antibody <0.2, Scl-70 Scleroderma Ab <0.2, Double Strand DNA Ab <1, Centromere B Antibody <0.2 03/14/23 04:08: WBC 8.8, RBC 2.84 L, Hgb 7.7 L, Hct 24.3 L, MCV 85.6, MCH 27.1, MCHC 31.7 L, RDW Std Deviation 52.3 H, RDW Coeff of Abi 16.7 H, Plt Count 249, MPV 10.5, Immature Gran % (Auto) 0.300, Neut % (Auto) 72.2 H, Lymph % (Auto) 11.2 L, [place] % (Auto) 15.0 H, Eos % (Auto) 1.1, Baso % (Auto) 0.2, Absolute Neuts (auto) 6.3, Absolute Lymphs (auto) 0.98, Nucleated RBC % 0 03/14/23 04:08: Sodium 137, Potassium 3.8, Chloride 103, Carbon Dioxide 27.0, Anion Gap 7, BUN 28 H, Creatinine 1.89 H, Estim Creat Clear Calc 37.20, Est GFR (MDRD) Af Amer 46 L, Est GFR (MDRD) Non-Af 38 L, BUN/Creatinine Ratio 14.8, Glucose 98, Calcium 7.4 L, Total Bilirubin 0.40, AST 30, ALT 33, Alkaline Phosphatase 72, Total Protein 5.8 L, Albumin 2.3 L, Globulin 3.5, Albumin/Globulin Ratio 0.7 L Micro: Microbiology 03/10/23 10:10 Sputum, Tracheal Aspirate Gram Stain - Final 03/10/23 10:10 Sputum, Tracheal Aspirate Respiratory Culture - Final Streptococcus pneumoniae 03/10/23 13:15 Urine Catheter - Lamb Urine Culture - Final Culture exhibits no growth. 03/10/23 09:24 Blood Culture (Wb) - Anticubital Right Blood Culture - Preliminary No growth in 48 hours. 03/10/23 09:30 Nasal Secretion SARS-CoV-2 & FLU Antigen (Rapid) - Final Radiography Diagnostic Testing: Radiology Impression Ribs w/Chest X-Ray 03/14/23 10:24 IMPRESSION: 1. Patchy bilateral infiltrates worse on the right side increases previous exam. 2. Small bilateral pleural effusions larger on the right side. 3. Fracture of the anterior right 10th rib. 4. Status post extubation and removal of nasogastric tube. Electronically Signed: Wyatt Saenz MD at 11:16 EDT , Physical Exam Const alert, oriented x3 and no apparent distress General Appearance: well developed Orientation / Consciousness: oriented to person, oriented to place and oriented to time HEENT normocephalic and moist oral mucous membranes Neck no lymphadenopathy Resp no use of accessory muscles Auscultation: wheezes expiratory wheezes Cardio regular rate GI non-tender Auscultation: normoactive bowel sounds Palpation: soft Neuro Sensorium / Orientation: awake and alert Psych cooperative Assessment & Plan Assessment/Plan (1) Acute kidney injury: PLAN: Doing better, creatinine continues to go down, electrolytes are fine, no significant acidosis, no hyperkalemia. Still fluid overloaded. PLAN: Plan No dialysis indicated, might use diuretics as needed. We will follow
[2023-03-14] MEDS: Ferrous Sulfate 325 MG Tablet PO (18:12)
[2023-03-14] MEDS: Ketorolac 15 MG/ML Vial IV (18:12)
[2023-03-14] MEDS: Atorvastatin Calcium 40 MG Tablet PO (21:31)
[2023-03-14] MEDS: Senna/Docusate Sodium 1 Tablet 2 TABLET PO (21:31)
[2023-03-15] VITALS (8 sets, daily range): BP systolic 149–158; BP diastolic 60–76; PULSE 83–89; RESP 16–18; TEMP 36.6–36.9; O2SAT 82–93
[2023-03-15] MEDS: 0.9% Saline Lock 10 ML Syringe IV ×3 (01:15→12:29)
[2023-03-15] MEDS: Ketorolac 15 MG/ML Vial IV ×3 (01:15→12:29)
[2023-03-15 05:44] LABS: Absolute Lymphocyte Count 0.84 X10^3/uL (0.83-4.51); Basophil# 0.03 X10^3/uL; Basophil% 0.3 % (0-1); Eosinophil# 0.14 X10^3/uL; Eosinophils% 1.5 % (0-5); Lymphocyte # 0.84 X10^3/ul (0.83-4.51); Lymphocyte % 8.8 % (19-41); Mean Corpuscular Hgb 27.7 pg (27.0-32.0); Mean Corpuscular Volume 86.5 fL (80-94); Mean Platelet Vol. 10.7 fl (6.2-12.0); Monocyte# 1.51 X10^3/uL; Monocyte% 15.8 % (0-10); NRBC Flagged by Analyzer 0 % (0-5); Neutrophil # 6.98 X10^3/uL (2.7-7.7); Neutrophil % 73.1 % (47-70); POSITIVE DIFFERENTIAL YES; Platelet Count 255 K/mm3 (150-450); RBC Distribution Width CV 16.8 % (11.6-14.6); RBC Distribution Width SD 52.9 fl (35.1-43.9); Red Blood Count 2.89 M/mm3 (4.6-6.2); White Blood Count 9.6 K/mm3 (4.4-11.0)
[2023-03-15 05:52] LABS: Differential Indicated SCAN CRITERIA MET
[2023-03-15 06:24] LABS: ALB/GLOB Ratio 0.7 RATIO (0.9-2.4); AST(SGOT) 25 U/L (15-37); Alanine Aminotransfer ALT/SGPT 29 U/L (16-61); Albumin, Serum 2.4 g/dL (3.2-5.0); Alkaline Phosphatase 74 U/L (45-117); Anion Gap 6 (5-15); BUN 23 mg/dL (7-18); BUN/Creat Ratio 14.3 RATIO (10-20); Calcium,Total 7.8 mg/dL (8.5-10.1); Chloride 103 mmol/L (98-107); Creatinine, Serum 1.61 mg/dL (0.70-1.30); EST Glomerular Filtration Rate 46 mL/min (>60); Est Glom Filt Rate - Afr Amer 55 mL/min (>60); Estimated Creatinine Clearance 43.66 ml/min; Globulin 3.6 g/dL (2.2-4.2); Glucose 102 mg/dL (74-106); Potassium 3.9 mmol/L (3.5-5.1); Sodium Level 134 mmol/L (136-145)
[2023-03-15 06:32] LABS: Differential Comment SCANNED
[2023-03-15] MEDS: Ipratropium/Albuterol Sulfate 3 ML AMPUL.NEB INHALATION ×2 (06:42→13:02)
--- NOTE | 2023-03-15 07:36 | PCM.PN.INT ---
Assessment & Plan Assessment/Plan (1) Acute upper GI bleed: (2) Respiratory failure: (3) Acute hyperkalemia: (4) Acute kidney injury: PLAN: Plan RECOMMENDATIONS: 1. Encourage aggressive pulmonary toileting 2. Wean oxygen as tolerated. We will order a walking oximetry 3. Scheduled bronchodilators 4. Discharge planning 5. Await nephrology recommendations 6. Anticipate 7 days of antibiotics 7. Hemodynamically stable on minimal nasal cannula. Follow-up in 2 weeks with nurse practitioner for outpatient PFTs 8. Hemodynamically stable. Will sign off. IMPRESSIONS: 1. Cardiac arrest secondary to severe anemia Resolved. Clinical suspicion patient went into PEA arrest secondary to acidosis or anemia. Patient has responded well to therapy at this time. Patient has received a total of 4 units of packed red blood cells. We will continue to transfuse as necessary to keep hemoglobin of 7. Patient appears to be have achieved hemostasis at this time. Patient appears to be doing well at this time. Clinical suspicion for costochondritis secondary to CPR leading to chest pains. 2. Acute blood loss anemia secondary to upper GI bleed Resolved. Patient found to have a significant duodenal ulcer on EGD. No active bleeding noted, but lots of dried blood. Patient appears to have been delayed in presentation. Defer to GI, but likely continue with PPI for now. Biopsies are acute and chronic inflammation with early granulation. Patient appears to be incrementing appropriately, so ongoing bleeding is unlikely. 3. Acute respiratory failure secondary to respiratory muscle fatigue Clinical significant respiratory failure likely secondary to respiratory muscle fatigue given severe acidosis and delayed presentation. Unclear if patient has underlying COPD. We will hold on any steroids at this time as this could exacerbate GI bleed. Given wheezing on exam and persistence in oxygen requirements, will initiate scheduled bronchodilators. Patient should have an outpatient PFT for quantification clarification of lung function. Pulmonary toileting limited by rib fracture 4. Hypothermia Resolved. Unclear if this may be secondary to sepsis. Patient has been placed on empiric antibiotics for now. 5. Possible alcohol withdrawal By history, patient does drink alcohol regularly. Alcohol level was negative on presentation. Unclear if this is related to alcohol withdrawal versus acute alcohol toxicity complicating presentation. Patient does not appear to have any withdrawal symptoms. Doubt we would need phenobarbital this delayed, but Ativan may be reasonable. 6. Acute kidney injury Improving. BUN and creatinine ratio is suggestive of an intrinsic ATN. Patient with severe anemia of unclear duration. Off bicarbonate. Continue to monitor urine output. Nephrology has been consulted. Defer to nephrology on whether they need to be seen as an outpatient 7. Peripheral vascular disease/history of chronic wound/poor history/possible recent DVT Complicates care, management, recovery and prognosis. Anticoagulation held secondary to problem #2. Subjective Subjective Patient did okay overnight. Patient states he feels subjectively improved compared to previous. Patient asking to go home and states I will go home on oxygen if I have to. Patient does have a productive cough. Patient is reporting predominantly left-sided chest pain. Objective Data Objective Data Vital Signs: Vital Signs Temp Pulse Resp BP Pulse Ox O2 Del Method O2 Flow Rate 36.6 C 89 16 149/69 H 92 Nasal Cannula 2 03/15/23 03:00 03/15/23 03:00 03/15/23 03:00 03/15/23 03:00 03/15/23 03:00 03/15/23 04:00 03/15/23 04:00 FiO2 40 03/12/23 06:00 Oxygen Flow Rate (L/min) 2 Oxygen Delivery Method Nasal Cannula Weight: 88.6 kg Body Mass Index (BMI) 29.6 Intake & Output: Intake and Output for Last 24 Hours 03/13/23 03/14/23 03/15/23 23:59 23:59 23:59 Intake Total 642.67 / 642.67 393.34 / 553.34 510 / 510 Output Total 750 / 750 225 / 725 500 / 500 Balance -107.33 / -107.33 168.34 / -171.66 Lab / Micro Data Attestation: I reviewed the patient's lab results. Result Diagrams: 03/15/23 04:45 03/15/23 04:45 Labs: Laboratory Results - last 24 hr 03/12/23 17:55: NEELAM-1 Antibody <0.2, SS-A/Ro IgG Antibody < 0.2, SS-B/La IgG Antibody < 0.2, Sm (Javed) Antibody <0.2, BUSINESS ARCHITECT Antibody <0.2, Scl-70 Scleroderma Ab <0.2, Double Strand DNA Ab <1, Centromere B Antibody <0.2 03/15/23 04:45: WBC 9.6, RBC 2.89 L, Hgb 8.0 L, Hct 25.0 L, MCV 86.5, MCH 27.7, MCHC 32.0, RDW Std Deviation 52.9 H, RDW Coeff of Abi 16.8 H, Plt Count 255, MPV 10.7, Immature Gran % (Auto) 0.500, Neut % (Auto) 73.1 H, Lymph % (Auto) 8.8 L, [place] % (Auto) 15.8 H, Eos % (Auto) 1.5, Baso % (Auto) 0.3, Absolute Neuts (auto) 7.0, Absolute Lymphs (auto) 0.84, Nucleated RBC % 0, Differential Comment SCANNED 03/15/23 04:45: Sodium 134 L, Potassium 3.9, Chloride 103, Carbon Dioxide 25.0, Anion Gap 6, BUN 23 H, Creatinine 1.61 H, Estim Creat Clear Calc 43.66, Est GFR (MDRD) Af Amer 55 L, Est GFR (MDRD) Non-Af 46 L, BUN/Creatinine Ratio 14.3, Glucose 102, Calcium 7.8 L, Total Bilirubin 0.40, AST 25, ALT 29, Alkaline Phosphatase 74, Total Protein 6.0 L, Albumin 2.4 L, Globulin 3.6, Albumin/Globulin Ratio 0.7 L Micro: Microbiology 03/10/23 10:10 Sputum, Tracheal Aspirate Gram Stain - Final 03/10/23 10:10 Sputum, Tracheal Aspirate Respiratory Culture - Final Streptococcus pneumoniae 03/10/23 13:15 Urine Catheter - Lamb Urine Culture - Final Culture exhibits no growth. 03/10/23 09:24 Blood Culture (Wb) - Anticubital Right Blood Culture - Preliminary No growth in 48 hours. 03/10/23 09:30 Nasal Secretion SARS-CoV-2 & FLU Antigen (Rapid) - Final Radiography Diagnostic Testing: Radiology Impression Ribs w/Chest X-Ray 03/14/23 10:24 IMPRESSION: 1. Patchy bilateral infiltrates worse on the right side increases previous exam. 2. Small bilateral pleural effusions larger on the right side. 3. Fracture of the anterior right 10th rib. 4. Status post extubation and removal of nasogastric tube. Electronically Signed: Wyatt Saenz MD at 11:16 EDT , Physical Exam Const alert, oriented x3 and no apparent distress Constitutional Narrative: Follows commands. General Appearance: frail HEENT normocephalic, head/scalp atraumatic, hearing grossly normal bilaterally, external ears normal and external nose normal Eyes PERRL, EOMs intact bilaterally and conjunctivae normal Neck full ROM Neck Narrative: IJ is clean, dry and intact General: trachea midline Chest Chest Narrative: Reproducible pain on palpation Resp normal respiratory effort Resp Narrative: Mild productive cough Effort and Inspection: able to speak in complete sentences and symmetric chest movement; Negative for respiratory distress, labored, stridor, actively coughing, uses accessory muscles or audible wheezes Auscultation: wheezes Cardio regular rate, regular rhythm, S1 normal heart sound, S2 normal heart sound, no murmurs, no rub and no gallops GI normal to inspection, nondistended, normoactive bowel sounds, soft to palpation and non-tender Extremity Extremity Narrative: LLE with mild (1+) swelling, varicose veins noted. No significant pallor or discoloration. General Extremity: Negative for clubbing Skin no rashes or lesions noted, no petechiae and no mottling Neuro moves all extremities and no sensory deficits noted Psych cooperative and affect normal Charges/Coding Visit Charges Inpatient E&M: 52852 Subs Hosp L2
--- NOTE | 2023-03-15 08:01 | CPS ---
Pep therapy done in place of percussion. Pt sitting up in chair this am
--- NOTE | 2023-03-15 08:05 | CPS ---
pt increased to 3 lpm. nurse aware of change
[2023-03-15] MEDS: Gabapentin 300 MG Capsule PO ×2 (09:30→12:29)
[2023-03-15] MEDS: amLODIPine 10 MG Tablet PO (09:30)
[2023-03-15] MEDS: Ferrous Sulfate 325 MG Tablet PO (09:30)
[2023-03-15] MEDS: Ceftriaxone 1 GM/50 ML BAG IV (10:25)
--- NOTE | 2023-03-15 12:43 | PCM.DC ---
Discharge Instructions Diet Discharge Diet: No restrictions Activity Discharge Activity: Return to Normal Activity and Use Walker Weight Bearing Status: Full weight bearing Follow Up Care Test Results: Test results from this visit will be discussed in further detail at your follow-up appointment, if applicable. Discharge Plan Admission Admit Date/Time: 03/10/23 12:05 Primary Reason for Your Visit: cardiac arrest, pneumonia, anemia, Attending Provider: Charanjit Do Primary Care Provider: Que Mckay Consulting Providers: Adela Stevens ; Jj Kingston ; Carlitos Wahl ; Mik Pedro ; Marcial Castro ; Juana Dowd NP ; Celestino Oakes ; Lyn Weston Instructions Additional Instructions / Restrictions: Use oxygen at 2 liters at rest and 3 liters during activity Do not take apixaban or aspirin. Do not take Ibuprofen or Aleve Discharge Orders/Prescriptions Prescriptions: New pantoprazole [Protonix] 40 mg tablet,delayed release (DR/EC) 40 mg PO BID Qty: 60 0RF tramadol 50 mg tablet 50 mg PO Q6H PRN (Reason: pain) Qty: 40 0RF Rx Instructions: one or two every six hours as needed for pain-may take with 650 mg Tylenol if desired albuterol sulfate 90 mcg/actuation HFA aerosol inhaler 2 puff inhalation .QID Qty: 6.7 0RF cefdinir 300 mg capsule 600 mg PO DAILY Qty: 2 0RF Rx Instructions: take on 03/16/23-two capsules one time Continued amlodipine [Norvasc] 10 MG tablet 10 mg PO DAILY gabapentin 300 MG capsule 300 mg PO TIDCM lisinopril [Zestril] 40 MG tablet 40 mg PO DAILY rosuvastatin [Crestor] 20 mg Tablet 20 mg PO DAILY magnesium hydroxide [Milk of Magnesia] 400 mg/5 mL Suspension 1,200 mg PO DAILY PRN (Reason: Constipation) ferrous sulfate 325 mg (65 mg iron) tablet 325 mg PO BIDCM Label Comments: TAKE 1 TABLET BY MOUTH TWICE A DAY WITH MEALS Centrum Silver Men 300-600-300 mcg Tablet 1 tab PO DAILY Discontinued folic acid 1 mg Tablet 1 mg PO DAILY ibuprofen 200 mg Capsule 400 mg PO Q4H PRN PRN (Reason: PAIN GREATER THAN 4) aspirin 81 mg Tablet,Delayed Release (Dr/Ec) 81 mg PO DAILY folic acid 800 mcg Tablet 0.8 mg PO DAILY apixaban 5 MG tablet 5 mg PO BID Referrals / Follow Up: Jj Kingston MD [Med Staff - Active Staff] - See Referral Note (in two weeks) Que Mckay MD [Primary Care Provider] - In 1 Week (You will need a repeat CBC drawn and a BMP checked) Disposition Disposition (needs filled in before D/C Order can be placed): Home, Self Care
--- NOTE | 2023-03-15 13:07 | DS.PCM_ITS ---
Providers Date of Admission: 03/10/23 Date of Discharge: 03/15/23 Primary Care Physician: Dr. Que Mckay MD Consultations 03/10/23 12:48 Consult: Gastroenterology Routine Consulting Provider: [facility] Reason for Consult: hgb 3, concern for GIB EMERGENT Consult: No Notified: Yes Date Notified: 03/10/23 Time Notified: 12:13 Method of Notification: ED Physician Initiated Consult: Power Chisel Operator / Pulmonary Medicine Routine Consulting Provider: Pulmonary Medicine [facility] [place] Reason for Consult: Post cardiac arrest, intubated, ICU c/s EMERGENT Consult: No Notified: Yes Date Notified: 03/10/23 Time Notified: 12:11 Method of Notification: ED Physician Initiated 03/11/23 03:45 Consult: Nephrology Routine Consulting Provider: Celestino Oakes Reason for Consult: Low UO EMERGENT Consult: Yes Notified: Yes Date Notified: 03/11/23 Time Notified: 03:45 Method of Notification: Answering Service Method of Consult:: In-Person Reason For Visit: CARDIAC ARREST,GIB Diagnosis Discharge Diagnosis (1) Acute upper GI bleed: Status: Acute Code(s): K92.2 - Gastrointestinal hemorrhage, unspecified (2) Respiratory failure: Status: Acute Code(s): J96.90 - Respiratory failure, unspecified, unspecified whether with hypoxia or hypercapnia (3) Acute hyperkalemia: Status: Acute Code(s): E87.5 - Hyperkalemia (4) Acute kidney injury: Status: Acute Code(s): N17.9 - Acute kidney failure, unspecified Plan 1. Acute GI bleed secondary to duodenal ulcers requiring blood transfusion #2 cardiac arrest secondary to severe anemia due to acute GI bleeding #3 acute kidney injury #4 alcohol abuse #5 streptococcal pneumonia #6 acute respiratory failure secondary to respiratory muscle fatigue #7 peripheral vascular disease #8 hypoxia secondary to suspected COPD #9 moderate pulmonary hypertension Medications at Discharge Home Medications amlodipine 10 mg tablet (Norvasc) 10 mg PO DAILY BP 01/19/19 gabapentin 300 mg capsule 300 mg PO TIDCM NERVE PAIN 01/19/19 lisinopril 40 mg tablet (Zestril) 40 mg PO DAILY BP 01/19/19 rosuvastatin 20 mg tablet (Crestor) 20 mg PO DAILY CHOLESTEROL 10/17/22 ferrous sulfate 325 mg (65 mg iron) tablet 325 mg PO BIDCM SUPPLEMENT 03/10/23 magnesium hydroxide 400 mg/5 mL oral suspension (Milk of Magnesia) 1,200 mg PO DAILY PRN Constipation 03/10/23 [id number] 300 mcg-K 60 mcg-lycop 600 mcg-lutein 300 mcg tablet (Centrum Silver Men) 1 tab PO DAILY SUPPLEMENT 03/10/23 albuterol sulfate 90 mcg/actuation aerosol inhaler 2 puff inhalation .QID #6.7 grams 03/15/23 cefdinir 300 mg capsule 600 mg (2 x 300 mg) PO DAILY #2 caps 03/15/23 pantoprazole 40 mg tablet,delayed release (Protonix) 40 mg PO BID #60 tabs 03/15/23 tramadol 50 mg tablet 50 mg PO Q6H PRN pain #40 tabs 03/15/23 Hospital Course Operations None Procedures 2-D Echocardiogram and Central line placement Summary of Care Provided Minutes Spent on Discharge: 32 Hospital Course: This 67-year-old white male was seen in the emergency room at [facility] after being brought in by EMS when they were called to his home for respiratory difficulty. Patient's management aide at home found him on the floor d iaphoretic and not responding well to stimuli, when EMS arrived he had a cardiac arrest and CPR was started, patient got 1 dose of epinephrine and developed a perfusing rhythm on route to the hospital. In the emergency room, patient was intubated, labs were obtained which showed him to have a hemoglobin of 3 and a creatinine of 4.4 as well as a lactic acid of 14.4. Patient was given broad-spectrum antibiotics started on a PPI and he was admitted to the ICU. Chest x-ray showed patchy airspace opacity in the right lower lobe. Patient was transfused blood due to his anemia, his caregiver reported that he had not been eating well at home and he had been drinking alcohol on a daily basis. Patient was seen in consultation by critical care as well as nephrology and GI, EGD was performed which showed the presence of duodenal ulcers. Patient had an echocardiogram performed which showed an EF of 60%, patient was noted to have moderate pulmonary hypertension. Patient's sputum culture grew out strep pneumoniae. Patient was ultimately extubated and transferred to PCU for further care, he was seen by PT and OT. On 03/15/2023, patient was seen and examined: On examination he appeared in good health and spirits. Vital signs as documented. Skin warm and dry and without overt rashes. Neck without JVD, neck was supple, trachea midline, thyroid was normal. Lungs clear bilaterally, normal air movement was noted. Heart exam notable for regular rhythm, normal sounds and absence of murmurs, rubs or gallops. Abdomen unremarkable and without evidence of organomegaly, masses, or abdominal aortic enlargement. Bowel sounds are present, abdomen is not distended. Extremities nonedematous, no cyanosis was noted, no clubbing was noted. Neuro: Cranial nerves II through XII are grossly intact, no focal motor deficits were noted, sensation to light touch and pinprick intact, motor exam 5/5 throughout. Psych: Patient is alert and oriented x3, he does not appear anxious or depressed, he does not appear agitated. On 03/15/2023, patient was seen and examined, he appears stable for discharge home on supplemental oxygen, he required 2 L of oxygen at rest and 3 L of oxygen on ambulation. Patient's pulse ox on room air was 87% at rest. Patient was expected to use oxygen in his home and outside of his home during ADLs, this was explained to the patient and he understood. Patient desired discharge home rather than go to an extended care facility for rehab services. Weight / BMI Weight Weight: 88.6 kg Body Mass Index (BMI) 29.6 ABG / Lab / Microbiology Data 03/15/23 04:45 03/15/23 04:45 Laboratory: Laboratory Results - last 24 hr 03/12/23 17:55: NEELAM-1 Antibody <0.2, SS-A/Ro IgG Antibody < 0.2, SS-B/La IgG Antibody < 0.2, Sm (Javed) Antibody <0.2, FIELD MARKETING TEAM LEADER Antibody <0.2, Scl-70 Scleroderma Ab <0.2, Double Strand DNA Ab <1, Centromere B Antibody <0.2 03/15/23 04:45: WBC 9.6, RBC 2.89 L, Hgb 8.0 L, Hct 25.0 L, MCV 86.5, MCH 27.7, MCHC 32.0, RDW Std Deviation 52.9 H, RDW Coeff of Abi 16.8 H, Plt Count 255, MPV 10.7, Immature Gran % (Auto) 0.500, Neut % (Auto) 73.1 H, Lymph % (Auto) 8.8 L, [place] % (Auto) 15.8 H, Eos % (Auto) 1.5, Baso % (Auto) 0.3, Absolute Neuts (auto) 7.0, Absolute Lymphs (auto) 0.84, Nucleated RBC % 0, Differential Comment SCANNED 03/15/23 04:45: Sodium 134 L, Potassium 3.9, Chloride 103, Carbon Dioxide 25.0, Anion Gap 6, BUN 23 H, Creatinine 1.61 H, Estim Creat Clear Calc 43.66, Est GFR (MDRD) Af Amer 55 L, Est GFR (MDRD) Non-Af 46 L, BUN/Creatinine Ratio 14.3, Glucose 102, Calcium 7.8 L, Total Bilirubin 0.40, AST 25, ALT 29, Alkaline Phosphatase 74, Total Protein 6.0 L, Albumin 2.4 L, Globulin 3.6, Albumin/Globulin Ratio 0.7 L Microbiology: Microbiology 03/10/23 09:24 Blood Culture (Wb) - Anticubital Right Blood Culture - Final No growth in 5 days. 03/10/23 10:10 Sputum, Tracheal Aspirate Gram Stain - Final 03/10/23 10:10 Sputum, Tracheal Aspirate Respiratory Culture - Final Streptococcus pneumoniae 03/10/23 13:15 Urine Catheter - Lamb Urine Culture - Final Culture exhibits no growth. 03/10/23 09:30 Nasal Secretion SARS-CoV-2 & FLU Antigen (Rapid) - Final D/C Instructions Discharge Diet: No restrictions Weight Bearing Status: Full weight bearing Meaningful Use Info Meaningful Use Diagnoses (Choose all that apply): None applicable Discharge Plan Admission Admit Date/Time: 03/10/23 12:05 Primary Reason for Your Visit: cardiac arrest, pneumonia, anemia, Attending Provider: Charanjit Do Primary Care Provider: Que Mckay Consulting Providers: Adela Stevens; Jj Kingston; Carlitos Wahl; Mik Pedro; Marcial Castro; Juana Dowd NP; Celestino Oakes; Lyn Weston Instructions Additional Instructions / Restrictions: Use oxygen at 2 liters at rest and 3 liters during activity Do not take apixaban or aspirin. Do not take Ibuprofen or Aleve Discharge Orders/Prescriptions Prescriptions: New pantoprazole [Protonix] 40 mg tablet,delayed release (DR/EC) 40 mg PO BID Qty: 60 0RF tramadol 50 mg tablet 50 mg PO Q6H PRN (Reason: pain) Qty: 40 0RF Rx Instructions: one or two every six hours as needed for pain-may take with 650 mg Tylenol if desired albuterol sulfate 90 mcg/actuation HFA aerosol inhaler 2 puff inhalation .QID Qty: 6.7 0RF cefdinir 300 mg capsule 600 mg PO DAILY Qty: 2 0RF Rx Instructions: take on 03/16/23-two capsules one time Continued amlodipine [Norvasc] 10 MG tablet 10 mg PO DAILY gabapentin 300 MG capsule 300 mg PO TIDCM lisinopril [Zestril] 40 MG tablet 40 mg PO DAILY rosuvastatin [Crestor] 20 mg Tablet 20 mg PO DAILY magnesium hydroxide [Milk of Magnesia] 400 mg/5 mL Suspension 1,200 mg PO DAILY PRN (Reason: Constipation) ferrous sulfate 325 mg (65 mg iron) tablet 325 mg PO BIDCM Patient Comments: TAKE 1 TABLET BY MOUTH TWICE A DAY WITH MEALS Centrum Silver Men 300-600-300 mcg Tablet 1 tab PO DAILY Discontinued folic acid 1 mg Tablet 1 mg PO DAILY ibuprofen 200 mg Capsule 400 mg PO Q4H PRN PRN (Reason: PAIN GREATER THAN 4) aspirin 81 mg Tablet,Delayed Release (Dr/Ec) 81 mg PO DAILY folic acid 800 mcg Tablet 0.8 mg PO DAILY apixaban 5 MG tablet 5 mg PO BID Referrals / Follow Up: Jj Kingston MD [Med Staff - Active Staff] - See Referral Note (in two weeks) Que Mckay MD [Primary Care Provider] - In 1 Week (You will need a repeat CBC drawn and a BMP checked) Disposition Disposition (needs filled in before D/C Order can be placed): Home, Self Care Charges/Coding Visit Charges Inpatient E&M: 61858 Disch Hosp >30min
[2023-03-16 17:07] LABS: Albumin 2.8 g/dL (2.9-4.4); Alpha-1-Globulins 0.4 g/dL (0.0-0.4); Alpha-2-Globulins 0.7 g/dL (0.4-1.0); Cytoplasmic Ab (C-ANCA) <1:20 titer (Neg:<1:20); Gamma Globulin 0.7 g/dL (0.4-1.8); Gastrin, Serum 58 pg/mL (0-115); Immunoglobulin A 399 mg/dL (61-437); Immunoglobulin G 805 mg/dL (603-1613); Immunoglobulin M 39 mg/dL (20-172); PROEL- TOTAL PROTEIN 5.4 g/dL (6.0-8.5); Perinuclear Ab (P-ANCA) <1:20 titer (Neg:<1:20)
== END 2023-03-15 15:10 | disposition home or self-care (01) | DRG 377 ==
LOC: ED 11:38 → ICU 12:11 → PCU 03-14 10:35
PROVIDERS: Internal Medicine Critical Care Medicine; Internal Medicine Gastroenterology; Admitting Provider Internal Medicine; Emergency Provider Emergency Medicine; PCP Family Medicine; Visit Provider Internal Medicine
PROC: 0DJ08ZZ Inspection of Upper Intestinal Tract, Via Natural or Artificial Opening Endoscopic (ICD-10-PCS; CPT 43235; principal; 2023-03-10 13:25)
DX: K26.4 Chronic or unspecified duodenal ulcer with hemorrhage (principal); I46.8 Cardiac arrest due to other underlying condition; J96.01 Acute respiratory failure with hypoxia; N17.0 Acute kidney failure with tubular necrosis; R57.8 Other shock; J15.4 Pneumonia due to other streptococci; E87.29 Other acidosis; J44.0 Chronic obstructive pulmonary disease with (acute) lower respiratory infection; D62 Acute posthemorrhagic anemia; I27.20 Pulmonary hypertension, unspecified; I73.9 Peripheral vascular disease, unspecified; G20 Parkinson's disease; F17.200 Nicotine dependence, unspecified, uncomplicated; E87.5 Hyperkalemia; I10 Essential (primary) hypertension; F10.10 Alcohol abuse, uncomplicated; R00.1 Bradycardia, unspecified; R68.0 Hypothermia, not associated with low environmental temperature; H91.90 Unspecified hearing loss, unspecified ear; Y90.0 Blood alcohol level of less than 20 mg/100 ml; Z79.899 Other long term (current) drug therapy; Z86.718 Personal history of other venous thrombosis and embolism; Z79.82 Long term (current) use of aspirin; Z79.01 Long term (current) use of anticoagulants
CPT/HCPCS: 31500; 31720; 36415; 36600; 51702; 70450; 71045; 71111; 71250; 72125; 74176; 80048; 80053; 80076; 81001; 82077; 82550; 82784; 82803; 82941; 83605; 83735; 83880; 84100; 84165; 84443; 84478; 84484; 85018; 85025; 85610; 86225; 86235; 86256; 86334; 86644; 86850; 86900; 86901; 86920; 86922; 87040; 87070; 87077; 87086; 87186; 87205; 87428; 88305; 93005; 93306; 94002; 94003; 94640; 94660; 94668; 94762; 97110; 97116; 97162; 97163; 97166; 97530; 97535; 97802; 99252; 99285; J7030; J7050; P9016; Q9957; A4216; G0463; J0612; J1940; J2354; J3490

== ENCOUNTER 2023-03-16 11:56 | Inpatient (IN) | payer MEDICARE, MEDICAID, SELFPAY ==
[2023-03-16] VITALS (13 sets, daily range): BP systolic 132–148; BP diastolic 64–85; PULSE 77–94; RESP 16–40; TEMP 36.1–36.8; O2SAT 89–96; BMI 28.7; BMI 29.5
--- NOTE | 2023-03-16 12:10 | EKG12_ITS ---
Test Reason : SOB Blood Pressure : / mmHG Vent. Rate : 091 BPM Atrial Rate : 000 BPM P-R Int : 000 ms QRS Dur : 094 ms QT Int : 376 ms P-R-T Axes : 000 037 040 degrees QTc Int : 462 ms Atrial fibrillation Abnormal ECG Confirmed by BEL HOLT, LOLY ([id number]), television news video editor MOMO MUNGUIA ([id number]) on 03/17/2023 9:14:56 AM Referred By: BB Confirmed By:LOLY STAPLES MD
--- NOTE | 2023-03-16 12:20 | RAD_ITS ---
STUDY: X-RAY CHEST REASON FOR EXAM: Male, 67 years old. sob TECHNIQUE: Single AP portable view of the chest. COMPARISON: Comparison is made with prior study dated March 14, 2023. FINDINGS: EKG electrodes are seen. Progressive airspace disease in the right upper lobe as well as in the lateral aspect of the right lower. Small right pleural effusion. Stable increased markings at the left lung base although there has been improved aeration along the lateral aspect of the left hemithorax. Normal size heart. Normal mediastinum and rosendo. Normal visualized pulmonary arteries. There is atherosclerotic calcification of the aortic arch with tortuosity. There are diffuse degenerative changes of the visualized thoracic spine. Normal visualized ribs, clavicles, and shoulders. There is no demonstrated abnormality of the visualized soft tissue structures of the upper abdomen. RAD/Chest 1 View (Portable) IMPRESSION: Progressive airspace disease in the right upper lobe as well as in the lateral aspect of the right lower lobe with small right pleural effusion. Mild residual changes at the left lung base with improved aeration along the lateral aspect of the left hemithorax. Electronically Signed: Curtis Sumner MD at 12:49 EDT ,
[2023-03-16] MEDS: Albuterol 2.5 MG/3 ML VIAL.NEB. INHALATION (12:22)
[2023-03-16] MEDS: Ipratropium/Albuterol Sulfate 3 ML AMPUL.NEB INHALATION ×2 (12:22→19:40)
[2023-03-16 12:27] LABS: Absolute Lymphocyte Count 0.42 X10^3/uL (0.83-4.51); Absolute Neutrophil Count 12.3 X10^3/uL (2.0-7.7); Basophil# 0.03 X10^3/uL; Basophil% 0.2 % (0-1); Eosinophil# 0.02 X10^3/uL; Eosinophils% 0.1 % (0-5); Hematocrit 26.5 % (40-54); Hemoglobin 8.2 g/dL (13.0-16.5); Lymphocyte # 0.42 X10^3/ul (0.83-4.51); Lymphocyte % 2.9 % (19-41); Mean Corp Hgb Conc 30.9 g/dL (32-36); Mean Corpuscular Hgb 27.2 pg (27.0-32.0); Mean Corpuscular Volume 87.7 fL (80-94); Mean Platelet Vol. 10.8 fl (6.2-12.0); Monocyte# 1.43 X10^3/uL; Monocyte% 9.9 % (0-10); NRBC Flagged by Analyzer 0 % (0-5); Neutrophil # 12.32 X10^3/uL (2.7-7.7); Neutrophil % 85.8 % (47-70); POSITIVE DIFFERENTIAL YES; Platelet Count 304 K/mm3 (150-450); RBC Distribution Width CV 16.7 % (11.6-14.6); RBC Distribution Width SD 53.1 fl (35.1-43.9); Red Blood Count 3.02 M/mm3 (4.6-6.2); White Blood Count 14.4 K/mm3 (4.4-11.0)
[2023-03-16 12:32] LABS: Differential Indicated SCAN CRITERIA MET
--- NOTE | 2023-03-16 12:32 | EDS_ITS ---
HPI History of Present Illness Chief Complaint: Unresponsive Informant: patient and EMS Narrative Narrative: EMS called out for this patient being unresponsive according to the son who called. EMS arrived he was responsive but in respiratory distress with oxygen saturations 82% on room air he is not on home oxygen at the time. Patient states he feels fine. When asked if he is short of breath, he states a little as he appears to be in respiratory distress. He denies having any chest pain or pain elsewhere, he feels tired but otherwise okay. Patient was just discharged from the hospital yesterday after cardiac arrest due to anemia from GI bleeding. Patient is a very poor historian does not offer any available information, just responds 1-2 word sentences to questions he is asked. [facility] Medical History Benign essential tremor DVT (deep venous thrombosis) Hypertension Peripheral arterial disease Home Medications amlodipine 10 mg tablet (Norvasc) 10 mg PO DAILY BP 01/19/19 [History Last Taken Unknown] gabapentin 300 mg capsule 300 mg PO TIDCM NERVE PAIN 01/19/19 [History Last Taken Unknown] lisinopril 40 mg tablet (Zestril) 40 mg PO DAILY BP 01/19/19 [History Last Taken Unknown] rosuvastatin 20 mg tablet (Crestor) 20 mg PO DAILY CHOLESTEROL 10/17/22 [History Last Taken Unknown] ferrous sulfate 325 mg (65 mg iron) tablet 325 mg PO BIDCM SUPPLEMENT 03/10/23 [History Last Taken Unknown] magnesium hydroxide 400 mg/5 mL oral suspension (Milk of Magnesia) 1,200 mg PO DAILY PRN Constipation 03/10/23 [History Last Taken Unknown] salyasdx-vr-niinw 300 mcg-K 60 mcg-lycop 600 mcg-lutein 300 mcg tablet (Centrum Silver Men) 1 tab PO DAILY SUPPLEMENT 03/10/23 [History Last Taken Unknown] albuterol sulfate 90 mcg/actuation aerosol inhaler 2 puff inhalation .QID #6.7 grams 03/15/23 [Rx Last Taken Unknown] cefdinir 300 mg capsule 600 mg PO DAILY #2 caps 03/15/23 [Rx Last Taken Unknown] pantoprazole 40 mg tablet,delayed release (Protonix) 40 mg PO BID #60 tabs 03/15/23 [Rx Last Taken Unknown] tramadol 50 mg tablet 50 mg PO Q6H PRN pain #40 tabs 03/15/23 [Rx Last Taken Unknown] Allergy/AdvReac Type Severity Reaction Status Date / Time bee pollen Allergy Anaphylaxis Verified 09/16/22 10:20 Social History Smoking Status: Unknown if ever smoked ROS ROS ED Constitutional Constitutional ED: Reports malaise; Denies chills or fever(s) Eyes Eyes: Denies change in vision or diplopia ENT ENT ED: Denies rhinorrhea or sore throat Cardiovascular Cardiovascular: Reports other Details: Leg swelling but has no idea for how long ; Denies chest pain or palpitations Respiratory/Chest Respiratory/Chest: Reports cough and dyspnea Gastrointestinal Gastrointestinal: Denies abdominal pain, diarrhea, nausea or vomiting Genitourinary Genitourinary ED: Denies dysuria or hematuria Musculoskeletal Musculoskeletal: Denies back pain or neck pain Integumentary Denies abscess or rash Neurologic Neurologic: Denies headache(s), paresthesias or weakness Psychiatric Psychiatric: Denies anxiety or suicidal thoughts EXAM Physical Exam Const Vital Signs: 03/16/23 11:58 03/16/23 12:06 03/16/23 12:14 Temperature 97 F L 97 F L 97 F L Temperature Source Temporal Temporal Temporal Pulse Rate 93 94 94 Respiratory Rate 22 H 22 H 25 H Respiratory Effort Respiratory Pattern Blood Pressure 148/76 H 148/76 H 148/76 H Blood Pressure Mean 100 100 100 Pulse Ox 96 90 89 Oxygen Delivery Method Non-Rebreather Nasal Cannula Nasal Cannula Oxygen Flow Rate (L/min) 6 5 03/16/23 12:14 03/16/23 12:46 03/16/23 12:48 Temperature Temperature Source Pulse Rate 79 Respiratory Rate 17 Respiratory Effort Non-Labored Respiratory Pattern Normal Blood Pressure Blood Pressure Mean Pulse Ox Oxygen Delivery Method Nasal Cannula Nasal Cannula Oxygen Flow Rate (L/min) 5 03/16/23 13:22 03/16/23 13:06 Temperature 97.6 F L Temperature Source Oral Pulse Rate 79 83 Respiratory Rate 20 H 17 Respiratory Effort Respiratory Pattern Blood Pressure 136/78 H 141/78 H Blood Pressure Mean 97 99 Pulse Ox 91 91 Oxygen Delivery Method Nasal Cannula Oxygen Flow Rate (L/min) 6 Positive well nourished, well developed and unkempt General Appearance ED: unkempt, well developed and NAD HEENT Reports moist mucous membranes normocephalic and atraumatic Eyes PERRL and EOMs intact bilaterally Neck full ROM, supple and no JVD Neck Narrative: Limited exam of JVD and lymphadenopathy due to large long anthony Resp Resp Narrative: Mild respiratory distress, expiratory wheezes and rhonchi throughout all lung zamora bilaterally. Trachea midline. Cardio regular rate, regular rhythm and no murmurs GI non-tender and non-distended Auscultation: normoactive bowel sounds Palpation: soft Back/Spine no CVA tenderness General Back: other FROM Extremity normal to inspection General Extremety ED: Yes edema; Negative for pulses abnormal or tenderness General Extremity: edema bilateral lower extremity (Pitting) Details: moderate; Negative for pulses abnormal Neuro oriented x3, CN's II-XII intact bilaterally and no sensory deficits noted Sensorium / Orientation: awake and alert Motor Exam: strength 5/5 throughout Psych mental status grossly normal Appearance: unkempt Skin no rashes or lesions noted and no wounds Sepsis Attestation Sepsis Alert: Yes Sepsis Attestation: Agree w/Sepsis Date exam was performed: 03/16/23 Time exam was performed: 13:30 Possible Source of Sepsis: Pulmonary Sepsis Organ Dysfunction Criteria Present: Creatinine > 2.0 mg/dL, Lactic Acid > 2 mmol/L and New/Unexplained change in mental status Fluid Resuscitation Fluid Resuscitation ordered: Fluids not indicated (BP stable, no tachycardia) Reason for lesser fluid bolus:: Concern for fluid overload and Heart failure Sepsis Note Date exam was performed: 03/16/23 Time exam was performed: 14:39 Sepsis Attestation: Sepsis re-evaluation was performed (VSS, clinically stable) MDM MDM MDM Narrative Medical decision making narrative: Patient appears to be in mild respiratory distress, however BiPAP will not be an option due to his anthony. Ordered nebulizer treatments, after 1 view chest x-ray was seen by myself, it appears to look like significant right-sided pneumonia/consolidation, Zosyn ordered to cover healthcare associated pneumonia. Desatted below 90% while we had him on a nasal cannula turned up so we transitioned him to a mask. This is helping some, he does not require intubation or positive pressure at this time, he is aware that if he does get worse he will require intubation unless he lets us shave his anthony off at which point we can do BiPAP potentially. His BNP is high at almost 2400, he recently had an echocardiogram couple days ago that showed diastolic dysfunction but no severe systolic dysfunction. Zosyn ordered, discussed with hospitalist. We were able to get the patient back down to nasal cannula after nebulizer treatment which helped some. Of note his ABG shows an acute respiratory acidosis with mild hypercapnia, which may be causing his lethargy in addition to the hypoxemia. He remains lethargic but easily alerts to voice, GCS 14. Acute congestive heart failure certainly is in the differential, he does have diastolic dysfunction, but since he is borderline positive for sepsis, I am neither giving him IV fluids nor giving him Lasix right now, since he is hemodynamically and relatively clinically stable/improved. Discussed with hospitalist who is in agreement. Will admit to PCU. Lab Data Attestation: I reviewed the patient's lab results. Labs: Laboratory Results - last 24 hr 03/16/23 03/16/23 03/16/23 12:10 12:10 12:10 WBC 14.4 H RBC 3.02 L Hgb 8.2 L Hct 26.5 L MCV 87.7 MCH 27.2 MCHC 30.9 L RDW Std Deviation 53.1 H RDW Coeff of Abi 16.7 H Plt Count 304 MPV 10.8 Immature Gran % (Auto) 1.100 H Neut % (Auto) 85.8 H Lymph % (Auto) 2.9 L [place] % (Auto) 9.9 Eos % (Auto) 0.1 Baso % (Auto) 0.2 Absolute Neuts (auto) 12.3 H Absolute Lymphs (auto) 0.42 L Nucleated RBC % 0 Differential Comment COMMENT PT 15.6 H INR 1.2 APTT 32.6 Sodium Potassium Chloride Carbon Dioxide Anion Gap BUN Creatinine Estim Creat Clear Calc Est GFR (MDRD) Af Amer Est GFR (MDRD) Non-Af BUN/Creatinine Ratio Glucose Lactic Acid Calcium Total Bilirubin AST ALT Alkaline Phosphatase Troponin I High Sens B-Natriuretic Peptide 2385.4 H Total Protein Albumin Globulin Albumin/Globulin Ratio 03/16/23 03/16/23 12:10 12:10 WBC RBC Hgb Hct MCV MCH MCHC RDW Std Deviation RDW Coeff of Abi Plt Count MPV Immature Gran % (Auto) Neut % (Auto) Lymph % (Auto) [place] % (Auto) Eos % (Auto) Baso % (Auto) Absolute Neuts (auto) Absolute Lymphs (auto) Nucleated RBC % Differential Comment PT INR APTT Sodium 131 L Potassium 4.4 Chloride 99 Carbon Dioxide 26.0 Anion Gap 6 BUN 26 H Creatinine 2.08 H Estim Creat Clear Calc 34.93 Est GFR (MDRD) Af Amer 41 L Est GFR (MDRD) Non-Af 34 L BUN/Creatinine Ratio 12.5 Glucose 146 H Lactic Acid 2.0 Calcium 8.3 L Total Bilirubin 0.60 AST 38 H ALT 36 Alkaline Phosphatase 94 Troponin I High Sens 53 B-Natriuretic Peptide Total Protein 7.1 Albumin 2.6 L Globulin 4.5 H Albumin/Globulin Ratio 0.6 L ABG Data ABG results: ABG 03/16/23 12:38 Specimen Type ART Sample Site R Radial pH 7.29 L Bicarbonate Actual 24.5 Total CO2 26 Base Excess -2 O2 Saturation 86 L ABG pCO2 51.1 H ABG pO2 59 L Giorgio Test Positive O2 Delivery Device Cannula Liter Flow 6.0 Radiography Chest X-Ray - ED: 1 View, Right Infiltrate (Large), Left Infiltrate (Small) and Right Effusion (Small) Diagnostic Testing: Clinical Impression(s) from Imaging Studies Chest X-Ray 03/16/23 12:20 IMPRESSION: Progressive airspace disease in the right upper lobe as well as in the lateral aspect of the right lower lobe with small right pleural effusion. Mild residual changes at the left lung base with improved aeration along the lateral aspect of the left hemithorax. Electronically Signed: Curtis Sumner MD at 12:49 EDT , Rhythm Strip Rhythm Strip: A-fib Rate: 90 Ectopy: None EKG Initial EKG: Attestation: I personally reviewed and interpreted this EKG as follows: Interpretation: No Acute Injury Pattern and Atrial Fibrillation Prior EKG tracings: available for review Prior: Unchanged Management Discussion w/another healthcare provider: Hospitalist Discharge Plan Dx/Rx/DC Orders Clinical Impression: HCAP (healthcare-associated pneumonia), Pleural effusion, right, Acute respiratory failure with hypoxia and hypercapnia, Diastolic CHF Disposition Disposition: Acute Care Hospital [facility]
[2023-03-16 12:34] LABS: International Normalized Ratio 1.2; Prothrombin Time (Protime)PT. 15.6 SECONDS (11.7-14.9)
[2023-03-16 12:35] LABS: Partial Thromboplast Time 32.6 Seconds (24.1-36.2)
[2023-03-16 12:40] LABS: ALB/GLOB Ratio 0.6 RATIO (0.9-2.4); AST(SGOT) 38 U/L (15-37); Alanine Aminotransfer ALT/SGPT 36 U/L (16-61); Albumin, Serum 2.6 g/dL (3.2-5.0); Alkaline Phosphatase 94 U/L (45-117); Anion Gap 6 (5-15); BUN 26 mg/dL (7-18); BUN/Creat Ratio 12.5 RATIO (10-20); Calcium,Total 8.3 mg/dL (8.5-10.1); Chloride 99 mmol/L (98-107); Creatinine, Serum 2.08 mg/dL (0.70-1.30); EST Glomerular Filtration Rate 34 mL/min (>60); Est Glom Filt Rate - Afr Amer 41 mL/min (>60); Estimated Creatinine Clearance 34.93 ml/min; Globulin 4.5 g/dL (2.2-4.2); Glucose 146 mg/dL (74-106); Potassium 4.4 mmol/L (3.5-5.1); Protein, Total 7.1 g/dL (6.4-8.2); Sodium Level 131 mmol/L (136-145); Troponin-I HS 53 pg/mL (3.0-78.0)
[2023-03-16 12:42] LABS: Allen Test Positive; Base Excess -2 mmol/L (-2 to +2); Bicarbonate 24.5 mmol/L (22-26); Blood Gas Specimen Type ART; O2 Delivery Device Cannula; PO2 59 mmHG (75-100); SITE R Radial; SO2 86 % (95-99); Total Carbon Dioxide 26 mmol/L; pCO2 51.1 mmHg (35-45); pH 7.29 (7.35-7.45)
[2023-03-16 12:58] LABS: BNP,B-Type NATRIURETIC PEPTIDE 2385.4 pg/mL (0-100)
--- NOTE | 2023-03-16 15:15 | PCM.HP.STD ---
HPI - General General Date of Admission: 03/16/23 Date of Service: 03/16/23 Chief Complaint: Unresponsiveness HPI Narrative ANA TERESA, is a 67 M who presented to the emergency department at [facility] on 03/16/2023 after being found unresponsive at home by his son. EMS was called and he was responsive at the time of their arrival but was noted to be in respiratory distress with oxygen saturations 82% on room air. He was to be on oxygen at 2 L at rest and 3 L with exertion. Upon questioning the patient reports that he had been compliant with his oxygen so I am unclear why he was not on oxygen at the time of their arrival. From my exam the patient reported he felt fine and denied any shortness of breath. He denied any significant shortness of breath with exertion at home and felt he was doing okay. He had no chest pain, fever, chills, cough or sputum production. He denies any noted bleeding or dark tarry stools. He was just discharged on 03/15/2023 from the hospital after he presented on 03/10/2023 and cardiac arrest. At that time his hemoglobin was found to be 3 and he was transfused 4 units of packed red blood cells and found to have severe duodenal ulcers. He was also diagnosed with strep pneumo pneumonia at that time and treated for a full course of antibiotics and discharged with 1 day of Omnicef. On presentation his temperature was 97, heart rate 93, blood pressure 143/76, respiratory rate 12 and oxygen saturations were initially 96% on a nonrebreather. They were able to wean his oxygen to 6 L and sats are 95%. His CBC shows a new leukocytosis with a white count of 14.4, hemoglobin of 8.2 which is stable, platelet count was normal but he did have a left shift with an 85.8% neutrophilia. ABG showed a mild respiratory acidosis with a pH of 7.29/PCO2 of 71.1/PO2 of 59 and oxygen saturation of 86% on 6 L. His chemistry panel showed worsening hyponatremia with a sodium of 131, worsening renal function with a BUN of 26 and a creatinine of 2.08 (discharge serum creatinine was 1.61 and baseline is unknown) his glucose was mildly elevated 146, liver functions were normal. BNP was markedly elevated from previous at which time it was 1400. At this time it was 2385.4. EKG was suggestive of A-fib however P waves were noted in lead II and aVF. Chest x-ray was markedly abnormal compared to previous showing patchy bilateral infiltrates worse on the right than left and small bilateral pleural effusions worse on the right as well as a fracture in the anterior 10th rib. [facility] Medical History Benign essential tremor Cardiac arrest DVT (deep venous thrombosis) Hypertension Peripheral arterial disease Home Medications amlodipine 10 mg tablet (Norvasc) 10 mg PO DAILY BP 01/19/19 [History Last Taken Unknown] gabapentin 300 mg capsule 300 mg PO TIDCM NERVE PAIN 01/19/19 [History Last Taken Unknown] lisinopril 40 mg tablet (Zestril) 40 mg PO DAILY BP 01/19/19 [History Last Taken Unknown] rosuvastatin 20 mg tablet (Crestor) 20 mg PO DAILY CHOLESTEROL 10/17/22 [History Last Taken Unknown] ferrous sulfate 325 mg (65 mg iron) tablet 325 mg PO BIDCM SUPPLEMENT 03/10/23 [History Last Taken Unknown] magnesium hydroxide 400 mg/5 mL oral suspension (Milk of Magnesia) 1,200 mg PO DAILY PRN Constipation 03/10/23 [History Last Taken Unknown] oqotphiu-im-oyjyl 300 mcg-K 60 mcg-lycop 600 mcg-lutein 300 mcg tablet (Centrum Silver Men) 1 tab PO DAILY SUPPLEMENT 03/10/23 [History Last Taken Unknown] albuterol sulfate 90 mcg/actuation aerosol inhaler 2 puff inhalation .QID #6.7 grams 03/15/23 [Rx Last Taken Unknown] cefdinir 300 mg capsule 600 mg PO DAILY #2 caps 03/15/23 [Rx Last Taken Unknown] pantoprazole 40 mg tablet,delayed release (Protonix) 40 mg PO BID #60 tabs 03/15/23 [Rx Last Taken Unknown] tramadol 50 mg tablet 50 mg PO Q6H PRN pain #40 tabs 03/15/23 [Rx Last Taken Unknown] Allergy/AdvReac Type Severity Reaction Status Date / Time bee pollen Allergy Anaphylaxis Verified 09/16/22 10:20 unable to obtain (Patient is unsure) no surgical history Social History (Updated 03/16/23 @ 16:[address] Lois Houser DO) household members: none housing: apartment Smoking Status: Current some day smoker tobacco type: cigarettes alcohol intake: current alcohol intake frequency: 3 or more drinks per day Alcohol type: hard liquor substance use type: does not use Vital Signs Vital Signs Vital Signs: 03/16/23 11:58 03/16/23 12:06 03/16/23 12:14 Temperature 97 F L 97 F L 97 F L Temperature Source Temporal Temporal Temporal Pulse Rate 93 94 94 Respiratory Rate 22 H 22 H 25 H Respiratory Effort Respiratory Pattern Blood Pressure 148/76 H 148/76 H 148/76 H Blood Pressure Mean 100 100 100 Pulse Ox 96 90 89 Oxygen Delivery Method Non-Rebreather Nasal Cannula Nasal Cannula Oxygen Flow Rate (L/min) 6 5 03/16/23 12:14 03/16/23 12:46 03/16/23 12:48 Temperature Temperature Source Pulse Rate 79 Respiratory Rate 17 Respiratory Effort Non-Labored Respiratory Pattern Normal Blood Pressure Blood Pressure Mean Pulse Ox Oxygen Delivery Method Nasal Cannula Nasal Cannula Oxygen Flow Rate (L/min) 5 03/16/23 13:22 03/16/23 13:06 Temperature 97.6 F L Temperature Source Oral Pulse Rate 79 83 Respiratory Rate 20 H 17 Respiratory Effort Respiratory Pattern Blood Pressure 136/78 H 141/78 H Blood Pressure Mean 97 99 Pulse Ox 91 91 Oxygen Delivery Method Nasal Cannula Oxygen Flow Rate (L/min) 6 Weight Weight: 88.2 kg Body Mass Index (BMI) 28.7 Physical Exam Const alert, oriented x3 and no apparent distress; Negative for healthy appearing or well nourished Constitutional Narrative: Upper middle-aged, white male, sitting up in bed, appears much older than stated age, appears chronically ill but no signs of distress at this time, appears comfortable currently complaining of being cold, nontoxic General Appearance: cooperative HEENT normocephalic, head/scalp atraumatic, hearing grossly normal bilaterally and moist oral mucous membranes HEENT Narrative: Moderate hearing loss Eyes PERRL and EOMs intact bilaterally Eyes Narrative: Arcus senilis, conjunctiva are mildly pale, no scleral icterus Neck no lymphadenopathy and supple Neck Narrative: Trachea midline, no thyroid enlargement Resp No normal respiratory effort, no retractions, no use of accessory muscles and No clear to auscultation bilaterally Resp Narrative: Tachypnea, extremely coarse on exam with scattered bilateral inspiratory and expiratory rails Auscultation: rales; Negative for rhonchi or wheezes Cardio regular rate, S1 normal heart sound, S2 normal heart sound, no murmurs, no rub, no gallops and no clicks; Negative for regular rhythm Cardio Narrative: Rate controlled but rhythm is irregularly irregular GI normal to inspection, nondistended, normoactive bowel sounds, soft to palpation and non-tender Extremity Extremity Narrative: 2+ bilateral lower extremity doughy pitting edema Skin No no rashes or lesions noted, No no wounds, No skin turgor normal, no jaundice, no petechiae and no mottling Skin Narrative: Skin is pale, scattered ecchymosis and superficial wounds Neuro oriented x3, CN's II-XII intact bilaterally, moves all extremities and no focal motor deficits Neuro Narrative: Generalized weakness-proximal greater than distal Speech: speech normal Psych affect normal Psych Narrative: Pleasant, appears comfortable Results Lab / Micro Data Attestation: I reviewed the patient's lab results. Result Diagrams: 03/16/23 12:10 03/16/23 12:10 Labs: Laboratory Results - last 24 hr 03/16/23 12:10: B-Natriuretic Peptide 2385.4 H 03/16/23 12:10: WBC 14.4 H, RBC 3.02 L, Hgb 8.2 L, Hct 26.5 L, MCV 87.7, MCH 27.2, MCHC 30.9 L, RDW Std Deviation 53.1 H, RDW Coeff of Abi 16.7 H, Plt Count 304, MPV 10.8, Immature Gran % (Auto) 1.100 H, Neut % (Auto) 85.8 H, Lymph % (Auto) 2.9 L, [place] % (Auto) 9.9, Eos % (Auto) 0.1, Baso % (Auto) 0.2, Absolute Neuts (auto) 12.3 H, Absolute Lymphs (auto) 0.42 L, Nucleated RBC % 0, Differential Comment COMMENT 03/16/23 12:10: PT 15.6 H, INR 1.2, APTT 32.6 03/16/23 12:10: Sodium 131 L, Potassium 4.4, Chloride 99, Carbon Dioxide 26.0, Anion Gap 6, BUN 26 H, Creatinine 2.08 H, Estim Creat Clear Calc 34.93, Est GFR (MDRD) Af Amer 41 L, Est GFR (MDRD) Non-Af 34 L, BUN/Creatinine Ratio 12.5, Glucose 146 H, Calcium 8.3 L, Total Bilirubin 0.60, AST 38 H, ALT 36, Alkaline Phosphatase 94, Troponin I High Sens 53, Total Protein 7.1, Albumin 2.6 L, Globulin 4.5 H, Albumin/Globulin Ratio 0.6 L 03/16/23 12:10: Lactic Acid 2.0 ABG Data ABG results: ABG 03/16/23 12:38 Specimen Type ART Sample Site R Radial pH 7.29 L Bicarbonate Actual 24.5 Total CO2 26 Base Excess -2 O2 Saturation 86 L ABG pCO2 51.1 H ABG pO2 59 L Giorgio Test Positive O2 Delivery Device Cannula Liter Flow 6.0 Rhythm Strip Rhythm Strip: A-fib Rate: 90 Ectopy: None Radiology Impression Chest X-Ray 03/16/23 12:20 IMPRESSION: Progressive airspace disease in the right upper lobe as well as in the lateral aspect of the right lower lobe with small right pleural effusion. Mild residual changes at the left lung base with improved aeration along the lateral aspect of the left hemithorax. Electronically Signed: Curtis Sumner MD at 12:49 EDT , Assessment & Plan Assessment/Plan (1) HCAP (healthcare-associated pneumonia): (2) Pleural effusion, right: (3) Acute respiratory failure with hypoxia and hypercapnia: (4) Diastolic CHF: (5) Streptococcal pneumonia: (6) Hyponatremia: (7) Acute kidney injury: (8) Atrial fibrillation: PLAN: Plan Acute hypoxic and hypercapnic respiratory failure secondary to decompensated diastolic heart failure/HCAP -Chest x-ray much worse than previous -BNP is 2385.4 which is much higher than it was previously -I highly suspect this is predominantly related to acute heart failure not HCAP however with recent hospitalization and leukocytosis he is at risk -He did have previous culture Positive for strep pneumo pneumonia and underwent a full course of treatment -Patient had elevated PCO2 and a pH of 7.29 on presentation and his PO2 was 59 -Start Zosyn -Blood cultures drawn -Check sputum culture if able to produce -Lasix 40 mg IV twice daily with 1 dose initially given the emergency department -Aggressive pulmonary toilet -Incentive spirometry -Acapella -Mucinex 1200 p.o. twice daily -We will trial BiPAP and see if patient tolerates but currently on 6 L nasal cannula was discharged home on 2 L of oxygen at rest and 3 L with exertion -Patient was not O2 dependent prior to discharge -Patient follow-up with pulmonary medicine once clinically stable for PFTs Right pleural effusion -Was evident on his last CT -Does not appear large enough to perform thoracentesis -Diuretics as above Acute decompensated right-sided and diastolic heart failure -Lasix 40 mg IV twice daily -Echocardiogram done on 03/10/2023 demonstrated an EF of 60% however he did have stage II diastolic dysfunction and a right ventricular systolic pressure of 50 mmHg along with severe left atrial enlargement and moderate right atrial large meant. -Daily weights -Accurate I's and O's -Once we start diet will be cardiac with sodium and fluid restriction to 1500 cc -Consider adding Jardiance once renal function improves -Dietitian consultation Anemia -Counts are stable -Recent GI bleed -We will continue to monitor LAVON -Serum creatinine up to 2.08 -Was 1.6 yesterday at discharge -Baseline creatinine is unclear at this time however in 2020 serum creatinine was 0.76 -Hold home lisinopril for now -Avoid nephrotoxins Hyponatremia -Suspect hypervolemic hyponatremia -Patient appears volume overloaded on exam -Diuresis and will repeat in a.m. Leukocytosis with left shift -This is new in the last 24 hours -Patient not really having any signs of infection -Did have strep pneumo and was being treated with antibiotics while he was hospitalized and at discharge with ceftriaxone and Omnicef -We will start Zosyn for now and reevaluate tomorrow -Cultures pending Atrial fibrillation -This appears to be new -Does have biatrial enlargement on his previous echocardiogram -Rate is currently controlled so we will hold off any rate controlling medication -We will need to continue to hold anticoagulation due to his severe bleeding and duodenal ulcers on his last admission Recent upper GI bleed due to multiple duodenal ulcers -Hemoglobin was 3 on admission and patient was transfused 4 units packed red blood cells -Continue to hold anticoagulation -Start Carafate -Continue p.o. PPI PI 40 mg twice daily -We will need GI follow-up after discharge PAD/PVD -Continue to hold aspirin -Hold Eliquis therapy -We will continue statin Hypertension -Continue amlodipine -We will hold lisinopril for now due to LAVON -As needed hydralazine for systolic pressure 160 Suspected COPD -Patient needs pulmonary follow-up as an outpatient for PFTs -As needed albuterol -Scheduled DuoNebs History of DVT -Last DVT was approximately 1 year ago -Holding anticoagulant therapy -Plan was to restart a week after discharge--> continue to hold Eliquis for now Alcohol abuse -Patient admitted to routine consumption of vodka -Patient has only been home for 24 hours so no concern for withdrawal at this time DVT prophylaxis -SCDs -Anticoagulation contraindicated at this time due to recent severe GI bleed CODE STATUS Full code Charges/Coding Visit Charges Inpatient E&M: 45467 Init Hosp L3
--- NOTE | 2023-03-16 15:22 | NURSING ---
Raymundo ANTUNEZ ACUTE RESP FAILURE, PNEUMONIA
[2023-03-16] MEDS: Furosemide 40 MG/4 ML Vial IV ×2 (15:49→16:37)
[2023-03-16 16:18] LABS: Reflex Lactate? Y
[2023-03-16] MEDS: Sucralfate 1 GM Tablet PO ×2 (16:36→21:51)
[2023-03-16] MEDS: Gabapentin 300 MG Capsule PO (16:36)
[2023-03-16] MEDS: Ferrous Sulfate 325 MG Tablet PO (16:37)
[2023-03-16 19:29] LABS: M R Staph aureus DNA By PCR Negative (Negative)
[2023-03-16 19:30] LABS: Probe Check PASS; Specimen Processing Control PASS
[2023-03-16] MEDS: Pantoprazole Sodium 40 MG Tablet PO (21:51)
[2023-03-16] MEDS: Atorvastatin Calcium 40 MG Tablet PO (21:51)
[2023-03-16] MEDS: guaiFENesin 1,200 MG Tablet 1200 MG PO (21:52)
[2023-03-17] VITALS (17 sets, daily range): BP systolic 129–149; BP diastolic 45–91; PULSE 86–98; RESP 18–24; TEMP 36.6–37.1; O2SAT 74–96; BMI 28.8
[2023-03-17 05:55] LABS: Absolute Neutrophil Count 9.4 X10^3/uL (2.0-7.7); Basophil# 0.03 X10^3/uL; Basophil% 0.3 % (0-1); Eosinophil# 0.05 X10^3/uL; Eosinophils% 0.4 % (0-5); Hematocrit 23.5 % (40-54); Hemoglobin 7.6 g/dL (13.0-16.5); Lymphocyte % 5.2 % (19-41); Mean Corp Hgb Conc 32.3 g/dL (32-36); Mean Corpuscular Hgb 27.8 pg (27.0-32.0); Mean Corpuscular Volume 86.1 fL (80-94); Mean Platelet Vol. 10.8 fl (6.2-12.0); Monocyte# 1.39 X10^3/uL; NRBC Flagged by Analyzer 0 % (0-5); Neutrophil % 81.4 % (47-70); POSITIVE DIFFERENTIAL YES; Platelet Count 279 K/mm3 (150-450); RBC Distribution Width CV 16.9 % (11.6-14.6); RBC Distribution Width SD 53.1 fl (35.1-43.9); Red Blood Count 2.73 M/mm3 (4.6-6.2); White Blood Count 11.6 K/mm3 (4.4-11.0)
[2023-03-17] MEDS: Sucralfate 1 GM Tablet PO ×4 (05:58→22:22)
[2023-03-17 06:00] LABS: Differential Indicated SCAN CRITERIA MET
[2023-03-17 06:53] LABS: ALB/GLOB Ratio 0.6 RATIO (0.9-2.4); AST(SGOT) 36 U/L (15-37); Alanine Aminotransfer ALT/SGPT 32 U/L (16-61); Albumin, Serum 2.3 g/dL (3.2-5.0); Alkaline Phosphatase 86 U/L (45-117); Anion Gap 6 (5-15); BUN 30 mg/dL (7-18); BUN/Creat Ratio 16.7 RATIO (10-20); Chloride 103 mmol/L (98-107); Differential Comment SCANNED; EST Glomerular Filtration Rate 40 mL/min (>60); Est Glom Filt Rate - Afr Amer 49 mL/min (>60); Estimated Creatinine Clearance 39.06 ml/min; Globulin 3.8 g/dL (2.2-4.2); Glucose 97 mg/dL (74-106); Magnesium 1.8 mg/dL (1.6-2.6); Phosphorus 3.6 mg/dL (2.5-4.9); Potassium 3.7 mmol/L (3.5-5.1); Protein, Total 6.1 g/dL (6.4-8.2); Sodium Level 135 mmol/L (136-145)
[2023-03-17] MEDS: Ipratropium/Albuterol Sulfate 3 ML AMPUL.NEB INHALATION ×3 (07:32→19:55)
--- NOTE | 2023-03-17 07:57 | RAD_ITS ---
STUDY: X-RAY CHEST REASON FOR EXAM: Male, 67 years old. Shortness of breath. Congestive failure. TECHNIQUE: Single frontal view of the chest. COMPARISON: March 16, 2023. FINDINGS: Slight decrease in density of right upper lobe opacity. Patchy opacities in the right lower lobe, left upper lobe and left lower lobe, relatively unchanged. Stable cardiomegaly with aortic tortuosity and calcification. No abnormality of the visualized soft tissue structures of the upper abdomen. RAD/Chest 1 View (Portable) IMPRESSION: Cardiomegaly with slight radiographic improvement. No acute finding. Electronically Signed: Raoul Diaz MD at 10:52 EDT ,
[2023-03-17] MEDS: Pantoprazole Sodium 40 MG Tablet PO ×2 (08:34→22:22)
[2023-03-17] MEDS: Gabapentin 300 MG Capsule PO ×3 (08:34→17:00)
[2023-03-17] MEDS: guaiFENesin 1,200 MG Tablet 1200 MG PO ×2 (08:34→22:22)
[2023-03-17] MEDS: Furosemide 40 MG/4 ML Vial IV ×2 (08:35→17:00)
[2023-03-17] MEDS: Ferrous Sulfate 325 MG Tablet PO ×2 (08:35→17:00)
[2023-03-17] MEDS: amLODIPine 10 MG Tablet PO (08:35)
[2023-03-17] MEDS: 0.9% Saline Lock 10 ML Syringe IV ×2 (08:35→17:00)
--- NOTE | 2023-03-17 08:40 | CASEMGMT ---
JAYME CM: Call received from pt's transitional CM from [facility] Chelsey. Update provided re: pt's discharge and subsequent readmission. Per Chelsey, pt receives 16 hrs of TRANSFER COORDINATOR services, has a medical alert, and home delivered meals. Chelsey can be reached at [phone]. Carlotta Arias RN CM
--- NOTE | 2023-03-17 09:33 | CASEMGMT ---
Discharge Planning SNF list created. Nehal Rivero, Discharge Planning Asst.
--- NOTE | 2023-03-17 15:19 | CASEMGMT ---
JAYME CM chart review: Patient was admitted 03/10-03/15/23 for cardiac arrest and GI bleed. See JAYME CM assessment from 03/12/23. 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 Patient returned on 03/16/23 for respiratory distress and admitted for possible CHF or HCAP. Patient is currently on 8lpm high flow oxygen. JAYME HAYDEN in to discuss care when patient discharge. Patient states he was taking his medications as prescribed. Patient states his oxygen was delivered without difficulty and he was wearing oxygen as instructed. Patient had not yet scheduled appt with PCP prior to readmission. Discussed needs at discharge and progress with therapy, HHC vs SNF pending progress. CM will continue to follow this patient and plan for a safe discharge.
--- NOTE | 2023-03-17 18:48 | PCM.PN.HOSP ---
Reason for Visit Reason for Visit: Diagnoses Hypo-osmolality and hyponatremia (03/16/23) Unspecified atrial fibrillation (03/16/23) Unspecified diastolic (congestive) heart failure (03/16/23) Pneumonia due to other streptococci (03/16/23) Pneumonia, unspecified organism (03/16/23) Pleural effusion, not elsewhere classified (03/16/23) Acute respiratory failure with hypoxia (03/16/23) Acute respiratory failure with hypercapnia (03/16/23) Acute kidney failure, unspecified (03/16/23) Subjective Subjective Patient was seen and examined today, he was currently on high flow oxygen, he does not appear short of breath at rest however. He is able to converse without difficulty. Patient's chest x-ray today showed some improvement in his right lung infiltrate, patient's white blood cell count today was 11.6, hemoglobin was 7.6. Objective Data Objective Data Vital Signs: Vital Signs Temp Pulse Resp BP Pulse Ox O2 Del Method O2 Flow Rate 98.6 F 87 20 H 144/68 H 94 High Flow 8 03/17/23 17:00 03/17/23 17:00 03/17/23 17:00 03/17/23 17:00 03/17/23 17:00 03/17/23 17:00 03/17/23 17:00 Oxygen Flow Rate (L/min) 8 Oxygen Delivery Method High Flow Weight: 86.2 kg Body Mass Index (BMI) 28.8 Intake & Output: Intake and Output for Last 24 Hours 03/15/23 03/16/23 03/17/23 23:59 23:59 23:59 Intake Total 100 / 100 730 / 730 Output Total 650 / 650 1050 / 1050 Balance -550 / -550 -320 / -320 Lab / Micro Data Result Diagrams: 03/17/23 05:26 03/17/23 05:26 Labs: Laboratory Results - last 24 hr 03/16/23 17:35: MRSA (PCR) Negative 03/17/23 05:26: WBC 11.6 H, RBC 2.73 L, Hgb 7.6 L, Hct 23.5 L, MCV 86.1, MCH 27.8, MCHC 32.3, RDW Std Deviation 53.1 H, RDW Coeff of Abi 16.9 H, Plt Count 279, MPV 10.8, Immature Gran % (Auto) 0.700, Neut % (Auto) 81.4 H, Lymph % (Auto) 5.2 L, [place] % (Auto) 12.0 H, Eos % (Auto) 0.4, Baso % (Auto) 0.3, Absolute Neuts (auto) 9.4 H, Absolute Lymphs (auto) 0.60 L, Nucleated RBC % 0, Differential Comment SCANNED 03/17/23 05:26: Sodium 135 L, Potassium 3.7, Chloride 103, Carbon Dioxide 26.0, Anion Gap 6, BUN 30 H, Creatinine 1.80 H, Estim Creat Clear Calc 39.06, Est GFR (MDRD) Af Amer 49 L, Est GFR (MDRD) Non-Af 40 L, BUN/Creatinine Ratio 16.7, Glucose 97, Calcium 8.0 L, Phosphorus 3.6, Magnesium 1.8, Total Bilirubin 0.50, AST 36, ALT 32, Alkaline Phosphatase 86, Total Protein 6.1 L, Albumin 2.3 L, Globulin 3.8, Albumin/Globulin Ratio 0.6 L Radiography Diagnostic Testing: Radiology Impression Chest X-Ray 03/17/23 07:57 IMPRESSION: Cardiomegaly with slight radiographic improvement. No acute finding. Electronically Signed: Raoul Diaz MD at 10:52 EDT , Rhythm Strip Rhythm Strip: A-fib Rate: 90 Ectopy: None Physical Exam Const alert, oriented x3, no apparent distress and average body habitus General Appearance: cooperative, well kempt and well developed Orientation / Consciousness: awake, oriented to person, oriented to place and oriented to time HEENT normocephalic, head/scalp atraumatic and moist oral mucous membranes Eyes PERRL, EOMs intact bilaterally and conjunctivae normal Neck supple, no JVD, thyroid normal and no carotid bruits General: trachea midline Resp normal respiratory effort, no retractions and no use of accessory muscles Resp Narrative: Expiratory wheezing is noted bilaterally Auscultation: rhonchi throughout and wheezes throughout; Negative for rales Cardio regular rate, regular rhythm, S1 normal heart sound, S2 normal heart sound, no murmurs, no rub and no gallops Cardio Narrative: Occasional ectopy noted on auscultation GI normal to inspection, nondistended, normoactive bowel sounds, soft to palpation, non-tender and non-distended Extremity normal to inspection and no clubbing, cyanosis or edema Skin no rashes or lesions noted General Skin Exam: no breakdown Neuro oriented x3, CN's II-XII intact bilaterally, moves all extremities, no focal motor deficits and no sensory deficits noted Sensorium / Orientation: awake, alert, oriented to person and oriented to place Speech: speech normal Psych affect normal Assessment & Plan Assessment/Plan (1) Pneumonia: PLAN: Plan 1. Acute on chronic hypoxic and hypercapnic respiratory failure secondary to acute on chronic diastolic congestive heart failure and healthcare associated pneumonia-continue IV Zosyn at this time and IV diuresis, monitor pulse ox and adjust supplemental oxygen accordingly #2 acute on chronic diastolic congestive heart failure-patient is on IV Lasix at this time #3 acute healthcare acquired pneumonia-patient is on IV Zosyn at this time, await cultures #4 cardiac arrhythmia-PACs and possible wandering atrial pacemaker-complicates care, medical course, recovery, and prognosis #5 paroxysmal atrial fibrillation-patient currently is not on anticoagulation due to recent GI bleed, patient's heart rate appears under control and he appears in sinus rhythm at this time #6 anemia secondary to recent acute blood loss from GI bleed-patient's hemoglobin remained stable at this time #7 probable COPD-patient is on aerosol treatments at this time, I have elected to place him on budesonide aerosol treatments also. Total clinical time spent by myself addressing the patient's medical issues, reviewing all of his data, and collaborating with the patient's care team: 35 minutes Charges/Coding Visit Charges Inpatient E&M: 91163 Subs Hosp L2
[2023-03-17] MEDS: Budesonide Respules 0.5 MG/2 ML AMPUL.NEB. INHALATION (19:55)
[2023-03-17] MEDS: Atorvastatin Calcium 40 MG Tablet PO (22:22)
--- NOTE | 2023-03-17 23:20 | CPS ---
Pt refused to wear BiPAP for tonight.
[2023-03-18] VITALS (11 sets, daily range): BP systolic 137–152; BP diastolic 50–73; PULSE 86–106; RESP 18–24; TEMP 36.2–37; O2SAT 92–96
[2023-03-18] MEDS: Ipratropium/Albuterol Sulfate 3 ML AMPUL.NEB INHALATION ×4 (01:38→19:16)
[2023-03-18 07:11] LABS: Absolute Lymphocyte Count 0.83 X10^3/uL (0.83-4.51); Absolute Neutrophil Count 8.6 X10^3/uL (2.0-7.7); Basophil# 0.05 X10^3/uL; Basophil% 0.5 % (0-1); Eosinophil# 0.12 X10^3/uL; Eosinophils% 1.1 % (0-5); Hematocrit 23.6 % (40-54); Hemoglobin 7.4 g/dL (13.0-16.5); Lymphocyte # 0.83 X10^3/ul (0.83-4.51); Lymphocyte % 7.7 % (19-41); Mean Corp Hgb Conc 31.4 g/dL (32-36); Mean Corpuscular Hgb 26.9 pg (27.0-32.0); Mean Corpuscular Volume 85.8 fL (80-94); Mean Platelet Vol. 10.9 fl (6.2-12.0); Monocyte# 1.14 X10^3/uL; Monocyte% 10.6 % (0-10); NRBC Flagged by Analyzer 0 % (0-5); Neutrophil # 8.58 X10^3/uL (2.7-7.7); Neutrophil % 79.4 % (47-70); Platelet Count 315 K/mm3 (150-450); RBC Distribution Width SD 52.9 fl (35.1-43.9); Red Blood Count 2.75 M/mm3 (4.6-6.2); White Blood Count 10.8 K/mm3 (4.4-11.0)
[2023-03-18 07:42] LABS: ALB/GLOB Ratio 0.5 RATIO (0.9-2.4); AST(SGOT) 54 U/L (15-37); Alanine Aminotransfer ALT/SGPT 41 U/L (16-61); Albumin, Serum 2.1 g/dL (3.2-5.0); Alkaline Phosphatase 102 U/L (45-117); Anion Gap 7 (5-15); BUN 24 mg/dL (7-18); BUN/Creat Ratio 13.8 RATIO (10-20); Calcium,Total 7.9 mg/dL (8.5-10.1); Chloride 102 mmol/L (98-107); Creatinine, Serum 1.74 mg/dL (0.70-1.30); EST Glomerular Filtration Rate 42 mL/min (>60); Est Glom Filt Rate - Afr Amer 51 mL/min (>60); Globulin 3.9 g/dL (2.2-4.2); Glucose 119 mg/dL (74-106); Potassium 3.2 mmol/L (3.5-5.1); Sodium Level 136 mmol/L (136-145)
[2023-03-18] MEDS: Budesonide Respules 0.5 MG/2 ML AMPUL.NEB. INHALATION ×2 (07:55→19:15)
[2023-03-18] MEDS: Sucralfate 1 GM Tablet PO ×4 (08:52→21:56)
[2023-03-18] MEDS: Furosemide 40 MG/4 ML Vial IV ×2 (09:56→17:13)
[2023-03-18] MEDS: 0.9% Saline Lock 10 ML Syringe IV ×2 (09:56→17:12)
[2023-03-18] MEDS: Gabapentin 300 MG Capsule PO ×3 (09:56→17:15)
[2023-03-18] MEDS: Ferrous Sulfate 325 MG Tablet PO ×2 (09:56→17:15)
[2023-03-18] MEDS: Pantoprazole Sodium 40 MG Tablet PO ×2 (09:56→21:56)
[2023-03-18] MEDS: guaiFENesin 1,200 MG Tablet 1200 MG PO ×2 (09:56→21:56)
[2023-03-18] MEDS: amLODIPine 10 MG Tablet PO (10:08)
--- NOTE | 2023-03-18 10:54 | CASEMGMT ---
Physician and therapy are recommending patient go to a longterm facility for rehab. SW met with patient and explained this recommendation. SW provided patient with a list of longterm facility?providers including quality and resource use data and consistent with patient?s preferred geographic region, medical needs, and insurance network were provided from the [facility] Guide. Patient said he wants to stay in [place]. Patient said he does no know anything about nursing homes. Patient agreed to allow SW to call patient's friend Rachael and go over choices with her. JENNIE called patient's friend Rachael and left her a voice mail requesting a return call. Laverne Barney FINANCIAL INVESTIGATORArabella HALEY
[2023-03-18] MEDS: Potassium Chloride Oral Tablet 20 MEQ 40 MEQ PO (13:17)
--- NOTE | 2023-03-18 13:45 | CASEMGMT ---
SW attempted to call patient's friend again with no answer. SW and physician went to patient's room to discuss the list. After discussion patient was open to [facility]. JENNIE asked Nehal doan/maty manager of financial planning to please send a referral to [facility]. Laverne Barney EXTENSION COURSE COORDINATOR TERA
--- NOTE | 2023-03-18 14:05 | CASEMGMT ---
Discharge Planning SNF referral sent to [facility] via [facility]. Nehal Rivero, Discharge Planning Asst.
--- NOTE | 2023-03-18 15:53 | PCM.PN.HOSP ---
Reason for Visit Reason for Visit: Diagnoses Hypo-osmolality and hyponatremia (03/16/23) Unspecified atrial fibrillation (03/16/23) Unspecified diastolic (congestive) heart failure (03/16/23) Pneumonia due to other streptococci (03/16/23) Pneumonia, unspecified organism (03/16/23) Pleural effusion, not elsewhere classified (03/16/23) Acute respiratory failure with hypoxia (03/16/23) Acute respiratory failure with hypercapnia (03/16/23) Acute kidney failure, unspecified (03/16/23) Subjective Subjective In and examined today, he does not appear short of breath at rest, I talked to him about going to an extended care facility for short-term rehab services, he is in agreement with this and I talked to him about going to [facility] and he is okay with this facility. Patient is currently on 6 L of oxygen via nasal cannula, his white blood cell count today was normal. Patient's respiratory panel was negative, blood cultures have shown no growth in 48 hours. Patient's hemoglobin appears to be stable. Objective Data Objective Data Vital Signs: Vital Signs Temp Pulse Resp BP Pulse Ox O2 Del Method O2 Flow Rate 98.6 F 90 18 142/50 H 94 Nasal Cannula 6 03/18/23 11:47 03/18/23 14:20 03/18/23 14:20 03/18/23 11:47 03/18/23 11:47 03/18/23 11:47 03/18/23 11:47 Oxygen Flow Rate (L/min) 6 Oxygen Delivery Method Nasal Cannula Weight: 86.2 kg Body Mass Index (BMI) 28.8 Intake & Output: Intake and Output for Last 24 Hours 03/16/23 03/17/23 03/18/23 23:59 23:59 23:59 Intake Total 100 / 100 830 / 830 725 / 725 Output Total 650 / 650 1350 / 1450 1200 / 1200 Balance -550 / -550 -520 / -620 -475 / -475 Lab / Micro Data 03/18/23 05:48 03/18/23 05:48 Labs: Laboratory Results - last 24 hr 03/18/23 05:48: WBC 10.8, RBC 2.75 L, Hgb 7.4 L, Hct 23.6 L, MCV 85.8, MCH 26.9 L, MCHC 31.4 L, RDW Std Deviation 52.9 H, RDW Coeff of Abi 17.0 H, Plt Count 315, MPV 10.9, Immature Gran % (Auto) 0.700, Neut % (Auto) 79.4 H, Lymph % (Auto) 7.7 L, [place] % (Auto) 10.6 H, Eos % (Auto) 1.1, Baso % (Auto) 0.5, Absolute Neuts (auto) 8.6 H, Absolute Lymphs (auto) 0.83, Nucleated RBC % 0, Sodium 136, Potassium 3.2 L, Chloride 102, Carbon Dioxide 27.0, Anion Gap 7, BUN 24 H, Creatinine 1.74 H, Estim Creat Clear Calc 40.40, Est GFR (MDRD) Af Amer 51 L, Est GFR (MDRD) Non-Af 42 L, BUN/Creatinine Ratio 13.8, Glucose 119 H, Calcium 7.9 L, Total Bilirubin 0.40, AST 54 H, ALT 41, Alkaline Phosphatase 102, Total Protein 6.0 L, Albumin 2.1 L, Globulin 3.9, Albumin/Globulin Ratio 0.5 L Micro: Microbiology 03/16/23 12:20 Blood Culture (Wb) - Left Wrist Blood Culture - Preliminary No growth in 48 hours. 03/16/23 12:15 Blood Culture (Wb) - Anticubital Right Blood Culture - Preliminary No growth in 48 hours. 03/17/23 19:55 Mucosa - Nasopharyngeal Respiratory Panel (PCR) - Final Rhythm Strip Rhythm Strip: A-fib Rate: 90 Ectopy: None Physical Exam Narrative alert, oriented x3, no apparent distress and average body habitus General Appearance: cooperative, well kempt and well developed Orientation / Consciousness: awake, oriented to person, oriented to place and oriented to time HEENT normocephalic, head/scalp atraumatic and moist oral mucous membranes Eyes PERRL, EOMs intact bilaterally and conjunctivae normal Neck supple, no JVD, thyroid normal and no carotid bruits General: trachea midline Resp normal respiratory effort, no retractions and no use of accessory muscles Resp Narrative: Expiratory wheezing is noted bilaterally Auscultation: rhonchi throughout and wheezes throughout; Negative for rales Cardio regular rate, regular rhythm, S1 normal heart sound, S2 normal heart sound, no murmurs, no rub and no gallops Cardio Narrative: Occasional ectopy noted on auscultation GI normal to inspection, nondistended, normoactive bowel sounds, soft to palpation, non-tender and non-distended Extremity normal to inspection and no clubbing, cyanosis or edema Skin no rashes or lesions noted General Skin Exam: no breakdown Neuro oriented x3, CN's II-XII intact bilaterally, moves all extremities, no focal motor deficits and no sensory deficits noted Sensorium / Orientation: awake, alert, oriented to person and oriented to place Speech: speech normal Psych affect normal Assessment & Plan Assessment/Plan (1) Pneumonia: PLAN: Plan 1. Acute on chronic hypoxic and hypercapnic respiratory failure secondary to acute on chronic diastolic congestive heart failure and healthcare associated pneumonia-continue IV Zosyn at this time and IV diuresis, monitor pulse ox and adjust supplemental oxygen accordingly #2 acute on chronic diastolic congestive heart failure-patient is on IV Lasix at this time #3 acute healthcare acquired pneumonia-patient is on IV Zosyn at this time #4 cardiac arrhythmia-PACs and possible wandering atrial pacemaker-complicates care, medical course, recovery, and prognosis #5 paroxysmal atrial fibrillation-patient currently is not on anticoagulation due to recent GI bleed, patient's heart rate appears under control and he appears in sinus rhythm at this time #6 anemia secondary to recent acute blood loss from GI bleed-patient's hemoglobin remained stable at this time #7 probable COPD-patient is on aerosol treatments at this time, I have elected to place him on budesonide aerosol treatments also. #8 acute debility-patient will need short-term placement in a [place] [facility] [place] facility, he has agreed to go to [facility] and at this time. Total clinical time spent by myself addressing the patient's medical issues, reviewing all of his data, and collaborating with the patient's care team: 35 minutes Charges/Coding Visit Charges Inpatient E&M: 37298 Subs Hosp L2
[2023-03-18] MEDS: Acetaminophen 325 MG Tablet 650 MG PO (17:19)
[2023-03-18] MEDS: Atorvastatin Calcium 40 MG Tablet PO (21:56)
--- NOTE | 2023-03-18 23:08 | CPS ---
Pt refuses bipap at night, say he does not need it
[2023-03-19] VITALS (7 sets, daily range): BP systolic 151–160; BP diastolic 63–79; PULSE 81–93; RESP 18–20; TEMP 35.9–36.6; O2SAT 92–98; BMI 27.8
--- NOTE | 2023-03-19 05:55 | RAD_ITS ---
STUDY: X-RAY CHEST REASON FOR EXAM: Male, 67 years old. CHF. TECHNIQUE: Single AP portable view of the chest. COMPARISON: March 17, 2023. FINDINGS: There is diffuse perihilar interstitial and alveolar infiltrates most marked in the right upper lobe. Small pleural effusions and atelectasis. Borderline cardiomegaly. Normal mediastinum. Mild central vascular prominence. There is atherosclerotic calcification of the aortic arch with tortuosity. The thoracic spine is obscured by the mediastinum. Normal visualized ribs, clavicles, and shoulders. There is no demonstrated abnormality of the visualized soft tissue structures of the upper abdomen. RAD/Chest PA and Lateral IMPRESSION: Worsening CHF versus worsening bilateral pneumonia. Electronically Signed: Dipak Knight DO at 16:51 EDT ,
[2023-03-19 06:39] LABS: Anion Gap 5 (5-15); BUN 19 mg/dL (7-18); BUN/Creat Ratio 12.7 RATIO (10-20); Calcium,Total 8.1 mg/dL (8.5-10.1); Chloride 101 mmol/L (98-107); EST Glomerular Filtration Rate 50 mL/min (>60); Est Glom Filt Rate - Afr Amer 60 mL/min (>60); Estimated Creatinine Clearance 46.87 ml/min; Glucose 101 mg/dL (74-106); Potassium 3.3 mmol/L (3.5-5.1); Sodium Level 135 mmol/L (136-145)
[2023-03-19] MEDS: Sucralfate 1 GM Tablet PO ×4 (06:47→20:41)
[2023-03-19] MEDS: Ipratropium/Albuterol Sulfate 3 ML AMPUL.NEB INHALATION ×2 (07:17→19:38)
[2023-03-19] MEDS: Budesonide Respules 0.5 MG/2 ML AMPUL.NEB. INHALATION ×2 (07:17→19:38)
[2023-03-19 08:24] LABS: Magnesium 1.4 mg/dL (1.6-2.6)
[2023-03-19] MEDS: Gabapentin 300 MG Capsule PO ×3 (09:25→16:58)
[2023-03-19] MEDS: guaiFENesin 1,200 MG Tablet 1200 MG PO ×2 (09:26→20:41)
[2023-03-19] MEDS: Ferrous Sulfate 325 MG Tablet PO ×2 (09:26→16:58)
[2023-03-19] MEDS: 0.9% Saline Lock 10 ML Syringe IV ×2 (09:26→16:58)
[2023-03-19] MEDS: amLODIPine 10 MG Tablet PO (09:26)
[2023-03-19] MEDS: Pantoprazole Sodium 40 MG Tablet PO ×2 (09:26→20:41)
[2023-03-19] MEDS: Furosemide 40 MG/4 ML Vial IV ×2 (09:26→16:58)
[2023-03-19] MEDS: Acetaminophen 325 MG Tablet 650 MG PO (09:32)
[2023-03-19] MEDS: Magnesium Sulfate 4gm/100mL 4 GM/100 ML IV.SOLN. IV (10:49)
[2023-03-19] MEDS: Potassium Chloride Oral Tablet 20 MEQ 40 MEQ PO (14:48)
--- NOTE | 2023-03-19 15:12 | CASEMGMT ---
Discharge Planning Patient has been accepted by [facility]. Updates sent so that pre-cert can be submitted today. Nehal Rivero, Discharge Planning Asst.
--- NOTE | 2023-03-19 15:14 | CASEMGMT ---
[facility] accepted patient and will start pre-cert. Plan: [facility] pending pre-cert. Laverne HALEY
--- NOTE | 2023-03-19 16:39 | PCM.PN.HOSP ---
Reason for Visit Reason for Visit: Diagnoses Hypo-osmolality and hyponatremia (03/16/23) Unspecified atrial fibrillation (03/16/23) Unspecified diastolic (congestive) heart failure (03/16/23) Pneumonia due to other streptococci (03/16/23) Pneumonia, unspecified organism (03/16/23) Pleural effusion, not elsewhere classified (03/16/23) Acute respiratory failure with hypoxia (03/16/23) Acute respiratory failure with hypercapnia (03/16/23) Acute kidney failure, unspecified (03/16/23) Subjective Subjective Was seen and examined today, he is currently on 4 L of nasal cannula oxygen. Potassium was slightly low today at 3.3. Patient asked me if there is any way that he could go home for a couple of days before he goes to a correction facility for rehab services, I said no. Objective Data Objective Data Vital Signs: Vital Signs Temp Pulse Resp BP Pulse Ox O2 Del Method O2 Flow Rate 97.9 F 81 18 151/68 H 95 Nasal Cannula 4 03/19/23 09:20 03/19/23 09:20 03/19/23 09:20 03/19/23 09:20 03/19/23 14:55 03/19/23 14:55 03/19/23 14:55 Oxygen Flow Rate (L/min) 4 Oxygen Delivery Method Nasal Cannula Weight: 83.1 kg Body Mass Index (BMI) 27.8 Intake & Output: Intake and Output for Last 24 Hours 03/17/23 03/18/23 03/19/23 23:59 23:59 23:59 Intake Total 830 / 830 1300 / 1300 1050 / 1050 Output Total 1350 / 1450 2550 / 2900 1200 / 1200 Balance -520 / -620 -1250 / -1600 -150 / -150 Lab / Micro Data 03/18/23 05:48 03/19/23 05:42 Labs: Laboratory Results - last 24 hr 03/19/23 05:42: Sodium 135 L, Potassium 3.3 L, Chloride 101, Carbon Dioxide 29.0, Anion Gap 5, BUN 19 H, Creatinine 1.50 H, Estim Creat Clear Calc 46.87, Est GFR (MDRD) Af Amer 60, Est GFR (MDRD) Non-Af 50 L, BUN/Creatinine Ratio 12.7, Glucose 101, Calcium 8.1 L, Magnesium 1.4 L Micro: Microbiology 03/18/23 16:00 Sputum, Expectorated/Coughed Gram Stain - Final 03/18/23 16:00 Sputum, Expectorated/Coughed Respiratory Culture - Preliminary Appears to be normal respiratory kenia. Further studies to follow. 03/16/23 12:20 Blood Culture (Wb) - Left Wrist Blood Culture - Preliminary No growth in 48 hours. 03/16/23 12:15 Blood Culture (Wb) - Anticubital Right Blood Culture - Preliminary No growth in 48 hours. 03/17/23 19:55 Mucosa - Nasopharyngeal Respiratory Panel (PCR) - Final Rhythm Strip Rhythm Strip: A-fib Rate: 90 Ectopy: None Physical Exam Narrative alert, oriented x3, no apparent distress and average body habitus General Appearance: cooperative, well kempt and well developed Orientation / Consciousness: awake, oriented to person, oriented to place and oriented to time HEENT normocephalic, head/scalp atraumatic and moist oral mucous membranes Eyes PERRL, EOMs intact bilaterally and conjunctivae normal Neck supple, no JVD, thyroid normal and no carotid bruits General: trachea midline Resp normal respiratory effort, no retractions and no use of accessory muscles Resp Narrative: Expiratory wheezing is noted bilaterally Auscultation: rhonchi throughout and wheezes throughout-not severe; Negative for rales Cardio regular rate, regular rhythm, S1 normal heart sound, S2 normal heart sound, no murmurs, no rub and no gallops Cardio Narrative: Occasional ectopy noted on auscultation GI normal to inspection, nondistended, normoactive bowel sounds, soft to palpation, non-tender and non-distended Extremity normal to inspection and no clubbing, cyanosis or edema Skin no rashes or lesions noted General Skin Exam: no breakdown Neuro oriented x3, CN's II-XII intact bilaterally, moves all extremities, no focal motor deficits and no sensory deficits noted Sensorium / Orientation: awake, alert, oriented to person and oriented to place Speech: speech normal Psych affect normal Assessment & Plan Assessment/Plan (1) Pneumonia: PLAN: Plan 1. Acute on chronic hypoxic and hypercapnic respiratory failure secondary to acute on chronic diastolic congestive heart failure and healthcare associated pneumonia-continue IV Zosyn at this time and IV diuresis, monitor pulse ox and adjust supplemental oxygen accordingly, patient's oxygen requirement has improved since yesterday. Patient had a chest x-ray performed today, he continues to show right and left lung infiltrates, by my review, there is minimal improvement in the chest x-ray. #2 acute on chronic diastolic congestive heart failure-patient is on IV Lasix at this time #3 acute healthcare acquired pneumonia-patient is on IV Zosyn at this time #4 cardiac arrhythmia-PACs and possible wandering atrial pacemaker-complicates care, medical course, recovery, and prognosis #5 paroxysmal atrial fibrillation-patient currently is not on anticoagulation due to recent GI bleed, patient's heart rate appears under control and he appears in sinus rhythm at this time #6 anemia secondary to recent acute blood loss from GI bleed-patient's hemoglobin remained stable at this time #7 probable COPD-patient is on aerosol treatments at this time, I have elected to place him on budesonide aerosol treatments also. #8 acute debility-patient will need short-term placement in a correction facility, he has agreed to go to [facility] and at this time. Total clinical time spent by myself addressing the patient's medical issues, reviewing all of his data, and collaborating with the patient's care team: 35 minutes Charges/Coding Visit Charges Inpatient E&M: 06266 Subs Hosp L2
[2023-03-19] MEDS: Atorvastatin Calcium 40 MG Tablet PO (20:41)
--- NOTE | 2023-03-19 22:48 | CPS ---
Pt declines bipap at night
[2023-03-20 02:50] VITALS: BP 151/67; PULSE 89; RESP 16; TEMP 36.3; O2SAT 92
[2023-03-20] MEDS: Sucralfate 1 GM Tablet PO ×3 (05:34→17:07)
[2023-03-20] MEDS: Ipratropium/Albuterol Sulfate 3 ML AMPUL.NEB INHALATION ×2 (05:52→12:59)
[2023-03-20] MEDS: Budesonide Respules 0.5 MG/2 ML AMPUL.NEB. INHALATION (05:55)
[2023-03-20 06:00] VITALS: BMI 27.9
[2023-03-20 06:02] VITALS: PULSE 88; RESP 20
[2023-03-20 08:50] VITALS: BP 157/71; PULSE 90; RESP 18; TEMP 36.7; O2SAT 95
[2023-03-20] MEDS: Pantoprazole Sodium 40 MG Tablet PO (09:54)
[2023-03-20] MEDS: Furosemide 40 MG/4 ML Vial IV (09:55)
[2023-03-20] MEDS: amLODIPine 10 MG Tablet PO (09:55)
[2023-03-20] MEDS: Gabapentin 300 MG Capsule PO ×2 (09:55→11:51)
[2023-03-20] MEDS: guaiFENesin 1,200 MG Tablet 1200 MG PO (09:55)
[2023-03-20] MEDS: Ferrous Sulfate 325 MG Tablet PO ×2 (09:55→17:07)
[2023-03-20 10:01] VITALS: O2SAT 94
[2023-03-20 11:01] VITALS: O2SAT 94
--- NOTE | 2023-03-20 12:41 | CASEMGMT ---
Addendum entered by Yashira Mckeon 03/20/23 12:53: Social Work SW sent updates via [facility] to [facility]. BERNARDA Felton Original Note: Social Work As per physician pt is ready for discharge today. SW sent a message via [employer] inquiring about precert. SW called also, spoke w/Nicole, they have not heard from [facility], will let SW know as soon as she hears. She asked for SW to send updates, SW will do so. BERNARDA Felton
--- NOTE | 2023-03-20 13:43 | CASEMGMT ---
Social Work Pt was approved to go to [facility] today. Physician notified. SW let pt's caser in, José Miguel Vergara, know pt will go to [facility] today. BERNARDA Felton
--- NOTE | 2023-03-20 15:12 | PCM.TXEXTCAR ---
Diet Diet Order/Speech Therapy: 03/16/23 20:18 Diet: Cardiac - Heart Healthy Type of Dietary Supplement:: Magic Cup Is pt able to select menu?: Yes Fluid restriction:: 1500 mL Diet Comments: sodium restriction; Magic Cup BID with lunch and dinner Routine Orders/Code Status O2 Liters per Minute: 4 O2 Frequency: Continuous Keep PO Greater than or Equal to (%): 90 Routine Lab Work: [facility] (on 03/22/23) Code Status: Full Code Therapies Weight Bearing: Full weight bearing Physical Therapy: Eval and Treat Occupational Therapy: Eval and Treat Problem/Diagnosis (1) Pneumonia: Status: Acute Code(s): J18.9 - Pneumonia, unspecified organism Plan 1. Acute on chronic hypoxic and hypercapnic respiratory failure secondary to acute on chronic diastolic congestive heart failure and healthcare associated pneumonia-continue IV Zosyn at this time and IV diuresis, monitor pulse ox and adjust supplemental oxygen accordingly, patient's oxygen requirement has improved since yesterday. Patient had a chest x-ray performed today, he continues to show right and left lung infiltrates, by my review, there is minimal improvement in the chest x-ray. #2 acute on chronic diastolic congestive heart failure-patient is on IV Lasix at this time #3 acute healthcare acquired pneumonia-patient is on IV Zosyn at this time #4 cardiac arrhythmia-PACs and possible wandering atrial pacemaker-complicates care, medical course, recovery, and prognosis #5 paroxysmal atrial fibrillation-patient currently is not on anticoagulation due to recent GI bleed, patient's heart rate appears under control and he appears in sinus rhythm at this time #6 anemia secondary to recent acute blood loss from GI bleed-patient's hemoglobin remained stable at this time #7 probable COPD-patient is on aerosol treatments at this time, I have elected to place him on budesonide aerosol treatments also. #8 acute debility-patient will need short-term placement in a [place] [facility] facility, he has agreed to go to [place] and at this time. Total clinical time spent by myself addressing the patient's medical issues, reviewing all of his data, and collaborating with the patient's care team: 35 minutes Allergies/Procedures Done in Hospital Allergies bee pollen Allergy (Verified 09/16/22 10:20) Anaphylaxis Procedures: None Type of Care/Length of Stay Estimated LOS: Convalescent Care Less Than 30 days Type of Care Needed: Skilled Rehab Potential: Good Prognosis: Good Additional Orders/Day of Discharge H&P will serve as current which was dated: 03/16/23 Day of Discharge: 03/20/23 Dietary and Speech Recommendations Dietitian Recommendations/Changes: Continue Cardiac diet with fluid restriction per MD to manage medical conditions. RD will order Magic Cup BID with lunch and dinner to provide supplemental energy. Discharge Plan Admission Admit Date/Time: 03/16/23 15:04 Primary Reason for Your Visit: chf, pneumonia, copd Attending Provider: Charanjit Do Primary Care Provider: Que Mckay Consulting Providers: Lois Houser Discharge Orders/Prescriptions Prescriptions: New acetaminophen 325 mg Tablet 650 mg PO Q6H PRN PRN (Reason: Pain 1-10 Or Fever>100.7) Qty: 0 0RF ipratropium-albuterol 0.5 mg-3 mg(2.5 mg base)/3 mL Solution For Nebulization 3 ml inhalation Q6H.RT Qty: 0 0RF albuterol sulfate 2.5 mg /3 mL (0.083 %) Solution For Nebulization 2.5 mg inhalation Q2H PRN PRN (Reason: SOB/Wheezing) Qty: 0 0RF melatonin 3 mg Tablet 3 mg PO QHS PRN PRN (Reason: Insomnia) Qty: 0 0RF budesonide 0.5 mg/2 mL Suspension For Nebulization 0.5 mg inhalation BID.RT Qty: 0 0RF sucralfate 1 gram Tablet 1 g PO 1HR_ACHS Qty: 0 0RF Rx Instructions: Continue for 2 weeks then discontinue Eliquis 5 mg tablet 5 mg PO BID Qty: 1 0RF Rx Instructions: Start on 03/30/2023 cefdinir 300 mg capsule 300 mg PO BID Qty: 10 0RF Rx Instructions: Start on 03/21/2023, take for 5 days furosemide [Lasix] 40 mg tablet 40 mg PO BID Qty: 1 0RF potassium chloride 20 mEq tablet extended release 20 meq PO BID Qty: 1 0RF lisinopril 20 mg tablet 20 mg PO DAILY Qty: 1 0RF Continued amlodipine [Norvasc] 10 MG tablet 10 mg PO DAILY gabapentin 300 MG capsule 300 mg PO TIDCM rosuvastatin [Crestor] 20 mg Tablet 20 mg PO DAILY magnesium hydroxide [Milk of Magnesia] 400 mg/5 mL Suspension 1,200 mg PO DAILY PRN (Reason: Constipation) ferrous sulfate 325 mg (65 mg iron) tablet 325 mg PO BIDCM Patient Comments: TAKE 1 TABLET BY MOUTH TWICE A DAY WITH MEALS pantoprazole [Protonix] 40 mg tablet,delayed release (DR/EC) 40 mg PO BID Qty: 60 0RF tramadol 50 mg tablet 50 mg PO Q6H PRN (Reason: pain) Qty: 40 0RF Rx Instructions: one or two every six hours as needed for pain-may take with 650 mg Tylenol if desired Discontinued lisinopril [Zestril] 40 MG tablet 40 mg PO DAILY Centrum Silver Men 300-600-300 mcg Tablet 1 tab PO DAILY albuterol sulfate 90 mcg/actuation HFA aerosol inhaler 2 puff inhalation .QID Qty: 6.7 0RF cefdinir 300 mg capsule 600 mg PO DAILY Qty: 2 0RF Rx Instructions: take on 03/16/23-two capsules one time Referrals / Follow Up: Que Mckay MD [Primary Care Provider] - Disposition Disposition (needs filled in before D/C Order can be placed): Custodial Facility
[2023-03-20 15:28] VITALS: BP 146/86; PULSE 91; RESP 18; TEMP 36.6; O2SAT 96
--- NOTE | 2023-03-20 15:28 | DS.PCM_ITS ---
Providers Date of Admission: 03/16/23 Date of Discharge: 03/20/23 Primary Care Physician: Dr. Que Mckay MD Reason For Visit: ACUTE HYPOXIC/HYPERCAPNIA RESP FAILURE Diagnosis Discharge Diagnosis (1) Pneumonia: Status: Acute Code(s): J18.9 - Pneumonia, unspecified organism Plan 1. Acute on chronic hypoxic and hypercapnic respiratory failure secondary to acute on chronic diastolic congestive heart failure and healthcare associated pneumonia-continue IV Zosyn at this time and IV diuresis, monitor pulse ox and adjust supplemental oxygen accordingly, patient's oxygen requirement has improved since yesterday. Patient had a chest x-ray performed today, he continues to show right and left lung infiltrates, by my review, there is minimal improvement in the chest x-ray. #2 acute on chronic diastolic congestive heart failure-patient is on IV Lasix at this time #3 acute healthcare acquired pneumonia-patient is on IV Zosyn at this time #4 cardiac arrhythmia-PACs and possible wandering atrial pacemaker-complicates care, medical course, recovery, and prognosis #5 paroxysmal atrial fibrillation-patient's Eliquis will be restarted at the nursing facility in March #6 anemia secondary to recent acute blood loss from GI bleed-patient's hemoglobin remained stable at this time #7 probable COPD-patient is on aerosol treatments at this time, I have elected to place him on budesonide aerosol treatments also. #8 acute debility-patient will need short-term placement in a [facility] facility, he has agreed to go to [place] and at this time. Total clinical time spent by myself addressing the patient's medical issues, reviewing all of his data, and collaborating with the patient's care team: 35 minutes Medications at Discharge Home Medications amlodipine 10 mg tablet (Norvasc) 10 mg PO DAILY BP 01/19/19 gabapentin 300 mg capsule 300 mg PO TIDCM NERVE PAIN 01/19/19 rosuvastatin 20 mg tablet (Crestor) 20 mg PO DAILY CHOLESTEROL 10/17/22 ferrous sulfate 325 mg (65 mg iron) tablet 325 mg PO BIDCM SUPPLEMENT 03/10/23 magnesium hydroxide 400 mg/5 mL oral suspension (Milk of Magnesia) 1,200 mg PO DAILY PRN Constipation 03/10/23 pantoprazole 40 mg tablet,delayed release (Protonix) 40 mg PO BID #60 tabs 03/15/23 tramadol 50 mg tablet 50 mg PO Q6H PRN pain #40 tabs 03/15/23 acetaminophen 325 mg tablet 650 mg (2 x 325 mg) PO Q6H PRN PRN Pain 1-10 Or Fever>100.7 #0 tabs 03/20/23 albuterol sulfate 2.5 mg/3 mL (0.083 %) solution for nebulization 2.5 mg (3 mL) inhalation Q2H PRN PRN SOB/Wheezing #0 mL 03/20/23 apixaban 5 mg tablet (Eliquis) 5 mg PO BID #1 TAB 03/20/23 budesonide 0.5 mg/2 mL suspension for nebulization 0.5 mg (2 mL) inhalation BID.RT #0 mL 03/20/23 cefdinir 300 mg capsule 300 mg PO BID #10 caps 03/20/23 furosemide 40 mg tablet (Lasix) 40 mg PO BID #1 TAB 03/20/23 ipratropium 0.5 mg-albuterol 3 mg (2.5 mg base)/3 mL nebulization soln 3 ml inhalation Q6H.RT #0 mL 03/20/23 lisinopril 20 mg tablet 20 mg PO DAILY #1 TAB 03/20/23 melatonin 3 mg tablet 3 mg PO QHS PRN PRN Insomnia #0 tabs 03/20/23 potassium chloride 20 mEq tablet,extended release 20 meq PO BID #1 TAB 03/20/23 sucralfate 1 gram tablet 1 g PO 1HR_ACHS #0 tabs 03/20/23 Hospital Course Operations None Procedures None Summary of Care Provided Minutes Spent on Discharge: 3 Hospital Course: 67-year-old white male was seen in the emergency room at [facility] after being brought in by squad after he was found down at home, he had just been released from the hospital 24 hours previously for GI bleed and respiratory failure, work-up in the emergency room showed the patient be hypoxic, he had been discharged home on home oxygen but was not wearing when he was found. Work-up in the emergency room included labs which showed an elevated white blood cell count, chest x-ray showed bilateral infiltrates suggestive of either diffuse pneumonia or congestive heart failure. Patient was admitted to PCU and placed on IV Lasix and IV antibiotics, his oxygen was titrated down, respiratory panel was unremarkable, blood culture was unremarkable, and sputum culture showed normal kenia. Patient's respiratory status improved, his white count normalized, and he was seen by PT and OT and it was felt he would benefit from short-term placement in [facility] facility. Home 03/20/2023, patient was seen and examined: On examination he appeared in good health and spirits. Vital signs as documented. Skin warm and dry and without overt rashes. Neck without JVD, neck was supple, trachea midline, thyroid was normal. Lungs-scattered expiratory wheezes were noted bilaterally, decreased breath sounds were noted overall. Heart exam notable for regular rhythm, normal sounds and absence of murmurs, rubs or gallops. Abdomen unremarkable and without evidence of organomegaly, masses, or abdominal aortic enlargement. Bowel sounds are present, abdomen is not distended. Extremities nonedematous, no cyanosis was noted, no clubbing was noted. Neuro: Cranial nerves II through XII are grossly intact, no focal motor deficits were noted, sensation to light touch and pinprick intact, motor exam 5/5 throughout. Psych: Patient is alert and oriented x3, he does not appear anxious or depressed, he does not appear agitated. Patient was felt to be stable for discharge to an extended care facility for short-term rehab services on 03/20/2023 Weight / BMI Weight Weight: 83.3 kg Body Mass Index (BMI) 27.9 ABG / Lab / Microbiology Data 03/18/23 05:48 03/19/23 05:42 Microbiology: Microbiology 03/18/23 16:00 Sputum, Expectorated/Coughed Gram Stain - Final 03/18/23 16:00 Sputum, Expectorated/Coughed Respiratory Culture - Preliminary Appears to be normal respiratory kenia. Further studies to follow. 03/16/23 12:20 Blood Culture (Wb) - Left Wrist Blood Culture - Preliminary No growth in 48 hours. 03/16/23 12:15 Blood Culture (Wb) - Anticubital Right Blood Culture - Preliminary No growth in 48 hours. 03/17/23 19:55 Mucosa - Nasopharyngeal Respiratory Panel (PCR) - Final Radiography Diagnostic Testing: Radiology Impression Chest X-Ray 03/19/23 05:55 IMPRESSION: Worsening CHF versus worsening bilateral pneumonia. Electronically Signed: Dipak Knight DO at 16:51 EDT Reading Location ID and State: [address] [place] [address] Tel [phone], Service support , Meaningful Use Info Meaningful Use Diagnoses (Choose all that apply): CHF CHF ARY/ARB ordered at discharge?: Yes Documented LVEF (%): 60 Discharge Plan Admission Admit Date/Time: 03/16/23 15:04 Primary Reason for Your Visit: chf, pneumonia, copd Attending Provider: Charanjit Do Primary Care Provider: Que Mckay Consulting Providers: Lois Houser Discharge Orders/Prescriptions Prescriptions: New acetaminophen 325 mg Tablet 650 mg PO Q6H PRN PRN (Reason: Pain 1-10 Or Fever>100.7) Qty: 0 0RF ipratropium-albuterol 0.5 mg-3 mg(2.5 mg base)/3 mL Solution For Nebulization 3 ml inhalation Q6H.RT Qty: 0 0RF albuterol sulfate 2.5 mg /3 mL (0.083 %) Solution For Nebulization 2.5 mg inhalation Q2H PRN PRN (Reason: SOB/Wheezing) Qty: 0 0RF melatonin 3 mg Tablet 3 mg PO QHS PRN PRN (Reason: Insomnia) Qty: 0 0RF budesonide 0.5 mg/2 mL Suspension For Nebulization 0.5 mg inhalation BID.RT Qty: 0 0RF sucralfate 1 gram Tablet 1 g PO 1HR_ACHS Qty: 0 0RF Rx Instructions: Continue for 2 weeks then discontinue Eliquis 5 mg tablet 5 mg PO BID Qty: 1 0RF Rx Instructions: Start on 03/30/2023 cefdinir 300 mg capsule 300 mg PO BID Qty: 10 0RF Rx Instructions: Start on 03/21/2023, take for 5 days furosemide [Lasix] 40 mg tablet 40 mg PO BID Qty: 1 0RF potassium chloride 20 mEq tablet extended release 20 meq PO BID Qty: 1 0RF lisinopril 20 mg tablet 20 mg PO DAILY Qty: 1 0RF Continued amlodipine [Norvasc] 10 MG tablet 10 mg PO DAILY gabapentin 300 MG capsule 300 mg PO TIDCM rosuvastatin [Crestor] 20 mg Tablet 20 mg PO DAILY magnesium hydroxide [Milk of Magnesia] 400 mg/5 mL Suspension 1,200 mg PO DAILY PRN (Reason: Constipation) ferrous sulfate 325 mg (65 mg iron) tablet 325 mg PO BIDCM Patient Comments: TAKE 1 TABLET BY MOUTH TWICE A DAY WITH MEALS pantoprazole [Protonix] 40 mg tablet,delayed release (DR/EC) 40 mg PO BID Qty: 60 0RF tramadol 50 mg tablet 50 mg PO Q6H PRN (Reason: pain) Qty: 40 0RF Rx Instructions: one or two every six hours as needed for pain-may take with 650 mg Tylenol if desired Discontinued lisinopril [Zestril] 40 MG tablet 40 mg PO DAILY Centrum Silver Men 300-600-300 mcg Tablet 1 tab PO DAILY albuterol sulfate 90 mcg/actuation HFA aerosol inhaler 2 puff inhalation .QID Qty: 6.7 0RF cefdinir 300 mg capsule 600 mg PO DAILY Qty: 2 0RF Rx Instructions: take on 03/16/23-two capsules one time Referrals / Follow Up: Que Mckay MD [Primary Care Provider] - Disposition Disposition (needs filled in before D/C Order can be placed): Senior Care Facility Charges/Coding Visit Charges Inpatient E&M: 34567 Disch Hosp >30min
--- NOTE | 2023-03-20 16:22 | CASEMGMT ---
Social Work Pt was approved to go to [facility] today. All discharge instructions and hospital exemption form sent via [employer]. SW set up transport w/[facility]. SW called [facility] to see if they have been called yet for transport. They are set up to picker and sorter load and unload pt at 5:30. SW let [facility] know, let pt and pt's RN know also. Pt set up to leave today at 5:30pm to [facility]. Pt states will let his family and friend know himself. BERNARDA Felton
== END 2023-03-20 18:17 | disposition skilled nursing facility (03) | DRG 193 ==
LOC: ED 14:39 → PCU 15:37
PROVIDERS: Family Medicine; Admitting Provider Internal Medicine; Emergency Provider Emergency Medicine; PCP Family Medicine; Visit Provider Internal Medicine
DX: J18.9 Pneumonia, unspecified organism (principal); J96.21 Acute and chronic respiratory failure with hypoxia; I50.33 Acute on chronic diastolic (congestive) heart failure; J96.22 Acute and chronic respiratory failure with hypercapnia; N17.9 Acute kidney failure, unspecified; J44.0 Chronic obstructive pulmonary disease with (acute) lower respiratory infection; E87.1 Hypo-osmolality and hyponatremia; E87.29 Other acidosis; I11.0 Hypertensive heart disease with heart failure; I48.0 Paroxysmal atrial fibrillation; I73.9 Peripheral vascular disease, unspecified; I48.91 Unspecified atrial fibrillation; F10.10 Alcohol abuse, uncomplicated; D64.9 Anemia, unspecified; Y95 Nosocomial condition; R53.81 Other malaise; I49.1 Atrial premature depolarization
CPT/HCPCS: 36415; 36600; 71045; 71046; 80048; 80053; 82803; 83605; 83735; 83880; 84100; 84484; 85025; 85610; 85730; 87040; 87070; 87205; 87633; 87641; 93005; 94002; 94640; 94668; 94762; 97110; 97162; 97166; 97530; 97535; 97802; 99252; 99285; J7040; A4216; G0463; J1940